=== PATIENT | female | born 1945 | race Caucasian/White ===

== ENCOUNTER 2020-08-28 22:49 | Inpatient (IN) | payer MEDICARE, OTHER, SELFPAY ==
--- NOTE | ~2020-08-28 | XR_ITS ---
EXAMINATION: XR BILATERAL HIPS WITH AP PELVIS CLINICAL INFORMATION: Include pelvis COMPARISON: CT left hip 11/26/2019, left hip and pelvis 11/26/2019 and pelvic radiographs 06/26/2015 TECHNIQUE: AP view of the pelvis and 2 additional views of each hip were obtained. FINDINGS: No pelvic fracture is seen. On the left, A left hip prosthesis is present. Since the prior study, metallic cerclage type wires have been placed around the prosthesis and there is a fracture involving the femur as well as the greater and lesser trochanter. On the right, degenerative changes are present in the hip joint with some narrowing more medially than superiorly with some sclerosis and osteophyte formation. No right hip fracture is seen. XR/XR hips JADE min 3V IMPRESSION: Since 11/26/2019, the patient has undergone revision of the left hip prosthesis with associated left sided femoral fractures as described above. Degenerative changes present in the right hip without fracture.
--- NOTE | ~2020-08-28 | CT_ITS ---
EXAMINATION: CT HIP WITHOUT CONTRAST, LEFT CLINICAL INFORMATION: Fall with left hip pain. COMPARISON: Radiograph from today. CT 11/26/2019. TECHNIQUE: Multidetector volumetric imaging of the left hip is performed without IV contrast. Coronal and sagittal reformatted images are obtained and reviewed. This CT examination was performed using dose optimization techniques as appropriate, variously including the following: *Automated exposure control *Adjustment of mA and/or kV according to patient size (this includes techniques or standardized protocols for targeted exams where dose is matched to indication/reason for exam; i.e. extremities or head) *Use of iterative reconstruction technique DLP: 182 mGy-cm FINDINGS: There is a left hip bipolar hemiarthroplasty. The femoral head there is cerclage wires present transfixing the previous periprosthetic fracture. The hardware appears intact. Lucent appearance along the medial aspect of the hardware suggest incomplete union of this previous periprosthetic fracture. Much of this bone is corticated, suggesting that this is a chronic finding rather than an acute injury. No definite joint effusion at the hip. The remaining pelvic structures appear grossly intact. CT/CT hip LT wo con IMPRESSION: Total left hip arthroplasty without evidence of failure. Intact cerclage wires transfixing the previous periprosthetic fracture with no definite acute fractures seen.
--- NOTE | ~2020-08-28 | CT_ITS ---
EXAMINATION: CT HEAD WITHOUT CONTRAST CLINICAL INFORMATION: Fall. Head injury. COMPARISON: 11/26/2019 TECHNIQUE: Contiguous axial imaging was performed from the skull base to vertex without intravenous contrast. This CT examination was performed using dose optimization techniques as appropriate, variously including the following: * Automated exposure control * Adjustment of mA and/or kV according to patient size (this includes techniques or standardized protocols for targeted exams where dose is matched to indication/reason for exam; i.e. extremities or head) Use of iterative reconstruction technique DLP: 538 mGy-cm. FINDINGS: There is no evidence of acute intracranial hemorrhage or territorial infarction. No abnormal mass effect or midline shift is seen. Barber to white matter differentiation is well preserved. No extra-axial fluid collections are identified. No hydrocephalus. Proportional prominence of the ventricles and sulcal spaces is consistent with mild volume loss. Patchy periventricular and deep white matter hypoattenuation is consistent with mild small vessel ischemic changes. The osseous structures and soft tissues are normal. The mastoid air cells and visualized portions of the paranasal sinuses are well aerated. CT/CT head/brain wo con IMPRESSION: No acute intracranial pathology.
--- NOTE | ~2020-08-28 | XR_ITS ---
EXAMINATION: XR RIBS, BILATERAL CLINICAL INFORMATION: Pain. Fall. COMPARISON: 04/04/2015 TECHNIQUE: 3 views of the bilateral ribs were obtained. FINDINGS: Lungs are clear. No consolidation, pneumothorax, or pleural effusion. The cardiomediastinal silhouette and pulmonary vasculature are normal. Aortic calcifications. Osseous structures are unremarkable. Ribs are intact. No fractures are identified. XR/XR ribs BI 3V IMPRESSION: No acute pulmonary finding. No focal rib abnormality identified.
[2020-08-28 23:00] VITALS: BP 175/60; PULSE 80; RESP 18; TEMP 36.8; O2SAT 89
[2020-08-28 23:12] VITALS: BP 155/68; BP 175/60; PULSE 78; PULSE 88; RESP 15; TEMP 37; O2SAT 91; O2SAT 97; BMI 20.1
[2020-08-29] VITALS: BP 175/60; PULSE 78; RESP 15; O2SAT 97
--- NOTE | 2020-08-29 00:18 | ED_ITS ---
HPI - Fall General Chief Complaint: Fall Stated Complaint: FALL BACK PAIN Time Seen by Provider: 08/28/20 23:59 Source: patient and EMS Mode of arrival: EMS Limitations: no limitations History of Present Illness HPI Narrative: 75-year-old female brought in by ambulance after sustained a mechanical fall at home 3 hours ago, patient states that she was walking tripped on carpet edge and fell backward hit her head, landed on her buttock area and bounced her head on the ground, no LOC, patient stated she tripped about 3 hours ago, complaining of a dull aching pain in the pelvis area describe it as 10/10, no radiation, movement make it worse, nothing relieves the pain, no other associated symptoms. Related Data Home Medications Medication Instructions Recorded Confirmed No Known Home Meds 08/28/20 08/28/20 Allergies Allergy/AdvReac Type Severity Reaction Status Date / Time scallops AdvReac Unknown NAUSEA & Verified 08/28/20 23:22 VOMITING Review of Systems Review of Systems: All other systems are reviewed and are negative Constitutional: Reports as per HPI and Reports no additional constitutional complaints Eyes: Reports as per HPI and Reports no additional eye complaints Reports system reviewed and no additional complaints, except as documented Cardiovascular: Reports as per HPI and Reports no additional cardiovascular complaints Respiratory: Reports as per HPI and Reports no additional respiratory complaints Gastrointestinal: Reports as per HPI and Reports no additional gastrointestinal complaints Genitourinary: Reports no additional female genitourinary complaints Musculoskeletal: Reports no additional musculoskeletal complaints Skin/Breast: Reports system reviewed and no additional complaints, except as docu Psychiatric: Reports no additional psychiatric complaints Endocrine: Reports no additional endocrine complaints Hematologic/Lymphatic: Reports no additional hematologic/lymphatic complaints Allergic/Immunologic: Reports no additional allergic/immunologic complaints Reports system reviewed and no additional complaints, except as documented and Reports Abnormal speech present [facility] Past Medical History Surgical History History of hip replacement Social History Social History Smoking Status: Current every day smoker Use of substances other than those prescribed or required for medical reasons: No Advance Directives: No Advance Directives Information Provided: No Physical Exam Vital Signs: Vital Signs: Last Vital Signs Temp 98.6 F 08/28/20 23:12 Pulse 78 08/29/20 00:00 Resp 15 08/29/20 00:00 BP 175/60 H 08/29/20 00:00 Pulse Ox 97 08/29/20 00:00 Body Mass Index 20.1 Vital signs have been reviewed as appeared to be correct. Blood pressure in the high range. Heart rate normal. Respiration rate normal. Temperature normal. Oxygen saturation normal. Appearance: Alert. Oriented X3. No acute distress. Head: Normal external exam. Normocephalic. Atraumatic. No Parikh signs noted. No raccoon eyes noted Eyes: PERRLA. EOMI. Conjunctiva and sclera normal. Eyelids normal. ENT: TM's Normal. Pharynx normal. Uvula midline. Moist mucous membranes. No trismus noted. No drooling noted. No muffled voice noted. Neck: Normal inspection. Neck supple. FROM. No adenopathy. Thyroid Normal. No meningeal signs. No neck mass noted. CVS: Normal heart rate and rhythm. Heart sound normal. No murmurs noted. Pulses normal throughout. Respiratory: No respiratory distress. Painless inspiration. Breath sounds normal. No wheezes/rales/rhonchi noted. Chest nontender. No accessory muscle usage noted or decreased air movement noted. Abdomen: Soft and nontender. Bowel sounds normal in all 4 quadrants. No distention noted. No organomegaly noted. No visible injury noted. Back: No CVA tenderness. Full range of motion noted. Skin: Skin warm and dry. Normal skin color. Normal skin turgor. No rashes/lesions/lacerations noted. Extremities: Normal alignment of both lower extremities is no rotation or shortening, no hip tenderness. Patient is unable to bear weight on her left hip. Neuro: Oriented X 3. No motor deficit. No sensory deficit. Reflexes normal. Course Course Course Narrative: Assessment and plan. 75-year-old sustained a mechanical fall, negative CT head and C-spine, negative pelvis/hips x-ray for fracture. Patient is not able to ambulate in the emergency department. The case discussed with Dr. Nair from orthopedic recommended to keep the patient overnight for further orthopedic evaluation. Discharge Plan Discharge Clinical Impression: Fall, Contusion of lower back and pelvis, initial encounter Patient Disposition: Admitted As Inpatient Prescriptions: No Action No Known Home Meds RF: 0 Referrals: Physician,Unknown [Primary Care Provider] - 2 days
--- NOTE | 2020-08-29 02:05 | ECG_ITS ---
Test Reason : FALL Blood Pressure : / mmHG Vent. Rate : 081 BPM Atrial Rate : 081 BPM P-R Int : 110 ms QRS Dur : 066 ms QT Int : 380 ms P-R-T Axes : 094 054 088 degrees QTc Int : 441 ms Poor data quality Sinus rhythm with short WV with Premature supraventricular complexes Otherwise normal ECG When compared with ECG of 04-APR-2015 15:37, PAC present Referred By: Jos Angelo Electronically Signed By:Vicente Castle
--- NOTE | 2020-08-29 02:11 | P.HPHOSP_ITS ---
History of Present Illness Date of Service: 08/29/20 Chief Complaint: Left hip pain 75-year-old female with a past medical history of osteoarthritis, history of left hip replacement, subsequent revision; presented to the hospital today with a chief complaint of fall. Patient complains of falling onto her back, landed on the buttocks and hitting her head. Denies any headaches or blurry vision. Denies any focal weakness. Denies any loss of consciousness. Denies any back pain. Denies any numbness tingling. Complains of pain in her left hip and unable to walk. Patient denies any fever chills cough. Denies any chest pain palpitations. Denies any GI or symptoms. Review of all other systems is negative except mentioned above ER course: Per ER team patient exam was nonfocal but noted to have pain on the left hip examination. X-ray showed question fracture around the prosthesis. Discussed with Dr. burr from Orthopedics; wound showed no acute intervention overnight, admitted to Medicine Service and will be re-evaluated in the morning. [facility] Surgical History History of hip replacement Social History Smoking Status: Current every day smoker Use of substances other than those prescribed or required for medical reasons: No Advance Directives: No Advance Directives Information Provided: No Meds Allergies Allergy/AdvReac Type Severity Reaction Status Date / Time scallops AdvReac Unknown NAUSEA & Verified 08/28/20 23:22 VOMITING Active Medications: Current Medications Generic Name Dose Route Start Last Admin Trade Name Freq PRN Reason Stop Dose Admin Acetaminophen 650 mg 08/29/20 02:04 Acetaminophen Supp 650 Mg Supp.Rect KS Q6H PRN Pain, Mild (Pain Scale 1-3) Docusate Sodium 100 mg 08/29/20 02:04 Docusate Sodium 100 Mg Capsule PO DAILY PRN Constipation Enoxaparin Sodium 40 mg 08/29/20 02:15 Enoxaparin Sodium 40 Mg/0.4 Ml Syringe SUBCUT Q24H YARELI Magnesium Hydroxide 30 ml 08/29/20 02:04 Milk Of Magnesia 30 Ml Oral.Susp PO DAILY PRN Constipation Oxycodone HCl 5 mg 08/30/20 02:04 Oxycodone Hcl Immed Release 5 Mg Tablet PO Q6H PRN Pain, Severe (Pain Scale 7-10) Sodium Chloride 3 ml 08/29/20 08:00 0.9 % Sodium Chloride Flush 3 Ml Syringe [facility] Zolpid[place] Tartrate 5 mg 08/29/20 02:04 Zolpidem Tartrate 5 Mg Tablet PO BEDTIME PRN Insomnia Home Medications Medication Instructions Recorded Confirmed Last Taken Type No Known Home Meds 08/28/20 08/28/20 Unknown History Physical Exam Vital Signs and Narrative: Vital Signs: Last Vital Signs Temp 98.6 F 08/28/20 23:12 Pulse 78 08/29/20 00:00 Resp 15 08/29/20 00:00 BP 175/60 H 08/29/20 00:00 Pulse Ox 97 08/29/20 00:00 Body Mass Index 20.1 Gen: Appears be in no acute distress HEENT: NCAT, Moist mucosa. Pulmonary: Vesicular breath sounds, fair air entry CVS: Normal S1-S2 Abdomen: BS+, Soft, Nontender Extremities: Warm well perfused; left hip exam limited secondary to pain. Abhijit rovascularly intact Neuro: Alert and awake. Results Labs CBC and Chem 7: 08/29/20 02:28 08/29/20 02:28 Imaging Radiologist's Impressions: Impressions Head CT 08/29/20 00:00 IMPRESSION: No acute intracranial pathology. Hip X-Ray 08/29/20 00:00 IMPRESSION: Since 11/26/2019, the patient has undergone revision of the left hip prosthesis with associated left sided femoral fractures as described above. Degenerative changes present in the right hip without fracture. Assessment and Plan (1) Hip pain: Status: Acute 75-year-old female with past medical history of hypertension, osteoarthritis, history of left hip replacement, subsequent revision presented to the hospital today with a chief complaint of fall. Complains of left hip pain; noted left hip fracture. Fall: Mechanical in nature. Patient had head strike. Exam nonfocal. CT head showed no acute findings. Fall precautions. PT/OT. No Spinal tenderness noticed; Rt lateral rib pain elicited-> Rib x rays pending Left hip pain: Patient has prior history of left hip replacement and has prosthesis. Current hip x-rays showed left-sided femur fracture and lesser and greater trochanter fracture. CT of the hip- no acute fracture Orthopedics was notified, mentioned no acute intervention tonight and patient will be evaluated the patient in the morning. Fall precautions Pain control Hypertension: Monitor vitals. pt not on meds at home; DVT prophylaxis: Lovenox Code status: Full code
[2020-08-29 02:37] LABS: MANUAL DIFF FLAG NO
[2020-08-29 02:43] LABS: Basophils Percent Auto 0.2 % (0-2); Eosinophils Percent Auto 0.2 % (0-4); Hematocrit 41.2 % (37-47); Hemoglobin 13.2 g/dl (12.0-16.0); Imm Gran Abs Auto 0.09 X10*3/uL (0.00-0.03); Imm Gran Pct Auto 0.7 % (0.0-0.4); Lymphocytes Absolute Auto 1.3 X10*3/uL (1.2-4.9); Lymphocytes Percent Auto 10.6 % (20-40); Mean Corpuscular Hemoglobin 27.6 pg (27.0-33.0); Mean Platelet Volume 9.5 fL (9.4-12.3); Monocytes Absolute Auto 0.9 X10*3/uL (0.1-1.2); Monocytes Percent Auto 7.4 % (2-11); Neutrophils Absolute Auto 9.7 X10*3/uL (2.0-8.3); Neutrophils Percent Auto 80.9 % (45-73); Platelet Count 393 X10*3/uL (160-400); Red Blood Count 4.79 X10*6/uL (4.20-5.50)
[2020-08-29 03:00] LABS: COVID-19 Test Negative (Negative); IDNOW Serial# 9DD0AD1C
[2020-08-29 03:03] LABS: Anion Gap 13 (12-20); Blood Urea Nitrogen 18 mg/dL (9-16); Calcium 8.5 mg/dL (8.4-10.2); Carbon Dioxide 31 mmol/L (22-29); Chloride 102 mmol/L (96-108); Creatinine Clr Calc Pharmacy 52.2; Estimated Glomerular Filt Rate > 60; Glucose Random 114 mg/dL (60-115); Potassium 4.6 mmol/L (3.3-5.1); Sodium 141 mmol/L (135-145)
[2020-08-29 03:11] LABS: Troponin-I High Sensitivity < 3.5 ng/L (<3.5-17.0)
[2020-08-29] MEDS: oxyCODONE HCl Immed Release 5 MG TABLET PO ×2 (07:15→14:33)
[2020-08-29] MEDS: 0.9 % Sodium Chloride Flush 3 ML SYRINGE IVFLUSH ×2 (07:31→15:59)
[2020-08-29 08:07] LABS: MANUAL DIFF FLAG NO
[2020-08-29 08:11] LABS: Basophils Percent Auto 0.3 % (0-2); Eosinophils Absolute Auto 0.1 X10*3/uL (0.0-0.4); Eosinophils Percent Auto 0.5 % (0-4); Hematocrit 41.2 % (37-47); Imm Gran Abs Auto 0.05 X10*3/uL (0.00-0.03); Imm Gran Pct Auto 0.5 % (0.0-0.4); Lymphocytes Absolute Auto 1.1 X10*3/uL (1.2-4.9); Lymphocytes Percent Auto 11.5 % (20-40); Mean Corpuscular HGB Conc 31.6 g/dl (31.0-35.0); Mean Corpuscular Hemoglobin 26.6 pg (27.0-33.0); Mean Corpuscular Volume 84.4 fL (80-98); Mean Platelet Volume 9.7 fL (9.4-12.3); Monocytes Absolute Auto 0.7 X10*3/uL (0.1-1.2); Monocytes Percent Auto 7.3 % (2-11); Neutrophils Absolute Auto 7.4 X10*3/uL (2.0-8.3); Neutrophils Percent Auto 79.9 % (45-73); Platelet Count 377 X10*3/uL (160-400); Red Blood Count 4.88 X10*6/uL (4.20-5.50); Red Cell Distribution Width 13.7 % (11.0-16.0); White Blood Count 9.2 X10*3/uL (4.8-10.8)
[2020-08-29 08:36] LABS: Anion Gap 10 (12-20); Blood Urea Nitrogen 17 mg/dL (9-16); Calcium 8.5 mg/dL (8.4-10.2); Carbon Dioxide 32 mmol/L (22-29); Chloride 101 mmol/L (96-108); Creatinine Clr Calc Pharmacy 56.2; Estimated Glomerular Filt Rate > 60; Glucose Random 115 mg/dL (60-115); Potassium 4.6 mmol/L (3.3-5.1); Sodium 138 mmol/L (135-145)
--- NOTE | 2020-08-29 08:53 | P.CONOP_ITS ---
History of Present Illness HPI Consult date: 08/29/20 Consult reason: joint pain Chief complaint: LEFT HIP PAIN Narrative: Ms. Hameed is a 75 yo female who sustained a mechanical fall after tripping on her rug last evening. She is s/p left hip hemiarthroplasty with Dr. Resendez on 04/04/2015 and a revision with cerclage wires after sustaining a periprosthetic fracture sometime late last year at [facility]. She is unable to remember when exactly. She states that during the fall she hit her head and immediately felt left hip pain. She states that she was unable to ambulate after the fall and presented to the ER shortly after and orthopedics was consulted. She lives with her daughter and uses a walker at baseline to ambulate. Review of Systems Review of Systems: Yes all other systems are reviewed and are negative [facility] Surgical History Surgical History History of hip replacement Social History Social History Smoking Status: Current every day smoker Use of substances other than those prescribed or required for medical reasons: No Advance Directives: No Advance Directives Information Provided: No Meds Allergies Allergy/AdvReac Type Severity Reaction Status Date / Time scallops AdvReac Unknown NAUSEA & Verified 08/28/20 23:22 VOMITING Active Medications: Current Medications Generic Name Dose Route Start Last Admin Trade Name Freq PRN Reason Stop Dose Admin Acetaminophen 650 mg 08/29/20 02:04 Acetaminophen Supp 650 Mg Supp.Rect GA Q6H PRN Pain, Mild (Pain Scale 1-3) Docusate Sodium 100 mg 08/29/20 02:04 Docusate Sodium 100 Mg Capsule PO DAILY PRN Constipation Enoxaparin Sodium 40 mg 08/29/20 08:00 Enoxaparin Sodium 40 Mg/0.4 Ml Syringe SUBCUT Q24H YARELI Magnesium Hydroxide 30 ml 08/29/20 02:04 Milk Of Magnesia 30 Ml Oral.Susp PO DAILY PRN Constipation Oxycodone HCl 5 mg 08/29/20 03:40 08/29/20 07:15 Oxycodone Hcl Immed Release 5 Mg Tablet PO 5 mg Q6H PRN Administration Breakthrough Pain Sodium Chloride 3 ml 08/29/20 08:00 08/29/20 07:31 0.9 % Sodium Chloride Flush 3 Ml Syringe IVFLUSH 3 ml QSHIFT YARELI Administration Zolpidem Tartrate 5 mg 08/29/20 02:04 Zolpidem Tartrate 5 Mg Tablet PO BEDTIME PRN Insomnia Home Medications Medication Instructions Recorded Confirmed Last Taken Type No Known Home Meds 08/28/20 08/28/20 Unknown History Physical Exam Vital Signs: Vital Signs: Last Vital Signs Temp 98.6 F 08/28/20 23:12 Pulse 78 08/29/20 00:00 Resp 15 08/29/20 00:00 BP 175/60 H 08/29/20 00:00 Pulse Ox 97 08/29/20 00:00 Body Mass Index 20.1 Const: General: cooperative and no acute distress Orientat ion/consciousness: patient oriented x3 Resp: Effort & Inspection: normal respiratory effort and able to speak in complete sentences Cardio: Peripheral pulses: Peripheral pulses 2+ throughout Skin: General skin exam: no rashes or lesions noted Neuro: General: patient oriented x3 Extrem: Other: left hip no ecchymosis, redness, or lesions. No tenderness to palpation of the left hip. Patient is able to perform a straight leg raise, hip abduction, hip adduction and tolerate log roll with no pain. Pedal pulse intact. Results Labs Result Diagrams: 08/29/20 08:03 08/29/20 08:03 Labs: Abnormal lab results 08/29/20 08/29/20 08/29/20 Range/Units 02:28 02:28 08:03 WBC 12.0 H (4.8-10.8) X10*3/uL MCH 26.6 L (27.0-33.0) pg Immature Gran % (Auto) 0.7 H 0.5 H (0.0-0.4) % Neut % (Auto) 80.9 H 79.9 H (45-73) % Lymph % (Auto) 10.6 L 11.5 L (20-40) % Lymph # (Auto) 1.1 L (1.2-4.9) X10*3/uL Abs Immat Gran (auto) 0.09 H 0.05 H (0.00-0.03) X10*3/uL Absolute Neuts (auto) 9.7 H (2.0-8.3) X10*3/uL Carbon Dioxide 31 H (22-29) mmol/L Anion Gap (12-20) BUN 18 H (9-16) mg/dL 08/29/20 Range/Units 08:03 WBC (4.8-10.8) X10*3/uL MCH (27.0-33.0) pg Immature Gran % (Auto) (0.0-0.4) % Neut % (Auto) (45-73) % Lymph % (Auto) (20-40) % Lymph # (Auto) (1.2-4.9) X10*3/uL Abs Immat Gran (auto) (0.00-0.03) X10*3/uL Absolute Neuts (auto) (2.0-8.3) X10*3/uL Carbon Dioxide 32 H (22-29) mmol/L Anion Gap 10 L (12-20) BUN 17 H (9-16) mg/dL H & H 08/29/20 08/29/20 Range/Units 02:28 08:03 Hgb 13.2 13.0 (12.0-16.0) g/dl Hct 41.2 41.2 (37-47) % All other labs normal. Assessment and Plan (1) Hip pain: Status: Acute Ms. Tovar is a 75 yo female who presents to the ED after sustaining a mechanical fall last evening. She is s/p left hip hemiarthroplast on 04/04/[address] Resendez and then underwent a revision sometime late last year at [facility]. X-rays and CT of the hip were obtained and reveal intact hardware with no acute fracture or effusion. She may WBAT and work with P.T. Followup outpatient as needed.
[2020-08-29 09:34] LABS: Estimated Average Glucose 103 mg/dL; Hemoglobin A1c % 5.2 %
[2020-08-29 09:45] VITALS: BP 175/60; PULSE 78; O2SAT 97
[2020-08-29] MEDS: Enoxaparin Sodium 40 MG/0.4 ML SYRINGE SUBCUT (09:53)
[2020-08-29] MEDS: Morphine Sulfate 2 MG/ML CARTRIDGE IVPUSH ×2 (11:12→17:23)
[2020-08-29 14:49] VITALS: BP 193/70
[2020-08-29] MEDS: amLODIPine Besylate 5 MG TABLET PO (14:49)
--- NOTE | 2020-08-29 14:59 | PM.EVENT ---
Event Note Date of Service: 08/29/20 Event Note: 75-year-old female presented with fall and hip pain patient was also reporting pain on right lateral chest patient seen and examined at bedside on exam alert abdomen soft CVS rate and rhythm regular mild tender on right lateral chest, lungs clear admitted for status post fall hip pain CT hip shows no acute fracture seen by Orthopedic recommended pain management and physical therapy, continue pain management, evaluated by PT recommended short-term rehab, possible discharge to rehab tomorrow if pain is controlled, x-ray rib shows no acute fracture
[2020-08-29 17:59] VITALS: BP 163/61; PULSE 91; RESP 24; TEMP 37.2; O2SAT 97
[2020-08-29 20:00] VITALS: BP 135/68; PULSE 89; RESP 20; TEMP 37.2; O2SAT 93
[2020-08-29 23:57] VITALS: BP 148/70; PULSE 98; RESP 19; TEMP 37.2; O2SAT 91
[2020-08-30] MEDS: Morphine Sulfate 2 MG/ML CARTRIDGE IVPUSH (00:03)
[2020-08-30 03:16] VITALS: BP 149/61; PULSE 100; RESP 19; TEMP 37.1; O2SAT 91
[2020-08-30 05:44] LABS: Magnesium 1.9 mg/dL (1.6-2.6)
[2020-08-30] MEDS: oxyCODONE HCl Immed Release 5 MG TABLET PO (06:09)
[2020-08-30] MEDS: Enoxaparin Sodium 40 MG/0.4 ML SYRINGE SUBCUT (07:52)
[2020-08-30] MEDS: 0.9 % Sodium Chloride Flush 3 ML SYRINGE IVFLUSH ×2 (07:57)
[2020-08-30 07:59] VITALS: BP 141/67; PULSE 103
[2020-08-30] MEDS: amLODIPine Besylate 5 MG TABLET PO (07:59)
[2020-08-30 08:00] VITALS: BP 141/67; PULSE 103; RESP 20; TEMP 37.2; O2SAT 90
--- NOTE | 2020-08-30 09:03 | MHC.CM.PN ---
CM met with Patient at bedside and addressed IMM, providing Patient with the original and a copy has been placed on the chart. Patient was living with her Daughter until recently (she did not care for her Daughter's Boyfriend nor her Grandchildren's behavior); Patient now lives alone in a house and uses a walker to assist with mobility. PT is recommending STR and Patient's first choice is [facility] (referral made). Patient has not seen a Doctor for over 7 years, since her passed. Patient does not use O2 at home. Patient's Daughter/Terra is Patient's HCP.
--- NOTE | 2020-08-30 10:30 | MHC.CM.PN ---
Patient has been medically cleared for dc to [facility] today. Patient has been accepted at her first choice SNF- [facility] and she will dc there today at 1 PM, via [facility]. IMM addressed with Patient this morning.
--- NOTE | 2020-08-30 10:30 | MHC.INPTTRAN ---
alert, vague and confused at times. Is WBAT, 2 assist to get OOB. weak, C/o pain left rib area. Wearing 02 at 3l via N/C. has congested cough. Incen spir encouraged. Huy diet. voiding. thanks.
--- NOTE | 2020-08-30 10:31 | P.DS_ITS ---
DS: Providers Provider Date of Service: 08/30/20 Date of admission: 08/29/20 02:04 Primary care physician: Unknown Physician Consults: 08/29/20 08:38 Consult to Orthopedics Routine Consulting Provider: [facility] Reason for consultation: hip pain previous prosthesis DS: Diagnosis Discharge Diagnosis (1) Hip pain: Status: Acute (2) Fall: Status: Acute DS: Medications Discharge Medications Home Medications: Previous Rx's Medication Instructions Recorded albuterol sulfate 1 inh INHALATION QID PRN #6.7 g 08/30/20 amlodipine 5 mg PO DAILY #30 tab 08/30/20 docusate sodium 100 mg PO DAILY PRN #20 cap 08/30/20 magnesium hydroxide [Milk of 30 ml PO DAILY PRN #200 ml 08/30/20 Magnesia] oxycodone 5 mg PO Q6H PRN #20 tab 08/30/20 DS: Summary Hospital Course Hospital Course: Hand P 75-year-old female with a past medical history of osteoarthritis, history of left hip replacement, subsequent revision; presented to the hospital today with a chief complaint of fall. Patient complains of falling onto her back, landed on the buttocks and hitting her head. Denies any headaches or blurry vision. Denies any focal weakness. Denies any loss of consciousness. Denies any back pain. Denies any numbness tingling. Complains of pain in her left hip and unable to walk. Patient denies any fever chills cough. Denies any chest pain palpitations. Denies any GI or symptoms. Review of all other systems is negative except mentioned above ER course: Per ER team patient exam was nonfocal but noted to have pain on the left hip examination. X-ray showed question fracture around the prosthesis. Discussed with Dr. burr from Orthopedics; wound showed no acute intervention overnight, admitted to Medicine Service and will be re-evaluated in the morning. Hospital Course 75-year-old female presented with fall and hip pain, per CT head on admission shows no acute fracture, patient was seen by Orthopedic recommended pain management and physical therapy given no fracture, patient was started on pain medication, pain was controlled, patient was evaluated by Physical therapy recommended short-term rehab, patient's oxygen was borderline patient was placed on oxygen likely secondary to COPD from chronic smoking, patient was also started on albuterol inhaler, patient was stable discharged to short-term rehab Time Spent with Patient Time attestation: Total time spent providing and/or coordinating discharge services: Discharge coordination time: Greater than 30 minutes Physical Exam Vital Signs: Vital Signs: Last Vital Signs Temp 98.9 F 08/30/20 08:00 Pulse 103 H 08/30/20 08:00 Resp 20 08/30/20 08:00 BP 141/67 H 08/30/20 08:00 Pulse Ox 90 L 08/30/20 08:00 Body Mass Index 20.1 DS: Data Data Completed and Pending Labs on day of discharge: Laboratory Results - last 24 hr 08/30/20 04:41 Magnesium 1.9 Discharge Plan Discharge Anticipated Discharge Date/Time: 08/30/20 10:21 Patient Disposition: Xfer [facility]Outside] Physician,Unknown [Primary Care Provider] - 2 days Discharge Medications: New amlodipine 5 mg Tablet 5 mg PO DAILY Qty: 30 RF: 0 magnesium hydroxide [Milk of Magnesia] 400 mg/5 mL Suspension 30 ml PO DAILY PRN (Reason: Constipation) Qty: 200 RF: 0 docusate sodium 100 mg Capsule 100 mg PO DAILY PRN (Reason: Constipation) Qty: 20 RF: 0 oxycodone 5 mg Tablet 5 mg PO Q6H PRN (Reason: Breakthrough Pain) Qty: 20 RF: 0 albuterol sulfate 90 mcg/actuation HFA aerosol inhaler 1 inh inhalation QID PRN (Reason: shortness of breath or wheezing) Qty: 6.7 RF: 0 Discharge Orders: Discharge Order (Routine); Ordered 08/30/20 Ordered By: David Calhoun Activity on Discharge: As tolerated Stand Alone Forms: Patient Portal Discharge page Care Plan Goals: treat pain Health Concerns: fall hip pain Plan of Treatment: pain medication STR Discharge Date/Time: 08/30/20 13:47
[2020-08-30 11:45] LABS: Anion Gap 13 (12-20); Blood Urea Nitrogen 16 mg/dL (9-16); Calcium 8.5 mg/dL (8.4-10.2); Carbon Dioxide 30 mmol/L (22-29); Chloride 99 mmol/L (96-108); Creatinine Clr Calc Pharmacy 56.2; Estimated Glomerular Filt Rate > 60; Glucose Random 122 mg/dL (60-115); Potassium 4.1 mmol/L (3.3-5.1); Sodium 138 mmol/L (135-145)
[2020-08-30 12:00] VITALS: BP 123/53; PULSE 94; RESP 94; TEMP 36.8; O2SAT 2
[2020-08-30 12:39] VITALS: RESP 20; TEMP 36.9; O2SAT 93
== END 2020-08-30 13:47 | disposition skilled nursing facility (03) | DRG 561 ==
LOC: HO.ED 08-29 02:08 → HO.EDOVER 08-29 02:20 → HO.IMC 08-29 16:40
PROVIDERS: Admitting Provider Hospitalist; Emergency Provider Emergency Medicine; Visit Provider Internal Medicine
DX: M97.02XA Periprosthetic fracture around internal prosthetic left hip joint, initial encounter (principal); F17.210 Nicotine dependence, cigarettes, uncomplicated; I10 Essential (primary) hypertension; J44.9 Chronic obstructive pulmonary disease, unspecified; Z71.6 Tobacco abuse counseling; Z20.822 Contact with and (suspected) exposure to COVID-19; Z79.891 Long term (current) use of opiate analgesic; Z79.899 Other long term (current) drug therapy
CPT/HCPCS: 36415; 70450; 71110; 73522; 73700; 80048; 83036; 83735; 84484; 85025; 87635; 93005; 97162; 97166; 99285; J1650; J2270

== ENCOUNTER 2021-10-20 20:40 | Inpatient (IN) | payer MEDICARE, OTHER, SELFPAY ==
--- NOTE | ~2021-10-20 | XR_ITS ---
EXAMINATION: XR CHEST CLINICAL INFORMATION: Cough and fever COMPARISON: 08/29/2020 TECHNIQUE: Frontal view of the chest was obtained. FINDINGS: Emphysema. Chronic lung markings. Streaky opacities at the left greater than right lung bases. No large pleural effusion. No pneumothorax. Normal heart size. Aorta is tortuous and atherosclerotic. XR/XR chest 1V IMPRESSION: Bibasilar streaky opacities potentially subsegmental atelectasis, however infiltrate is not excluded, particularly at the left lung base. Chronic lung markings and likely emphysema redemonstrated.
[2021-10-20 22:23] VITALS: BP 150/60; PULSE 115; RESP 25; TEMP 37.6; O2SAT 85; BMI 17.6
[2021-10-20 22:53] VITALS: BP 138/60; PULSE 102; RESP 15; TEMP 38.2; O2SAT 95
[2021-10-20 23:10] VITALS: BP 146/61; PULSE 94; O2SAT 100
--- NOTE | 2021-10-20 23:46 | ED_ITS ---
HPI - Altered Mental Status General Chief Complaint: Altered Mental Status Stated Complaint: fatigue, sniffles, off , dehydrated Time Seen by Provider: 10/20/21 23:46 Source: patient and family Mode of arrival: ambulatory Limitations: no limitations History of Present Illness HPI narrative: Patient is 76 years old chronic smoker with COPD been feeling weak and confused for last 3- 4 days with low-grade fever . Patient has not received the COVID vaccine, on arrival patient was saturating 85% at room air a temperature of 100.7 degrees on arrival denies any urinary symptoms no chest pain or palpitation no abdominal pain no nausea or vomiting Related Data Previous Rx's Medication Instructions Recorded albuterol sulfate 90 mcg/actuation 1 inh INHALATION QID PRN #6.7 g 08/30/20 aerosol inhaler amlodipine 5 mg tablet 5 mg PO DAILY #30 tab 08/30/20 docusate sodium 100 mg capsule 100 mg PO DAILY PRN #20 cap 08/30/20 magnesium hydroxide 400 mg/5 mL 30 ml PO DAILY PRN #200 ml 08/30/20 oral suspension (Milk of Magnesia) oxycodone 5 mg tablet 5 mg PO Q6H PRN #20 tab 08/30/20 Allergies Allergy/AdvReac Type Severity Reaction Status Date / Time scallops AdvReac Unknown NAUSEA & Verified 10/20/21 22:29 VOMITING Review of Systems Review of Systems: Yes all other systems are reviewed and are negative [facility] Past Medical History Surgical History History of hip replacement Social History Social History Household Members: Family Housing: House Do you presently have visiting nurse or other home services: No Patient Tobacco Use Status: Current everyday Tobacco user Cigarettes Per Day: 9 Smoked in Last 30 Days: Yes Second Hand Smoke Exposure: No Advance Directives: No Advance Directives Information Provided: No service: No Current occupational status: retired Physical Exam ED Vital Signs: Vital Signs - 24 hr 10/20/21 22:23 10/20/21 22:53 10/20/21 23:10 Temperature 99.6 F 100.7 F H Pulse Rate 115 H 102 H 94 Respiratory Rate 25 H 15 Blood Pressure 150/60 H 138/60 146/61 H Pulse Oximetry 85 L 95 100 10/20/21 23:49 10/21/21 00:08 Temperature Pulse Rate 93 91 Respiratory Rate 14 18 Blood Pressure 165/67 H Pulse Oximetry 100 BMI result Body Mass Index 17.6 Appearance: Alert. Oriented X3. Thin cachectic patient Eyes: No pallor or icterus ENT: Pharynx normal. Oral Mucosa moist Neck: Normal inspection. Neck supple. CVS: Normal heart rate and rhythm. Pulses normal. Respiratory: No respiratory distress. Equal air entry bilateral, decreased air entry bilateral few crackles at the bases Abdomen: Soft and nontender. Bowel sounds are present, no mass palpable, no CVA tenderness Skin: Skin warm and dry. Normal skin color. Normal skin turgor. Extremities: No lower extremity edema. No calf tenderness Neuro: Oriented X 3. No motor deficit. No sensory deficit.No cerebellar signs , cranial nerves II-XII intact MDM - Altered Mental Status MDM Narrative Medical decision making narrative: Patient with acute respiratory failure secondary to COVID-19 infection along with COPD saturating 85% at room air improved to 98% on 2 L of oxygen nasal cannula will admit patient for acute hypoxemia 2ndry to COVID-19 started and steroids plan to place her on remdesivir after ID consultation patient chest x- ray is negative for any acute. Lab Data Attestation: I reviewed the patient's lab results. Result diagrams: 10/20/21 23:48 10/20/21 23:47 Labs: Lab Results 10/20/21 10/20/21 10/20/21 Range/Units 23:47 23:48 23:48 WBC 7.0 (4.8-10.8) X10*3/uL RBC 4.58 (4.20-5.50) X10*6/uL Hgb 13.0 (12.0-16.0) g/dl Hct 41.5 (37.0-47.0) % MCV 90.6 (80.0-98.0) fL MCH 28.4 (27.0-33.0) pg MCHC 31.3 (31.0-35.0) g/dl RDW 15.4 (11.0-16.0) % Plt Count 314 (160-400) X10*3/uL MPV 10.2 (9.4-12.3) fL Absolute Nucleated RBC 0.000 (0.0-0.012) X10*3/uL Nucleated RBC % (auto) 0.0 (0.0-0.2) /100WBC PT (9.9-13.0) SEC INR (0.9-1.1) APTT (24.1-38.0) SEC D-Dimer High Sensitivty NG/ML Sodium 145 (135-145) mmol/L Potassium 3.7 (3.3-5.1) mmol/L Chloride 108 (96-108) mmol/L Carbon Dioxide 26 (22-29) mmol/L Anion Gap 15 (12-20) BUN 14 (9-16) mg/dL Creatinine 0.60 (0.5-1.4) mg/dL Estim Creat Clear Calc 49.7 Estimated GFR > 60 Random Glucose 82 (60-115) mg/dL Lactic Acid (0.5-2.0) mmol/L Calcium 8.2 L (8.4-10.2) mg/dL Total Bilirubin 0.4 (0.0-1.0) mg/dL AST 36 H (5-31) U/L ALT 15 (0-31) U/L Alkaline Phosphatase 101 (39-117) U/L Total Protein 6.2 L (6.5-8.0) g/dL Albumin 3.1 L (3.5-5.0) g/dL COVID-19 (ZAHRAA) Positive A (Negative) COVID-19 Clin Com See Note 10/21/21 10/21/21 Range/Units 00:49 00:49 WBC (4.8-10.8) X10*3/uL RBC (4.20-5.50) X10*6/uL Hgb (12.0-16.0) g/dl Hct (37.0-47.0) % MCV (80.0-98.0) fL MCH (27.0-33.0) pg MCHC (31.0-35.0) g/dl RDW (11.0-16.0) % Plt Count (160-400) X10*3/uL MPV (9.4-12.3) fL Absolute Nucleated RBC (0.0-0.012) X10*3/uL Nucleated RBC % (auto) (0.0-0.2) /100WBC PT 12.2 (9.9-13.0) SEC INR 1.1 (0.9-1.1) APTT 35.4 (24.1-38.0) SEC D-Dimer High Sensitivty 206 NG/ML Sodium (135-145) mmol/L Potassium (3.3-5.1) mmol/L Chloride (96-108) mmol/L Carbon Dioxide (22-29) mmol/L Anion Gap (12-20) BUN (9-16) mg/dL Creatinine (0.5-1.4) mg/dL Estim Creat Clear Calc Estimated GFR Random Glucose (60-115) mg/dL Lactic Acid 0.8 (0.5-2.0) mmol/L Calcium (8.4-10.2) mg/dL Total Bilirubin (0.0-1.0) mg/dL AST (5-31) U/L ALT (0-31) U/L Alkaline Phosphatase (39-117) U/L Total Protein (6.5-8.0) g/dL Albumin (3.5-5.0) g/dL COVID-19 (ZAHRAA) (Negative) COVID-19 Clin Com ECG Data ECG #1: Attestation: I personally reviewed and interpreted this ECG as follows: Interpretation: Normal sinus rhythm heart rate 89 beats per minute normal intervals normal axis no acute STT wave changes no acute ischemia Discharge Plan Discharge Clinical Impression: Acute hypoxemic respiratory failure due to COVID-19, Acute exacerbation of chronic obstructive pulmonary disease (COPD) Patient Disposition: Admitted As Inpatient
[2021-10-20 23:49] VITALS: BP 165/67; PULSE 93; RESP 14; O2SAT 100
[2021-10-20 23:54] LABS: Hematocrit 41.5 % (37.0-47.0); Mean Corpuscular HGB Conc 31.3 g/dl (31.0-35.0); Mean Corpuscular Hemoglobin 28.4 pg (27.0-33.0); Mean Corpuscular Volume 90.6 fL (80.0-98.0); Mean Platelet Volume 10.2 fL (9.4-12.3); Platelet Count 314 X10*3/uL (160-400); Red Blood Count 4.58 X10*6/uL (4.20-5.50); Red Cell Distribution Width 15.4 % (11.0-16.0)
[2021-10-21] LABS: COVID-19 Test Positive (Negative)
[2021-10-21] MEDS: Albuterol/Iprat 2.5/0.5MG 3 ML AMPUL.NEB INHALE (00:04)
[2021-10-21 00:08] VITALS: PULSE 91; RESP 18; O2SAT 99
[2021-10-21] MEDS: cefTRIAXone sodium 1 GM in 0.9 % Sodium Chloride 50 ML IV (00:11)
[2021-10-21] MEDS: 0.9 % Sodium Chloride 1,000 ML 999 ML IV (00:12)
[2021-10-21] MEDS: Acetaminophen 325 MG TABLET 650 MG PO (00:14)
[2021-10-21 00:18] LABS: Alanine Aminotransferase 15 U/L (0-31); Albumin Level 3.1 g/dL (3.5-5.0); Alkaline Phosphatase 101 U/L (39-117); Anion Gap 15 (12-20); Aspartate Amino Transferase 36 U/L (5-31); Bilirubin Total 0.4 mg/dL (0.0-1.0); Blood Urea Nitrogen 14 mg/dL (9-16); Calcium 8.2 mg/dL (8.4-10.2); Carbon Dioxide 26 mmol/L (22-29); Chloride 108 mmol/L (96-108); Creatinine Clr Calc Pharmacy 49.7; Estimated Glomerular Filt Rate > 60; Glucose Random 82 mg/dL (60-115); Potassium 3.7 mmol/L (3.3-5.1); Sodium 145 mmol/L (135-145); Total Protein 6.2 g/dL (6.5-8.0)
[2021-10-21] MEDS: dexAMETHasone sod phosphate 4 MG/ML VIAL 6 MG IVPUSH ×2 (00:56→08:24)
[2021-10-21 01:08] LABS: Lactic Acid 0.8 mmol/L (0.5-2.0)
[2021-10-21 01:09] LABS: INTERNATIONAL NORM RATIO 1.1 (0.9-1.1); Prothrombin Time 12.2 SEC (9.9-13.0)
[2021-10-21 01:11] LABS: D Dimer High Sensitivity 206 NG/ML
[2021-10-21 01:12] LABS: Partial Thromboplastin Time 35.4 SEC (24.1-38.0)
--- NOTE | 2021-10-21 01:28 | ECG_ITS ---
Test Reason : SOB Blood Pressure : / mmHG Vent. Rate : 089 BPM Atrial Rate : 089 BPM P-R Int : 108 ms QRS Dur : 070 ms QT Int : 362 ms P-R-T Axes : 084 004 032 degrees QTc Int : 440 ms Sinus rhythm with short VT Otherwise normal ECG When compared with ECG of 29-AUG-2020 03:21, Premature supraventricular complexes are no longer Present Nonspecific T wave abnormality now evident in Inferior leads Referred By: Bj White Electronically Signed By:Vicente Castle
[2021-10-21 03:43] VITALS: BP 132/57; PULSE 82; RESP 22; O2SAT 99
[2021-10-21 04:00] VITALS: BP 126/54; PULSE 75; RESP 16; TEMP 36.9; O2SAT 100
--- NOTE | 2021-10-21 05:21 | PC.NURSE ---
Pt a&o x 4 resting comfortably, interventions for breathing have worked well and pt is able to rest. Will continue to monitor.
--- NOTE | 2021-10-21 06:33 | P.HPHOSP_ITS ---
History of Present Illness Date of Service: 10/21/21 Chief Complaint: Not feeling well 75-year-old female with a past medical history of osteoarthritis, history of hip replacement, heavy smoker presented to the hospital today with a chief complaint of not feeling well. Most of the history obtained from the patient and patient's family at bedside. Reportedly patient has been not feeling well for the past couple days. Family mentioned that patient was not COVID-19 vaccinated. Patient denies any cough or sputum production. Denies any chest pain or palpitations. Denies any GI symptoms. Denies any recent travel or sick contacts. Review of all other systems is negative except mentioned above ER course: Per ER team patient on presentation noted to be saturating 85% on room air; chest x-ray showed opacities; D-dimer age adjusted was negative; lung exam noted to have diminished breath sounds; patient was given Decadron; patient also had a fever of 100.8 F; COVID-19 positive. Admitted to the hospital [facility] Medical History (Updated 11/06/21 @ 00:03 by Danika Baker) COPD (chronic obstructive pulmonary disease) Pertinent family history: Patient unable to recall family history. Surgical History History of hip replacement Social History Household Members: Family Household Members Other:: daughter Housing: House Do you presently have visiting nurse or other home services: No Patient Tobacco Use Status: Current everyday Tobacco user Tobacco use type: Cigarette Cigarettes Per Day: 4 Second Hand Smoke Exposure: No service: No Current occupational status: retired [employer] Allergies Allergy/AdvReac Type Severity Reaction Status Date / Time scallops AdvReac Unknown NAUSEA & Verified 10/20/21 22:29 VOMITING Active Medications: Current Medications Acetaminophen (Acetaminophen 325 Mg Tablet) 650 mg PO Q6H PRN PRN Reason: Pain, Mild (Pain Scale 1-3) Albuterol Sulfate (Albuterol Sulfate 90 Mcg 8 Gm Inhaler) 4 puff INHALE Q2H PRN PRN Reason: sob Dexamethasone Sodium Phosphate (Dexamethasone Sod Phosphate 4 Mg/Ml Vial) 6 mg IVPUSH DAILY [facility] Enoxaparin Sodium (Enoxaparin Sodium 40 Mg/0.4 Ml Syringe) 40 mg SUBCUT Q24H Y[facility]ELI Azithromycin 500 mg/ Sodium (Chloride) 250 mls @ 125 mls/hr IV Q24H [facility] Ceftriaxone Sodium 1 gm/ (Sodium Chloride) 50 mls @ 100 mls/hr IV Q24H [facility] Melatonin (Melatonin 3 Mg Tablet) 6 mg PO BEDTIME PRN PRN Reason: Insomnia Morphine Sulfate (Morphine Sulfate 2 Mg/Ml Cartridge) 1 mg IVPUSH Q4H PRN; Protocol PRN Reason: pain/sob Senna (Sennosides 8.6 Mg Tablet) 17.2 mg PO BEDTIME PRN PRN Reason: Constipation Sodium Chloride (0.9 % Sodium Chloride Flush 3 Ml Syringe) 3 ml IVFLUSH QSHIFT [facility] Home Medications Medication Instructions Recorded Confirmed Last Taken Type multivitamin 1 tab PO DAILY 10/21/21 10/21/21 Unknown History Physical Exam Vital Signs and Narrative: Vital Signs: Last Vital Signs Temp 98.5 F 10/21/21 04:00 Pulse 75 10/21/21 04:00 Resp 16 10/21/21 04:00 BP 126/54 L 10/21/21 04:00 Pulse Ox 100 10/21/21 04:00 BMI result Body Mass Index 17.6 Gen: Appears be in no acute distress; thin built. On supplemental oxygen. Able to finish full sentences. Does not appear to be in respiratory distress. HEENT: NCAT, Moist mucosa. Pulmonary: Diminished lung sounds. CVS: Normal S1-S2 Abdomen: BS+, Soft, Nontender Extremities: Warm well perfused Neuro: Alert and awake. Results Labs CBC and Chem 7: 10/29/21 06:32 10/29/21 06:32 Labs: Laboratory Results - last 24 hr 10/20/21 10/20/21 10/20/21 23:47 23:48 23:48 MCV 90.6 MCH 28.4 MCHC 31.3 RDW 15.4 Plt Count 314 MPV 10.2 Absolute Nucleated RBC 0.000 Nucleated RBC % (auto) 0.0 PT INR APTT D-Dimer High Sensitivty Anion Gap 15 Estim Creat Clear Calc 49.7 Estimated GFR > 60 Random Glucose 82 Lactic Acid Calcium 8.2 L Total Bilirubin 0.4 AST 36 H ALT 15 Alkaline Phosphatase 101 Total Protein 6.2 L Albumin 3.1 L COVID-19 (ZAHRAA) Positive A COVID-19 Clin Com See Note 10/21/21 10/21/21 00:49 00:49 MCV MCH MCHC RDW Plt Count MPV Absolute Nucleated RBC Nucleated RBC % (auto) PT 12.2 INR 1.1 APTT 35.4 D-Dimer High Sensitivty 206 Anion Gap Estim Creat Clear Calc Estimated GFR Random Glucose Lactic Acid 0.8 Calcium Total Bilirubin AST ALT Alkaline Phosphatase Total Protein Albumin COVID-19 (ZAHRAA) COVID-19 Clin Com Imaging Radiologist's Impressions: Impressions Chest X-Ray 10/21/21 01:55 IMPRESSION: Bibasilar streaky opacities potentially subsegmental atelectasis, however infiltrate is not excluded, particularly at the left lung base. Chronic lung markings and likely emphysema redemonstrated. Assessment and Plan (1) Acute exacerbation of chronic obstructive pulmonary disease (COPD): Status: Acute (2) COVID-19: Status: Acute Plan 75-year-old female with a past medical history of osteoarthritis, history of hip replacement, heavy smoker presented to the hospital today with a chief complaint of not feeling well. Noted to be hyper hypoxic to 85% on room air, chest x-ray concerning for pneumonia, COVID-19 positive. Admitted for further management. Acute hypoxic respiratory failure: In the setting of COVID-19 pneumonia. Continue supplemental oxygen. Albuterol inhalers p.r.n.. D-dimer age adjusted negative. EKG nonischemic. Cycle cardiac enzymes. COVID-19 pneumonia: Continue ceftriaxone and azithromycin. Decadron 6 mg daily. Id consult for further recommendations. ? COPD: Patient has longstanding history of tobacco dependence. Reportedly no prior diagnosis of COPD. Albuterol inhaler p.r.n. Pulmonology follow-up. Tobacco dependence: Offer nicotine patch DVT prophylaxis: Lovenox Code status: Full code Quality Stroke Does the patient have a stroke diagnosis?: No VTE Prior VTE?: No VTE Risk Level:: Medical - moderate - high VTE Device Contraindication: Treatment Not Indicated VTE Drug Contraindication: N/A - Med Ordered
--- NOTE | 2021-10-21 07:06 | PC.NURSE ---
Report given to David COLUD
[2021-10-21 07:19] LABS: Troponin-I High Sensitivity 14.4 ng/L (<3.5-17.0)
[2021-10-21] MEDS: Azithromycin 500 MG in 0.9 % Sodium Chloride 250 ML 125 MG IV (07:21)
[2021-10-21] MEDS: Enoxaparin Sodium 40 MG/0.4 ML SYRINGE SUBCUT (07:59)
[2021-10-21 08:04] VITALS: BP 128/55; PULSE 70; RESP 19; O2SAT 100
[2021-10-21] MEDS: 0.9 % Sodium Chloride Flush 3 ML SYRINGE IVFLUSH ×2 (08:27→17:49)
--- NOTE | 2021-10-21 09:38 | PHA.MEDREC ---
Pharmacy Consult ? Medication Reconciliation Pharmacy has completed the medication reconciliation. Spoke to pts daughter
[2021-10-21 11:45] VITALS: BP 143/55; PULSE 71; RESP 16; TEMP 36.8; O2SAT 97
--- NOTE | 2021-10-21 12:21 | MHC.CM.PN ---
Met with pt to discuss d/c planning: pt resides with daughter Terra who is also her HCP (copy in chart) Pt states she is independent with all care needs and does not have services or use adaptive equipment. Pt does not have a physician and when asked if she required assistance obtaining one, she stated, No, I don't need one right now Call placed to dtr to inquire - mailbox full: could not leave a message. Pt states she will call her dtr for transportation to home. IMM/ IMM given to pt. Not COVID vaccinated and presently COVID +
--- NOTE | 2021-10-21 13:15 | P.CONPL_ITS ---
History of Present Illness History of Present Illness Consult date: 10/21/21 Requesting physician: Shukri Ortega Chief complaint: Covid positive/COPD Narrative: 76-year-old lady, active 30+ pack-year smoker, with underlying history of COPD admitted 10/21/2021 with 4 day history of weakness, dyspnea, and malaise. On ER evaluation patient was noted to be hypoxemic requiring 2 L continuous flow to maintain normal oximetry. Her COVID-19 test was positive. She was started on dexamethasone admitted to general medical steiner. On my examination patient maintains O2 saturation of 99-100% on her supplemental oxygen at 2 L continuous flow. Review of Systems Constitutional: Constitutional: Denies daytime sleepiness, Denies excessive sweating, Reports fatigue, Reports fever(s), Denies lethargy, Reports malaise, Denies night sweats, Denies snoring and Denies weight loss Eyes: Eyes: Denies blurry vision and Denies itchy eyes ENT: Denies nasal congestion, Denies post nasal drip, Denies sinus pain, Denies sinus pressure and Denies other ( Thrush) Cardiovascular: Cardiovascular: Denies chest pain, Denies pedal edema, Reports dyspnea, Denies orthopnea and Denies paroxysmal nocturnal dyspnea Respiratory: Respiratory: Denies cough, Denies hemoptysis, Denies excessive phlegm production, Reports dyspnea, Denies snoring and Denies wheezing Gastrointestinal: Gastrointestinal: Denies abdominal pain and Denies heartburn Musculoskeletal: Musculoskeletal: Denies myalgias, Denies arthralgias and Denies joint swelling Integumentary/Breasts: Skin/Breast: Denies rash Neurologic: Denies memory loss and Denies seizure-like activity Psychiatric: Psychiatric: Denies abnormal sleep pattern, Denies anxiety and Denies memory loss Endocrine: Endocrine: Denies excessive sweating, Reports fatigue and Denies heat intolerance Hematologic/Lymphatic: Hematologic/Lymphatic: Denies easy bruising Allergic/Immunologic: Allergic/Immunologic: Denies itchy eyes, Denies seasonal rhinorrhea and Denies wheezing PMFSH Surgical History Surgical History History of hip replacement Social History Social History Household Members: Family Housing: House Do you presently have visiting nurse or other home services: No Patient Tobacco Use Status: Current everyday Tobacco user Cigarettes Per Day: 9 Smoked in Last 30 Days: Yes Second Hand Smoke Exposure: No Advance Directives: No Advance Directives Information Provided: No service: No Current occupational status: retired Meds Allergies Allergy/AdvReac Type Severity Reaction Status Date / Time scallops AdvReac Unknown NAUSEA & Verified 10/20/21 22:29 VOMITING Active Medications: Current Medications Acetaminophen (Acetaminophen 325 Mg Tablet) 650 mg PO Q6H PRN PRN Reason: Pain, Mild (Pain Scale 1-3) Albuterol Sulfate (Albuterol Sulfate 90 Mcg 8 Gm Inhaler) 4 puff INHALE Q2H PRN PRN Reason: sob Dexamethasone Sodium Phosphate (Dexamethasone Sod Phosphate 4 Mg/Ml Vial) 6 mg IVPUSH DAILY [facility] Last Admin: 10/21/21 08:24 Dose: 6 mg Documented by: Enoxaparin Sodium (Enoxaparin Sodium 40 Mg/0.4 Ml Syringe) 40 mg SUBCUT Q24H [facility] Last Admin: 10/21/21 07:59 Dose: 40 mg Documented by: Azithromycin 500 mg/ Sodium (Chloride) 250 mls @ 125 mls/hr IV Q24H [facility] Last Admin: 10/21/21 07:21 Dose: 125 mls/hr Documented by: Ceftriaxone Sodium 1 gm/ (Sodium Chloride) 50 mls @ 100 mls/hr IV Q24H [facility] Melatonin (Melatonin 3 Mg Tablet) 6 mg PO BEDTIME PRN PRN Reason: Insomnia Morphine Sulfate (Morphine Sulfate 2 Mg/Ml Cartridge) 1 mg IVPUSH Q4H PRN; Protocol PRN Reason: pain/sob Senna (Sennosides 8.6 Mg Tablet) 17.2 mg PO BEDTIME PRN PRN Reason: Constipation Sodium Chloride (0.9 % Sodium Chloride Flush 3 Ml Syringe) 3 ml IVFLUSH QSHIFT [facility] Last Admin: 10/21/21 08:27 Dose: 3 ml Documented by: Home Medications Medication Instructions Recorded Confirmed Last Taken Type multivitamin 1 tab PO DAILY 10/21/21 10/21/21 Unknown History Physical Exam Vital Signs: Vital Signs: Last Vital Signs Temp 98.3 F 10/21/21 11:45 Pulse 71 10/21/21 11:45 Resp 16 10/21/21 11:45 BP 143/55 H 10/21/21 11:45 Pulse Ox 97 10/21/21 11:45 BMI result Body Mass Index 17.6 Const: General: no acute distress and alert Nutritional Appearance: not obese Orientation/consciousness: Other orientation findings ( oriented) HEENT: Head: Yes atraumatic Mouth: no other ( thrush) Throat: No postnasal drainage Eyes: General: appearance normal, both eyes and all related structures Sclerae: sclerae normal EOM: EOMs intact bilaterally Neck: Neck: Yes supple Lymphatic: no lymphadenopathy noted Resp: Effort & Inspection: normal respiratory effort and no use of accessory muscles Auscultation: clear to auscultation bilaterally Cardio: Rate: regular rate Rhythm: regular rhythm Heart sounds: no gallops, no murmurs and no rubs GI: Palpation (GI): Soft to palpation and Other GI palpation findings present ( nontender) Skin: General skin exam: other ( warm) Rashes: no rashes Extrem: General: No clubbing, No cyanosis and No edema Results Laboratory Findings CBC and BMP: 10/20/21 23:48 10/20/21 23:47 ABG, PT/INR, D-dimer: PT/INR, D-dimer PT 12.2 SEC (9.9-13.0) 10/21/21 00:49 INR 1.1 (0.9-1.1) 10/21/21 00:49 Abnormal lab findings: Abnormal Labs 10/20/21 10/20/21 23:47 23:48 Calcium 8.2 L AST 36 H Total Protein 6.2 L Albumin 3.1 L COVID-19 (ZAHRAA) Positive A Assessment and Plan (1) COPD (chronic obstructive pulmonary disease): Status: Acute (2) COVID-19: Status: Acute Plan Impression: 76-year-old lady with underlying COPD, now with COVID-19, unclear a have she truly requires supplemental oxygen at this time. Recommendations: If patient truly has hypoxemia requiring supplemental oxygen, then she would be a candidate for dexamethasone treatment for her COVID infection. Agree with nebulized bronchodilators. Procedures Date of Service Date of Service: 10/21/21
--- NOTE | 2021-10-21 14:29 | W.PM.IDCN ---
History of Present Illness Data of Consult Service Date: 10/21/21 Requesting physician: Howard Scott Primary Care Provider: None Physician HPI Reason for consult: COVID She has been sick for two days with cough and shortness of breath. She has fever and chills. Review of Systems Review of Systems: Yes all other systems are reviewed and are negative PMF Family History Family history: reviewed and not pertinent Surgical History Surgical History History of hip replacement Social History Social History Household Members: Family Housing: House Do you presently have visiting nurse or other home services: No Patient Tobacco Use Status: Current everyday Tobacco user Cigarettes Per Day: 9 Smoked in Last 30 Days: Yes Second Hand Smoke Exposure: No Advance Directives: No Advance Directives Information Provided: No service: No Current occupational status: retired Meds Allergies Allergy/AdvReac Type Severity Reaction Status Date / Time scallops AdvReac Unknown NAUSEA & Verified 10/20/21 22:29 VOMITING Active Medications: Current Medications Acetaminophen (Acetaminophen 325 Mg Tablet) 650 mg PO Q6H PRN PRN Reason: Pain, Mild (Pain Scale 1-3) Albuterol Sulfate (Albuterol Sulfate 90 Mcg 8 Gm Inhaler) 4 puff INHALE Q2H PRN PRN Reason: sob Dexamethasone Sodium Phosphate (Dexamethasone Sod Phosphate 4 Mg/Ml Vial) 6 mg IVPUSH DAILY [facility] Last Admin: 10/21/21 08:24 Dose: 6 mg Documented by: Enoxaparin Sodium (Enoxaparin Sodium 40 Mg/0.4 Ml Syringe) 40 mg SUBCUT Q24H [facility] Last Admin: 10/21/21 07:59 Dose: 40 mg Documented by: Azithromycin 500 mg/ Sodium (Chloride) 250 mls @ 125 mls/hr IV Q24H [facility] Last Admin: 10/21/21 07:21 Dose: 125 mls/hr Documented by: Ceftriaxone Sodium 1 gm/ (Sodium Chloride) 50 mls @ 100 mls/hr IV Q24H [facility] Melatonin (Melatonin 3 Mg Tablet) 6 mg PO BEDTIME PRN PRN Reason: Insomnia Morphine Sulfate (Morphine Sulfate 2 Mg/Ml Cartridge) 1 mg IVPUSH Q4H PRN; Protocol PRN Reason: pain/sob Senna (Sennosides 8.6 Mg Tablet) 17.2 mg PO BEDTIME PRN PRN Reason: Constipation Sodium Chloride (0.9 % Sodium Chloride Flush 3 Ml Syringe) 3 ml IVFLUSH QSHIFT [facility] Last Admin: 10/21/21 08:27 Dose: 3 ml Documented by: Home Medications Medication Instructions Recorded Confirmed Last Taken Type multivitamin 1 tab PO DAILY 10/21/21 10/21/21 Unknown History Physical Exam Vital Signs: Vital Signs: Last Vital Signs Temp 98.3 F 10/21/21 11:45 Pulse 71 10/21/21 11:45 Resp 16 10/21/21 11:45 BP 143/55 H 10/21/21 11:45 Pulse Ox 97 10/21/21 11:45 BMI result Body Mass Index 17.6 Const: General: cooperative Eyes: General: appearance normal, both eyes and all related structures Resp: Effort & Inspection: decreased respiratory effort Cardio: Rate: regular rate Rhythm: regular rhythm GI: Palpation (GI): Soft to palpation and nontender Extrem: General: Yes normal to inspection Results Labs CBC & Chem 7: 10/20/21 23:48 10/20/21 23:47 Labs: Short CBC 10/20/21 Range/Units 23:48 WBC 7.0 (4.8-10.8) X10*3/uL Hgb 13.0 (12.0-16.0) g/dl Hct 41.5 (37.0-47.0) % Plt Count 314 (160-400) X10*3/uL BMP 10/20/21 23:47 Sodium 145 Potassium 3.7 Chloride 108 Carbon Dioxide 26 BUN 14 Creatinine 0.60 Calcium 8.2 L Liver Function 10/20/21 Range/Units 23:47 Total Bilirubin 0.4 (0.0-1.0) mg/dL AST 36 H (5-31) U/L ALT 15 (0-31) U/L Alkaline Phosphatase 101 (39-117) U/L Albumin 3.1 L (3.5-5.0) g/dL Assessment and Plan (1) COVID-19: Status: Acute she has covid not bacterial pneumonia likely Plan STop Ceftriaxone and Zmax Oxygen Remdesivir Dexamethasone
--- NOTE | 2021-10-21 17:26 | P.EN_ITS ---
Event Note Date of Service: 10/22/21 Event Note: Pt seen, labs, med reviewed. Covid with mild hypoxia, discussed with spanish moss picker. A/P per H and P from this morning.
--- NOTE | 2021-10-21 17:26 | PM.EVENT ---
Event Note Date of Service: 10/22/21 Event Note: Pt seen, labs, med reviewed. Covid with mild hypoxia, discussed with director of security. A/P per H and P from this morning.
[2021-10-21] MEDS: Remdesivir 200 MG in 0.9 % Sodium Chloride 210 ML 105 MG IV (17:49)
--- NOTE | 2021-10-21 20:24 | PC.NURSE ---
vancomycin was infused prior to this RN shift
--- NOTE | 2021-10-21 20:25 | PC.NURSE ---
report given to 4th floor
[2021-10-21 22:03] VITALS: BMI 18.1
[2021-10-21 23:49] VITALS: BP 144/65; PULSE 70; RESP 16; TEMP 36.5; O2SAT 94
[2021-10-22] MEDS: 0.9 % Sodium Chloride Flush 3 ML SYRINGE IVFLUSH ×3 (01:03→18:10)
[2021-10-22] MEDS: cefTRIAXone sodium 1 GM in 0.9 % Sodium Chloride 50 ML IV (01:03)
[2021-10-22 05:15] VITALS: BP 138/64; PULSE 76; RESP 20; TEMP 36.4; O2SAT 97
[2021-10-22] MEDS: Enoxaparin Sodium 40 MG/0.4 ML SYRINGE SUBCUT (06:39)
[2021-10-22] MEDS: Azithromycin 500 MG in 0.9 % Sodium Chloride 250 ML 125 MG IV (06:40)
[2021-10-22 06:47] LABS: MANUAL DIFF FLAG NO
[2021-10-22 06:55] LABS: Hematocrit 39.9 % (37.0-47.0); Hemoglobin 12.7 g/dl (12.0-16.0); Imm Gran Abs Auto 0.07 X10*3/uL (0.00-0.03); Imm Gran Pct Auto 1.6 % (0.0-0.4); Lymphocytes Absolute Auto 0.9 X10*3/uL (1.2-4.9); Lymphocytes Percent Auto 21.3 % (20-40); Mean Corpuscular HGB Conc 31.8 g/dl (31.0-35.0); Mean Corpuscular Hemoglobin 28.6 pg (27.0-33.0); Mean Corpuscular Volume 89.9 fL (80.0-98.0); Mean Platelet Volume 9.9 fL (9.4-12.3); Monocytes Absolute Auto 0.4 X10*3/uL (0.1-1.2); Neutrophils Absolute Auto 2.9 x10*3/uL (2.0-8.3); Neutrophils Percent Auto 68.1 % (45-73); Platelet Count 352 X10*3/uL (160-400); Red Blood Count 4.44 X10*6/uL (4.20-5.50); Red Cell Distribution Width 15.2 % (11.0-16.0); White Blood Count 4.3 X10*3/uL (4.8-10.8)
[2021-10-22 07:08] LABS: Anion Gap 16 (12-20); Blood Urea Nitrogen 9 mg/dL (9-16); Calcium 8.3 mg/dL (8.4-10.2); Carbon Dioxide 28 mmol/L (22-29); Chloride 104 mmol/L (96-108); Creatinine Clr Calc Pharmacy 55.1; Estimated Glomerular Filt Rate > 60; Glucose Random 128 mg/dL (60-115); Potassium 4.3 mmol/L (3.3-5.1); Sodium 144 mmol/L (135-145)
[2021-10-22 08:00] VITALS: BP 149/69; PULSE 71; RESP 18; TEMP 36; O2SAT 92
--- NOTE | 2021-10-22 08:08 | HO.PM.IMPN ---
Subjective Subjective Date of Service: 10/22/21 Interval History: f/u on covid pneumonia interval history: hypoxia resolved on remdesevir and dexamethasone, feels fine Review of Systems no sob no fever Physical Exam Vital Signs: Vital Signs: Last Vital Signs Temp 97.6 F 10/22/21 05:15 Pulse 76 10/22/21 05:15 Resp 20 10/22/21 05:15 BP 138/64 10/22/21 05:15 Pulse Ox 97 10/22/21 05:15 BMI result Body Mass Index 18.1 Const: Other: General: AO X 3, no acute distress Resp: CTA bilateral CVS: S1,S2,RRR GI: +BS, NT, no distention Skin: No rash Neuro: motor grossly intact Psych: appropriate affect Objective Data Active Medications Acetaminophen (Acetaminophen 325 Mg Tablet) 650 mg PO Q6H PRN PRN Reason: Pain, Mild (Pain Scale 1-3) Albuterol Sulfate (Albuterol Sulfate 90 Mcg 8 Gm Inhaler) 4 puff INHALE Q2H PRN PRN Reason: sob Dexamethasone Sodium Phosphate (Dexamethasone Sod Phosphate 4 Mg/Ml Vial) 6 mg IVPUSH DAILY [facility] Last Admin: 10/21/21 08:24 Dose: 6 mg Documented by: TIM Enoxaparin Sodium (Enoxaparin Sodium 40 Mg/0.4 Ml Syringe) 40 mg SUBCUT Q24H [facility] Last Admin: 10/22/21 06:39 Dose: 40 mg Documented by: AMBERLY Azithromycin 500 mg/ Sodium (Chloride) 250 mls @ 125 mls/hr IV Q24H [facility] Last Admin: 10/22/21 06:40 Dose: 125 mls/hr Documented by: AMBERLY Ceftriaxone Sodium 1 gm/ (Sodium Chloride) 50 mls @ 100 mls/hr IV Q24H [facility] Last Infusion: 10/22/21 01:54 Dose: 0 mls/hr Documented by: AMBERLY Remdesivir 100 mg/ Sodium (Chloride) 230 mls @ 115 mls/hr IV Q24H [facility] Stop: 10/25/21 17:59 Melatonin (Melatonin 3 Mg Tablet) 6 mg PO BEDTIME PRN PRN Reason: Insomnia Morphine Sulfate (Morphine Sulfate 2 Mg/Ml Cartridge) 1 mg IVPUSH Q4H PRN; Protocol PRN Reason: pain/sob Multivitamins/Vitamin C (Multivitamin Tablet) 1 tab PO DAILY [facility] Senna (Sennosides 8.6 Mg Tablet) 17.2 mg PO BEDTIME PRN PRN Reason: Constipation Sodium Chloride (0.9 % Sodium Chloride Flush 3 Ml Syringe) 3 ml IVFLUSH QSHIFT [facility] Last Admin: 10/22/21 01:03 Dose: 3 ml Documented by: AMBERLY Labs CBC & Chem 7: 10/22/21 06:30 10/22/21 06:30 Labs: Laboratory Results - last 24 hr 10/22/21 10/22/21 06:30 06:30 MCV 89.9 MCH 28.6 MCHC 31.8 RDW 15.2 Plt Count 352 MPV 9.9 Immature Gran % (Auto) 1.6 H Neut % (Auto) 68.1 Lymph % (Auto) 21.3 [place] % (Auto) 9.0 Eos % (Auto) 0.0 Baso % (Auto) 0.0 Lymph # (Auto) 0.9 L [place] # (Auto) 0.4 Eos # (Auto) 0.0 Baso # (Auto) 0.0 Abs Immat Gran (auto) 0.07 H Absolute Neuts (auto) 2.9 Absolute Nucleated RBC 0.000 Nucleated RBC % (auto) 0.0 Anion Gap 16 Estim Creat Clear Calc 55.1 Estimated GFR > 60 Random Glucose 128 H Calcium 8.3 L Microbiology Microbiology Results: Microbiology 10/21/21 00:49 Blood Culture - Preliminary Blood - Venous No growth after 24 hours. 10/21/21 00:49 Blood Culture - Preliminary Blood - Venous No growth after 24 hours. Assessment and Plan (1) COVID-19: Status: Acute (2) COPD (chronic obstructive pulmonary disease): Status: Acute (3) Acute hypoxemic respiratory failure due to COVID-19: Status: Acute Plan 75-year-old female with a past medical history of osteoarthritis, history of hip replacement, heavy smoker presented to the hospital today with a chief complaint of not feeling well.? Noted to be hyper hypoxic to 85% on room air, chest x-ray concerning for pneumonia, COVID-19 positive.? Admitted for further management.? Acute hypoxic respiratory failure: In the setting of COVID-19 pneumonia.? Hypoxia resolved -wean of O2 goal of O2 > 90 COVID-19 pneumonia: Abx stopped as no evidence of bacterial pneumonia -continue Remdesevir per guideline -continue Dexamethasone for 7 to 10 days ??COPD:? Patient has longstanding history of tobacco dependence.? Reportedly no prior diagnosis of COPD.? Albuterol inhaler p.r.n.? Pulmonology follow-up. Tobacco dependence:? Offer nicotine patch Lovenox for DVT prophylaxis Inpatient need: Covid related respiratory failure with Hypoxia requiring intravenous Remdesevir and titration of oxygen Quality Stroke Does the patient have a stroke diagnosis?: No VTE Prior VTE?: No VTE Risk Level:: Medical - moderate - high VTE Device Contraindication: Treatment Not Indicated VTE Drug Contraindication: N/A - Med Ordered
[2021-10-22] MEDS: dexAMETHasone sod phosphate 4 MG/ML VIAL 6 MG IVPUSH (09:37)
[2021-10-22] MEDS: Multivitamin TABLET 1 TAB PO (09:37)
[2021-10-22 09:52] VITALS: BMI 18.1
[2021-10-22 12:00] VITALS: BP 142/82; PULSE 73; RESP 20; TEMP 36.2; O2SAT 90
[2021-10-22 16:00] VITALS: BP 155/81; PULSE 71; RESP 16; TEMP 36.8; O2SAT 90
[2021-10-22] MEDS: Remdesivir 100 MG in 0.9 % Sodium Chloride 230 ML 115 MG IV (18:10)
[2021-10-22 19:36] VITALS: BP 168/87; PULSE 73; RESP 17; TEMP 36.6; O2SAT 92
[2021-10-22 23:45] VITALS: BP 156/68; PULSE 66; RESP 20; TEMP 36.8; O2SAT 90
[2021-10-23] MEDS: cefTRIAXone sodium 1 GM in 0.9 % Sodium Chloride 50 ML IV (00:56)
[2021-10-23] MEDS: 0.9 % Sodium Chloride Flush 3 ML SYRINGE IVFLUSH ×3 (00:56→16:45)
[2021-10-23 03:48] VITALS: BP 153/67; PULSE 66; RESP 16; TEMP 36.6; O2SAT 92
[2021-10-23 07:44] VITALS: BP 138/60; PULSE 65; RESP 18; TEMP 36.5; O2SAT 94
[2021-10-23] MEDS: Enoxaparin Sodium 40 MG/0.4 ML SYRINGE SUBCUT (07:45)
[2021-10-23] MEDS: dexAMETHasone sod phosphate 4 MG/ML VIAL 6 MG IVPUSH (09:16)
[2021-10-23] MEDS: Multivitamin TABLET 1 TAB PO (09:16)
--- NOTE | 2021-10-23 10:28 | MHC.CLN ---
F/U PT IS UNDER WT FOR HT. BMI 18.1. PT IS 93% IBW INDICATES ADEQUATE WT FOR HT. PT REPORTS SHE HAS ALWAYS BEEN THIN AND DOES NOT REPORT WT LOSS. APPETITE GOOD UNTIL A FEW DAYS AGO. PREVIOUS WT HX 49.8KG (08/28/20) 15% NON-SIGNIFICANT WT LOSS X 1 YEAR DIET RX: REGULAR-APPROPRIATE PT RECEIVING ENSURE BID TO INCREASE KCALS PROVIDES 700KCALS, 40G PROTEIN MONITOR PO INTAKE CLOSELY
[2021-10-23 11:54] VITALS: BP 137/62; PULSE 67; RESP 20; TEMP 36.8; O2SAT 92
--- NOTE | 2021-10-23 13:45 | HO.PM.IMPN ---
Subjective Subjective Date of Service: 10/24/21 Interval History: f/u on covid pneumonia interval history: hypoxia resolved on remdesevir and dexamethasone, feels fine Physical Exam Vital Signs: Vital Signs: Last Vital Signs Temp 98.2 F 10/23/21 11:54 Pulse 67 10/23/21 11:54 Resp 20 10/23/21 11:54 BP 137/62 10/23/21 11:54 Pulse Ox 92 10/23/21 11:54 BMI result Body Mass Index 18.1 Const: Other: General: AO X 3, no acute distress Resp: CTA bilateral CVS: S1,S2,RRR GI: +BS, NT, no distention Skin: No rash Neuro: motor grossly intact Psych: appropriate affect Objective Data Active Medications Acetaminophen (Acetaminophen 325 Mg Tablet) 650 mg PO Q6H PRN PRN Reason: Pain, Mild (Pain Scale 1-3) Albuterol Sulfate (Albuterol Sulfate 90 Mcg 8 Gm Inhaler) 4 puff INHALE Q2H PRN PRN Reason: sob Dexamethasone Sodium Phosphate (Dexamethasone Sod Phosphate 4 Mg/Ml Vial) 6 mg IVPUSH DAILY [facility] Last Admin: 10/23/21 09:16 Dose: 6 mg Documented by: KANG Enoxaparin Sodium (Enoxaparin Sodium 40 Mg/0.4 Ml Syringe) 40 mg SUBCUT Q24H [facility] Last Admin: 10/23/21 07:45 Dose: 40 mg Documented by: KANG Remdesivir 100 mg/ Sodium (Chloride) 230 mls @ 115 mls/hr IV Q24H [facility] Stop: 10/25/21 17:59 Last Infusion: 10/23/21 03:52 Dose: 115 mls/hr Documented by: ERIKA Melatonin (Melatonin 3 Mg Tablet) 6 mg PO BEDTIME PRN PRN Reason: Insomnia Morphine Sulfate (Morphine Sulfate 2 Mg/Ml Cartridge) 1 mg IVPUSH Q4H PRN; Protocol PRN Reason: pain/sob Multivitamins/Vitamin C (Multivitamin Tablet) 1 tab PO DAILY [facility] Last Admin: 10/23/21 09:16 Dose: 1 tab Documented by: KANG Senna (Sennosides 8.6 Mg Tablet) 17.2 mg PO BEDTIME PRN PRN Reason: Constipation Sodium Chloride (0.9 % Sodium Chloride Flush 3 Ml Syringe) 3 ml IVFLUSH QSHIFT [facility] Last Admin: 10/23/21 09:16 Dose: 3 ml Documented by: KANG Labs CBC & Chem 7: 10/22/21 06:30 10/22/21 06:30 Microbiology Microbiology Results: Microbiology 10/21/21 00:49 Blood Culture - Preliminary Blood - Venous No growth after 48 hours. 10/21/21 00:49 Blood Culture - Preliminary Blood - Venous No growth after 48 hours. Assessment and Plan (1) COVID-19: Status: Acute (2) COPD (chronic obstructive pulmonary disease): Status: Acute (3) Acute hypoxemic respiratory failure due to COVID-19: Status: Acute Plan 75-year-old female with a past medical history of osteoarthritis, history of hip replacement, heavy smoker presented to the hospital today with a chief complaint of not feeling well.? Noted to be hyper hypoxic to 85% on room air, chest x-ray concerning for pneumonia, COVID-19 positive.? Admitted for further management.? covid 19, no hypoxia at this time. Not on oxygen COVID-19 pneumonia: Abx stopped as no evidence of bacterial pneumonia -continue Remdesevir per guideline--day 3, pt not interested in staying for 2 additional days -continue Dexamethasone for 7 to 10 days ??COPD:? Patient has longstanding history of tobacco dependence.? Reportedly no prior diagnosis of COPD.? Albuterol inhaler p.r.n.? Pulmonology follow-up. Tobacco dependence:? Offer nicotine patch Lovenox for DVT prophylaxis Inpatient need: Covid related respiratory failure with Hypoxia requiring intravenous Remdesevir and titration of oxygen Quality Stroke Does the patient have a stroke diagnosis?: No VTE Prior VTE?: No VTE Risk Level:: Medical - moderate - high VTE Device Contraindication: Treatment Not Indicated VTE Drug Contraindication: N/A - Med Ordered
--- NOTE | 2021-10-23 14:29 | MHC.CM.PN ---
Addendum entered by Gladys Jesus RN 10/23/21 14:51: HOSPITALIST MET W/PT AND SHE IS AGREEABLE TO STAY UNTIL SHE FINISHES HER REMDESIVIR, ANTIC D/C ON Tuesday10/25/21. Original Note: EMR REVIEWED, PER MULTIDICIPLINARY ROUNDS PT DOES NOT WANT TO STAY AND MAY BE ABLE TO D/C W/2 MORE DAYS OF REMDESIVIR AND 7-10 DAYS OF DEXAMETHASONE. D/C PLAN: POSSIBLE D/C TODAY HOME NO SERVICES W/DTR FOR TRANSPORT.
[2021-10-23 16:00] VITALS: BP 140/67; PULSE 71; RESP 19; TEMP 36.1; O2SAT 90
[2021-10-23] MEDS: Remdesivir 100 MG in 0.9 % Sodium Chloride 230 ML 115 MG IV (16:45)
[2021-10-23 19:52] VITALS: BP 135/58; PULSE 65; RESP 18; TEMP 36.3; O2SAT 93
[2021-10-23 23:33] VITALS: BP 135/67; PULSE 65; RESP 20; TEMP 36.7; O2SAT 98
[2021-10-24] VITALS (10 sets, daily range): BP systolic 132–156; BP diastolic 61–77; PULSE 68–80; RESP 17–19; TEMP 36.2–37.2; O2SAT 89–97
[2021-10-24] MEDS: Enoxaparin Sodium 40 MG/0.4 ML SYRINGE SUBCUT (06:15)
[2021-10-24] MEDS: dexAMETHasone sod phosphate 4 MG/ML VIAL 6 MG IVPUSH (09:19)
[2021-10-24] MEDS: 0.9 % Sodium Chloride Flush 3 ML SYRINGE IVFLUSH ×3 (09:19→15:53)
[2021-10-24] MEDS: Multivitamin TABLET 1 TAB PO (09:19)
--- NOTE | 2021-10-24 09:51 | P.PNIM_ITS ---
Subjective Subjective Date of Service: 10/24/21 Interval History: f/u on covid pneumonia interval history: O2 sat dropped while sleeping so was put back on O2 overnight, now sating 94 on 2 liters, no distress Review of Systems no sob no fever Physical Exam Vital Signs: Vital Signs: Last Vital Signs Temp 97.2 F 10/24/21 07:53 Pulse 70 10/24/21 07:53 Resp 17 10/24/21 07:53 BP 149/63 H 10/24/21 07:53 Pulse Ox 94 10/24/21 07:53 BMI result Body Mass Index 18.1 Const: Other: General: AO X 2, no acute distress Resp: CTA bilateral CVS: S1,S2,RRR GI: +BS, NT, no distention Skin: No rash Neuro: motor grossly intact Psych: appropriate affect Objective Data Active Medications Acetaminophen (Acetaminophen 325 Mg Tablet) 650 mg PO Q6H PRN PRN Reason: Pain, Mild (Pain Scale 1-3) Albuterol Sulfate (Albuterol Sulfate 90 Mcg 8 Gm Inhaler) 4 puff INHALE Q2H PRN PRN Reason: sob Dexamethasone Sodium Phosphate (Dexamethasone Sod Phosphate 4 Mg/Ml Vial) 6 mg IVPUSH DAILY [facility] Last Admin: 10/24/21 09:19 Dose: 6 mg Documented by: JAG Enoxaparin Sodium (Enoxaparin Sodium 40 Mg/0.4 Ml Syringe) 40 mg SUBCUT Q24H [facility] Last Admin: 10/24/21 06:15 Dose: 40 mg Documented by: ELYSE Remdesivir 100 mg/ Sodium (Chloride) 230 mls @ 115 mls/hr IV Q24H [facility] Stop: 10/25/21 17:59 Last Infusion: 10/23/21 19:00 Dose: 0 mls/hr Documented by: ELYSE Melatonin (Melatonin 3 Mg Tablet) 6 mg PO BEDTIME PRN PRN Reason: Insomnia Morphine Sulfate (Morphine Sulfate 2 Mg/Ml Cartridge) 1 mg IVPUSH Q4H PRN; Protocol PRN Reason: pain/sob Multivitamins/Vitamin C (Multivitamin Tablet) 1 tab PO DAILY [facility] Last Admin: 10/24/21 09:19 Dose: 1 tab Documented by: JAG Senna (Sennosides 8.6 Mg Tablet) 17.2 mg PO BEDTIME PRN PRN Reason: Constipation Sodium Chloride (0.9 % Sodium Chloride Flush 3 Ml Syringe) 3 ml IVFLUSH QSHIFT [facility] Last Admin: 10/24/21 09:19 Dose: 3 ml Documented by: DOBROB Labs CBC & Chem 7: 10/22/21 06:30 10/22/21 06:30 Assessment and Plan (1) COVID-19: Status: Acute (2) COPD (chronic obstructive pulmonary disease): Status: Acute (3) Acute hypoxemic respiratory failure due to COVID-19: Status: Acute Plan 75-year-old female with a past medical history of osteoarthritis, history of hip replacement, heavy smoker presented to the hospital today with a chief complaint of not feeling well.? Noted to be hyper hypoxic to 85% on room air, chest x-ray concerning for pneumonia, COVID-19 positive.? Admitted for further management.? covid 19, no hypoxia at this time. Not on oxygen COVID-19 pneumonia: Abx stopped as no evidence of bacterial pneumonia -continue Remdesevir per guideline--day 4, now willing to stay and complete course of Remdesevir -continue Dexamethasone for 7 to 10 days -wean off O2 ??COPD:? Patient has longstanding history of tobacco dependence.? Reportedly no prior diagnosis of COPD.? Albuterol inhaler p.r.n.? Pulmonology follow-up. Tobacco dependence:? Offer nicotine patch Lovenox for DVT prophylaxis Inpatient need: Covid related respiratory failure with Hypoxia requiring intravenous Remdesevir and titration of oxygen Quality Stroke Does the patient have a stroke diagnosis?: No VTE Prior VTE?: No VTE Risk Level:: Medical - moderate - high VTE Device Contraindication: Treatment Not Indicated VTE Drug Contraindication: N/A - Med Ordered
[2021-10-24] MEDS: Remdesivir 100 MG in 0.9 % Sodium Chloride 230 ML 115 MG IV (15:53)
[2021-10-25 03:52] VITALS: BP 140/56; PULSE 65; RESP 20; TEMP 36.7; O2SAT 98
[2021-10-25] MEDS: Enoxaparin Sodium 40 MG/0.4 ML SYRINGE SUBCUT (06:35)
[2021-10-25 08:00] VITALS: BP 161/68; PULSE 79; RESP 17; TEMP 37; O2SAT 91
[2021-10-25] MEDS: dexAMETHasone sod phosphate 4 MG/ML VIAL 6 MG IVPUSH (09:51)
[2021-10-25] MEDS: 0.9 % Sodium Chloride Flush 3 ML SYRINGE IVFLUSH ×3 (09:52→15:11)
[2021-10-25] MEDS: Multivitamin TABLET 1 TAB PO (09:52)
--- NOTE | 2021-10-25 09:56 | P.PNIM_ITS ---
Subjective Subjective Date of Service: 10/25/21 Interval History: f/u on covid pneumonia interval history: O2 sat has dropped and back on Oxygen Review of Systems no sob no fever Physical Exam Vital Signs: Vital Signs: Last Vital Signs Temp 98.6 F 10/25/21 08:00 Pulse 79 10/25/21 08:00 Resp 17 10/25/21 08:00 BP 161/68 H 10/25/21 08:00 Pulse Ox 91 L 10/25/21 08:00 BMI result Body Mass Index 18.1 Const: Other: General: AO X 2, no acute distress Resp: CTA bilateral CVS: S1,S2,RRR GI: +BS, NT, no distention Skin: No rash Neuro: motor grossly intact Psych: appropriate affect Objective Data Active Medications Acetaminophen (Acetaminophen 325 Mg Tablet) 650 mg PO Q6H PRN PRN Reason: Pain, Mild (Pain Scale 1-3) Albuterol Sulfate (Albuterol Sulfate 90 Mcg 8 Gm Inhaler) 4 puff INHALE Q2H PRN PRN Reason: sob Dexamethasone Sodium Phosphate (Dexamethasone Sod Phosphate 4 Mg/Ml Vial) 6 mg IVPUSH DAILY [facility] Last Admin: 10/24/21 09:19 Dose: 6 mg Documented by: JAG Enoxaparin Sodium (Enoxaparin Sodium 40 Mg/0.4 Ml Syringe) 40 mg SUBCUT Q24H [facility] Last Admin: 10/25/21 06:35 Dose: 40 mg Documented by: ELYSE Remdesivir 100 mg/ Sodium (Chloride) 230 mls @ 115 mls/hr IV Q24H [facility] Stop: 10/25/21 17:59 Last Infusion: 10/24/21 20:00 Dose: 0 mls/hr Documented by: ELYSE Melatonin (Melatonin 3 Mg Tablet) 6 mg PO BEDTIME PRN PRN Reason: Insomnia Morphine Sulfate (Morphine Sulfate 2 Mg/Ml Cartridge) 1 mg IVPUSH Q4H PRN; Protocol PRN Reason: pain/sob Multivitamins/Vitamin C (Multivitamin Tablet) 1 tab PO DAILY [facility] Last Admin: 10/24/21 09:19 Dose: 1 tab Documented by: JAG Senna (Sennosides 8.6 Mg Tablet) 17.2 mg PO BEDTIME PRN PRN Reason: Constipation Sodium Chloride (0.9 % Sodium Chloride Flush 3 Ml Syringe) 3 ml IVFLUSH QSHIFT [facility] Last Admin: 10/25/21 00:00 Dose: 3 ml Documented by: ELYSE Labs CBC & Chem 7: 10/22/21 06:30 10/22/21 06:30 Assessment and Plan (1) COVID-19: Status: Acute (2) COPD (chronic obstructive pulmonary disease): Status: Acute (3) Acute hypoxemic respiratory failure due to COVID-19: Status: Acute Plan 75-year-old female with a past medical history of osteoarthritis, history of hip replacement, heavy smoker presented to the hospital today with a chief complaint of not feeling well.? Noted to be hyper hypoxic to 85% on room air, chest x-ray concerning for pneumonia, COVID-19 positive.? Admitted for further management.? covid 19, no hypoxia at this time. Not on oxygen COVID-19 pneumonia: Abx stopped as no evidence of bacterial pneumonia -continue Remdesevir per guideline--day 5/5 -continue Dexamethasone for 7 to 10 days -wean off O2, she might need home O2 ??COPD:? Patient has longstanding history of tobacco dependence.? Reportedly no prior diagnosis of COPD.? Albuterol inhaler p.r.n.? Pulmonology follow-up. Tobacco dependence:? Offer nicotine patch Lovenox for DVT prophylaxis Inpatient need: Covid related respiratory failure with Hypoxia requiring intravenous Remdesevir and titration of oxygen Quality Stroke Does the patient have a stroke diagnosis?: No VTE Prior VTE?: No VTE Risk Level:: Medical - moderate - high VTE Device Contraindication: Treatment Not Indicated VTE Drug Contraindication: N/A - Med Ordered
[2021-10-25 12:00] VITALS: BP 153/69; PULSE 85; RESP 19; TEMP 36.3; O2SAT 92
[2021-10-25] MEDS: Remdesivir 100 MG in 0.9 % Sodium Chloride 230 ML 115 MG IV (15:10)
[2021-10-25 16:00] VITALS: BP 138/74; PULSE 80; RESP 16; TEMP 36.6; O2SAT 94
[2021-10-25 19:16] VITALS: BP 135/59; PULSE 82; RESP 18; TEMP 37; O2SAT 97
[2021-10-25 23:52] VITALS: BP 132/63; PULSE 74; RESP 18; TEMP 36.2; O2SAT 97
[2021-10-26 03:46] VITALS: BP 145/73; PULSE 94; RESP 18; TEMP 36.8; O2SAT 90
[2021-10-26] MEDS: Enoxaparin Sodium 40 MG/0.4 ML SYRINGE SUBCUT (06:43)
[2021-10-26 08:04] VITALS: BP 150/68; PULSE 85; RESP 20; TEMP 36.2; O2SAT 96
[2021-10-26] MEDS: Multivitamin TABLET 1 TAB PO (10:32)
[2021-10-26] MEDS: 0.9 % Sodium Chloride Flush 3 ML SYRINGE IVFLUSH ×4 (10:32→19:58)
[2021-10-26] MEDS: dexAMETHasone sod phosphate 4 MG/ML VIAL 6 MG IVPUSH (10:32)
--- NOTE | 2021-10-26 10:35 | P.PNIM_ITS ---
Subjective Subjective Date of Service: 10/26/21 Interval History: f/u on covid pneumonia interval history:No difficulty breathig, O2 drops on room air Review of Systems no sob no fever Physical Exam Vital Signs: Vital Signs: Last Vital Signs Temp 97.1 F 10/26/21 08:04 Pulse 85 10/26/21 08:04 Resp 20 10/26/21 08:04 BP 150/68 H 10/26/21 08:04 Pulse Ox 96 10/26/21 08:04 BMI result Body Mass Index 18.1 Const: Other: General: AO X 2, no acute distress Resp: CTA bilateral CVS: S1,S2,RRR GI: +BS, NT, no distention Skin: No rash Neuro: motor grossly intact Psych: appropriate affect Objective Data Active Medications Acetaminophen (Acetaminophen 325 Mg Tablet) 650 mg PO Q6H PRN PRN Reason: Pain, Mild (Pain Scale 1-3) Albuterol Sulfate (Albuterol Sulfate 90 Mcg 8 Gm Inhaler) 4 puff INHALE Q2H PRN PRN Reason: sob Dexamethasone Sodium Phosphate (Dexamethasone Sod Phosphate 4 Mg/Ml Vial) 6 mg IVPUSH DAILY [facility] Last Admin: 10/26/21 10:32 Dose: 6 mg Documented by: KANG Enoxaparin Sodium (Enoxaparin Sodium 40 Mg/0.4 Ml Syringe) 40 mg SUBCUT Q24H [facility] Last Admin: 10/26/21 06:43 Dose: 40 mg Documented by: ELYSE Melatonin (Melatonin 3 Mg Tablet) 6 mg PO BEDTIME PRN PRN Reason: Insomnia Multivitamins/Vitamin C (Multivitamin Tablet) 1 tab PO DAILY [facility] Last Admin: 10/26/21 10:32 Dose: 1 tab Documented by: KANG Senna (Sennosides 8.6 Mg Tablet) 17.2 mg PO BEDTIME PRN PRN Reason: Constipation Sodium Chloride (0.9 % Sodium Chloride Flush 3 Ml Syringe) 3 ml IVFLUSH QSHIFT [facility] Last Admin: 10/26/21 10:32 Dose: 3 ml Documented by: KANG Labs CBC & Chem 7: 10/22/21 06:30 10/22/21 06:30 Microbiology Microbiology Results: Microbiology 10/21/21 00:49 Blood Culture - Final Blood - Venous No growth after 5 days. 10/21/21 00:49 Blood Culture - Final Blood - Venous No growth after 5 days. Assessment and Plan (1) COVID-19: Status: Acute (2) COPD (chronic obstructive pulmonary disease): Status: Acute (3) Acute hypoxemic respiratory failure due to COVID-19: Status: Acute Plan 75-year-old female with a past medical history of osteoarthritis, history of hip replacement, heavy smoker presented to the hospital today with a chief complaint of not feeling well.? Noted to be hyper hypoxic to 85% on room air, chest x-ray concerning for pneumonia, COVID-19 positive.? Admitted for further management.? COVID-19 pneumonia: Abx stopped as no evidence of bacterial pneumonia -continue Dexamethasone for 7 to 10 days -wean off O2, qualifies for home O2 ?COPD:? Patient has longstanding history of tobacco dependence.? Reportedly no prior diagnosis of COPD.? Albuterol inhaler p.r.n. Now is diagnosed to have COPD --use inhalers Tobacco dependence:? Offer nicotine patch Lovenox for DVT prophylaxis Inpatient need: Covid related respiratory failure with Hypoxia requiring intravenous Remdesevir and titration of oxygen Quality Stroke Does the patient have a stroke diagnosis?: No VTE Prior VTE?: No VTE Risk Level:: Medical - moderate - high VTE Device Contraindication: Treatment Not Indicated VTE Drug Contraindication: N/A - Med Ordered
--- NOTE | 2021-10-26 10:47 | PM.DS ---
DS: Providers Provider Date of Service: 10/29/21 Date of admission: 10/21/21 06:28 Primary care physician: None Physician Consults: 10/21/21 06:31 Consult to Infectious Diseases Routine Consulting Provider: Cherelle Obando Reason for consultation: COVID positive Consult to Pulmonology Routine Consulting Provider: Berkley Simeon Reason for consultation: COVID pneumonia/question COPD, heavy smoker DS: Diagnosis Discharge Diagnosis (1) COVID-19: Status: Acute (2) COPD (chronic obstructive pulmonary disease): (3) Acute hypoxemic respiratory failure due to COVID-19: Status: Resolved DS: Summary Hospital Course Hospital Course: Chief Complaint: Not feeling well 75-year-old female with a past medical history of osteoarthritis, history of hip replacement, heavy smoker presented to the hospital today with a chief complaint of not feeling well.? Most of the history obtained from the patient and patient's family at bedside.? Reportedly patient has been not feeling well for the past couple days.? Family mentioned that patient was not COVID-19 vaccinated.? Patient denies any cough or sputum production.? Denies any chest pain or palpitations.? Denies any GI symptoms.? Denies any recent travel or sick contacts.? Review of all other systems is negative except mentioned above ER course: Per ER team patient on presentation noted to be saturating 85% on room air; chest x-ray showed opacities; D-dimer age adjusted was negative; lung exam noted to have diminished breath sounds; patient was given Decadron; patient also had a fever of 100.8 F; COVID-19 positive.? Hospial course: 1/covid 19 with acute hypoxic respiratory faiure--Treated wth remdesevir for 5 days, Dexamethasone fo toal of 10 days. Hypoxia is much better 2/COPD with exacerbation due to covid--treated with bronchodilators and Dexamethasone, qualifies for home O2. Will discharge with Dexamethasone and bronchodilators, advised to stop smoking Time Spent with Patient Time attestation: Total time spent providing and/or coordinating discharge services: Discharge coordination time: Greater than 30 minutes Quality: Safe Use of Opioids Does Pt have an Active Cancer Diagnosis on the Problem List?: No Quality: Stroke Does the patient have a stroke diagnosis?: No Physical Exam Vital Signs: Vital Signs: Last Vital Signs Temp 97.1 F 10/26/21 08:04 Pulse 85 10/26/21 08:04 Resp 20 10/26/21 08:04 BP 150/68 H 10/26/21 08:04 Pulse Ox 96 10/26/21 08:04 BMI result Body Mass Index 18.1 Const: Other: See prognress note Discharge Plan Discharge Patient Disposition: Xfer Inpatient Rehab Fac Discharge Diagnosis: COPD exacerbation and Covid 19 Referrals: Physician,None [Primary Care Provider] - 1 Week Discharge Medications: Continued multivitamin Tablet 1 tab PO DAILY 0RF Discharge Orders: Discharge Order (Routine); Ordered 10/29/21 Ordered By: Kimani Christensen Diet: advance to usual diet Activity on Discharge: As tolerated Stand Alone Forms: Patient Portal Discharge page Care Plan Goals: Full recocvery from covid and COPD exacerbation Health Concerns: COPD, covid Plan of Treatment: Use inhaers and Steroid as directed and follow up with yor Doctor in a week, quit smoke and use oxgyen as directed Assessment: as above Discharge Date/Time: 10/29/21 14:36
[2021-10-26 12:00] VITALS: BP 153/61; PULSE 94; RESP 16; TEMP 36.7; O2SAT 96
--- NOTE | 2021-10-26 13:54 | MHC.CLN ---
F/U DIET RX: REGULAR-APPROPRIATE RECEIVING ENSURE BID TO INCREASE KCALS. PROVIDES 700KCALS, 40G PROTEIN. INTAKE VARIABLE, 25-100%, WITH AVERAGE ABOUT 75%. REDNESS TO LOWER BACK/BUTTOCKS NOTE. CONTINUE CURRENT DIET AND SUPPLEMENT.
[2021-10-26 16:00] VITALS: BP 126/63; PULSE 86; RESP 19; TEMP 36.3; O2SAT 91
[2021-10-26 19:22] VITALS: BP 150/70; PULSE 80; RESP 18; TEMP 36.1; O2SAT 96
[2021-10-26 23:49] VITALS: BP 139/64; PULSE 81; RESP 18; TEMP 36.2; O2SAT 94
[2021-10-27] VITALS (7 sets, daily range): BP systolic 134–160; BP diastolic 58–73; PULSE 80–95; RESP 18–19; TEMP 36.1–36.9; O2SAT 85–97
[2021-10-27] MEDS: Enoxaparin Sodium 40 MG/0.4 ML SYRINGE SUBCUT (06:14)
--- NOTE | 2021-10-27 09:02 | P.PNIM_ITS ---
Subjective Subjective Date of Service: 10/27/21 Interval History: f/u on covid, hypoxia interval history: Doing well on 2 L per of oxygen via nasal cannula. Review of Systems No shortness of breath no fever Physical Exam Vital Signs: Vital Signs: Last Vital Signs Temp 98.5 F 10/27/21 08:00 Pulse 85 10/27/21 08:00 Resp 18 10/27/21 08:00 BP 138/58 L 10/27/21 08:00 Pulse Ox 94 10/27/21 08:00 BMI result Body Mass Index 18.1 Const: Other: General: AO X 2, no acute distress Resp: CTA bilateral CVS: S1,S2,RRR GI: +BS, NT, no distention Skin: No rash Neuro: motor grossly intact Psych: appropriate affect Objective Data Active Medications Acetaminophen (Acetaminophen 325 Mg Tablet) 650 mg PO Q6H PRN PRN Reason: Pain, Mild (Pain Scale 1-3) Albuterol Sulfate (Albuterol Sulfate 90 Mcg 8 Gm Inhaler) 4 puff INHALE Q2H PRN PRN Reason: sob Dexamethasone Sodium Phosphate (Dexamethasone Sod Phosphate 4 Mg/Ml Vial) 6 mg IVPUSH DAILY COUNTS INCLUDE 234 BEDS AT THE [facility] Last Admin: 10/26/21 10:32 Dose: 6 mg Documented by: KANG Enoxaparin Sodium (Enoxaparin Sodium 40 Mg/0.4 Ml Syringe) 40 mg SUBCUT Q24H COUNTS INCLUDE 234 BEDS AT THE [facility] Last Admin: 10/27/21 06:14 Dose: 40 mg Documented by: AMBERLY Melatonin (Melatonin 3 Mg Tablet) 6 mg PO BEDTIME PRN PRN Reason: Insomnia Multivitamins/Vitamin C (Multivitamin Tablet) 1 tab PO DAILY COUNTS INCLUDE 234 BEDS AT THE [facility] Last Admin: 10/26/21 10:32 Dose: 1 tab Documented by: KANG Senna (Sennosides 8.6 Mg Tablet) 17.2 mg PO BEDTIME PRN PRN Reason: Constipation Sodium Chloride (0.9 % Sodium Chloride Flush 3 Ml Syringe) 3 ml IVFLUSH QSHIFT COUNTS INCLUDE 234 BEDS AT THE [facility] Last Admin: 10/26/21 19:58 Dose: 3 ml Documented by: AMBERLY Labs CBC & Chem 7: 10/22/21 06:30 10/22/21 06:30 Assessment and Plan (1) COVID-19: Status: Acute (2) COPD (chronic obstructive pulmonary disease): Status: Acute (3) Acute hypoxemic respiratory failure due to COVID-19: Status: Acute Plan 75-year-old female with a past medical history of osteoarthritis, history of hip replacement, heavy smoker presented to the hospital today with a chief complaint of not feeling well.? Noted to be hyper hypoxic to 85% on room air, chest x-ray concerning for pneumonia, COVID-19 positive.? Admitted for further management.? COVID-19 pneumonia: Abx stopped as no evidence of bacterial pneumonia -continue Dexamethasone for 7 to 10 days -wean off O2, qualifies for home O2 ?COPD:? Patient has longstanding history of tobacco dependence.? Reportedly no prior diagnosis of COPD.? Albuterol inhaler p.r.n. Now is diagnosed to have COPD --use inhalers Tobacco dependence:? Offer nicotine patch Lovenox for DVT prophylaxis PT eval for possible rehab Inpatient need: Covid related respiratory failure with Hypoxia requiring intravenous Remdesevir and titration of oxygen Quality Stroke Does the patient have a stroke diagnosis?: No VTE Prior VTE?: No VTE Risk Level:: Medical - moderate - high VTE Device Contraindication: Treatment Not Indicated VTE Drug Contraindication: N/A - Med Ordered
[2021-10-27] MEDS: 0.9 % Sodium Chloride Flush 3 ML SYRINGE IVFLUSH ×2 (10:17→17:07)
[2021-10-27] MEDS: Multivitamin TABLET 1 TAB PO (10:17)
[2021-10-27] MEDS: dexAMETHasone sod phosphate 4 MG/ML VIAL 6 MG IVPUSH (10:17)
--- NOTE | 2021-10-27 11:56 | MHC.CM.PN ---
Addendum entered by Gladys Jesus RN 10/27/21 13:26: CM RECEIVED CALL BACK FROM ZORAIDA WHO REPORTS SHE IS HAVING ISSUES W/VOICEMAIL AND WILL CALL BACK IF SHE RE[place] [facility] [place] REPORTS SHE DOES WANT PT TO RETURN HOME BUT ALSO FEELS SHE NEEDS STR SHE IS IN [place]AKENED STATE, ZORAIDA REPORTS PT HAD A GOOD EXPERIENCE AT [facility] AND THAT WOULD BE PREFERRED SNF, CM DID DISCUSS BARRIER OF BEING COVID POSITIVE AND AWARE SHE MAY NOT GET PREFERRED SNF AND IS AGREEABLE TO ALL LOCAL SNF'S THAT TAKE COVID + PTS, REFERRALS PLACED AND NO FEMALE COVID BEDS AT THIS TIME, CM WILL CONT TO FOLLOW, [facility] WOULD BE ABLE TO ACCEPT PT 11 DAYS AFTER PT TESTED POSITIVE AND SIXTEEN ACRES 10 DAYS AFTER, CM WILL CONT TO FOLLOW REFERRALS. Original Note: CM ATTEMPTED TO CONTACT PT'S DTR ZORAIDA AT 11:53AM [phone] TO DISCUSS DCP PT IS RECOMMENDING STR AND PT WILL NEED NEW HOME O2 2L NC AT REST AND 3L NC W/EXERTION, PT REPORTING SHE WANTS TO RETURN HOME AND NOT GO TO STR, CM WILL NEED TO VERIFY W/DTR SHE IS OKAY TO BE WITH PT SHE IS VERY UNSTEADY ON HER FEET, NO ANSWER AND NO ABILITY TO LEAVE MESSAGE HER MAILBOX IS FULL, CM WILL REATTEMPT SHORTLY.
--- NOTE | 2021-10-27 13:53 | MHC.CLN ---
NUTRITION CONSULT FOR SKIN. STAGE I TO LOWER BACK. DIET= REGULAR. RECEIVING ENSURE BID TO INCREASE KCALS. PROVIDES 700KCALS, 40G PROTEIN. INTAKE VARIABLE. CONTINUE CURRENT DIET AND SUPPLEMENT.
[2021-10-28] VITALS (7 sets, daily range): BP systolic 131–148; BP diastolic 56–70; PULSE 76–88; RESP 16–24; TEMP 36.2–36.6; O2SAT 92–100
[2021-10-28] MEDS: Enoxaparin Sodium 40 MG/0.4 ML SYRINGE SUBCUT (08:24)
[2021-10-28] MEDS: dexAMETHasone sod phosphate 4 MG/ML VIAL 6 MG IVPUSH (08:25)
[2021-10-28] MEDS: 0.9 % Sodium Chloride Flush 3 ML SYRINGE IVFLUSH ×2 (08:28→15:53)
[2021-10-28] MEDS: Multivitamin TABLET 1 TAB PO (08:28)
--- NOTE | 2021-10-28 09:37 | MHC.CM.PN ---
EMR REVIEWED, [facility] CAN OFFER PT A PRIVATE ROOM TOMORROW 10/29, [facility] IS CHECKING ON BED AVAILABILITY FOR TODAY, CM WILL MEET W/PT AND CONTACT PT'S DTR ONCE [facility] GETS BACK TO .
--- NOTE | 2021-10-28 10:54 | MHC.CLN ---
F/U STAGE I TO LOWER BACK. DIET= REGULAR. RECEIVING ENSURE BID TO INCREASE KCALS. PROVIDES 700KCALS, 40G PROTEIN. INTAKE VARIABLE, USUALLY 50-100%. CONTINUE CURRENT DIET AND SUPPLEMENT.
--- NOTE | 2021-10-28 14:51 | MHC.CM.PN ---
Addendum entered by Gladys Jesus, RN 10/28/21 15:10: CM ATTEMPTED TYO CONTACT PT'S DTR/HCP ZORAIDA AT 3:08PM AT NUMBER ON FILE TO UPDATE HER ON PLAN HOWEVER WAS UNABLE TO LEAVE MESSAGE D/T VOICEMAIL THAT DOES NOT WORK, PER PREVIOUS CONVERSATION W/ZORAIDA SHE WILL CALL BACK WHEN SHE SEE'S MISSED CALL. Original Note: CM MET W/PT TO DISCUSS DCP AND BED OFFER FROM [facility], PT INITIALLY STATING REPETITIVELY SHE WANTS TO GO HOME HOWEVER AT END OF CONVERSATION PT NODDED WHEN I TOLD HER I WOULD TELL MM SHE WOULD ACCEPT BED OFFER. CM WILL FOLLOW UP W/PT IN AM AND W/DTR/HCP ZORAIDA. ANTIC D/C TOMORROW TO [facility] FOR STR.
--- NOTE | 2021-10-28 16:25 | HO.PM.IMPN ---
Subjective Subjective Date of Service: 10/28/21 Interval History: No acute issues overnight. States breathing is back to normal Review of Systems Denies chest pain Denies shortness of breath Denies nausea vomiting diarrhea Denies fever chills Physical Exam Vital Signs: Vital Signs: Last Vital Signs Temp 97.2 F 10/28/21 15:28 Pulse 88 10/28/21 15:28 Resp 17 10/28/21 15:28 BP 147/69 H 10/28/21 15:28 Pulse Ox 95 10/28/21 15:28 BMI result Body Mass Index 18.1 Const: Other: No acute distress Resp: Other: Diminished throughout with scant expiratory wheezes. Coarse rhonchi that clear with cough Cardio: Other: No S4; positive S1-S2; no S3 murmurs rubs or gallops GI: Other: Soft nontender nondistended with normoactive bowel sounds Extrem: Other: No edema bilaterally Objective Data Active Medications Acetaminophen (Acetaminophen 325 Mg Tablet) 650 mg PO Q6H PRN PRN Reason: Pain, Mild (Pain Scale 1-3) Albuterol Sulfate (Albuterol Sulfate 90 Mcg 8 Gm Inhaler) 4 puff INHALE Q2H PRN PRN Reason: sob Dexamethasone Sodium Phosphate (Dexamethasone Sod Phosphate 4 Mg/Ml Vial) 6 mg IVPUSH DAILY [facility] [place] Last Admin: 10/28/21 08:25 Dose: 6 mg Documented by: OCTAVIO Enoxaparin Sodium (Enoxaparin Sodium 40 Mg/0.4 Ml Syringe) 40 mg SUBCUT Q24H [facility] Last Admin: 10/28/21 08:24 Dose: 40 mg Documented by: OCTAVIO Melatonin (Melatonin 3 Mg Tablet) 6 mg PO BEDTIME PRN PRN Reason: Insomnia Multivitamins/Vitamin C (Multivitamin Tablet) 1 tab PO DAILY [facility] Last Admin: 10/28/21 08:28 Dose: 1 tab Documented by: OCTAVIO Senna (Sennosides 8.6 Mg Tablet) 17.2 mg PO BEDTIME PRN PRN Reason: Constipation Sodium Chloride (0.9 % Sodium Chloride Flush 3 Ml Syringe) 3 ml IVFLUSH QSHIFT [facility] Last Admin: 10/28/21 15:53 Dose: 3 ml Documented by: LAURA Labs CBC & Chem 7: 10/22/21 06:30 10/22/21 06:30 Assessment and Plan (1) COVID-19: Status: Acute (2) Acute exacerbation of chronic obstructive pulmonary disease (COPD): Status: Acute Plan 75-year-old female with a past medical history of osteoarthritis, history of hip replacement, heavy smoker presented to the hospital today with a chief complaint of not feeling well.? Noted to be hyper hypoxic to 85% on room air, chest x-ray concerning for pneumonia, COVID-19 positive.?Seen by PT who recommends STR 1.COVID-19 pneumonia -continue Dexamethasone(02/17) -wean off O2, qualifies for home O2 2.?COPD exacerbation -titrate O2 -nebs/steroids Lovenox for DVT prophylaxis Requires ongoing hospitalization to monitor oxygen saturation and treatment of COPD exacerbation PT...STR Quality Stroke Does the patient have a stroke diagnosis?: No VTE Prior VTE?: No VTE Risk Level:: Medical - moderate - high VTE Device Contraindication: Treatment Not Indicated VTE Drug Contraindication: N/A - Med Ordered
--- NOTE | 2021-10-28 17:34 | PC.NURSE ---
Patient's daughter Terra Hudosn can be reach tomorrow October at the work phone number [phone]
[2021-10-29] MEDS: 0.9 % Sodium Chloride Flush 3 ML SYRINGE IVFLUSH ×2 (00:11→07:30)
[2021-10-29 03:29] VITALS: BP 140/61; PULSE 75; RESP 18; TEMP 36.6; O2SAT 97
[2021-10-29 06:38] LABS: MANUAL DIFF FLAG NO
[2021-10-29 06:48] LABS: Basophils Percent Auto 0.1 % (0-2); Eosinophils Percent Auto 0.2 % (0-4); Hematocrit 40.7 % (37.0-47.0); Hemoglobin 12.8 g/dl (12.0-16.0); Imm Gran Abs Auto 0.04 X10*3/uL (0.00-0.03); Imm Gran Pct Auto 0.4 % (0.0-0.4); Lymphocytes Absolute Auto 1.2 X10*3/uL (1.2-4.9); Lymphocytes Percent Auto 13.2 % (20-40); Mean Corpuscular HGB Conc 31.4 g/dl (31.0-35.0); Mean Corpuscular Hemoglobin 28.7 pg (27.0-33.0); Mean Corpuscular Volume 91.3 fL (80.0-98.0); Mean Platelet Volume 10.5 fL (9.4-12.3); Monocytes Absolute Auto 0.9 X10*3/uL (0.1-1.2); Monocytes Percent Auto 9.5 % (2-11); Neutrophils Percent Auto 76.6 % (45-73); Platelet Count 329 X10*3/uL (160-400); Red Blood Count 4.46 X10*6/uL (4.20-5.50); Red Cell Distribution Width 15.3 % (11.0-16.0); White Blood Count 9.1 X10*3/uL (4.8-10.8)
[2021-10-29] MEDS: Enoxaparin Sodium 40 MG/0.4 ML SYRINGE SUBCUT (07:29)
[2021-10-29] MEDS: Multivitamin TABLET 1 TAB PO (07:30)
[2021-10-29] MEDS: dexAMETHasone sod phosphate 4 MG/ML VIAL 6 MG IVPUSH (07:30)
[2021-10-29 07:33] LABS: Alanine Aminotransferase 34 U/L (0-31); Albumin Level 2.7 g/dL (3.5-5.0); Alkaline Phosphatase 71 U/L (39-117); Anion Gap 12 (12-20); Aspartate Amino Transferase 27 U/L (5-31); Bilirubin Total 0.2 mg/dL (0.0-1.0); Blood Urea Nitrogen 15 mg/dL (9-16); Calcium 8.2 mg/dL (8.4-10.2); Carbon Dioxide 35 mmol/L (22-29); Chloride 98 mmol/L (96-108); Creatinine Clr Calc Pharmacy 54.1; Estimated Glomerular Filt Rate > 60; Glucose Fasting 77 mg/dL (60-99); Potassium 4.4 mmol/L (3.3-5.1); Sodium 141 mmol/L (135-145); Total Protein 5.3 g/dL (6.5-8.0)
[2021-10-29 07:59] VITALS: BP 149/68; PULSE 72; RESP 20; TEMP 36.6; O2SAT 97
--- NOTE | 2021-10-29 09:23 | MHC.CM.PN ---
Addendum entered by Gladys Jesus RN 10/29/21 09:24: CM ATTEMPTED TO CANTACT PT'S DTR ZORAIDA AT 8:35 ADN Original Note: CM ATTEMPTED TO CANTACT PT'S DTR ZORAIDA AT 8:35 ADN
--- NOTE | 2021-10-29 09:28 | MHC.CM.PN ---
CM ATTEMPTED TO CONTATC PT'S DTR/HCP ZORAIDA AT 8:35AM AND 9:28AM AT [phone] TO LET HER KNOW WHAT DCP IS, NO ANSWER AND VOICEMAIN NOT WORKING, CM WILL GO AHEAD W/PLAN FOR STR AT [facility] HCP HAS NOT BEEN INVOKED AND PT WAS AGREEABLE YESTERDAY 10/28/21. CM AWAITING TO RECEIVE TIME FORM [facility], TRANSPORTATION REFERRAL PLACED.
[2021-10-29 11:37] VITALS: BP 139/63; PULSE 72; RESP 20; TEMP 36.8; O2SAT 99
--- NOTE | 2021-10-29 12:54 | MHC.INPTTRAN ---
alert, still very weak. OOB with assist. Huy diet, appetite fair. Buttocks red, blanchable. Needs encouragement to repos freq. ON 2L via N/C Denies pain. Incont urine
--- NOTE | 2021-10-29 13:13 | PM.DS ---
DS: Providers Provider Date of Service: 10/29/21 Date of admission: 10/21/21 06:28 Date of discharge: 10/29/21 Primary care physician: Love Physician Consults: 10/21/21 06:31 Consult to Infectious Diseases Routine Consulting Provider: Cherelle Obando Reason for consultation: COVID positive Consult to Pulmonology Routine Consulting Provider: Berkley Simeon Reason for consultation: COVID pneumonia/question COPD, heavy smoker DS: Diagnosis Discharge Diagnosis (1) COVID-19: Status: Acute (2) Acute exacerbation of chronic obstructive pulmonary disease (COPD): Status: Acute DS: Summary Hospital Course Hospital Course: Chief Complaint: Not feeling well 75-year-old female with a past medical history of osteoarthritis, history of hip replacement, heavy smoker presented to the hospital today with a chief complaint of not feeling well.? Most of the history obtained from the patient and patient's family at bedside.? Reportedly patient has been not feeling well for the past couple days.? Family mentioned that patient was not COVID-19 vaccinated.? Patient denies any cough or sputum production.? Denies any chest pain or palpitations.? Denies any GI symptoms.? Denies any recent travel or sick contacts.? Review of all other systems is negative except mentioned above ER course: Per ER team patient on presentation noted to be saturating 85% on room air; chest x-ray showed opacities; D-dimer age adjusted was negative; lung exam noted to have diminished breath sounds; patient was given Decadron; patient also had a fever of 100.8 F; COVID-19 positive.? Hospial course: 1/covid 19 with acute hypoxic respiratory faiure--Treated wth remdesevir for 5 days, Dexamethasone fo toal of 10 days. Hypoxia is much better 2/COPD with exacerbation due to covid--treated with bronchodilators and Dexamethasone, qualifies for home O2. Will discharge with Dexamethasone and bronchodilators, advised to stop smoking Time Spent with Patient Time attestation: Total time spent providing and/or coordinating discharge services: Discharge coordination time: Greater than 30 minutes Quality: Safe Use of Opioids Does Pt have an Active Cancer Diagnosis on the Problem List?: No Quality: Stroke Does the patient have a stroke diagnosis?: No Physical Exam Vital Signs: Vital Signs: Last Vital Signs Temp 98.2 F 10/29/21 11:37 Pulse 72 10/29/21 11:37 Resp 20 10/29/21 11:37 BP 139/63 10/29/21 11:37 Pulse Ox 99 10/29/21 11:37 BMI result Body Mass Index 18.1 Const: Other: No acute distress Resp: Other: Diminished throughout with scant expiratory wheezes. Coarse rhonchi that clear with cough Cardio: Other: No S4; positive S1-S2; no S3 murmurs rubs or gallops GI: Other: Soft nontender nondistended with normoactive bowel sounds Extrem: Other: No edema bilaterally DS: Data Data Completed and Pending Labs on day of discharge: Laboratory Results - last 24 hr 10/29/21 10/29/21 06:32 06:32 WBC 9.1 RBC 4.46 Hgb 12.8 Hct 40.7 MCV 91.3 MCH 28.7 MCHC 31.4 RDW 15.3 Plt Count 329 MPV 10.5 Immature Gran % (Auto) 0.4 Neut % (Auto) 76.6 H Lymph % (Auto) 13.2 L [place] % (Auto) 9.5 Eos % (Auto) 0.2 Baso % (Auto) 0.1 Lymph # (Auto) 1.2 [place] # (Auto) 0.9 Eos # (Auto) 0.0 Baso # (Auto) 0.0 Abs Immat Gran (auto) 0.04 H Absolute Neuts (auto) 7.0 Absolute Nucleated RBC 0.000 Nucleated RBC % (auto) 0.0 Sodium 141 Potassium 4.4 Chloride 98 Carbon Dioxide 35 H Anion Gap 12 BUN 15 D Creatinine 0.57 Estim Creat Clear Calc 54.1 Estimated GFR > 60 Fasting Glucose 77 Calcium 8.2 L Total Bilirubin 0.2 AST 27 ALT 34 H Alkaline Phosphatase 71 D Total Protein 5.3 L Albumin 2.7 L Discharge Plan Discharge Patient Disposition: Xfer Inpatient Rehab Fac Discharge Diagnosis: COPD exacerbation and Covid 19 Referrals: Physician,None [Primary Care Provider] - 1 Week Discharge Medications: Continued multivitamin Tablet 1 tab PO DAILY 0RF Discharge Orders: Discharge Order (Routine); Ordered 10/29/21 Ordered By: Kimani Christensen Diet: advance to usual diet Activity on Discharge: As tolerated Stand Alone Forms: Patient Portal Discharge page Care Plan Goals: Full recocvery from covid and COPD exacerbation Health Concerns: COPD, covid Plan of Treatment: Use inhaers and Steroid as directed and follow up with yor Doctor in a week, quit smoke and use oxgyen as directed Assessment: as above
== END 2021-10-29 14:36 | DRG 177 ==
LOC: HO.ED 10-21 01:29 → HO.EDOVER 10-21 06:33 → HO.IMC 10-21 19:34
PROVIDERS: Admitting Provider Hospitalist; Emergency Provider Internal Medicine; Visit Provider Hospitalist
DX: U07.1 COVID-19 (principal); J12.82 Pneumonia due to coronavirus disease 2019; J96.01 Acute respiratory failure with hypoxia; J44.1 Chronic obstructive pulmonary disease with (acute) exacerbation; J44.0 Chronic obstructive pulmonary disease with (acute) lower respiratory infection; F17.210 Nicotine dependence, cigarettes, uncomplicated; Z71.6 Tobacco abuse counseling; Z28.310 Unvaccinated for COVID-19; Z91.013 Allergy to seafood; Z79.899 Other long term (current) drug therapy
CPT/HCPCS: 36415; 71045; 80048; 80053; 83605; 84484; 85025; 85027; 85379; 85610; 85730; 87040; 87635; 93005; 94640; 96365; 96375; 97163; 97530; 99285; J0248; J0456; J0696; J1100; J1650

== ENCOUNTER 2021-11-23 | Outpatient (REF) | payer MEDICARE, SELFPAY ==
[2021-11-23 07:02] LABS: MANUAL DIFF FLAG NO
[2021-11-23 07:35] LABS: Basophils Percent Auto 0.4 % (0-2); Eosinophils Absolute Auto 0.2 X10*3/uL (0.0-0.4); Eosinophils Percent Auto 3.5 % (0-4); Hematocrit 40.1 % (37.0-47.0); Hemoglobin 12.5 g/dl (12.0-16.0); Imm Gran Abs Auto 0.03 X10*3/uL (0.00-0.03); Imm Gran Pct Auto 0.4 % (0.0-0.4); Lymphocytes Absolute Auto 1.6 X10*3/uL (1.2-4.9); Lymphocytes Percent Auto 23.7 % (20-40); Mean Corpuscular HGB Conc 31.2 g/dl (31.0-35.0); Mean Corpuscular Hemoglobin 28.2 pg (27.0-33.0); Mean Corpuscular Volume 90.5 fL (80.0-98.0); Mean Platelet Volume 10.7 fL (9.4-12.3); Monocytes Absolute Auto 0.8 X10*3/uL (0.1-1.2); Monocytes Percent Auto 11.5 % (2-11); Neutrophils Absolute Auto 4.2 x10*3/uL (2.0-8.3); Neutrophils Percent Auto 60.5 % (45-73); Platelet Count 436 X10*3/uL (160-400); Red Blood Count 4.43 X10*6/uL (4.20-5.50); Red Cell Distribution Width 14.4 % (11.0-16.0); White Blood Count 6.9 X10*3/uL (4.8-10.8)
[2021-11-23 07:48] LABS: Anion Gap 12 (12-20); Blood Urea Nitrogen 16 mg/dL (9-16); Calcium 8.7 mg/dL (8.4-10.2); Carbon Dioxide 31 mmol/L (22-29); Chloride 101 mmol/L (96-108); Estimated Glomerular Filt Rate > 60; Glucose Random 68 mg/dL (60-115); Potassium 4.8 mmol/L (3.3-5.1); Sodium 139 mmol/L (135-145)
== END 2021-11-23 00:01 | disposition home or self-care (01) ==
LOC: HO.MMNH1L
PROVIDERS: Visit Provider Family Medicine
DX: R27.8 Other lack of coordination (principal)
CPT/HCPCS: 36415; 80048; 85025

== ENCOUNTER 2022-06-13 16:13 | Inpatient (IN) | payer MEDICARE, OTHER, SELFPAY ==
[2022-06-13] VITALS (10 sets, daily range): BP systolic 107–148; BP diastolic 56–78; PULSE 105–119; RESP 17–33; TEMP 36.3–37.1; O2SAT 78–95; BMI 17.4
--- NOTE | ~2022-06-13 | XR_ITS ---
EXAMINATION: XR CHEST CLINICAL INFORMATION: Shortness of breath COMPARISON: 10/21/2021 TECHNIQUE: Frontal view of the chest was obtained. FINDINGS: Chronic interstitial lung disease which is more prominent suggesting superimposed interstitial edema or atypical viral pneumonia. Probable small right pleural effusion. No focal consolidation. Stable cardiomediastinal silhouette. XR/XR chest 1V IMPRESSION: Chronic interstitial lung disease which is more prominent suggesting superimposed interstitial edema or atypical pneumonia.
--- NOTE | ~2022-06-13 | XR_ITS ---
EXAMINATION: XR HIP, LEFT CLINICAL INFORMATION: Pain. Fall. COMPARISON: Previous x-ray and CT of the left hip August 2020 TECHNIQUE: Two views of the left hip. FINDINGS: There is a left hip replacement. There are cerclage wires seen in the proximal femoral shaft. There may be an ununited greater tuberosity large fracture fragment. This appears unchanged from August 2020 exams. There is a lucency in the medial intertrochanteric region and proximal medial femoral shaft. This is similar to August 2020 exams. No definite acute fracture. No dislocation. Orthopedic hardware is intact without evidence of loosening. There is mild arthritis at the right hip joint. Bones of the pelvis are not well visualized due to overlying bowel gas. No pelvic fracture. Atherosclerotic disease. XR/XR hip LT w PEL1V IMPRESSION: Stable appearance of left hip replacement. No definite acute fracture or dislocation seen. If there is strong clinical suspicion of fracture, CT should be considered.
--- NOTE | ~2022-06-13 | CT_ITS ---
EXAMINATION: CT HEAD WITHOUT CONTRAST CLINICAL INFORMATION: Question encephalopathy. COMPARISON: Head CT 08/29/2020. TECHNIQUE: Contiguous axial imaging was performed from the skull base to vertex without intravenous administration of contrast. This CT examination was performed using dose optimization techniques as appropriate, variously including the following: *Automated exposure control *Adjustment of mA and/or kV according to patient size (this includes techniques or standardized protocols for targeted exams where dose is matched to indication/reason for exam; i.e. extremities or head) *Use of iterative reconstruction technique DLP: 538 mGy-cm. FINDINGS: There is no intracranial hemorrhage, large infarction, or mass lesion. There is no extra-axial collection. There is diffuse brain parenchymal volume loss with prominence of the ventricles and sulci. There is subjective impression of mildly disproportionate temporal lobe volume loss bilaterally. Hypoattenuation is seen within the cerebral white matter, typical of chronic microangiopathy. The visualized paranasal sinuses and mastoid air cells are clear. CT/CT head/brain wo IV con IMPRESSION: Within the limits of motion artifact, no acute intracranial abnormality Background changes of chronic microangiopathy. Mild degree of disproportionate volume loss with probable disproportionate volume loss involving the bilateral temporal lobes which could be correlated for Alzheimer type pathology.
--- NOTE | ~2022-06-13 | CT_ITS ---
EXAMINATION: CT CHEST WITHOUT CONTRAST CLINICAL INFORMATION: Respiratory failure. Abnormal chest x-ray. COMPARISON: Previous chest x-ray most recent from yesterday TECHNIQUE: Multidetector volumetric CT imaging of the chest was done. Axial MIP volume rendering provided. Sagittal and coronal reformatted images were obtained. This CT examination was performed using dose optimization techniques as appropriate, variously including the following: *Automated exposure control *Adjustment of mA and/or kV according to patient size (this includes techniques or standardized protocols for targeted exams where dose is matched to indication/reason for exam; i.e. extremities or head) *Use of iterative reconstruction technique DLP: 131 mGy-cm FINDINGS: LUNGS: There is evidence of diffuse airways disease with areas of bronchial wall thickening and peribronchial nodules. There is denser atelectasis or consolidation seen in the anterior segment of the right upper lobe and bilateral lower lobes. No endobronchial or endotracheal lesion. Increase secretions in the distal trachea and bilateral proximal mainstem bronchi. Mild emphysematous changes. MEDIASTINUM: Upper normal-size heart. No pericardial effusion. Severe aortic calcification and tortuosity. Coronary artery and aortic valve calcification. Small mediastinal lymph nodes. Evaluation for hilar adenopathy is limited without contrast. Upper normal-sized pulmonary arteries, main pulmonary artery measuring 3 cm. CORONARY ARTERY CALCIFICATION: Moderate PLEURA: There is no pleural effusion. No pleural mass or thickening. AXILLA: No lymphadenopathy. UPPER ABDOMEN: Severe atherosclerotic disease. OSSEOUS STRUCTURES: Increased thoracic kyphosis and multiple lower thoracic and upper lumbar vertebral body compression fractures. CT/CT chest wo IV con IMPRESSION: Diffuse airways disease and areas of bronchopneumonia in the right upper and bilateral lower lobes. Mild emphysema. Increased thoracic kyphosis and multiple lower thoracic and upper lumbar vertebral body compression fractures. Severe atherosclerotic disease with aortic valve and coronary artery calcification. Fleischner guidelines were followed.
--- NOTE | 2022-06-13 16:30 | ED_ITS ---
HPI - Altered Mental Status General Chief Complaint: Altered Mental Status Stated Complaint: sob, incoherent Time Seen by Provider: 06/13/22 16:27 Source: family History of Present Illness HPI narrative: Patient brought by her daughter for increased confusion and weakness for last 2 days. Patient is a chronic smoker with COPD has not seen any PCP in last 5-6 ye ars recently moved in with her daughter who notices that for last 2 days patient is more confused and short of breath on arrival in the ER patient was gasping for the air saturating 78 % at room air patient denies any chest pain to the family no fever has occasional cough also noticed patient been having leg edema for last few days no high fever patient grand kids also sick with cold symptoms for last few days patient is not vaccinated against COVID or flu Related Data Allergies Allergy/AdvReac Type Severity Reaction Status Date / Time scallops AdvReac Unknown NAUSEA & Verified 10/20/21 22:29 VOMITING Review of Systems Review of Systems: Yes Unobtainable due to mental condition PMFSH Past Medical History Medical History COPD (chronic obstructive pulmonary disease) Surgical History History of hip replacement Social History Social History Household Members: Family Household Members Other:: daughter Housing: House Do you presently have visiting nurse or other home services: No Alcohol intake: current Alcohol intake frequency: holidays/special occasions only Patient Tobacco Use Status: Current everyday Tobacco user Tobacco use type: Cigarette Cigarettes Per Day: 4 Smoked in Last 30 Days: Yes Second Hand Smoke Exposure: No Use of substances other than those prescribed or required for medical reasons: No Advance Directives: No Advance Directives Information Provided: Yes service: No Current occupational status: retired Physical Exam ED Vital Signs: Vital Signs - 24 hr 06/13/22 16:14 06/13/22 17:04 06/13/22 17:42 Temperature Pulse Rate 119 H 111 H Respiratory Rate 18 33 H 28 H Blood Pressure 142/69 H Pulse Oximetry Oxygen Delivery Method Oxygen Flow Rate 06/13/22 17:51 06/13/22 18:40 06/13/22 20:00 Temperature 98.6 F 98.7 F 97.3 F Pulse Rate 114 H 105 H 107 H Respiratory Rate 26 H 27 H 19 Blood Pressure 148/78 H 132/58 L 146/68 H Pulse Oximetry 78 L 95 92 Oxygen Delivery Method BiPAP BiPAP BiPAP Oxygen Flow Rate 06/13/22 20:40 06/13/22 22:40 06/13/22 22:50 Temperature 98.7 F Pulse Rate 108 H 109 H Respiratory Rate 24 H 17 26 H Blood Pressure 132/64 Pulse Oximetry 94 90 L Oxygen Delivery Method BiPAP Nasal Cannula Oxygen Flow Rate 30 2 06/13/22 23:55 Temperature 98.8 F Pulse Rate 107 H Respiratory Rate 22 H Blood Pressure 107/56 L Pulse Oximetry 90 L Oxygen Delivery Method Nasal Cannula Oxygen Flow Rate 2 BMI result Body Mass Index 17.4 Appearance: Lethargic gasping for air pale looking Eyes: Pallor+ ENT: Pharynx normal. Oral Mucosa moist Neck: Normal inspection. Neck supple. CVS: Sinus tachycardia no murmur or of. Pulses normal. Respiratory: Moderate respiratory distress. Equal air entry bilateral, bilateral crackles at the bases left more than the right prolonged expiration Abdomen: Soft and nontender. Bowel sounds are present, no mass palpable, no CVA tenderness Skin: Skin warm and dry. Normal skin color. Normal skin turgor. Extremities: 3+ lower extremity edema. No calf tenderness Neuro: Lethargic moving all 4 extremities Medications Administered Discontinued Medications Generic Name Dose Route Start Last Admin Trade Name Freq PRN Reason Stop Dose Admin Albuterol Sulfate 2.5 mg/ 0 mg 06/13/22 17:32 06/13/22 17:42 Albuterol/Ipratropium 3 ml INHALE 06/13/22 17:33 5 each ONCE ONE Administration Furosemide 20 mg 06/13/22 19:10 06/13/22 19:56 Furosemide 20 Mg/2 Ml Vial IVPUSH 06/13/22 19:11 20 mg ONCE ONE Administration Protocol Sodium Chloride 1,000 mls @ 999 mls/hr 06/13/22 16:48 06/13/22 18:39 Ns IV 06/13/22 17:48 Infused .Q1H1M ONE Infusion Ceftriaxone Sodium 1 gm/ 50 mls @ 100 mls/hr 06/13/22 17:31 06/13/22 18:19 Sodium Chloride IV 06/13/22 18:00 Infused ONCE ONE Infusion Piperacillin Sod/Tazobactam 50 mls @ 100 mls/hr 06/13/22 17:42 06/13/22 18:55 Sod 2.25 gm/ Sodium Chloride IV 06/13/22 18:11 Infused ONCE ONE Infusion Methylprednisolone Sodium Succinate 125 mg 06/13/22 17:32 06/13/22 17:48 Methylprednisolone Sod Succ 125 Mg/2 Ml Vial IVPUSH 06/13/22 17:33 125 mg ONCE ONE Administration MDM - Altered Mental Status MDM Narrative Medical decision making narrative: Patient 77 years old with history of COPD, chronic smoker comes here for increased shortness of breath and confusion for last 2- 3 days workup showed patient is severely hypoxic with mild CO2 retention chest x-ray showed interstitial edema versus atypical pneumonia. Patient WBC count was 12.1 with 59% bandemia also patient had lactic acidosis 6.6 likely both type a and type B from pneumonia and hypoxic injury. Patient received IV fluids nebulizing treatment IV antibiotics and placed on BiPAP on arrival fluid was limited as patient has CHF with elevated BNP and troponin patient denies any chest pain elevated troponin likely from demand ischemia. After 5 hours of BiPAP treatment patient is looking much better now saturating 91% on 4 L nasal cannula will admit patient to medical floor. patient is full code patient's repeat troponin did not show delta change. Focused exam for sepsis was done at 2330 Differential Diagnosis Differential diagnosis: Likely altered mental status, hyponatremia, renal failure and sepsis Lab Data Attestation: I reviewed the patient's lab results. Result diagrams: 06/13/22 16:56 06/13/22 16:56 Labs: Lab Results 06/13/22 06/13/22 06/13/22 Range/Units 16:56 16:56 16:56 WBC 12.1 H (4.8-10.8) X10*3/uL RBC 5.10 (4.20-5.50) X10*6/uL Hgb 13.4 (12.0-16.0) g/dl Hct 43.2 (37.0-47.0) % MCV 84.7 (80.0-98.0) fL MCH 26.3 L (27.0-33.0) pg MCHC 31.0 (31.0-35.0) g/dl RDW 15.3 (11.0-16.0) % Plt Count 656 H D (160-400) X10*3/uL MPV 10.1 (9.4-12.3) fL Immature Gran % (Auto) Cancelled Neut % (Auto) Cancelled Lymph % (Auto) Cancelled Hardy % (Auto) Cancelled Eos % (Auto) Cancelled Baso % (Auto) Cancelled Lymph # (Auto) Cancelled Hardy # (Auto) Cancelled Eos # (Auto) Cancelled Baso # (Auto) Cancelled Abs Immat Gran (auto) Cancelled Absolute Neuts (auto) Cancelled Absolute Nucleated RBC 0.000 (0.0-0.012) X10*3/uL Nucleated RBC % (auto) 0.0 (0.0-0.2) /100WBC Neutrophils % (Manual) 24 L (45-73) % Band Neutrophils % 59 H (3-5) % Lymphocytes % (Manual) 11 L (20-40) % Monocytes % (Manual) 5 (2-11) % Metamyelocytes % 1 % Abs Neuts (Manual) 10.0 H (2.0-8.3) X10*3/uL Lymphocytes # (Manual) 1.3 (1.2-4.9) X10*3/uL Monocytes # (Manual) 0.6 (0.1-1.2) X10*3/uL Metamyelocytes # 0.1 X10*3/uL Toxic Vacuolation PRESENT Platelet Estimate INCREASED (NORMAL) Large Platelets PRESENT Giant Platelets PRESENT Plt Morphology Comment NOTED RBC Morphology NORMAL PT 13.5 H (10.0-13.1) SEC INR 1.2 H (0.9-1.1) APTT 27.8 (26.0-36.4) SEC VBG pH (7.32-7.43) VBG pCO2 mmHg VBG pO2 mmHg VBG HCO3 (22-26) mmol/L VBG O2 Saturation % VBG Base Excess mmol/L Sodium 137 (135-145) mmol/L Potassium 4.6 (3.3-5.1) mmol/L Chloride 99 (96-108) mmol/L Carbon Dioxide 26 (22-29) mmol/L Anion Gap 17 (12-20) BUN 55 H (9-16) mg/dL Creatinine 0.94 (0.5-1.4) mg/dL Estim Creat Clear Calc 30.9 Estimated GFR 57 Random Glucose 188 H (60-115) mg/dL Lactic Acid (0.5-2.0) mmol/L Lactic Acid F/U @ 2Hr (0.5-2.0) mmol/L Calcium 9.8 D (8.4-10.2) mg/dL Total Bilirubin 0.5 (0.0-1.0) mg/dL AST 55 H (5-31) U/L ALT 23 (0-31) U/L Alkaline Phosphatase 190 H (39-117) U/L Troponin I High Sens (<3.5-17.0) ng/L B-Natriuretic Peptide (<100) pg/mL Total Protein 7.8 (6.5-8.0) g/dL Albumin 3.7 (3.5-5.0) g/dL Urine Color Urine Appearance Urine pH (5.0-9.0) Ur Specific [place] (1.005-1.025) Urine Protein (Neg-Trace) mg/dL Urine Glucose (UA) (Negative) mg/dL Urine Ketones (Negative) mg/dL Urine Blood (Negative) Urine Nitrite (Negative) Ur Leukocyte Esterase (Negative) Urine RBC (0-2) /HPF Urine WBC (0-5) /HPF Ur Squamous Epith Cells (0-2) /HPF Urine Bacteria (None Seen) Hyaline Casts (0-2) /LPF Influenza Type A (PCR) (Negative) Influenza Type B (PCR) (Negative) RSV RNA Qual (PCR) (Negative) SARS-CoV-2 RNA (RT-PCR) (Negative) 06/13/22 06/13/22 06/13/22 Range/Units 16:56 16:56 16:56 WBC (4.8-10.8) X10*3/uL RBC (4.20-5.50) X10*6/uL Hgb (12.0-16.0) g/dl Hct (37.0-47.0) % MCV (80.0-98.0) fL MCH (27.0-33.0) pg MCHC (31.0-35.0) g/dl RDW (11.0-16.0) % Plt Count (160-400) X10*3/uL MPV (9.4-12.3) fL Immature Gran % (Auto) Neut % (Auto) Lymph % (Auto) Hardy % (Auto) Eos % (Auto) Baso % (Auto) Lymph # (Auto) Hardy # (Auto) Eos # (Auto) Baso # (Auto) Abs Immat Gran (auto) Absolute Neuts (auto) Absolute Nucleated RBC (0.0-0.012) X10*3/uL Nucleated RBC % (auto) (0.0-0.2) /100WBC Neutrophils % (Manual) (45-73) % Band Neutrophils % (3-5) % Lymphocytes % (Manual) (20-40) % Monocytes % (Manual) (2-11) % Metamyelocytes % % Abs Neuts (Manual) (2.0-8.3) X10*3/uL Lymphocytes # (Manual) (1.2-4.9) X10*3/uL Monocytes # (Manual) (0.1-1.2) X10*3/uL Metamyelocytes # X10*3/uL Toxic Vacuolation Platelet Estimate (NORMAL) Large Platelets Giant Platelets Plt Morphology Comment RBC Morphology PT (10.0-13.1) SEC INR (0.9-1.1) APTT (26.0-36.4) SEC VBG pH (7.32-7.43) VBG pCO2 mmHg VBG pO2 mmHg VBG HCO3 (22-26) mmol/L VBG O2 Saturation % VBG Base Excess mmol/L Sodium (135-145) mmol/L Potassium (3.3-5.1) mmol/L Chloride (96-108) mmol/L Carbon Dioxide (22-29) mmol/L Anion Gap (12-20) BUN (9-16) mg/dL Creatinine (0.5-1.4) mg/dL Estim Creat Clear Calc Estimated GFR Random Glucose (60-115) mg/dL Lactic Acid 6.6 H* (0.5-2.0) mmol/L Lactic Acid F/U @ 2Hr (0.5-2.0) mmol/L Calcium (8.4-10.2) mg/dL Total Bilirubin (0.0-1.0) mg/dL AST (5-31) U/L ALT (0-31) U/L Alkaline Phosphatase (39-117) U/L Troponin I High Sens 143.8 H* (<3.5-17.0) ng/L B-Natriuretic Peptide 2785 H (<100) pg/mL Total Protein (6.5-8.0) g/dL Albumin (3.5-5.0) g/dL Urine Color Urine Appearance Urine pH (5.0-9.0) Ur Specific [place] (1.005-1.025) Urine Protein (Neg-Trace) mg/dL Urine Glucose (UA) (Negative) mg/dL Urine Ketones (Negative) mg/dL Urine Blood (Negative) Urine Nitrite (Negative) Ur Leukocyte Esterase (Negative) Urine RBC (0-2) /HPF Urine WBC (0-5) /HPF Ur Squamous Epith Cells (0-2) /HPF Urine Bacteria (None Seen) Hyaline Casts (0-2) /LPF Influenza Type A (PCR) (Negative) Influenza Type B (PCR) (Negative) RSV RNA Qual (PCR) (Negative) SARS-CoV-2 RNA (RT-PCR) (Negative) 06/13/22 06/13/22 06/13/22 Range/Units 16:59 16:59 20:01 WBC (4.8-10.8) X10*3/uL RBC (4.20-5.50) X10*6/uL Hgb (12.0-16.0) g/dl Hct (37.0-47.0) % MCV (80.0-98.0) fL MCH (27.0-33.0) pg MCHC (31.0-35.0) g/dl RDW (11.0-16.0) % Plt Count (160-400) X10*3/uL MPV (9.4-12.3) fL Immature Gran % (Auto) Neut % (Auto) Lymph % (Auto) Hardy % (Auto) Eos % (Auto) Baso % (Auto) Lymph # (Auto) Hardy # (Auto) Eos # (Auto) Baso # (Auto) Abs Immat Gran (auto) Absolute Neuts (auto) Absolute Nucleated RBC (0.0-0.012) X10*3/uL Nucleated RBC % (auto) (0.0-0.2) /100WBC Neutrophils % (Manual) (45-73) % Band Neutrophils % (3-5) % Lymphocytes % (Manual) (20-40) % Monocytes % (Manual) (2-11) % Metamyelocytes % % Abs Neuts (Manual) (2.0-8.3) X10*3/uL Lymphocytes # (Manual) (1.2-4.9) X10*3/uL Monocytes # (Manual) (0.1-1.2) X10*3/uL Metamyelocytes # X10*3/uL Toxic Vacuolation Platelet Estimate (NORMAL) Large Platelets Giant Platelets Plt Morphology Comment RBC Morphology PT (10.0-13.1) SEC INR (0.9-1.1) APTT (26.0-36.4) SEC VBG pH 7.29 L (7.32-7.43) VBG pCO2 50 mmHg VBG pO2 42 mmHg VBG HCO3 24 (22-26) mmol/L VBG O2 Saturation 56.0 % VBG Base Excess -2.4 mmol/L Sodium (135-145) mmol/L Potassium (3.3-5.1) mmol/L Chloride (96-108) mmol/L Carbon Dioxide (22-29) mmol/L Anion Gap (12-20) BUN (9-16) mg/dL Creatinine (0.5-1.4) mg/dL Estim Creat Clear Calc Estimated GFR Random Glucose (60-115) mg/dL Lactic Acid (0.5-2.0) mmol/L Lactic Acid F/U @ 2Hr 4.2 H* (0.5-2.0) mmol/L Calcium (8.4-10.2) mg/dL Total Bilirubin (0.0-1.0) mg/dL AST (5-31) U/L ALT (0-31) U/L Alkaline Phosphatase (39-117) U/L Troponin I High Sens (<3.5-17.0) ng/L B-Natriuretic Peptide (<100) pg/mL Total Protein (6.5-8.0) g/dL Albumin (3.5-5.0) g/dL Urine Color Urine Appearance Urine pH (5.0-9.0) Ur Specific [place] (1.005-1.025) Urine Protein (Neg-Trace) mg/dL Urine Glucose (UA) (Negative) mg/dL Urine Ketones (Negative) mg/dL Urine Blood (Negative) Urine Nitrite (Negative) Ur Leukocyte Esterase (Negative) Urine RBC (0-2) /HPF Urine WBC (0-5) /HPF Ur Squamous Epith Cells (0-2) /HPF Urine Bacteria (None Seen) Hyaline Casts (0-2) /LPF Influenza Type A (PCR) NEGATIVE (Negative) Influenza Type B (PCR) NEGATIVE (Negative) RSV RNA Qual (PCR) NEGATIVE (Negative) SARS-CoV-2 RNA (RT-PCR) NEGATIVE (Negative) 06/13/22 06/13/22 06/14/22 Range/Units 20:01 20:01 00:34 WBC (4.8-10.8) X10*3/uL RBC (4.20-5.50) X10*6/uL Hgb (12.0-16.0) g/dl Hct (37.0-47.0) % MCV (80.0-98.0) fL MCH (27.0-33.0) pg MCHC (31.0-35.0) g/dl RDW (11.0-16.0) % Plt Count (160-400) X10*3/uL MPV (9.4-12.3) fL Immature Gran % (Auto) Neut % (Auto) Lymph % (Auto) Hardy % (Auto) Eos % (Auto) Baso % (Auto) Lymph # (Auto) Hardy # (Auto) Eos # (Auto) Baso # (Auto) Abs Immat Gran (auto) Absolute Neuts (auto) Absolute Nucleated RBC (0.0-0.012) X10*3/uL Nucleated RBC % (auto) (0.0-0.2) /100WBC Neutrophils % (Manual) (45-73) % Band Neutrophils % (3-5) % Lymphocytes % (Manual) (20-40) % Monocytes % (Manual) (2-11) % Metamyelocytes % % Abs Neuts (Manual) (2.0-8.3) X10*3/uL Lymphocytes # (Manual) (1.2-4.9) X10*3/uL Monocytes # (Manual) (0.1-1.2) X10*3/uL Metamyelocytes # X10*3/uL Toxic Vacuolation Platelet Estimate (NORMAL) Large Platelets Giant Platelets Plt Morphology Comment RBC Morphology PT (10.0-13.1) SEC INR (0.9-1.1) APTT (26.0-36.4) SEC VBG pH 7.36 (7.32-7.43) VBG pCO2 66 mmHg VBG pO2 54 mmHg VBG HCO3 37 H (22-26) mmol/L VBG O2 Saturation 79.0 % VBG Base Excess 9.6 mmol/L Sodium (135-145) mmol/L Potassium (3.3-5.1) mmol/L Chloride (96-108) mmol/L Carbon Dioxide (22-29) mmol/L Anion Gap (12-20) BUN (9-16) mg/dL Creatinine (0.5-1.4) mg/dL Estim Creat Clear Calc Estimated GFR Random Glucose (60-115) mg/dL Lactic Acid (0.5-2.0) mmol/L Lactic Acid F/U @ 2Hr (0.5-2.0) mmol/L Calcium (8.4-10.2) mg/dL Total Bilirubin (0.0-1.0) mg/dL AST (5-31) U/L ALT (0-31) U/L Alkaline Phosphatase (39-117) U/L Troponin I High Sens 108.6 H* (<3.5-17.0) ng/L B-Natriuretic Peptide (<100) pg/mL Total Protein (6.5-8.0) g/dL Albumin (3.5-5.0) g/dL Urine Color Yellow Urine Appearance Clear Urine pH 5.5 (5.0-9.0) Ur Specific [place] 1.025 (1.005-1.025) Urine Protein 300 (3+) H (Neg-Trace) mg/dL Urine Glucose (UA) Negative (Negative) mg/dL Urine Ketones Negative (Negative) mg/dL Urine Blood Small (1+) H (Negative) Urine Nitrite Negative (Negative) Ur Leukocyte Esterase Negative (Negative) Urine RBC 6-10 H (0-2) /HPF Urine WBC 0-5 (0-5) /HPF Ur Squamous Epith Cells 3-5 (0-2) /HPF Urine Bacteria None Seen (None Seen) Hyaline Casts 3-5 (0-2) /LPF Influenza Type A (PCR) (Negative) Influenza Type B (PCR) (Negative) RSV RNA Qual (PCR) (Negative) SARS-CoV-2 RNA (RT-PCR) (Negative) ECG Data ECG #1: Prior ECG tracings: available for review Interpretation: Sinus tachycardia with heart rate in 116 beats per minute for progression of R- wave with deep T in lead 2 lead 3 AVF V3 V4 possible inferior wall ischemia Critical Care Time Critical Care Time Critical Care Time: Yes Total Critical Care Time: 60 Attestation: The patient was critically ill with a high probability of imminent or life threatening deterioration. I spent greater than 65 minutes of discontinuous time evaluating the patient,delivering critical care at the bedside, discussing and evaluating pertinent data with consultants. Critical care time does not include time spent performing separately billable procedures or teaching. Total time spent performing critical care was 60 minutes. Discharge Plan Discharge Clinical Impression: Acute exacerbation of chronic obstructive pulmonary disease (COPD), Altered mental status, Sepsis, Congestive heart failure Patient Disposition: Admitted As Inpatient
--- NOTE | 2022-06-13 16:46 | ECG_ITS ---
Test Reason : SOB Blood Pressure : / mmHG Vent. Rate : 116 BPM Atrial Rate : 116 BPM P-R Int : 098 ms QRS Dur : 074 ms QT Int : 360 ms P-R-T Axes : 080 078 -61 degrees QTc Int : 500 ms Sinus tachycardia with short OK with occasional Premature ventricular complexes Anterior infarct , age undetermined ST & T wave abnormality, consider inferior ischemia and anterior ischemia Abnormal ECG When compared with ECG of 21-OCT-2021 01:42, Premature ventricular complexes are now Present Questionable change in QRS axis T wave inversion now evident in Inferior leads T wave inversion now evident in Anterior leads Referred By: Bj White Electronically Signed By:NANCY KOO MD
--- NOTE | 2022-06-13 16:56 | PC.NURSE ---
Pt covered in feces. This RN, Tremaine Sheets and TREMAINE Overton cleaned pt and changed linens.
[2022-06-13 17:05] LABS: VBG Base Excess -2.4 mmol/L; VBG HCO3 24 mmol/L (22-26); VBG pCO2 50 mmHg; VBG pH 7.29 (7.32-7.43); VBG pO2 42 mmHg
[2022-06-13] MEDS: 0.9 % Sodium Chloride 1,000 ML 999 ML IV (17:08)
[2022-06-13 17:09] LABS: INTERNATIONAL NORM RATIO 1.2 (0.9-1.1); Prothrombin Time 13.5 SEC (10.0-13.1)
[2022-06-13 17:12] LABS: Partial Thromboplastin Time 27.8 SEC (26.0-36.4)
[2022-06-13 17:18] LABS: Hematocrit 43.2 % (37.0-47.0); Hemoglobin 13.4 g/dl (12.0-16.0); Mean Corpuscular Hemoglobin 26.3 pg (27.0-33.0); Mean Corpuscular Volume 84.7 fL (80.0-98.0); Mean Platelet Volume 10.1 fL (9.4-12.3); Red Cell Distribution Width 15.3 % (11.0-16.0); WBC ABN SCTR FOR CBC 1
[2022-06-13 17:20] LABS: White Blood Count 12.1 X10*3/uL (4.8-10.8)
[2022-06-13 17:23] LABS: Alanine Aminotransferase 23 U/L (0-31); Albumin Level 3.7 g/dL (3.5-5.0); Alkaline Phosphatase 190 U/L (39-117); Anion Gap 17 (12-20); Aspartate Amino Transferase 55 U/L (5-31); Bilirubin Total 0.5 mg/dL (0.0-1.0); Blood Urea Nitrogen 55 mg/dL (9-16); Calcium 9.8 mg/dL (8.4-10.2); Carbon Dioxide 26 mmol/L (22-29); Chloride 99 mmol/L (96-108); Creatinine Clr Calc Pharmacy 30.9; Estimated Glomerular Filt Rate 57; Glucose Random 188 mg/dL (60-115); Potassium 4.6 mmol/L (3.3-5.1); Sodium 137 mmol/L (135-145); Total Protein 7.8 g/dL (6.5-8.0)
[2022-06-13 17:25] LABS: Lactic Acid 6.6 mmol/L (0.5-2.0)
[2022-06-13 17:29] LABS: B Type Natriuretic Peptide 2785 pg/mL (<100)
[2022-06-13 17:30] LABS: Venous Blood Gas Refer to POC result
[2022-06-13 17:31] LABS: Troponin-I High Sensitivity 143.8 ng/L (<3.5-17.0)
[2022-06-13 17:40] LABS: Lymphocytes Absolute Manual 1.3 X10*3/uL (1.2-4.9); Lymphocytes Percent Manual 11 % (20-40); Metamyelocytes Absolute 0.1 X10*3/uL; Metamyelocytes Percent 1 %; Monocytes Absolute Manual 0.6 X10*3/uL (0.1-1.2); Monocytes Percent Manual 5 % (2-11); Neutrophils Percent Manual 24 % (45-73)
[2022-06-13] MEDS: Albuterol Sulfate 2.5 MG, Albuterol/Iprat 2.5/0.5MG 3 ML 3 ML INHALE (17:42)
[2022-06-13 17:43] LABS: Band Neutrophils Percent 59 % (3-5)
[2022-06-13 17:43] LABS: Influenza A PCR NEGATIVE (Negative); Influenza B PCR NEGATIVE (Negative); Resp Syncy Virus RNA Qual PCR NEGATIVE (Negative); SARS COV2 PCR INHOUSE NEGATIVE (Negative)
[2022-06-13 17:44] LABS: Giant Platelet PRESENT; Large Platelet PRESENT; Platelet Estimate INCREASED (NORMAL); Platelet Morphology Comment NOTED; RBC Morphology NORMAL; Toxic Vacuolation PRESENT
[2022-06-13 17:48] LABS: Platelet Count 656 X10*3/uL (160-400)
[2022-06-13] MEDS: methylPREDNISolone Sod Succ 125 MG/2 ML VIAL IVPUSH (17:48)
[2022-06-13] MEDS: cefTRIAXone sodium 1 GM in 0.9 % Sodium Chloride 50 ML IV (17:49)
[2022-06-13] MEDS: Piperacillin Sodium/Tazobactam 2.25 GM in 0.9 % Sodium Chloride 50 ML IV (18:22)
[2022-06-13 19:00] LABS: Reflex Lactate? Lactic Acid Added
--- NOTE | 2022-06-13 19:11 | PC.NURSE ---
Pt continues to rest on stretcher at this time. Satting between 88 and 90 on Bipap at 30% oxygen. Daughter is at bedside.
[2022-06-13] MEDS: Furosemide 20 MG/2 ML VIAL IVPUSH (19:56)
[2022-06-13 20:10] LABS: Appearance Urine Clear; Color Urine Yellow; Glucose Urine UA Negative (Negative); Leukocyte Esterase Urine Negative (Negative); Nitrite Urine Negative (Negative); PH 5.5 (5.0-9.0); Specific Gravity - Urine 1.025 (1.005-1.025); UMIC TRIGGER UACC YES; Urine Blood Small (1+) (Negative); Urine Ketones Negative (Negative); Urine Protein 300 (3+) mg/dL (Neg-Trace)
[2022-06-13 20:25] LABS: Bacteria Urine None Seen (None Seen); WBC Urine 0-5 /HPF (0-5)
[2022-06-13 20:44] LABS: ~Lactic Acid-LAB USE ONLY 4.2 mmol/L (0.5-2.0)
[2022-06-13 20:45] LABS: Troponin-I High Sensitivity 108.6 ng/L (<3.5-17.0)
[2022-06-13 22:07] LABS: Reflex Lactate? 2 Y
--- NOTE | 2022-06-13 22:42 | PC.NURSE ---
Pt remains on bipap at this time on 30% O2. Pt is reporting no pain, no other complaints. Pt has catheter and is clean and dry
--- NOTE | 2022-06-13 22:49 | PC.NURSE ---
This RN and respriatory trialed pt off bipap, pt now on 2L nasal canula satting at 90%.
[2022-06-14] VITALS (15 sets, daily range): BP systolic 107–158; BP diastolic 55–77; PULSE 101–117; RESP 18–29; TEMP 36.7–37.1; O2SAT 87–96
--- NOTE | 2022-06-14 | ECG_ITS ---
Test Reason : DYSPENIA Blood Pressure : / mmHG Vent. Rate : 116 BPM Atrial Rate : 116 BPM P-R Int : 122 ms QRS Dur : 066 ms QT Int : 306 ms P-R-T Axes : 073 058 -52 degrees QTc Int : 425 ms Sinus tachycardia Anterior infarct (cited on or before 13-JUN-2022) Abnormal ECG When compared with ECG of 13-JUN-2022 17:08, Premature ventricular complexes are no longer Present Referred By: Sg Jean Electronically Signed By:NANCY KOO MD
[2022-06-14 00:40] LABS: VBG Base Excess 9.6 mmol/L; VBG HCO3 37 mmol/L (22-26); VBG pCO2 66 mmHg; VBG pH 7.36 (7.32-7.43); VBG pO2 54 mmHg
[2022-06-14 00:45] LABS: Venous Blood Gas Refer to POC result
[2022-06-14] MEDS: 0.9 % Sodium Chloride 1,000 ML 999 ML IV (00:48)
[2022-06-14 01:04] LABS: Troponin-I High Sensitivity 123.4 ng/L (<3.5-17.0); ~Lactic Acid-LAB USE ONLY 2.2 mmol/L (0.5-2.0)
--- NOTE | 2022-06-14 01:04 | PC.NURSE ---
CRITICAL LAB RESULTS GIVEN TO MD CRUZ
[2022-06-14 01:37] LABS: Venous Blood Gas Refer to POC result
[2022-06-14] MEDS: Azithromycin 500 MG in 0.9 % Sodium Chloride 250 ML 125 MG IV (02:30)
[2022-06-14 02:31] LABS: ABG Base Excess 4.2 mmol/L; ABG HCO3 30 mmol/L (22-26); ABG pCO2 54 mmHg (32-45); ABG pH 7.35 (7.35-7.45); ABG pO2 117 mmHg (83-108)
[2022-06-14] MEDS: Nicotine 14 MG PATCH.TD24 TRANSDERMA ×2 (02:31→16:26)
[2022-06-14] MEDS: Enoxaparin Sodium 40 MG/0.4 ML SYRINGE SUBCUT ×2 (02:31→14:58)
[2022-06-14 02:36] LABS: ABG Refer to POC result
[2022-06-14 05:31] LABS: ABG Base Excess 4.1 mmol/L; ABG HCO3 31 mmol/L (22-26); ABG pCO2 60 mmHg (32-45); ABG pH 7.32 (7.35-7.45); ABG pO2 70 mmHg (83-108)
[2022-06-14 05:31] LABS: ABG Refer to POC result
--- NOTE | 2022-06-14 05:44 | PC.NURSE ---
Patient boosted and repositioned with pillows. Open abrasion to coccyx noted in ED with areas of blanchable redness. Repeat ABG results reviewed with ED MD and MD Bill- team would like patient back on BIPAP and to pursue ?ICU bed. Patient remains ill-appearing, lethargic, but able to state her name, birthday, and hospital. +frequent wet cough noted. O2 saturations appropriately 88-92% on NC but will be placing patient back on BIPAP per MD request.
[2022-06-14 05:49] LABS: Hematocrit 39.7 % (37.0-47.0); Hemoglobin 12.5 g/dl (12.0-16.0); Mean Corpuscular HGB Conc 31.5 g/dl (31.0-35.0); Mean Corpuscular Hemoglobin 26.7 pg (27.0-33.0); Mean Corpuscular Volume 84.6 fL (80.0-98.0); Mean Platelet Volume 9.7 fL (9.4-12.3); Platelet Count 479 X10*3/uL (160-400); Red Blood Count 4.69 X10*6/uL (4.20-5.50); Red Cell Distribution Width 15.3 % (11.0-16.0); White Blood Count 9.9 X10*3/uL (4.8-10.8)
[2022-06-14] MEDS: Albuterol/Iprat 2.5/0.5MG 3 ML AMPUL.NEB INHALE ×4 (06:05→19:11)
[2022-06-14 06:07] LABS: Band Neutrophils Percent 9 % (3-5); Lymphocytes Absolute Manual 0.7 X10*3/uL (1.2-4.9); Lymphocytes Percent Manual 7 % (20-40); Metamyelocytes Absolute 0.1 X10*3/uL; Metamyelocytes Percent 1 %; Monocytes Absolute Manual 0.3 X10*3/uL (0.1-1.2); Monocytes Percent Manual 3 % (2-11); Neutrophils Absolute Manual 8.8 X10*3/uL (2.0-8.3); Neutrophils Percent Manual 80 % (45-73)
[2022-06-14 06:08] LABS: Anion Gap 18 (12-20); Blood Urea Nitrogen 38 mg/dL (9-16); Carbon Dioxide 29 mmol/L (22-29); Chloride 108 mmol/L (96-108); Creatinine Clr Calc Pharmacy 41.5; Dohle Bodies PRESENT; Estimated Glomerular Filt Rate > 60; Glucose Random 125 mg/dL (60-115); Platelet Estimate NORMAL (NORMAL); Platelet Morphology Comment NORMAL; Potassium 4.6 mmol/L (3.3-5.1); RBC Morphology NORMAL; Sodium 150 mmol/L (135-145); Toxic Granulation PRESENT
--- NOTE | 2022-06-14 06:45 | PC.NURSE ---
280cc yellow urine emptied from [place] at this time.
--- NOTE | 2022-06-14 07:21 | PC.NURSE ---
report taken from allison posada pt here for failure to thrive, found to have resp issues/ bl leg edema on arrival. on first contact, pt on bipap, awakening to voice, a and o x 3. bl iv patent. pt asking if she may take mask off after assisting with reposition. placed on nasal cannula on 2l/min, spo2 steady 89%, pt in no resp distress, resting comfortably. lung sounds dim throughout. pt appears to be sinus tach on monitor [address]. [address] catheter in place, draining clear yellow urine. plan for inpt admission to icu, awaiting bed assignment. pt agreeable to care plan at this time. vss. 138/60, 116bpm, 26rr, 89% on 2lnc, 98.5.
--- NOTE | 2022-06-14 10:04 | PHA.MEDREC ---
Pharmacy Consult ? Medication Reconciliation Pharmacy has reviewed the medication reconciliation completed by [facility] confirmed patient has had no medications since 2019 and [facility] had no profile for the patient. Beatrice Barbour, PharmD
--- NOTE | 2022-06-14 10:26 | PC.NURSE ---
requesting being repositioned to r side, which pt favors. educated about need for adequate turning to both sides to reduce risk to skin and for pna risk, pt still favoring lying on r side. maintaining spo2 >91% on 2l nc, has rhoncorous cough. no apparent distress. requesting both food and liquid. tolerating sips of ice water without issue.
--- NOTE | 2022-06-14 10:36 | PC.NURSE ---
Addendum entered by Baltazar Terry 06/14/22 10:37: vs unable to be charted in worklist for this pt. vs @ 1038 hr 113, bp 127/55, 92% on 2lnc, 98.3 oral temp, rr 24 Original Note: tolerating slow sips of ice water. pt sts i think i choked on water at home and that why im like this .
--- NOTE | 2022-06-14 11:22 | PC.NURSE ---
no orders at this time for inpt admission, per previous shift nurse, plan was for pt to be transferred to icu r/t blood gases. call to icu to see if near [employer] lecturer aware of pt case. awaiting call back.
[2022-06-14 11:49] LABS: Venous Blood Gas Refer to POC result
[2022-06-14 11:49] LABS: VBG Base Excess 4.4 mmol/L; VBG HCO3 27 mmol/L (22-26); VBG pCO2 37 mmHg; VBG pH 7.48 (7.32-7.43); VBG pO2 88 mmHg
[2022-06-14 12:57] LABS: Procalcitonin 1.56 ng/mL
--- NOTE | 2022-06-14 13:52 | PM.EVENT ---
Event Note Date of Service: 06/14/22 Event Note: Attending Attestation: I have personally seen and examined the patient independently (on the date of service as documented by LUIS), reviewed the LUIS history, exam and?MDM and agree with the assessment and plan as?written with the following additions and/or changes. 77 yo F presents with increased confusion and shortness of breath. History limited due to patients mental status. Work up in the ED reveals atypical pneumonia vs interstitial edema. Clininically looks dry despite CXR reading + BNP elevation. Required extended period of bipap while in the ED; now tolerating NC. Will admit for severe sepsis due to pneumonia. Check CT chest. Repeat BMP + trop + EKG. Place on telemetry. Remainder per H&P
--- NOTE | 2022-06-14 14:29 | PC.NURSE ---
vital signs: 98.3 temp, 93% 2lnc, 108 bpm hr, 132/80 bp.
--- NOTE | 2022-06-14 14:34 | P.HPHOSP_ITS ---
History of Present Illness Date of Service: 06/14/22 Attending physician on admission: Sg Jean Chief Complaint: SOB Pt is a 77-year-old female with a PMH significant for COPD, osteoarthritis, history of hip replacement, and smoking who is brought to the ED by her daughter for SOB and confusion for the past two days. Pt is currently oriented to person only, so history was obtained from her daughter. Daughter states that she and her son were sick with a head cold last week, which was likely transmitted to her mother. Two days ago the daughter noted her mother having a productive cough, difficulty breathing, and confusion. Her mother does not have dementia and is normally oriented x3 at baseline; however, two days ago she started being unable to perform her normal activities, such as reading her calendar or going outside for a cigarette. Pt is a current 1/2 pack smoker, and daughter notes that her mother had a similar COPD exacerbation with AMS secondary to pneumonia last year. Daughter denies any other complaints. No chest pain or pressure, no palpitations. No abdominal pain. No change is bowel or bladder function. In the ED pt the patient was worked up for pneumonia versus CHF. Patient was afebrile but tachypneic and tachycardic. Labs were significant for an elevated WBC, a ABG of pH of 7.32 and pO2 of 60, sodium of 150, lactic acid of 6.6, troponin of 143 and BNP of 2,785. She was negative for influenza, RSV, COVID. Chest x-ray showed chronic interstitial lung disease suggestive of interstitial edema or atypical pneumonia. EKG was significant for sinus tachycardia, T-wave inversions in the inferior and anterior leads. Patient was treated with Lasix, S kevin-Medrol, Zosyn, ceftriaxone, and nebulizers. She is also placed on BiPAP for approximately 5 hours and improved but her blood gas revealed elevated acidosis and pCO2 of 54. The patient was unable to go to the ICU due to no bed being available, so she was placed back on BiPAP twice more until she was able to be weaned from the BiPAP and in meet criteria for admittance to the hospital. Patient will be admitted to telemetry for COPD exacerbation and further workup. Review of Systems Review of Systems: Pt is oriented to person only, so HPI difficult to obtain and comes mainly from her daughter. SOB Productive cough Weakness Denies chest pain/pressure PMFSH Medical History COPD (chronic obstructive pulmonary disease) Surgical History History of hip replacement Social History Household Members: Unknown / Unable to assess Household Members Other:: daughter Housing: Unknown / Unable to assess Do you presently have visiting nurse or other home services: No Unable to assess alcohol history related to: Unknown Alcohol intake: current Alcohol intake frequency: holidays/special occasions only Patient Tobacco Use Status: Current everyday Tobacco user Tobacco use type: Cigarette Cigarettes Per Day: 4 Second Hand Smoke Exposure: No service: No Current occupational status: retired Meds Allergies Allergy/AdvReac Type Severity Reaction Status Date / Time scallops AdvReac Unknown NAUSEA & Verified 10/20/21 22:29 VOMITING Active Medications: Current Medications Sodium Chloride (0.9 % Sodium Chloride Flush 3 Ml Syringe) [facility] Vital Signs and Narrative: Vital Signs: Last Vital Signs Temp 98.6 F 06/14/22 05:44 Pulse 114 H 06/14/22 08:25 Resp 24 H 06/14/22 08:25 BP 131/55 L 06/14/22 05:44 Pulse Ox 92 06/14/22 05:44 O2 Del Method 06/14/22 05:44 O2 Flow Rate 3 06/14/22 05:44 FiO2 28 06/14/22 03:24 BMI result Body Mass Index 17.4 Constitutional: Alert to person only, in no acute distress. Mental Status: Oriented to person only. Eyes: Pupils are equal, round, and reactive to light. Ear, Nose, and Throat: Oropharynx clear, mucous membranes dry. Ears and nose without deformities. Trachea midline. Respiratory: Wet cough. Clear to auscultation bilaterally. No wheezing, rales, or rhonchi. Cardiovascular: S1, S2 regular. No murmurs, rubs, or gallops. Gastrointestinal: Abdomen soft, non-tender, non-distended. Normal bowel sounds. Neurologic: Cranial nerves II-XI are grossly intact. No focal neurological deficits. Moves all extremities spontaneously. Skin: No rashes of lesions. Musculoskeletal: No cyanosis or clubbing. Extremities: No edema. Psychiatric: Confused. Results Labs CBC and Chem 7: 06/19/22 06:19 06/20/22 13:45 Labs: Laboratory Results - last 24 hr 06/13/22 06/13/22 06/13/22 16:56 16:56 16:56 MCV 84.7 MCH 26.3 L MCHC 31.0 RDW 15.3 Plt Count 656 H D MPV 10.1 Immature Gran % (Auto) Cancelled Neut % (Auto) Cancelled Lymph % (Auto) Cancelled [place] % (Auto) Cancelled Eos % (Auto) Cancelled Baso % (Auto) Cancelled Lymph # (Auto) Cancelled [place] # (Auto) Cancelled Eos # (Auto) Cancelled Baso # (Auto) Cancelled Abs Immat Gran (auto) Cancelled Absolute Neuts (auto) Cancelled Absolute Nucleated RBC 0.000 Nucleated RBC % (auto) 0.0 Neutrophils % (Manual) 24 L Band Neutrophils % 59 H Lymphocytes % (Manual) 11 L Monocytes % (Manual) 5 Metamyelocytes % 1 Abs Neuts (Manual) 10.0 H Lymphocytes # (Manual) 1.3 Monocytes # (Manual) 0.6 Metamyelocytes # 0.1 Toxic Granulation Toxic Vacuolation PRESENT Dohle Bodies Platelet Estimate INCREASED Large Platelets PRESENT Giant Platelets PRESENT Plt Morphology Comment NOTED RBC Morphology NORMAL PT 13.5 H INR 1.2 H APTT 27.8 O2 Saturation ABG pH at Pt Temp ABG pCO2 at Pt Temp ABG pO2 at Pt Temp ABG HCO3 ABG Base Excess (Actual) VBG pH VBG pCO2 VBG pO2 VBG HCO3 VBG O2 Saturation VBG Base Excess Anion Gap 17 Estim Creat Clear Calc 30.9 Estimated GFR 57 Random Glucose 188 H Lactic Acid Lactic Acid F/U @ 2Hr Lactic Acid F/U @ 4Hr Calcium 9.8 D Total Bilirubin 0.5 AST 55 H ALT 23 Alkaline Phosphatase 190 H Troponin I High Sens B-Natriuretic Peptide Total Protein 7.8 Albumin 3.7 Procalcitonin Urine Color Urine Appearance Urine pH Ur Specific [place] Urine Protein Urine Glucose (UA) Urine Ketones Urine Blood Urine Nitrite Ur Leukocyte Esterase Urine RBC Urine WBC Ur Squamous Epith Cells Urine Bacteria Hyaline Casts Influenza Type A (PCR) Influenza Type B (PCR) RSV RNA Qual (PCR) SARS-CoV-2 RNA (RT-PCR) 06/13/22 06/13/22 06/13/22 16:56 16:56 16:56 MCV MCH MCHC RDW Plt Count MPV Immature Gran % (Auto) Neut % (Auto) Lymph % (Auto) [place] % (Auto) Eos % (Auto) Baso % (Auto) Lymph # (Auto) [place] # (Auto) Eos # (Auto) Baso # (Auto) Abs Immat Gran (auto) Absolute Neuts (auto) Absolute Nucleated RBC Nucleated RBC % (auto) Neutrophils % (Manual) Band Neutrophils % Lymphocytes % (Manual) Monocytes % (Manual) Metamyelocytes % Abs Neuts (Manual) Lymphocytes # (Manual) Monocytes # (Manual) Metamyelocytes # Toxic Granulation Toxic Vacuolation Dohle Bodies Platelet Estimate Large Platelets Giant Platelets Plt Morphology Comment RBC Morphology PT INR APTT O2 Saturation ABG pH at Pt Temp ABG pCO2 at Pt Temp ABG pO2 at Pt Temp ABG HCO3 ABG Base Excess (Actual) VBG pH VBG pCO2 VBG pO2 VBG HCO3 VBG O2 Saturation VBG Base Excess Anion Gap Estim Creat Clear Calc Estimated GFR Random Glucose Lactic Acid 6.6 H* Lactic Acid F/U @ 2Hr Lactic Acid F/U @ 4Hr Calcium Total Bilirubin AST ALT Alkaline Phosphatase Troponin I High Sens 143.8 H* B-Natriuretic Peptide 2785 H Total Protein Albumin Procalcitonin Urine Color Urine Appearance Urine pH Ur Specific [place] Urine Protein Urine Glucose (UA) Urine Ketones Urine Blood Urine Nitrite Ur Leukocyte Esterase Urine RBC Urine WBC Ur Squamous Epith Cells Urine Bacteria Hyaline Casts Influenza Type A (PCR) Influenza Type B (PCR) RSV RNA Qual (PCR) SARS-CoV-2 RNA (RT-PCR) 06/13/22 06/13/22 06/13/22 16:59 16:59 20:01 MCV MCH MCHC RDW Plt Count MPV Immature Gran % (Auto) Neut % (Auto) Lymph % (Auto) [place] % (Auto) Eos % (Auto) Baso % (Auto) Lymph # (Auto) [place] # (Auto) Eos # (Auto) Baso # (Auto) Abs Immat Gran (auto) Absolute Neuts (auto) Absolute Nucleated RBC Nucleated RBC % (auto) Neutrophils % (Manual) Band Neutrophils % Lymphocytes % (Manual) Monocytes % (Manual) Metamyelocytes % Abs Neuts (Manual) Lymphocytes # (Manual) Monocytes # (Manual) Metamyelocytes # Toxic Granulation Toxic Vacuolation Dohle Bodies Platelet Estimate Large Platelets Giant Platelets Plt Morphology Comment RBC Morphology PT INR APTT O2 Saturation ABG pH at Pt Temp ABG pCO2 at Pt Temp ABG pO2 at Pt Temp ABG HCO3 ABG Base Excess (Actual) VBG pH 7.29 L VBG pCO2 50 VBG pO2 42 VBG HCO3 24 VBG O2 Saturation 56.0 VBG Base Excess -2.4 Anion Gap Estim Creat Clear Calc Estimated GFR Random Glucose Lactic Acid Lactic Acid F/U @ 2Hr 4.2 H* Lactic Acid F/U @ 4Hr Calcium Total Bilirubin AST ALT Alkaline Phosphatase Troponin I High Sens B-Natriuretic Peptide Total Protein Albumin Procalcitonin Urine Color Urine Appearance Urine pH Ur Specific [place] Urine Protein Urine Glucose (UA) Urine Ketones Urine Blood Urine Nitrite Ur Leukocyte Esterase Urine RBC Urine WBC Ur Squamous Epith Cells Urine Bacteria Hyaline Casts Influenza Type A (PCR) NEGATIVE Influenza Type B (PCR) NEGATIVE RSV RNA Qual (PCR) NEGATIVE SARS-CoV-2 RNA (RT-PCR) NEGATIVE 06/13/22 06/13/22 06/14/22 20:01 20:01 00:29 MCV MCH MCHC RDW Plt Count MPV Immature Gran % (Auto) Neut % (Auto) Lymph % (Auto) [place] % (Auto) Eos % (Auto) Baso % (Auto) Lymph # (Auto) [place] # (Auto) Eos # (Auto) Baso # (Auto) Abs Immat Gran (auto) Absolute Neuts (auto) Absolute Nucleated RBC Nucleated RBC % (auto) Neutrophils % (Manual) Band Neutrophils % Lymphocytes % (Manual) Monocytes % (Manual) Metamyelocytes % Abs Neuts (Manual) Lymphocytes # (Manual) Monocytes # (Manual) Metamyelocytes # Toxic Granulation Toxic Vacuolation Dohle Bodies Platelet Estimate Large Platelets Giant Platelets Plt Morphology Comment RBC Morphology PT INR APTT O2 Saturation ABG pH at Pt Temp ABG pCO2 at Pt Temp ABG pO2 at Pt Temp ABG HCO3 ABG Base Excess (Actual) VBG pH VBG pCO2 VBG pO2 VBG HCO3 VBG O2 Saturation VBG Base Excess Anion Gap Estim Creat Clear Calc Estimated GFR Random Glucose Lactic Acid Lactic Acid F/U @ 2Hr Lactic Acid F/U @ 4Hr 2.2 H* Calcium Total Bilirubin AST ALT Alkaline Phosphatase Troponin I High Sens 108.6 H* B-Natriuretic Peptide Total Protein Albumin Procalcitonin Urine Color Yellow Urine Appearance Clear Urine pH 5.5 Ur Specific [place] 1.025 Urine Protein 300 (3+) H Urine Glucose (UA) Negative Urine Ketones Negative Urine Blood Small (1+) H Urine Nitrite Negative Ur Leukocyte Esterase Negative Urine RBC 6-10 H Urine WBC 0-5 Ur Squamous Epith Cells 3-5 Urine Bacteria None Seen Hyaline Casts 3-5 Influenza Type A (PCR) Influenza Type B (PCR) RSV RNA Qual (PCR) SARS-CoV-2 RNA (RT-PCR) 06/14/22 06/14/22 06/14/22 00:29 00:34 02:25 MCV MCH MCHC RDW Plt Count MPV Immature Gran % (Auto) Neut % (Auto) Lymph % (Auto) [place] % (Auto) Eos % (Auto) Baso % (Auto) Lymph # (Auto) [place] # (Auto) Eos # (Auto) Baso # (Auto) Abs Immat Gran (auto) Absolute Neuts (auto) Absolute Nucleated RBC Nucleated RBC % (auto) Neutrophils % (Manual) Band Neutrophils % Lymphocytes % (Manual) Monocytes % (Manual) Metamyelocytes % Abs Neuts (Manual) Lymphocytes # (Manual) Monocytes # (Manual) Metamyelocytes # Toxic Granulation Toxic Vacuolation Dohle Bodies Platelet Estimate Large Platelets Giant Platelets Plt Morphology Comment RBC Morphology PT INR APTT O2 Saturation 99.0 ABG pH at Pt Temp 7.35 ABG pCO2 at Pt Temp 54 H ABG pO2 at Pt Temp 117 H ABG HCO3 30 H ABG Base Excess (Actual) 4.2 VBG pH 7.36 VBG pCO2 66 VBG pO2 54 VBG HCO3 37 H VBG O2 Saturation 79.0 VBG Base Excess 9.6 Anion Gap Estim Creat Clear Calc Estimated GFR Random Glucose Lactic Acid Lactic Acid F/U @ 2Hr Lactic Acid F/U @ 4Hr Calcium Total Bilirubin AST ALT Alkaline Phosphatase Troponin I High Sens 123.4 H* D B-Natriuretic Peptide Total Protein Albumin Procalcitonin Urine Color Urine Appearance Urine pH Ur Specific [place] Urine Protein Urine Glucose (UA) Urine Ketones Urine Blood Urine Nitrite Ur Leukocyte Esterase Urine RBC Urine WBC Ur Squamous Epith Cells Urine Bacteria Hyaline Casts Influenza Type A (PCR) Influenza Type B (PCR) RSV RNA Qual (PCR) SARS-CoV-2 RNA (RT-PCR) 06/14/22 06/14/22 06/14/22 05:23 05:41 05:41 MCV 84.6 MCH 26.7 L MCHC 31.5 RDW 15.3 Plt Count 479 H D MPV 9.7 Immature Gran % (Auto) Cancelled Neut % (Auto) Cancelled Lymph % (Auto) Cancelled [place] % (Auto) Cancelled Eos % (Auto) Cancelled Baso % (Auto) Cancelled Lymph # (Auto) Cancelled [place] # (Auto) Cancelled Eos # (Auto) Cancelled Baso # (Auto) Cancelled Abs Immat Gran (auto) Cancelled Absolute Neuts (auto) Cancelled Absolute Nucleated RBC 0.000 Nucleated RBC % (auto) 0.0 Neutrophils % (Manual) 80 H Band Neutrophils % 9 H Lymphocytes % (Manual) 7 L Monocytes % (Manual) 3 Metamyelocytes % 1 Abs Neuts (Manual) 8.8 H Lymphocytes # (Manual) 0.7 L Monocytes # (Manual) 0.3 Metamyelocytes # 0.1 Toxic Granulation PRESENT Toxic Vacuolation Dohle Bodies PRESENT Platelet Estimate NORMAL Large Platelets Giant Platelets Plt Morphology Comment NORMAL RBC Morphology NORMAL PT INR APTT O2 Saturation 91.0 ABG pH at Pt Temp 7.32 L ABG pCO2 at Pt Temp 60 H* ABG pO2 at Pt Temp 70 L ABG HCO3 31 H ABG Base Excess (Actual) 4.1 VBG pH VBG pCO2 VBG pO2 VBG HCO3 VBG O2 Saturation VBG Base Excess Anion Gap 18 Estim Creat Clear Calc 41.5 Estimated GFR > 60 Random Glucose 125 H Lactic Acid Lactic Acid F/U @ 2Hr Lactic Acid F/U @ 4Hr Calcium 8.0 L D Total Bilirubin AST ALT Alkaline Phosphatase Troponin I High Sens B-Natriuretic Peptide Total Protein Albumin Procalcitonin Urine Color Urine Appearance Urine pH Ur Specific [place] Urine Protein Urine Glucose (UA) Urine Ketones Urine Blood Urine Nitrite Ur Leukocyte Esterase Urine RBC Urine WBC Ur Squamous Epith Cells Urine Bacteria Hyaline Casts Influenza Type A (PCR) Influenza Type B (PCR) RSV RNA Qual (PCR) SARS-CoV-2 RNA (RT-PCR) 06/14/22 06/14/22 05:41 11:44 MCV MCH MCHC RDW Plt Count MPV Immature Gran % (Auto) Neut % (Auto) Lymph % (Auto) [place] % (Auto) Eos % (Auto) Baso % (Auto) Lymph # (Auto) [place] # (Auto) Eos # (Auto) Baso # (Auto) Abs Immat Gran (auto) Absolute Neuts (auto) Absolute Nucleated RBC Nucleated RBC % (auto) Neutrophils % (Manual) Band Neutrophils % Lymphocytes % (Manual) Monocytes % (Manual) Metamyelocytes % Abs Neuts (Manual) Lymphocytes # (Manual) Monocytes # (Manual) Metamyelocytes # Toxic Granulation Toxic Vacuolation Dohle Bodies Platelet Estimate Large Platelets Giant Platelets Plt Morphology Comment RBC Morphology PT INR APTT O2 Saturation ABG pH at Pt Temp ABG pCO2 at Pt Temp ABG pO2 at Pt Temp ABG HCO3 ABG Base Excess (Actual) VBG pH 7.48 H VBG pCO2 37 VBG pO2 88 VBG HCO3 27 H VBG O2 Saturation 98.0 VBG Base Excess 4.4 Anion Gap Estim Creat Clear Calc Estimated GFR Random Glucose Lactic Acid Lactic Acid F/U @ 2Hr Lactic Acid F/U @ 4Hr Calcium Total Bilirubin AST ALT Alkaline Phosphatase Troponin I High Sens B-Natriuretic Peptide Total Protein Albumin Procalcitonin 1.56 Urine Color Urine Appearance Urine pH Ur Specific [place] Urine Protein Urine Glucose (UA) Urine Ketones Urine Blood Urine Nitrite Ur Leukocyte Esterase Urine RBC Urine WBC Ur Squamous Epith Cells Urine Bacteria Hyaline Casts Influenza Type A (PCR) Influenza Type B (PCR) RSV RNA Qual (PCR) SARS-CoV-2 RNA (RT-PCR) Imaging Radiologist's Impressions: Impressions Chest X-Ray 06/13/22 17:43 IMPRESSION: Chronic interstitial lung disease which is more prominent suggesting superimposed interstitial edema or atypical pneumonia. Assessment and Plan (1) Altered mental status: Status: Acute (2) Sepsis: Status: Acute (3) Acute exacerbation of chronic obstructive pulmonary disease (COPD): Status: Acute (4) Hip pain: Status: Acute Plan Pt is a 77-year-old female with a PMH significant for COPD, osteoarthritis, history of hip replacement, and smoking who is brought to the ED by her daughter for SOB and confusion for the past two days. Pt is currently oriented to person only, so history was obtained from her daughter. Pt will be admitted to telemetry for COPD exacerbation treatment and further workup. # acute respiratory failure requiring BiPap -- pt arrived with O2 sat 78% -- required 3 round of BiPAP -- now on -- titrate supplemental O2 for sat >92 # COPD -- unclear etiology, pneumonia vs CHF -- initially elevated WBC 12.1, now 9.9 -- procalcitonin 1.56 -- elevated BNP -- ceftriaxone 1g IV daily -- doxy 100 mg IV bid -- Solu-Medrol IV 60mg q8h -- DuoNeb q4h while awake -- negative for influenza A & B, RSV, COVID -- chest CT -- resp pathology panel -- continue supplemental O2 as above # elevated troponins, abnormal EKG -- EKG shows T-wave inversions in inferior and anterior leads -- 3 consecutive elevated troponins: 143.8, 108.6, 123.4 -- trend fourth troponin -- repeat EKG -- findings likely from demand ischemia -- monitor # sepsis, severe -- pt with a suspected infetion and WBC 12.1, tachypnic and tachycardic -- lactic acid trending down, 6.6-->4.2-->2.2 -- pt no longer requiring BiPAP -- being treated with broad-spectrum abx -- monitor BP # altered mental status -- pt normally oriented x3 -- likely secondary to infectious process -- daughter states she had a similar episode last year when she had pneumonia -- mechanical diet -- monitor Full code Attending: Dr. Jean DVT prophylaxis: [employer] Stroke Does the patient have a stroke diagnosis?: No VTE Prior VTE?: No VTE Risk Level:: Medical - moderate - high VTE Device Contraindication: Treatment Not Indicated VTE Drug Contraindication: N/A - Med Ordered
[2022-06-14] MEDS: Doxycycline Hyclate 100 MG in 0.9 % Sodium Chloride 250 ML 166.67 MG IV (14:57)
[2022-06-14] MEDS: cefTRIAXone sodium 1 GM in 0.9 % Sodium Chloride 50 ML IV (14:58)
[2022-06-14] MEDS: methylPREDNISolone Sod Succ 40 MG/ML VIAL IVPUSH (14:58)
--- NOTE | 2022-06-14 16:03 | PC.NURSE ---
THIS PCT ASSUMED CARE OF PT AT 1500 ,BED BATH GIVEN ,LINEN CHANGE ,CALL ALLAN WITHIN REACH .
[2022-06-14 17:00] LABS: Anion Gap 18 (12-20); Blood Urea Nitrogen 32 mg/dL (9-16); Calcium 8.6 mg/dL (8.4-10.2); Carbon Dioxide 27 mmol/L (22-29); Chloride 109 mmol/L (96-108); Creatinine Clr Calc Pharmacy 49.2; Estimated Glomerular Filt Rate > 60; Glucose Random 98 mg/dL (60-115); Potassium 4.4 mmol/L (3.3-5.1); Sodium 150 mmol/L (135-145)
[2022-06-14 17:10] LABS: Troponin-I High Sensitivity 90.2 ng/L (<3.5-17.0)
--- NOTE | 2022-06-14 18:53 | PC.NURSE ---
Addendum entered by Kirti García RN 06/14/22 22:20: report given to PEDRO LUIS Toribio Original Note: report received from PEDRO LUIS Ledesma
--- NOTE | 2022-06-14 20:01 | PC.NURSE ---
PT REFUSED DINNER ,BUT WAS FED CHOCOLATE PUDDING AND AN APPLE JUICE .
--- OUTSIDE RECORDS SUMMARY | 2022-06-14 23:36 | XMS_ITS | Continuity of Care Document ---
:1945 Author Organization [facility] Address [address] [place] [id number]- Care Team Providers Name Role Phone Not on Staff, PCP Primary Care Physician Unavailable Encounter [facility] Date(s): 12/11/19 - 12/16/[address] [address]- [facility] Encounter Diagnosis Periprosthetic hip fracture (Final) - 12/11/19 Periprosthetic hip fracture (Final) - 12/13/19 Discharge Disposition: A-Transfer SNF Attending Physician: Bob Simental MD Admitting Physician: Case Beltran MD Referring Physician: Not on Staff, Referring MD Allergies, Adverse Reactions, Alerts No Known Medication Allergies Medications acetaminophen 325 mg oral tablet 650 mg, 2, tablet, By Mouth, Daily, PRN, Maintenance, as needed for pain, 12/12/19 21:14:00 EDT Start Date: 12/12/19 Status: Orderedacetaminophen 500 mg oral tablet 2 tablet = 1,000 mg, By Mouth, 2 times a day, Maintenance, 12/12/19 21:13:00 EDT, Tablet Start Date: 12/12/19 Status: Orderedaspirin 162.5 mg oral capsule, extended release = 325 mg, By Mouth, 2 times a day, 0 Refills, Maintenance, 12/16/19 7:35:00 EDT, ER Capsule Start Date: 12/16/19 Status: Orderedbisacodyl 10 mg rectal suppository 1 supp = 10 mg, Rectally, Daily, PRN for constipation, Maintenance, 12/12/19 21:06:00 EDT, Suppository Start Date: 12/12/19 Status: OrderedDulcolax Stool Softener 100 mg oral capsule 1 capsule = 100 mg, By Mouth, 2 times a day, 0 Refills, Maintenance, 12/11/19 23:42:00 EDT, Capsule Start Date: 12/11/19 Status: Orderedergocalciferol 21442 iu oral capsule 50,000 International_Units, 1, capsule, By Mouth, Every Tuesday, Maintenance, 12/12/19 21:14:00 EDT Start Date: 12/12/19 Status: Orderederythromycin 0.5% ophthalmic ointment 0.5 inches, Eye, Right, 2 times a day, PRN as needed, Maintenance, 12/12/19 21:06:00 EDT, Ophth Ointment Start Date: 12/12/19 Status: OrderedGeri-Lanta oral suspension 30 mL, By Mouth, Every 4 hours, PRN as needed for indigestion, Maintenance, 12/12/19 21:09:00 EDT Start Date: 12/12/19 Status: Orderedlidocaine 4% topical film 1 patch, Topically, Daily, to left hip, Maintenance, 12/12/19 21:09:00 EDT, Film Start Date: 12/12/19 Status: OrderedMilk of Magnesia 8% oral suspension 30 mL = 2.4 Gm, By Mouth, Daily at bedtime, PRN for constipation, # 300 mL, 0 Refills, Maintenance, 12/11/19 23:42:00 EDT, Suspension Start Date: 12/11/19 Status: OrderedoxyCODONE 5 mg oral tablet 5 mg, 1, tablet, By Mouth, Every 4 hours, PRN, for 7 days, 1-2 po q 4 hours prn pain, # 42 tablet, Refills 0, Tot. Refills 0, Acute 12/23/19 8:03:00 EDT, as needed for pain, 12/16/19 8:03:00 EDT, PrintRequisition, Partial fill upon patient request Start Date: 12/16/19 Stop Date: 12/23/19 Status: Orderedpolyethylene glycol 3350 oral powder for reconstitution = 17 Gm, By Mouth, Daily, dissolve in water before taking, Maintenance, 12/12/19 21:12:00 EDT, REC Powder Start Date: 12/12/19 Status: Orderedsenna 187 mg oral tablet 1 tablet = 8.6 mg, By Mouth, Daily at bedtime, 0 Refills, Maintenance, 12/16/19 7:35:00 EDT, Tablet Start Date: 12/16/19 Status: OrderedSymbicort 80mcg/4.5mcg Inhaler 2, puffs, Inhalation, 2 times a day, Maintenance, 12/12/19 21:13:00 EDT, Aerosol Start Date: 12/12/19 Status: OrderedVentolin 90 mcg Inhaler 2, puffs, Inhalation, Every 4 hours, PRN, Refills 0, Maintenance, 12/11/19 23:43:00 EDT, Inhaler Start Date: 12/11/19 Status: OrderedVitamin B-12 1000 mcg/mL injectable solution 1 mL = 1,000 mcg, Intramuscular, Every 30 days, on the , Maintenance, 12/12/19 21:06:00 EDT, Solution Start Date: 12/12/19 Status: Ordered Problem List Condition Effective Dates Status Health Status Informant COPD without exacerbation(Confirmed) Active Essential hypertension(Confirmed) Active Hyperlipidemia(Confirmed) Active Osteoporosis(Confirmed) Active Results Radiology Reports Exam Date Time Procedure Performing Provider Status 12/14/19 11:15 PM Pelvis 1 or 2 Views Jessica Mondragon; Cuca (Verif ied) Notes:(Pelvis 1 or 2 Views) Reason For Exam: Postop ProsthesisRESULT: Pelvis 1 or 2 Views Pelvis 1 or 2 Views Reason: Postop Prosthesis; Clinical Question(s): Status of Hip Prosthesis; Special Instructions: LEFT Hip - COMPARISON: None. FINDINGS: Reidentified left bipolar hip prosthesis. Intact hardware and normal alignment. Unremarkable right hip. IMPRESSION: No apparent complication. WSN: [id number] Ordering Physician: Brock Avila Dictated By: Anand Laird MD Dictated Date/Time: 12/14/19 11:22 p Reviewed By: Anand Laird MD Signed By: Anand Laird MD Signed Date/Time: 12/14/19 11:22 pm Transcribed By: NUHA Transcribed Date/Time: 12/14/19 11:21 pm Exam Date Time Procedure Performing Provider Status 12/14/19 3:34 PM Pelvis 1 or 2 Views Adry Corrigan; Cuca (Li ified) Notes:(Pelvis 1 or 2 Views) Reason For Exam: post opRESULT: Pelvis 1 or 2 Views Pelvis 1 Views Reason: post op; Hx of Present Illness: Pt trx from [facility]. was seen at [facility] about a week ago, diagnosed with fracture. sent [facility]. worsening pain today. [facility] fracturefound to be worsening. Tx here for surgery COMPARISON: December 10. FINDINGS: There is a new femoral component to the patient's left bipolar hip prosthesis December 10 study. There are now 3 metallic wires around the proximal left femur, securing the bones both above and below the fracture site support of the metallic internal medullary ludmila. IMPRESSION: Unremarkable postop study. WSN: [id number] Ordering Physician: Case Beltran MD Dictated By: Dileep Bermeo MD Dictated Date/Time: 12/14/19 3:38 pm Reviewed By: Dileep Bermeo MD Signed By: Dileep Bermeo MD Signed Date/Time: 12/14/19 3:38 pm Transcribed By: NUHA Transcribed Date/Time: 12/14/19 3:36 pm Exam Date Time Procedure Performing Provider Status 12/11/19 8:03 PM XR Femur 2 Views Left Carla Schuster (Veri fizac) Notes:(XR Femur 2 Views Left) Reason For Exam: with Pain;TraumaRESULT: Femur 2 Views Left Pelvis 1 or 2 Views, Femur 2 Views Left INDICATION/CLINICAL QUESTION: Left-sided pain. The patient reportedly has been recently diagnosed with left femoral fracture. This was at other hospital. The patient has history of left hip replacement in the distant past . COMPARISON: None.. TECHNIQUE: AP pelvis. AP and crosstable lateral views of the left femur. FINDINGS: There is no fracture or focal lesion of the bony pelvis. The sacroiliac joints show no gross abnormality. The right hip joint is normal and the visualized part of the right proximal femur is normal.. On the left femur, there is a minimally displaced nonangulated periprosthetic fracture with fractureplane involving the cortex medially a short distance inferior to the lesser trochanter. There is satisfactory positioning of the prosthesis itself. There is no fracture of the mid and distal thirds of the femur. . No concerning soft tissue abnormality. IMPRESSION: 1. No fracture bony pelvis or right hip.. 2. Minimally displaced nonangulated periprosthetic fracture left proximal femur. WSN: [id number] Ordering Physician: Ara Longoria Dictated By: Angelito Flores MD Dictated Date/Time: 12/11/19 8:16 pm Reviewed By: Angelito Flores MD Signed By: Angelito Flores MD Signed Date/Time: 12/11/19 8:16 pm Transcribed By: NUHA Transcribed Date/Time: 12/11/19 8:12 pm Exam Date Time Procedure Performing Provider Status 12/11/19 8:03 PM Pelvis 1 or 2 Views Carla Schuster (Verifi ed) Notes:(Pelvis 1 or 2 Views) Reason For Exam: With Pain;TraumaRESULT: Pelvis 1 or 2 Views Pelvis 1 or 2 Views, Femur 2 Views Left INDICATION/CLINICAL QUESTION: Left-sided pain. The patient reportedly has been recently diagnosed with left femoral fracture. This was at other hospital. The patient has history of left hip replacement in the distant past . COMPARISON: None.. TECHNIQUE: AP pelvis. AP and crosstable lateral views of the left femur. FINDINGS: There is no fracture or focal lesion of the bony pelvis. The sacroiliac joints show no gross abnormality. The right hip joint is normal and the visualized part of the right proximal femur is normal.. On the left femur, there is a minimally displaced nonangulated periprosthetic fracture with fractureplane involving the cortex medially a short distance inferior to the lesser trochanter. There is satisfactory positioning of the prosthesis itself. There is no fracture of the mid and distal thirds of the femur. . No concerning soft tissue abnormality. IMPRESSION: 1. No fracture bony pelvis or right hip.. 2. Minimally displaced nonangulated periprosthetic fracture left proximal femur. WSN: [id number] Ordering Physician: Ara Longoria Dictated By: Angelito Flores MD Dictated Date/Time: 12/11/19 8:16 pm Reviewed By: Angelito Flores MD Signed By: Angelito Flores MD Signed Date/Time: 12/11/19 8:16 pm Transcribed By: NUHA Transcribed Date/Time: 12/11/19 8:12 pm Exam Date Time Procedure Performing Provider Status 12/11/19 8:03 PM Chest Single Frontal View Carla Schuster ( Verified) Notes:(Chest Single Frontal View) Reason For Exam: PreopRESULT: Chest Single Frontal View Chest Single Frontal View Reason: Preop; Clinical Question(s): Other:; Hx of Present Illness: Pt transferred from [facility]. Was seen at [facility] about a week ago, diagnosed with fracture. COMPARISON: None. FINDINGS: LINES AND TUBES: None. LUNGS AND PLEURA: Hyperinflated lungs. No definite consolidation. No pleural effusion. No pneumothorax. HEART, MEDIASTINUM AND GABRIELA: Atherosclerosis of the thoracic aorta. BONES AND SOFT TISSUES: No acute abnormality. IMPRESSION: No acute abnormality. WSN: [id number] Ordering Physician: Ara Longoria Dictated By: Anand Laird MD Dictated Date/Time: 12/11/19 8:10 pm Reviewed By: Anand Laird MD Signed By: Anand Laird MD Signed Date/Time: 12/11/19 8:10 pm Transcribed By: NUHA Transcribed Date/Time: 12/11/19 8:09 pm Vital Signs Most recent to oldest [Reference 1 2 3 Range]: Height 158 cm 158 cm 158 cm (12/16/19 6:54 AM) (12/16/19 4:30 AM) (12/16/19 12:18 AM) Weight 51 kg 51 kg (12/14/19 11:48 AM) (12/12/19 5:27 PM) Oxygen Saturation [94-100 %] 98 % 95 % 97 % (12/16/19 6:54 AM) (12/16/19 4:30 AM) (12/16/19 12:18 AM) Pulse Rate [55-90 bpm] 65 bpm 71 bpm 74 bpm (12/16/19 6:54 AM) (12/16/19 4:30 AM) (12/16/19 12:18 AM) Body Mass Index [18.5-24.99] 20.43 20.43 (12/14/19 11:48 AM) (12/12/19 5:27 PM) Blood Pressure [90-138/55-84 mm 114/50 mm Hg 132/48 mm Hg 128/57 mm Hg Hg] (12/16/19 6:54 AM) (12/16/19 4:30 AM) (12/16/19 12:18 AM) Respiratory Rate [16-30 br/min] 18 br/min 18 br/min 18 br/min (12/16/19 10:15 AM) (12/16/19 9:15 AM) (12/16/19 8:31 AM) Temperature [96.8-100.4 DegF] 97.9 DegF 99.2 DegF 98 .0 DegF (12/16/19 6:54 AM) (12/16/19 4:30 AM) (12/16/19 12:18 AM) Liters per Minute 2 L/min 4 L/min 4 L/min (12/14/19 4:30 PM) (12/14/19 4:15 PM) (12/14/19 4:00 P M) Mode of Delivery (Oxygen) Room air Room air Room a ir (12/16/19 6:54 AM) (12/16/19 4:30 AM) (12/16/19 12:18 AM) Blood pressure sites Arm, right Arm, right Arm, left (12/16/19 6:54 AM) (12/15/19 8:12 PM) (12/15/19 3:43 P M) Temperature Route Oral Oral Oral (12/16/19 6:54 AM) (12/16/19 4:30 AM) (12/16/19 12:18 AM) Dry Weight 51 kg (12/12/19 5:27 PM) Weight Obtained Via Bed scale (12/12/19 5:27 PM)
[2022-06-14] MEDS: 0.9 % Sodium Chloride Flush 3 ML SYRINGE IVFLUSH (23:47)
[2022-06-15] VITALS (10 sets, daily range): BP systolic 127–156; BP diastolic 57–68; PULSE 96–105; RESP 16–22; TEMP 36.2–37; O2SAT 92–100
[2022-06-15] MEDS: methylPREDNISolone Sod Succ 40 MG/ML VIAL IVPUSH ×2 (01:40→13:58)
[2022-06-15] MEDS: Doxycycline Hyclate 100 MG in 0.9 % Sodium Chloride 250 ML 166.67 MG IV ×2 (01:41→15:27)
[2022-06-15 04:54] LABS: Hematocrit 39.2 % (37.0-47.0); Hemoglobin 12.1 g/dl (12.0-16.0); Mean Corpuscular HGB Conc 30.9 g/dl (31.0-35.0); Mean Corpuscular Hemoglobin 26.7 pg (27.0-33.0); Mean Corpuscular Volume 86.3 fL (80.0-98.0); Mean Platelet Volume 9.5 fL (9.4-12.3); NRBC Pct Auto 0.3 /100WBC (0.0-0.2); Platelet Count 512 X10*3/uL (160-400); Red Blood Count 4.54 X10*6/uL (4.20-5.50); Red Cell Distribution Width 15.5 % (11.0-16.0); White Blood Count 8.6 X10*3/uL (4.8-10.8)
[2022-06-15 05:10] LABS: Anion Gap 14 (12-20); Blood Urea Nitrogen 30 mg/dL (9-16); Calcium 8.5 mg/dL (8.4-10.2); Carbon Dioxide 35 mmol/L (22-29); Chloride 111 mmol/L (96-108); Creatinine Clr Calc Pharmacy 45.4; Estimated Glomerular Filt Rate > 60; Glucose Random 107 mg/dL (60-115); Potassium 4.5 mmol/L (3.3-5.1); Sodium 155 mmol/L (135-145)
--- NOTE | 2022-06-15 08:55 | P.PNIM_ITS ---
Subjective Subjective Date of Service: 06/15/22 Interval History: Pt seen for f/u for acute respiratory failure with hypoxia due to COPD exacerbation likely secondary to pneumonia. Interval history: Pt seen resting comfortably in bed. Pt appears less confused than yesterday. She is now oriented to person and time, but not to place. Continues to be slighted confused and it is unclear if she is back to baseline. Continues to complain that her feet, legs, and hands are not in the right place and switched around, which her daughter states is normal for her. Pt has no other complaints but HPI difficult to obtain due to pt's confusion. CT from yesterday showed diffuse airways disease and areas of bronchopneumonia in the right upper and bilateral lower lobes. Pt's sodium increased to 155 from 150. Review of Systems Unable to obtain due to pt's continued confusion. Physical Exam 2 Vital Signs: Vital Signs: Last Vital Signs Temp 98.2 F 06/15/22 07:29 Pulse 103 H 06/15/22 07:29 Resp 18 06/15/22 07:29 BP 155/68 H 06/15/22 07:29 Pulse Ox 100 06/15/22 07:29 O2 Del Method 06/15/22 07:29 O2 Flow Rate 2 06/15/22 07:29 FiO2 28 06/14/22 03:24 BMI result Body Mass Index 17.4 General: AOx3, no acute distress Resp: Diffuse expiratory rhonchi CVS: S1, S2, RRR GI: +BS, NT, no distention Skin: No rash Neuro: Motor grossly intact Extremities: No edema Psych: Appropriate affect Objective Data Active Medications Acetaminophen (Acetaminophen 325 Mg Tablet) 650 mg PO Q6H PRN PRN Reason: Pain, Mild (Pain Scale 1-3) Albuterol/Ipratropium (Albuterol/Iprat 2.5/0.5mg 3 Ml Ampul.Neb) 3 ml INHALE RQ4H WHILE AWAKE [facility] Last Admin: 06/14/22 19:11 Dose: 3 ml Documented By: DALE Docusate Sodium (Docusate Sodium 100 Mg Capsule) 100 mg PO DAILY PRN PRN Reason: Constipation Enoxaparin Sodium (Enoxaparin Sodium 40 Mg/0.4 Ml Syringe) 40 mg SUBCUT Q24H [facility] Last Admin: 06/14/22 14:58 Dose: 40 mg Documented By: DARLIN Ceftriaxone Sodium 1 gm/ (Sodium Chloride) 50 mls @ 100 mls/hr IV Q24H [facility] Last Infusion: 06/14/22 15:35 Dose: 0 mls/hr Documented By: DARLIN Doxycycline Hyclate 100 mg/ (Sodium Chloride) 250 mls @ 166.67 mls/hr IV Q12H [facility] Last Infusion: 06/15/22 03:20 Dose: 0 mls/hr Documented By: KEN Methylprednisolone Sodium Succinate (Methylprednisolone Sod Succ 40 Mg/Ml Vial) 40 mg IVPUSH Q12H [facility] Last Admin: 06/15/22 01:40 Dose: 40 mg Documented By: KEN Nicotine (Nicotine 14 Mg Patch.Td24) 14 mg TRANSDERMA DAILY [facility] Last Admin: 06/14/22 16:26 Dose: 14 mg Documented By: DARLIN Ondansetron HCl (Ondansetron Hcl 4 Mg/2 Ml Vial) 4 mg IVPUSH Q8H PRN PRN Reason: Nausea and Vomiting Sodium Chloride (0.9 % Sodium Chloride Flush 3 Ml Syringe) 3 ml IVFLUSH QSHIFT [facility] Last Admin: 06/14/22 23:47 Dose: 3 ml Documented By: KEN Labs CBC & Chem 7: 06/15/22 04:47 06/15/22 04:47 Labs: Laboratory Results - last 24 hr 06/14/22 06/14/22 06/14/22 05:41 11:44 16:20 MCV MCH MCHC RDW Plt Count MPV Absolute Nucleated RBC Nucleated RBC % (auto) VBG pH 7.48 H VBG pCO2 37 VBG pO2 88 VBG HCO3 27 H VBG O2 Saturation 98.0 VBG Base Excess 4.4 Anion Gap Estim Creat Clear Calc Estimated GFR Random Glucose Calcium Troponin I High Sens 90.2 H* Procalcitonin 1.56 06/14/22 06/15/22 06/15/22 16:20 04:47 04:47 MCV 86.3 MCH 26.7 L MCHC 30.9 L RDW 15.5 Plt Count 512 H MPV 9.5 Absolute Nucleated RBC 0.030 H Nucleated RBC % (auto) 0.3 H VBG pH VBG pCO2 VBG pO2 VBG HCO3 VBG O2 Saturation VBG Base Excess Anion Gap 18 14 Estim Creat Clear Calc 49.2 45.4 Estimated GFR > 60 > 60 Random Glucose 98 107 Calcium 8.6 D 8.5 Troponin I High Sens Procalcitonin Microbiology Microbiology Results: Microbiology 06/13/22 16:59 Blood Culture - Preliminary Blood - Venous No growth after 24 hours. 06/13/22 16:57 Blood Culture - Preliminary Blood - Venous No growth after 24 hours. Assessment and Plan (1) Acute exacerbation of chronic obstructive pulmonary disease (COPD): Status: Acute (2) Altered mental status: Status: Acute (3) Sepsis: Status: Acute (4) Pneumonia: Status: Acute Plan Pt is a 77-year-old female with a PMH significant for COPD, osteoarthritis, history of hip replacement, and current smoker who is brought to the ED by her daughter for SOB and confusion for the past two days. Pt was admitted to telemetry for COPD exacerbation treatment and further workup. # acute respiratory failure requiring BiPap -- pt arrived with O2 sat 78% -- required 3 round of BiPAP -- now on 2L with O2 at 100% -- titrate supplemental O2 for sat >92 # acute COPD exacerbation with hypoxia likely d/t pneumonia -- CT showed diffuse airways disease and areas of bronchopneumonia in the right upper and bilateral lower lobes. -- procalcitonin 1.56 -- elevated BNP likely due to demand ischemia over CHF -- ceftriaxone 1g IV daily -- doxy 100 mg IV bid -- Solu-Medrol IV 60mg q8h -- DuoNeb q4h while awake -- negative for influenza A & B, RSV, COVID -- resp pathology panel pending -- continue supplemental O2 as above # elevated troponins, abnormal EKG -- EKG initially showed T-wave inversions in inferior and anterior leads -- 4 consecutive elevated troponins: 143.8, 108.6, 123.4, 90.2 -- repeat EKG no longer showed any T-wave inversions -- findings possibly from demand ischemia -- echocardiogram for suspicion of CHF -- cardiology consult -- monitor # sepsis, severe -- pt at admission with a suspected infection and WBC 12.1, tachypnic and tachycardic -- lactic acid trending down, 6.6-->4.2-->2.2 -- pt no longer requiring BiPAP -- being treated with broad-spectrum abx -- monitor BP # altered mental status -- pt's confusion has improved since yesterday; now oriented to person and time -- pt normally oriented x3 according to daughter -- daughter states at baseline will claim her body parts are not in the right place but denies dementia -- likely secondary to infectious process -- daughter states she had a similar episode last year when she had pneumonia -- mechanical diet -- monitor # hypernatremia -- sodium 150 at admission, currently 155 -- D5w -- nephrology consult -- follow BMP Full code Attending: Dr. Jean DVT prophylaxis: Lovenox Due to pt's continued confusion and need for treatment for COPD exacerbation and pneumonia, pt continues to need hospitalization. Quality Stroke Does the patient have a stroke diagnosis?: No VTE Prior VTE?: No VTE Risk Level:: Medical - moderate - high VTE Device Contraindication: Treatment Not Indicated VTE Drug Contraindication: N/A - Med Ordered
[2022-06-15] MEDS: 0.9 % Sodium Chloride Flush 3 ML SYRINGE IVFLUSH ×2 (09:04→21:00)
[2022-06-15] MEDS: Albuterol/Iprat 2.5/0.5MG 3 ML AMPUL.NEB INHALE ×3 (09:38→19:53)
--- NOTE | 2022-06-15 09:41 | MHC.CM.PN ---
This appeals writer attempted to meet with patient at bedside. She presented slightly confused. Placed call to daughter for CM assessment. Patient lives with daughter in daughter's home. At baseline she is A&O but when sick does present with confusion. Pt ambulates at home with wheeled walker. Pt does currently smoke per daughter. Pt does dress herself @ baseline. No services in the home prior to admission. Not Vax'd. No PCP at this time, in transition between PCP's. HCP verified. D/C plan pending PT eval when medically appropriate. rights reviewed. Pt has been [facility] in the past- daughter open to this facility.
[2022-06-15 09:54] LABS: Adenovirus PCR Not Detected (Not Detect.); Bordetella parapertussis PCR Not Detected (Not Detect.); Bordetella pertussis PCR Not Detected (Not Detect.); Chlamydia pneumoniae PCR Not Detected (Not Detect.); Coronavirus 229E PCR Not Detected (Not Detect.); Coronavirus HKU1 PCR Not Detected (Not Detect.); Coronavirus NL63 PCR Not Detected (Not Detect.); Coronavirus OC43 PCR Not Detected (Not Detect.); Human metapneumovirus PCR Not Detected (Not Detect.); Influenza A PCR Not Detected (Not Detect.); Influenza B PCR Not Detected (Not Detect.); Mycoplasma pneumoniae PCR Not Detected (Not Detect.); Parainfluenza 1 PCR Not Detected (Not Detect.); Parainfluenza 2 PCR Not Detected (Not Detect.); Parainfluenza 3 PCR Not Detected (Not Detect.); Parainfluenza 4 PCR Not Detected (Not Detect.); RSV PCR Not Detected (Not Detect.); Rhino/Enterovirus PCR Not Detected (Not Detect.); SARS-CoV-2 PCR Not Detected (Not Detect.)
[2022-06-15] MEDS: Dextrose 5 % 1,000 ML 50 ML IVCONT (10:20)
--- NOTE | 2022-06-15 10:30 | PC.NURSE ---
Addendum entered by Senthil Amaya 06/15/22 11:17: Dr. Hyman notified of o2 and HR. Respiratory at bedside. Patient on oxymask Addendum entered by Senthil Amaya 06/15/22 11:03: Respiratory made aware Original Note: Patient titrated off O2 by respiratory. Shortly after patient desatted into low 80s. Patient placed back on O2
[2022-06-15 10:31] LABS: Anion Gap 12 (12-20); Blood Urea Nitrogen 32 mg/dL (9-16); Calcium 9.3 mg/dL (8.4-10.2); Carbon Dioxide 37 mmol/L (22-29); Chloride 108 mmol/L (96-108); Creatinine Clr Calc Pharmacy 46.1; Estimated Glomerular Filt Rate > 60; Glucose Random 120 mg/dL (60-115); Potassium 5.2 mmol/L (3.3-5.1); Sodium 152 mmol/L (135-145)
--- NOTE | 2022-06-15 10:46 | PHA.MEDREC ---
Pharmacy Consult ? Medication Reconciliation Pharmacy has completed the medication reconciliation. Patient is confused but directed me to her daughter Terra. Terra states her mother is on no medications regularly at home.
--- NOTE | 2022-06-15 11:10 | PC.NURSE ---
IV line not working. This RN attempted to start an IV but patient is a difficult IV start. truck driver notified.
--- NOTE | 2022-06-15 13:00 | CA_ITS ---
Transthoracic Echocardiogram Patient (Last, First, Middle): Kat Tovar, Gender: Female Date of : 1945 Age: 77 Procedure Date: 06/15/2022 Procedure Type: Transthoracic Echocardiogram Location: ER Height: 152.4 cm Weight: 40.37 kg BSA: 1.32 m2 Heart Rate: 109 bpm BP: 156 / 61 mmHg Rig Operator: GAL Referring MD: Brandi Hyman MD Symptoms: elevated trop/abnormal ekg Study Quality: Fair ECG Rhythm: Tachycardia Conclusions: - Normal left ventricular cavity size. There is normal left ventricular wall thickness. The left ventricular systolic function is hyperdynamic. The visually estimated ejection fraction is >70%. - Moderately increased right ventricular cavity size. There is normal right ventricular systolic function. - Significantly elevated right atrial pressure. Mild pulmonary hypertension is present. Findings Left Ventricle Normal left ventricular cavity size. There is normal left ventricular wall thickness. The left ventricular systolic function is hyperdynamic. The visually estimated ejection fraction is >70%. There is no evidence of regional wall motion abnormalities. Diastolic function is normal for age. Right Ventricle Moderately increased right ventricular cavity size. There is normal right ventricular systolic function. Atria The left atrium is normal in size. RA is dilated. Aortic Valve Normal aortic valve structure and function. There is mild calcification of the aortic valve. There is no aortic valve stenosis. There is mild aortic valve regurgitation. Mitral Valve There is no mitral valve regurgitation. There is no mitral valve stenosis. Mild calcification of the anterior mitral valve leaflet. Pulmonic Valve The pulmonic valve is likely normal. Tricuspid Valve Normal tricuspid valve structure. There is trace tricuspid valve regurgitation. Significantly elevated right atrial pressure. Mild pulmonary hypertension is present. Great Vessels All visible segments of the aorta are normal in size. Venous The inferior vena cava is dilated and does not collapse with inspiration. Pericardium/Pleural There is no evidence of pericardial effusion. Prior Study Comparison No prior study available for comparison. Measurements 2D Linear Measurements IVSd: 0.61 0.6-0.9/0.6-1.0 cm LVIDd: 3.77 3.9-5.3/4.2-5.9 cm LVIDd Index: 2.86 2.4-3.2/2.2-3.1 cm/m2 LVIDs: 2.04 2.0-3.6 cm LVPWd: 0.73 0.7-1.1 cm LA Diam: 2.50 2.7-3.8/3.0-4.0 cm LAIDs Index: 1.89 1.5-2.3 cm/m2 LV Mass: 83.29 67-162/88-224 g LV Mass Index: 63.10 43-95/49-115 g/m2 LVOT Diam: 1.70 3.0+(-)1.3 cm 2D Systolic Function EF 4C: 71.90 >55% EF 2C: 76.00 >55% EF BiP: 74.00 >55% Mitral Valve MV Pk E: 0.80 MV PK A: 0.98 MV Decel Time: 164.00 E/A: 0.80 E'Lateral: 8.05 E'Medial: 7.18 E/E' Med: 11.20 E/E' Lat: 10.00 PHT: 48.00 MVA PHT: 4.58 Decel Harding: 4.90 Aortic Valve AoV Pk Peter: 1.72 AoV Mn Peter: 1.03 AoV VTI: 0.29 AoV Pk Grad: 12.00 Aov Mn Grad: 5.00 JAZMINE Cont.VTI: 1.87 AI Pk Peter: 3.94 AI Harding: 3.33 LVOT LVOT Pk Peter: 1.49 LVOT Mn Peter: 0.84 LVOT VTI: 0.24 LVOT Pk Grad: 9.00 LVOT Mn Grad: 3.00 LVOT Diam: 1.70 LVOT Area: 2.27 Diastolic Function MV Pk E: 0.80 MV Pk A: 0.98 E/A: 0.80 E'Medial: 7.18 E/E' Med: 11.20 E' Laterial: 8.05 E/E' Lat: 10.00 Right Ventricle TAPSE (mm): 19.00 TVS' Peter: 11.30 Tricuspid Valve TR Pk Peter: 2.46 TR Pk Grad: 24.00 RA Press: 15.00 RVSP: 39.00 Great Vessels Aorta Sinus of Valsalva: 2.90 2.0-3.5 cm Ao Asc: 3.00 2.1-3.4 cm Pulmonary Valve PV Pk Peter: 0.86 Peak PV Grad: 3.00 Updated in Other Vendor System with Status of Final Vicente Castle MD electronically signed on 06/17/2022 9:10:37 AM with status of Final
[2022-06-15] MEDS: cefTRIAXone sodium 1 GM in 0.9 % Sodium Chloride 50 ML IV (13:58)
[2022-06-15] MEDS: Enoxaparin Sodium 40 MG/0.4 ML SYRINGE SUBCUT (13:58)
--- NOTE | 2022-06-15 16:03 | PM.EVENT ---
Event Note Date of Service: 06/15/22 Event Note: Patient seen and examined earlier and also this afternoon Patient mental status is somewhat improving but still encephalopathic. physical exam: No facial droop, follows simple commands ,motor grossly fine sensation-fine as per patient could not do finger to nose well -seems weak plan: Encephalopathy most likely toxic metabolic Will add CT head, aspirin and lipid panel Neuro checks, Neurology evaluation. d/w team to follow up above ,family notified.
--- NOTE | 2022-06-15 16:21 | PC.NURSE ---
Dr. Hyman informed this RN that patient can go to CT scan without being on a compliance monitor
[2022-06-15 17:12] LABS: Thyroid Stimulating Hormone 0.14 uIU/mL (0.32-4.0)
[2022-06-15 17:16] LABS: Vitamin B12 532 pg/mL (200-900)
[2022-06-15 17:26] LABS: Anion Gap 13 (12-20); Blood Urea Nitrogen 30 mg/dL (9-16); Calcium 8.7 mg/dL (8.4-10.2); Carbon Dioxide 35 mmol/L (22-29); Chloride 111 mmol/L (96-108); Creatinine Clr Calc Pharmacy 51.9; Estimated Glomerular Filt Rate > 60; Glucose Random 113 mg/dL (60-115); Potassium 4.2 mmol/L (3.3-5.1); Sodium 155 mmol/L (135-145)
--- NOTE | 2022-06-15 17:59 | PC.NURSE ---
pt was incontinent of small amount of stool ,care given ,bed pad change ,pt laying on the lift side ,warm blanket given ,call matthews within reach .
[2022-06-16] VITALS (12 sets, daily range): BP systolic 148–171; BP diastolic 63–79; PULSE 81–103; RESP 14–20; TEMP 36.2–36.9; O2SAT 90–96; BMI 17.4
[2022-06-16] MEDS: methylPREDNISolone Sod Succ 40 MG/ML VIAL IVPUSH ×2 (03:24→14:50)
[2022-06-16] MEDS: Doxycycline Hyclate 100 MG in 0.9 % Sodium Chloride 250 ML 166.67 MG IV ×2 (03:25→14:50)
[2022-06-16 06:15] LABS: Cholesterol 131 mg/dL; HDL Cholesterol 20 mg/dL; LDL Cholesterol Calculated 71 mg/dl; Triglycerides 204 mg/dL
[2022-06-16] MEDS: Albuterol/Iprat 2.5/0.5MG 3 ML AMPUL.NEB INHALE ×4 (08:24→19:33)
[2022-06-16] MEDS: Aspirin Enteric Coated 81 MG TABLET.DR PO (08:46)
[2022-06-16] MEDS: Dextrose 5 % 1,000 ML 80 ML IVCONT ×2 (08:46→22:12)
[2022-06-16 09:20] LABS: Basophils Absolute Auto 0.1 X10*3/uL (0.0-0.2); Basophils Percent Auto 0.5 % (0-2); Hematocrit 39.9 % (37.0-47.0); Hemoglobin 12.2 g/dl (12.0-16.0); Imm Gran Abs Auto 0.41 X10*3/uL (0.00-0.03); Lymphocytes Absolute Auto 0.9 X10*3/uL (1.2-4.9); Lymphocytes Percent Auto 9.3 % (20-40); MANUAL DIFF FLAG SCAN; Mean Corpuscular HGB Conc 30.6 g/dl (31.0-35.0); Mean Corpuscular Hemoglobin 26.8 pg (27.0-33.0); Mean Corpuscular Volume 87.7 fL (80.0-98.0); Mean Platelet Volume 9.3 fL (9.4-12.3); Monocytes Absolute Auto 0.3 X10*3/uL (0.1-1.2); Monocytes Percent Auto 3.1 % (2-11); NRBC Pct Auto 0.5 /100WBC (0.0-0.2); Neutrophils Absolute Auto 8.5 x10*3/uL (2.0-8.3); Neutrophils Percent Auto 83.1 % (45-73); Platelet Count 552 X10*3/uL (160-400); Red Blood Count 4.55 X10*6/uL (4.20-5.50); Red Cell Distribution Width 15.5 % (11.0-16.0); SCAN SMEAR FLAG 1; White Blood Count 10.2 X10*3/uL (4.8-10.8)
[2022-06-16 09:35] LABS: Anion Gap 12 (12-20); Blood Urea Nitrogen 28 mg/dL (9-16); Calcium 8.8 mg/dL (8.4-10.2); Carbon Dioxide 35 mmol/L (22-29); Chloride 106 mmol/L (96-108); Creatinine Clr Calc Pharmacy 50.1; Estimated Glomerular Filt Rate > 60; Glucose Random 129 mg/dL (60-115); Potassium 4.4 mmol/L (3.3-5.1); Sodium 149 mmol/L (135-145)
[2022-06-16 09:36] LABS: Anion Gap 13 (12-20); Blood Urea Nitrogen 28 mg/dL (9-16); Calcium 8.8 mg/dL (8.4-10.2); Carbon Dioxide 35 mmol/L (22-29); Chloride 106 mmol/L (96-108); Creatinine Clr Calc Pharmacy 49.2; Estimated Glomerular Filt Rate > 60; Glucose Random 127 mg/dL (60-115); Potassium 4.4 mmol/L (3.3-5.1); Sodium 150 mmol/L (135-145)
[2022-06-16 09:40] LABS: SLIDE REVIEW VERIFIED
--- NOTE | 2022-06-16 09:50 | P.CNNE_ITS ---
History of Present Illness Data of Consult Service Date: 06/16/22 Primary Care Provider: None Physician HPI Reason for consult: Encephalopathy 77 years old woman I was asked to see for change in mental status. She said that she fell at home and that is why she was in hospital. She could not tell me why she fell but said that she did not pass out and she was just crawling after falling. There was no history of seizure disorder. Review of Systems Review of Systems: No significant pain at this time [facility] Past Medical History Medical History COPD (chronic obstructive pulmonary disease) Surgical History Surgical History History of hip replacement Social History Social History Household Members: Unknown / Unable to assess Household Members Other:: daughter Housing: Unknown / Unable to assess Do you presently have visiting nurse or other home services: No Unable to assess alcohol history related to: Unknown Alcohol intake: current Alcohol intake frequency: holidays/special occasions only Patient Tobacco Use Status: Current everyday Tobacco user Tobacco use type: Cigarette Cigarettes Per Day: 4 Second Hand Smoke Exposure: No service: No Current occupational status: retired Meds Allergies Allergy/AdvReac Type Severity Reaction Status Date / Time scallops AdvReac Unknown NAUSEA & Verified 10/20/21 22:29 VOMITING Active Medications: Current Medications Acetaminophen (Acetaminophen 325 Mg Tablet) 650 mg PO Q6H PRN PRN Reason: Pain, Mild (Pain Scale 1-3) Albuterol/Ipratropium (Albuterol/Iprat 2.5/0.5mg 3 Ml Ampul.Neb) 3 ml INHALE RQ4H WHILE AWAKE [facility] Last Admin: 06/16/22 08:24 Dose: 3 ml Aspirin (Aspirin Enteric Coated 81 Mg Tablet.Dr) 81 mg PO DAILY [facility] Last Admin: 06/16/22 08:46 Dose: 81 mg Docusate Sodium (Docusate Sodium 100 Mg Capsule) 100 mg PO DAILY PRN PRN Reason: Constipation Enoxaparin Sodium (Enoxaparin Sodium 40 Mg/0.4 Ml Syringe) 40 mg SUBCUT Q24H [facility] Last Admin: 06/15/22 13:58 Dose: 40 mg Ceftriaxone Sodium 1 gm/ (Sodium Chloride) 50 mls @ 100 mls/hr IV Q24H [facility] Last Infusion: 06/15/22 15:31 Dose: Infused Doxycycline Hyclate 100 mg/ (Sodium Chloride) 250 mls @ 166.67 mls/hr IV Q12H [facility] Last Infusion: 06/16/22 05:24 Dose: Infused Dextrose (D5w) 1,000 mls @ 80 mls/hr IVCONT .[id number] [facility] Last Admin: 06/16/22 08:46 Dose: 80 mls/hr Methylprednisolone Sodium Succinate (Methylprednisolone Sod Succ 40 Mg/Ml Vial) 40 mg IVPUSH Q12H [facility] Last Admin: 06/16/22 03:24 Dose: 40 mg Nicotine (Nicotine 14 Mg Patch.Td24) 14 mg TRANSDERMA DAILY [facility] Last Admin: 06/16/22 08:46 Dose: Not Given Ondansetron HCl (Ondansetron Hcl 4 Mg/2 Ml Vial) 4 mg IVPUSH Q8H PRN PRN Reason: Nausea and Vomiting Sodium Chloride (0.9 % Sodium Chloride Flush 3 Ml Syringe) 3 ml IVFLUSH QSHIFT [facility] Last Admin: 06/16/22 08:23 Dose: Not Given Home Medications Medication Instructions Recorded Confirmed Last Taken Type No Known Home Meds 06/14/22 06/14/22 Unknown History Physical Exam Vital Signs: Vital Signs: Last Vital Signs Temp 97.3 F 06/16/22 07:26 Pulse 101 H 06/16/22 08:27 Resp 18 06/16/22 08:27 BP 155/76 H 06/16/22 08:52 Pulse Ox 90 L 06/16/22 07:26 O2 Del Method 06/16/22 07:26 O2 Flow Rate 2 06/16/22 07:26 FiO2 28 06/14/22 03:24 BMI result Body Mass Index 17.4 Neuro: Other: alert and awake with normal spontaneity of speech fluency comprehension and slightly anxious affect. She was following commands. She knew where she was and what year this was. Face was symmetrical. Visual cesar are full. There was no pronator drift. Moderate diffuse muscle atrophy was noted in hands arms legs and feet. Feet were sensitive to touch. Read deep tendon reflexes were absent with flexor plantars. [id number] testing revealed mild ataxia. Results Labs CBC & Chem 7: 06/16/22 09:07 06/16/22 09:07 Labs: Short CBC 06/16/22 Range/Units 09:07 WBC 10.2 (4.8-10.8) X10*3/uL Hgb 12.2 (12.0-16.0) g/dl Hct 39.9 (37.0-47.0) % Plt Count 552 H (160-400) X10*3/uL BMP 06/15/22 06/15/22 06/16/22 10:01 16:32 09:07 Sodium 152 H 155 H 149 H Potassium 5.2 H 4.2 4.4 Chloride 108 111 H 106 Carbon Dioxide 37 H 35 H 35 H BUN 32 H 30 H 28 H Creatinine 0.63 0.56 0.58 Calcium 9.3 D 8.7 D 8.8 06/16/22 09:07 Sodium 150 H Potassium 4.4 Chloride 106 Carbon Dioxide 35 H BUN 28 H Creatinine 0.59 Calcium 8[address] revealed moderately severe diffuse cerebral atrophy suggestive of at Alzheimer. Microbiology Microbiology Results: Microbiology 06/13/22 16:59 Blood - Venous Blood Culture - Preliminary No growth after 48 hours. 06/13/22 16:57 Blood - Venous Blood Culture - Preliminary No growth after 48 hours. Assessment and Plan (1) Toxic metabolic encephalopathy: Status: Acute 77 years old woman with underlying at Alzheimer dementia and metabolic toxic encephalopathy mostly from hypernatremia probably due to dehydration. Mainstay of management is hydration and avoidance of medicines that could disrupt her sleep and mood further. Usually patients do not do well in hospital setting and seemed to do better and they are familiar household setting. For this reason, hospitalization should be minimized. (2) Alzheimer's dementia with behavioral disturbance: Status: Acute Procedures Date of Service Date of Service: 06/16/22
[2022-06-16 09:58] LABS: TSH reflex Free T4 0.24 uIU/mL (0.32-4.0)
[2022-06-16 10:53] LABS: Free T4 (Free Thyroxine) 0.96 ng/dL (0.71-1.85)
--- NOTE | 2022-06-16 10:53 | PM.PNNEP ---
Subjective Subjective Date of Service: 06/17/22 Interval history: Events noted Still confused Comfortable Not in distress Na at 155 NOn oliguric Physical Exam Vital Signs: Vital Signs: Last Vital Signs Temp 97.3 F 06/16/22 07:26 Pulse 101 H 06/16/22 08:27 Resp 18 06/16/22 08:27 BP 155/76 H 06/16/22 08:52 Pulse Ox 90 L 06/16/22 07:26 O2 Del Method 06/16/22 07:26 O2 Flow Rate 2 06/16/22 07:26 FiO2 28 06/14/22 03:24 BMI result Body Mass Index 17.4 Neuro: Other: alert and awake with normal spontaneity of speech fluency comprehension and slightly anxious affect. She was following commands. She knew where she was and what year this was. Face was symmetrical. Visual cesar are full. There was no pronator drift. Moderate diffuse muscle atrophy was noted in hands arms legs and feet. Feet were sensitive to touch. Read deep tendon reflexes were absent with flexor plantars. [id number] testing revealed mild ataxia. Objective Data Labs CBC & Chem 7: 06/17/22 05:50 06/17/22 08:00 Labs: Laboratory Results - last 24 hr 06/15/22 06/15/22 06/15/22 10:01 10:01 16:32 WBC RBC Hgb Hct MCV MCH MCHC RDW Plt Count MPV Immature Gran % (Auto) Neut % (Auto) Lymph % (Auto) [place] % (Auto) Eos % (Auto) Baso % (Auto) Lymph # (Auto) [place] # (Auto) Eos # (Auto) Baso # (Auto) Abs Immat Gran (auto) Absolute Neuts (auto) Absolute Nucleated RBC Nucleated RBC % (auto) Smear Tech's Comments Sodium 155 H Potassium 4.2 Chloride 111 H Carbon Dioxide 35 H Anion Gap 13 BUN 30 H Creatinine 0.56 Estim Creat Clear Calc 51.9 Estimated GFR > 60 Random Glucose 113 Calcium 8.7 D Triglycerides Cholesterol LDL Cholesterol, Calc HDL Cholesterol Vitamin B12 532 TSH 0.14 L 06/16/22 06/16/22 06/16/22 05:24 09:07 09:07 WBC RBC Hgb Hct MCV MCH MCHC RDW Plt Count MPV Immature Gran % (Auto) Neut % (Auto) Lymph % (Auto) [place] % (Auto) Eos % (Auto) Baso % (Auto) Lymph # (Auto) [place] # (Auto) Eos # (Auto) Baso # (Auto) Abs Immat Gran (auto) Absolute Neuts (auto) Absolute Nucleated RBC Nucleated RBC % (auto) Smear Tech's Comments Sodium 149 H 150 H Potassium 4.4 4.4 Chloride 106 106 Carbon Dioxide 35 H 35 H Anion Gap 12 13 BUN 28 H 28 H Creatinine 0.58 0.59 Estim Creat Clear Calc 50.1 49.2 Estimated GFR > 60 > 60 Random Glucose 129 H 127 H Calcium 8.8 8.8 Triglycerides 204 Cholesterol 131 LDL Cholesterol, Calc 71 HDL Cholesterol 20 Vitamin B12 TSH 0.24 L 06/16/22 09:07 WBC 10.2 RBC 4.55 Hgb 12.2 Hct 39.9 MCV 87.7 MCH 26.8 L MCHC 30.6 L RDW 15.5 Plt Count 552 H MPV 9.3 L Immature Gran % (Auto) 4.0 H Neut % (Auto) 83.1 H Lymph % (Auto) 9.3 L [place] % (Auto) 3.1 Eos % (Auto) 0.0 Baso % (Auto) 0.5 Lymph # (Auto) 0.9 L [place] # (Auto) 0.3 Eos # (Auto) 0.0 Baso # (Auto) 0.1 Abs Immat Gran (auto) 0.41 H Absolute Neuts (auto) 8.5 H Absolute Nucleated RBC 0.050 H Nucleated RBC % (auto) 0.5 H Smear Tech's Comments VERIFIED Sodium Potassium Chloride Carbon Dioxide Anion Gap BUN Creatinine Estim Creat Clear Calc Estimated GFR Random Glucose Calcium Triglycerides Cholesterol LDL Cholesterol, Calc HDL Cholesterol Vitamin B12 TSH Microbiology Microbiology Results: Microbiology 06/13/22 16:59 Blood - Venous Blood Culture - Preliminary No growth after 48 hours. 06/13/22 16:57 Blood - Venous Blood Culture - Preliminary No growth after 48 hours. Procedures Date of Service Date of Service: 06/16/22 Assessment & Plan Assessment and plan (1) Toxic metabolic encephalopathy: Status: Acute Assessment and Plan: 77 years old woman with underlying at Alzheimer dementia and metabolic toxic encephalopathy mostly from hypernatremia probably due to dehydration. Hypernatremia due to free water deficit (2) Alzheimer's dementia with behavioral disturbance: Status: Acute Plan Keep I > O with hypotonic fluids Keep on D5W today Encourage PO water intake Check Na Q 12 hrlys Avoid LOOP diuretics Time Spent With Patient Time: Total time spent is greater than 50% in coordination of care (as documented) at patient's floor/unit and/or counseling patient: Progress Note: Quality Stroke Does the patient have a stroke diagnosis?: No
--- NOTE | 2022-06-16 11:03 | PM.IMHP ---
[facility] Medical History COPD (chronic obstructive pulmonary disease) Surgical History History of hip replacement Social History Household Members: Unknown / Unable to assess Household Members Other:: daughter Housing: Unknown / Unable to assess Do you presently have visiting nurse or other home services: No Unable to assess alcohol history related to: Unknown Alcohol intake: current Alcohol intake frequency: holidays/special occasions only Patient Tobacco Use Status: Current everyday Tobacco user Tobacco use type: Cigarette Cigarettes Per Day: 4 Second Hand Smoke Exposure: No service: No Current occupational status: retired Meds Allergies Allergy/AdvReac Type Severity Reaction Status Date / Time scallops AdvReac Unknown NAUSEA & Verified 10/20/21 22:29 VOMITING Active Medications: Current Medications Acetaminophen (Acetaminophen 325 Mg Tablet) 650 mg PO Q6H PRN PRN Reason: Pain, Mild (Pain Scale 1-3) Albuterol/Ipratropium (Albuterol/Iprat 2.5/0.5mg 3 Ml Ampul.Neb) 3 ml INHALE RQ4H WHILE AWAKE [facility] Last Admin: 06/16/22 08:24 Dose: 3 ml Aspirin (Aspirin Enteric Coated 81 Mg Tablet.Dr) 81 mg PO DAILY [facility] Last Admin: 06/16/22 08:46 Dose: 81 mg Docusate Sodium (Docusate Sodium 100 Mg Capsule) 100 mg PO DAILY PRN PRN Reason: Constipation Enoxaparin Sodium (Enoxaparin Sodium 40 Mg/0.4 Ml Syringe) 40 mg SUBCUT Q24H [facility] Last Admin: 06/15/22 13:58 Dose: 40 mg Ceftriaxone Sodium 1 gm/ (Sodium Chloride) 50 mls @ 100 mls/hr IV Q24H [facility] Last Infusion: 06/15/22 15:31 Dose: Infused Doxycycline Hyclate 100 mg/ (Sodium Chloride) 250 mls @ 166.67 mls/hr IV Q12H [facility] Last Infusion: 06/16/22 05:24 Dose: Infused Dextrose (D5w) 1,000 mls @ 80 mls/hr IVCONT .[id number] [facility] Last Admin: 06/16/22 08:46 Dose: 80 mls/hr Methylprednisolone Sodium Succinate (Methylprednisolone Sod Succ 40 Mg/Ml Vial) 40 mg IVPUSH Q12H [facility] Last Admin: 06/16/22 03:24 Dose: 40 mg Nicotine (Nicotine 14 Mg Patch.Td24) 14 mg TRANSDERMA DAILY [facility] Last Admin: 06/16/22 08:46 Dose: Not Given Ondansetron HCl (Ondansetron Hcl 4 Mg/2 Ml Vial) 4 mg IVPUSH Q8H PRN PRN Reason: Nausea and Vomiting Sodium Chloride (0.9 % Sodium Chloride Flush 3 Ml Syringe) 3 ml IVFLUSH QSHIFT [facility] Last Admin: 06/16/22 08:23 Dose: Not Given Home Medications Medication Instructions Recorded Confirmed Last Taken Type No Known Home Meds 06/14/22 06/14/22 Unknown History Physical Exam Vital Signs and Narrative: Vital Signs: Last Vital Signs Temp 98.4 F 06/16/22 10:52 Pulse 101 H 06/16/22 10:52 Resp 18 06/16/22 10:52 BP 148/70 H 06/16/22 10:52 Pulse Ox 90 L 06/16/22 10:52 O2 Del Method 06/16/22 10:52 O2 Flow Rate 2.5 06/16/22 10:52 FiO2 28 06/14/22 03:24 BMI result Body Mass Index 17.4 Results Labs CBC and Chem 7: 06/16/22 09:07 06/16/22 09:07 Labs: Laboratory Results - last 24 hr 06/15/22 06/15/22 06/15/22 10:01 10:01 16:32 MCV MCH MCHC RDW Plt Count MPV Immature Gran % (Auto) Neut % (Auto) Lymph % (Auto) [place] % (Auto) Eos % (Auto) Baso % (Auto) Lymph # (Auto) [place] # (Auto) Eos # (Auto) Baso # (Auto) Abs Immat Gran (auto) Absolute Neuts (auto) Absolute Nucleated RBC Nucleated RBC % (auto) Smear Tech's Comments Anion Gap 13 Estim Creat Clear Calc 51.9 Estimated GFR > 60 Random Glucose 113 Calcium 8.7 D Triglycerides Cholesterol LDL Cholesterol, Calc HDL Cholesterol Vitamin B12 532 TSH 0.14 L Free T4 06/16/22 06/16/22 06/16/22 05:24 09:07 09:07 MCV MCH MCHC RDW Plt Count MPV Immature Gran % (Auto) Neut % (Auto) Lymph % (Auto) [place] % (Auto) Eos % (Auto) Baso % (Auto) Lymph # (Auto) [place] # (Auto) Eos # (Auto) Baso # (Auto) Abs Immat Gran (auto) Absolute Neuts (auto) Absolute Nucleated RBC Nucleated RBC % (auto) Smear Tech's Comments Anion Gap 12 13 Estim Creat Clear Calc 50.1 49.2 Estimated GFR > 60 > 60 Random Glucose 129 H 127 H Calcium 8.8 8.8 Triglycerides 204 Cholesterol 131 LDL Cholesterol, Calc 71 HDL Cholesterol 20 Vitamin B12 TSH 0.24 L Free T4 0.96 06/16/22 09:07 MCV 87.7 MCH 26.8 L MCHC 30.6 L RDW 15.5 Plt Count 552 H MPV 9.3 L Immature Gran % (Auto) 4.0 H Neut % (Auto) 83.1 H Lymph % (Auto) 9.3 L [place] % (Auto) 3.1 Eos % (Auto) 0.0 Baso % (Auto) 0.5 Lymph # (Auto) 0.9 L [place] # (Auto) 0.3 Eos # (Auto) 0.0 Baso # (Auto) 0.1 Abs Immat Gran (auto) 0.41 H Absolute Neuts (auto) 8.5 H Absolute Nucleated RBC 0.050 H Nucleated RBC % (auto) 0.5 H Smear Tech's Comments VERIFIED Anion Gap Estim Creat Clear Calc Estimated GFR Random Glucose Calcium Triglycerides Cholesterol LDL Cholesterol, Calc HDL Cholesterol Vitamin B12 TSH Free T4 Imaging Radiologist's Impressions: Impressions Head CT 06/15/22 17:36 IMPRESSION: Within the limits of motion artifact, no acute intracranial abnormality Background changes of chronic microangiopathy. Mild degree of disproportionate volume loss with probable disproportionate volume loss involving the bilateral temporal lobes which could be correlated for Alzheimer type pathology. Assessment and Plan (1) Altered mental status: Status: Acute (2) Sepsis: Status: Acute (3) Acute exacerbation of chronic obstructive pulmonary disease (COPD): Status: Acute (4) Hip pain: Status: Acute Plan Pt is a 77-year-old female with a PMH significant for COPD, osteoarthritis, history of hip replacement, and smoking who is brought to the ED by her daughter for SOB and confusion for the past two days. Pt is currently oriented to person only, so history was obtained from her daughter. Pt will be admitted to telemetry for COPD exacerbation treatment and further workup. # acute respiratory failure with hypoxia requiring BiPap- likely secondary to COPD exacerbation -- pt arrived with O2 sat 78%. Improved to 90% requiring 2.5L supplemental O2. Non-oxygen dependent at home -- required 3 round of BiPAP -- titrate supplemental O2 for sat >92 # Acute COPD exacerbation -- initially elevated WBC 12.1, now 9.9 -- procalcitonin 1.56 -- elevated BNP -- ceftriaxone 1g IV daily (D4), doxy 100 mg IV bid (D3) to treat pneumonia as below -- Solu-Medrol IV 60mg q12h -- DuoNeb q4h while awake -- negative for influenza A & B, RSV, COVID, and other viral respiratory pathogens -- continue supplemental O2 as above #Right upper and bilaterall LL bronchopneumonia --Continue IV ceftriaxone and doxycycline -- Supplemental O2 as above # elevated troponins, abnormal EKG -- EKG shows T-wave inversions in inferior and anterior leads -- Troponins peaked @123, feel to 90.2 -- Chest CT shows severe atherosclerosis and CAD -- repeat EKG NSR, rate 116, t wave inversions V3-4, no XIMENA or depression suggestive of ACS -- findings likely from demand ischemia -- monitor on telemetry # sepsis, severe -- pt with a suspected infetion and WBC 12.1, tachypnic and tachycardic -- lactic acid trending down, 6.6-->4.2-->2.2 -- pt no longer requiring BiPAP -- being treated with broad-spectrum abx -- monitor BP # altered mental status with underlying Alzheimer's dementia -- pt normally oriented x3 --Head CT negative for acute intracranial abnormality, but does show diffuse volume loss consistent with Alzheimer's disease -- Seen by neuro who feels this is likely secondary to unfamiliar setting is -- daughter states she had a similar episode last year when she had pneumonia -- mechanical diet -- monitor #Hypernatremia- likely secondary to free water deficit (patient only drinks coffee) -Nephrology input appreciated -D5W, check lytes q12h per nephro -Encourage PO water intake -Avoid LOOP diuretics per nephrology Full code Attending: Dr. Jean DVT prophylaxis: Lovenox Quality Stroke Does the patient have a stroke diagnosis?: No VTE Prior VTE?: No VTE Risk Level:: Medical - moderate - high VTE Device Contraindication: Treatment Not Indicated VTE Drug Contraindication: N/A - Med Ordered
--- NOTE | 2022-06-16 11:22 | P.PNIM_ITS ---
Subjective Subjective Date of Service: 06/16/22 Interval History: Pt seen for f/u for acute respiratory failure with hypoxia due to COPD exacerbation likely secondary to pneumonia. Interval history: Pt seen resting comfortably in bed. Pt appears less confused than yesterday. She is now oriented to person, but not to place or time. Appears to have Alzheimers at baseline. Baseline a&ox3, very active. Seen with Dr. tanner whom and she tells him she came to the hosptital because she fell and cough not get up. Continues to complain that her feet, legs, and hands are not in the right pl massimo and switched around, which her daughter states is normal for her. Pt has no other complaints but HPI difficult to obtain due to pt's confusion. Review of Systems Unable to obtain due to pt's continued confusion. Physical Exam Vital Signs: Vital Signs: Last Vital Signs Temp 98.4 F 06/16/22 10:52 Pulse 101 H 06/16/22 10:52 Resp 18 06/16/22 10:52 BP 148/70 H 06/16/22 10:52 Pulse Ox 90 L 06/16/22 10:52 O2 Del Method 06/16/22 10:52 O2 Flow Rate 2.5 06/16/22 10:52 FiO2 28 06/14/22 03:24 BMI result Body Mass Index 17.4 Constitutional - Awake and Alert, No apparent distress Eyes - PERRLA, EOMI Cardiovascular - S1S2, RRR, No edema Respiratory - Normal lung expansion, Normal respiratory effort, No respiratory distress, scattered wheezes bilaterally with faint rhonchi bilaterally, greatest in lower lobes Gastrointestinal - NT / ND; +BS; No rebound or guarding Extremities - no calf tenderness bilaterally, no swelling Skin - Warm/Dry Neurological - Alert & oriented to self, confused to place, time, situation Psychological - Appropriate affect Objective Data Active Medications Acetaminophen (Acetaminophen 325 Mg Tablet) 650 mg PO Q6H PRN PRN Reason: Pain, Mild (Pain Scale 1-3) Albuterol/Ipratropium (Albuterol/Iprat 2.5/0.5mg 3 Ml Ampul.Neb) 3 ml INHALE RQ4H WHILE AWAKE [facility] Last Admin: 06/16/22 08:24 Dose: 3 ml Documented By: FERCHO Aspirin (Aspirin Enteric Coated 81 Mg Tablet.) 81 mg PO DAILY [facility] Last Admin: 06/16/22 08:46 Dose: 81 mg Documented By: JANEL Docusate Sodium (Docusate Sodium 100 Mg Capsule) 100 mg PO DAILY PRN PRN Reason: Constipation Enoxaparin Sodium (Enoxaparin Sodium 40 Mg/0.4 Ml Syringe) 40 mg SUBCUT Q24H [facility] Last Admin: 06/15/22 13:58 Dose: 40 mg Documented By: PURNIMA Ceftriaxone Sodium 1 gm/ (Sodium Chloride) 50 mls @ 100 mls/hr IV Q24H [facility] Last Infusion: 06/15/22 15:31 Dose: 0 mls/hr Documented By: PURNIMA Doxycycline Hyclate 100 mg/ (Sodium Chloride) 250 mls @ 166.67 mls/hr IV Q12H [facility] Last Infusion: 06/16/22 05:24 Dose: 0 mls/hr Documented By: AMBERLY Dextrose (D5w) 1,000 mls @ 80 mls/hr IVCONT .[id number] [facility] Last Admin: 06/16/22 08:46 Dose: 80 mls/hr Documented By: JANEL Methylprednisolone Sodium Succinate (Methylprednisolone Sod Succ 40 Mg/Ml Vial) 40 mg IVPUSH Q12H [facility] Last Admin: 06/16/22 03:24 Dose: 40 mg Documented By: AMBERLY Nicotine (Nicotine 14 Mg Patch.Td24) 14 mg TRANSDERMA DAILY [facility] Last Admin: 06/16/22 08:46 Dose: Not Given Documented By: JANEL Non-Admin Reason: Patient Refused Ondansetron HCl (Ondansetron Hcl 4 Mg/2 Ml Vial) 4 mg IVPUSH Q8H PRN PRN Reason: Nausea and Vomiting Sodium Chloride (0.9 % Sodium Chloride Flush 3 Ml Syringe) 3 ml IVFLUSH QSHIFT [facility] Last Admin: 06/16/22 08:23 Dose: Not Given Documented By: JANEL Non-Admin Reason: See Note Labs CBC & Chem 7: 06/16/22 09:07 06/16/22 09:07 Labs: Laboratory Results - last 24 hr 06/15/22 06/15/22 06/15/22 10:01 10:01 16:32 MCV MCH MCHC RDW Plt Count MPV Immature Gran % (Auto) Neut % (Auto) Lymph % (Auto) [place] % (Auto) Eos % (Auto) Baso % (Auto) Lymph # (Auto) [place] # (Auto) Eos # (Auto) Baso # (Auto) Abs Immat Gran (auto) Absolute Neuts (auto) Absolute Nucleated RBC Nucleated RBC % (auto) Smear Tech's Comments Anion Gap 13 Estim Creat Clear Calc 51.9 Estimated GFR > 60 Random Glucose 113 Calcium 8.7 D Triglycerides Cholesterol LDL Cholesterol, Calc HDL Cholesterol Vitamin B12 532 TSH 0.14 L Free T4 06/16/22 06/16/22 06/16/22 05:24 09:07 09:07 MCV MCH MCHC RDW Plt Count MPV Immature Gran % (Auto) Neut % (Auto) Lymph % (Auto) [place] % (Auto) Eos % (Auto) Baso % (Auto) Lymph # (Auto) [place] # (Auto) Eos # (Auto) Baso # (Auto) Abs Immat Gran (auto) Absolute Neuts (auto) Absolute Nucleated RBC Nucleated RBC % (auto) Smear Tech's Comments Anion Gap 12 13 Estim Creat Clear Calc 50.1 49.2 Estimated GFR > 60 > 60 Random Glucose 129 H 127 H Calcium 8.8 8.8 Triglycerides 204 Cholesterol 131 LDL Cholesterol, Calc 71 HDL Cholesterol 20 Vitamin B12 TSH 0.24 L Free T4 0.96 06/16/22 09:07 MCV 87.7 MCH 26.8 L MCHC 30.6 L RDW 15.5 Plt Count 552 H MPV 9.3 L Immature Gran % (Auto) 4.0 H Neut % (Auto) 83.1 H Lymph % (Auto) 9.3 L [place] % (Auto) 3.1 Eos % (Auto) 0.0 Baso % (Auto) 0.5 Lymph # (Auto) 0.9 L [place] # (Auto) 0.3 Eos # (Auto) 0.0 Baso # (Auto) 0.1 Abs Immat Gran (auto) 0.41 H Absolute Neuts (auto) 8.5 H Absolute Nucleated RBC 0.050 H Nucleated RBC % (auto) 0.5 H Smear Tech's Comments VERIFIED Anion Gap Estim Creat Clear Calc Estimated GFR Random Glucose Calcium Triglycerides Cholesterol LDL Cholesterol, Calc HDL Cholesterol Vitamin B12 TSH Free T4 Microbiology Microbiology Results: Microbiology 06/13/22 16:59 Blood Culture - Preliminary Blood - Venous No growth after 48 hours. 06/13/22 16:57 Blood Culture - Preliminary Blood - Venous No growth after 48 hours. Assessment and Plan (1) Alzheimer's dementia with behavioral disturbance: Status: Acute (2) Toxic metabolic encephalopathy: Status: Acute (3) Troponin level elevated: Status: Acute (4) Pneumonia: Status: Acute Plan Pt is a 77-year-old female with a PMH significant for COPD, osteoarthritis, history of hip replacement, and smoking who is brought to the ED by her daughter for SOB and confusion. She was found to be in acute respiraotry failure int ED with significant acidosis requiring 3 rounds bipap in ED before admission. She is admitted for COPD exacerbation with bronchopneumonia and acute hypoxemic respiratory failure with metabolic encephalopathy. # acute respiratory failure with hypoxia requiring BiPap- likely secondary to COPD exacerbation/pneumonia -- pt arrived with O2 sat 78%. Improved to 90% requiring 2.5L supplemental O2. Non-oxygen dependent at home -- required 3 round of BiPAP -- titrate supplemental O2 for sat >92 # Acute COPD exacerbation -- procalcitonin 1.56 -- ceftriaxone 1g IV daily (D4), doxy 100 mg IV bid (D3) to treat pneumonia as below -- Solu-Medrol IV 60mg q12h -- DuoNeb q4h while awake -- negative for influenza A & B, RSV, COVID, and other viral respiratory pathogens -- continue supplemental O2 as above #Right upper and bilaterall LL bronchopneumonia --Continue IV ceftriaxone (D4) and doxycycline (D3) -- Supplemental O2 as above # elevated troponins, abnormal EKG -- EKG shows T-wave inversions in inferior and anterior leads -- Troponins peaked @123, fell to 90.2 -- Chest CT shows severe atherosclerosis and CAD- outpt workup per cards -- repeat EKG: NSR, rate 116, t wave inversions V3-4, no XIMENA or depression suggestive of ACS -- findings likely from demand ischemia/myocardial necrosis due to acidosis and hypoxemia with COPD exacerbation. -- monitor on telemetry ---Appreciate cardiology input. Continue asa and add statin with oupt stress test in 2-4 weeks #elevated BNP 2200 --clinically euvolemic. No effusions/pulmonary edema on imaging --echocardiogram results pending --Cardiology input appreciated --BNP trending down # sepsis, severe secondary to pneumonia- resolved -- WBC trending down -- lactic acid trending down, 6.6-->4.2-->2.2 -- pt no longer requiring BiPAP -- being treated with broad-spectrum abx -- monitor BP # Metabolic encephalopathy secondary to infection with underlying Alzheimer's dementia -- Baseline unclear -- Head CT negative for acute intracranial abnormality, but does show diffuse volume loss consistent with Alzheimer's disease -- Seen by neuro who feels this is likely secondary to unfamiliar setting is -- daughter states she had a similar episode last year when she had pneumonia -- mechanical diet -- monitor #Hypernatremia- likely secondary to free water deficit (patient only drinks coffee) -Nephrology input appreciated -D5W, check lytes q12h per nephro -Encourage PO water intake -Avoid LOOP diuretics per nephrology PT consult pending for generalized weakness Full code DVT prophylaxis: Lovenox Pt requires ongoing inpt stay For management of acute COPD exacerbation with acute hypoxic respiratory failure requiring supplemental O2, IV steroids as well as treatment with IV antibiotics for pneumonia with sepsis. Quality Stroke Does the patient have a stroke diagnosis?: No VTE Prior VTE?: No VTE Risk Level:: Medical - moderate - high VTE Device Contraindication: Treatment Not Indicated VTE Drug Contraindication: N/A - Med Ordered
--- NOTE | 2022-06-16 11:28 | P.CONCA_ITS ---
History of Present Illness History of Present Illness Date of Service: 06/16/22 Requesting physician: Brandi Hyman Consult reason: troponin elevation Chief complaint: SOB Narrative: I was consulted to see Kat in cardiology consultation today for elevated troponins as well as abnormal EKG and elevated BNP. Patient was admitted to the hospital on 06/13/2022 with altered mental status and acute respiratory failure along with significant acidosis. Patient has prior history of COPD and continues to smoke also has possibly underlying interstitial lung disease as per the prior chest x-rays, usually in functional status home. She tells me that she works at [employer] in the [employer]. She is functional at home without using oxygen and takes care of her own care without issues. She does get exertional shortness of breath. She has never had any prior cardiac issues. She came to the hospital with altered mental status called in by her daughter after she noticed the patient was confused and not able to take her vision was in re spiratory distress. Patient had exposure to some cold symptoms with her daughter. She subsequently got worse. She is coughing and says the cough is lot more productive. She denies any palpitations or chest pain current therapy admission she had initial troponins which were mildly elevated and then they milena and then fell consistent with myocardial necrosis infarction pattern. Her lactic acid on admission was in the 6 range. BNP was and 2700 range. She has received treatment from pulmonary perspective. Her mental status is improved. Oxygenation is improved. Her EKG showed deep T-wave inversion anterior leads on presentation which are still present on subsequent EKGs. Cardiology consult was sought for these findings. Echocardiogram has been performed but cannot be read due to technical issues with reading system Review of Systems Constitutional: Constitutional: Reports no additional constitutional complaints Cardiovascular: Cardiovascular: Denies chest pain, Denies rapid heart rate, Denies leg edema, Denies lightheadedness, Denies Loss of Consciousness, Denies palpitations and Reports dyspnea on exertion Respiratory: Respiratory: Reports cough, Reports excessive phlegm production and Reports dyspnea on exertion Gastrointestinal: Gastrointestinal: Reports no additional gastrointestinal complaints Genitourinary: Genitourinary: Reports no additional female genitourinary complaints Musculoskeletal: Musculoskeletal: Reports no additional musculoskeletal complaints Integumentary/Breasts: Skin/Breast: Reports system reviewed and no additional complaints, except as docu Neurologic: Reports system reviewed and no additional complaints, except as documented Psychiatric: Psychiatric: Reports no additional psychiatric complaints Endocrine: Endocrine: Denies palpitations Allergic/Immunologic: Allergic/Immunologic: Reports no additional allergic/immunologic complaints [facility] Past Medical History Medical History COPD (chronic obstructive pulmonary disease) Surgical History Surgical History History of hip replacement Social History Social History Household Members: Unknown / Unable to assess Household Members Other:: daughter Housing: Unknown / Unable to assess Do you presently have visiting nurse or other home services: No Unable to assess alcohol history related to: Unknown Alcohol intake: current Alcohol intake frequency: holidays/special occasions only Patient Tobacco Use Status: Current everyday Tobacco user Tobacco use type: Cigarette Cigarettes Per Day: 4 Second Hand Smoke Exposure: No service: No Current occupational status: retired Meds Allergies Allergy/AdvReac Type Severity Reaction Status Date / Time scallops AdvReac Unknown NAUSEA & Verified 10/20/21 22:29 VOMITING Active Medications: Current Medications Acetaminophen (Acetaminophen 325 Mg Tablet) 650 mg PO Q6H PRN PRN Reason: Pain, Mild (Pain Scale 1-3) Albuterol/Ipratropium (Albuterol/Iprat 2.5/0.5mg 3 Ml Ampul.Neb) 3 ml INHALE RQ4H WHILE AWAKE [facility] Last Admin: 06/16/22 08:24 Dose: 3 ml Aspirin (Aspirin Enteric Coated 81 Mg Tablet.Dr) 81 mg PO DAILY [facility] Last Admin: 06/16/22 08:46 Dose: 81 mg Docusate Sodium (Docusate Sodium 100 Mg Capsule) 100 mg PO DAILY PRN PRN Reason: Constipation Enoxaparin Sodium (Enoxaparin Sodium 40 Mg/0.4 Ml Syringe) 40 mg SUBCUT Q24H [facility] Last Admin: 06/15/22 13:58 Dose: 40 mg Ceftriaxone Sodium 1 gm/ (Sodium Chloride) 50 mls @ 100 mls/hr IV Q24H [facility] Last Infusion: 06/15/22 15:31 Dose: Infused Doxycycline Hyclate 100 mg/ (Sodium Chloride) 250 mls @ 166.67 mls/hr IV Q12H [facility] Last Infusion: 06/16/22 05:24 Dose: Infused Dextrose (D5w) 1,000 mls @ 80 mls/hr IVCONT .[id number] [facility] Last Admin: 06/16/22 08:46 Dose: 80 mls/hr Methylprednisolone Sodium Succinate (Methylprednisolone Sod Succ 40 Mg/Ml Vial) 40 mg IVPUSH Q12H [facility] Last Admin: 06/16/22 03:24 Dose: 40 mg Nicotine (Nicotine 14 Mg Patch.Td24) 14 mg TRANSDERMA DAILY [facility] Last Admin: 06/16/22 08:46 Dose: Not Given Ondansetron HCl (Ondansetron Hcl 4 Mg/2 Ml Vial) 4 mg IVPUSH Q8H PRN PRN Reason: Nausea and Vomiting Sodium Chloride (0.9 % Sodium Chloride Flush 3 Ml Syringe) 3 ml IVFLUSH QSHIFT [facility] Last Admin: 06/16/22 08:23 Dose: Not Given Home Medications Medication Instructions Recorded Confirmed Last Taken Type No Known Home Meds 06/14/22 06/14/22 Unknown History Physical Exam Vital Signs: Vital Signs: Last Vital Signs Temp 98.4 F 06/16/22 10:52 Pulse 101 H 06/16/22 10:52 Resp 18 06/16/22 10:52 BP 148/70 H 06/16/22 10:52 Pulse Ox 90 L 06/16/22 10:52 O2 Del Method 06/16/22 10:52 O2 Flow Rate 2.5 06/16/22 10:52 FiO2 28 06/14/22 03:24 BMI result Body Mass Index 17.4 Const: General: cooperative, alert, awake and in distress mild and respiratory Orientation/consciousness: patient oriented x3 HEENT: Head: Yes normocephalic and Yes atraumatic Neck: Neck: Yes trachea midline, Yes supple and Yes no JVD Resp: Effort & Inspection: normal respiratory effort Auscultation: crackles (Coarse bilaterally), no wheezes and diminished lung sounds Cardio: Jugular venous distension: no JVD Rate: regular rate Rhythm: regular rhythm Heart sounds: S1 normal heart sound present, S2 normal heart sound present, no click, no gallops and Murmur heart sound present systolic GI: Auscultation: normal bowel sounds Skin: General skin exam: no rashes or lesions noted and ecchymosis Neuro: General: patient oriented x3 and no focal motor deficits Extrem: General: Yes no clubbing, cyanosis or edema Objective Labs and Meds Result diagrams: 06/16/22 09:07 06/16/22 09:07 Lab results: Laboratory Results - last 24 hr 06/15/22 06/15/22 06/15/22 10:01 10:01 16:32 WBC RBC Hgb Hct MCV MCH MCHC RDW Plt Count MPV Immature Gran % (Auto) Neut % (Auto) Lymph % (Auto) [place] % (Auto) Eos % (Auto) Baso % (Auto) Lymph # (Auto) [place] # (Auto) Eos # (Auto) Baso # (Auto) Abs Immat Gran (auto) Absolute Neuts (auto) Absolute Nucleated RBC Nucleated RBC % (auto) Smear Tech's Comments Sodium 155 H Potassium 4.2 Chloride 111 H Carbon Dioxide 35 H Anion Gap 13 BUN 30 H Creatinine 0.56 Estim Creat Clear Calc 51.9 Estimated GFR > 60 Random Glucose 113 Calcium 8.7 D Triglycerides Cholesterol LDL Cholesterol, Calc HDL Cholesterol Vitamin B12 532 TSH 0.14 L Free T4 06/16/22 06/16/22 06/16/22 05:24 09:07 09:07 WBC RBC Hgb Hct MCV MCH MCHC RDW Plt Count MPV Immature Gran % (Auto) Neut % (Auto) Lymph % (Auto) [place] % (Auto) Eos % (Auto) Baso % (Auto) Lymph # (Auto) [place] # (Auto) Eos # (Auto) Baso # (Auto) Abs Immat Gran (auto) Absolute Neuts (auto) Absolute Nucleated RBC Nucleated RBC % (auto) Smear Tech's Comments Sodium 149 H 150 H Potassium 4.4 4.4 Chloride 106 106 Carbon Dioxide 35 H 35 H Anion Gap 12 13 BUN 28 H 28 H Creatinine 0.58 0.59 Estim Creat Clear Calc 50.1 49.2 Estimated GFR > 60 > 60 Random Glucose 129 H 127 H Calcium 8.8 8.8 Triglycerides 204 Cholesterol 131 LDL Cholesterol, Calc 71 HDL Cholesterol 20 Vitamin B12 TSH 0.24 L Free T4 0.96 06/16/22 09:07 WBC 10.2 RBC 4.55 Hgb 12.2 Hct 39.9 MCV 87.7 MCH 26.8 L MCHC 30.6 L RDW 15.5 Plt Count 552 H MPV 9.3 L Immature Gran % (Auto) 4.0 H Neut % (Auto) 83.1 H Lymph % (Auto) 9.3 L [place] % (Auto) 3.1 Eos % (Auto) 0.0 Baso % (Auto) 0.5 Lymph # (Auto) 0.9 L [place] # (Auto) 0.3 Eos # (Auto) 0.0 Baso # (Auto) 0.1 Abs Immat Gran (auto) 0.41 H Absolute Neuts (auto) 8.5 H Absolute Nucleated RBC 0.050 H Nucleated RBC % (auto) 0.5 H Smear Tech's Comments VERIFIED Sodium Potassium Chloride Carbon Dioxide Anion Gap BUN Creatinine Estim Creat Clear Calc Estimated GFR Random Glucose Calcium Triglycerides Cholesterol LDL Cholesterol, Calc HDL Cholesterol Vitamin B12 TSH Free T4 Imaging Radiologist's impression: Impressions Head CT 06/15/22 17:36 IMPRESSION: Within the limits of motion artifact, no acute intracranial abnormality Background changes of chronic microangiopathy. Mild degree of disproportionate volume loss with probable disproportionate volume loss involving the bilateral temporal lobes which could be correlated for Alzheimer type pathology. Assessment and Plan (1) Acute exacerbation of chronic obstructive pulmonary disease (COPD): Status: Acute Patient presents with clinically altered mental status most likely due to acute respiratory failure related to COPD exacerbation causing significant acidosis as well as hypoxemia. EKG changes could represent myocardial ischemia in the LAD territory given her significant coronary calcifications at risk for the same but also could represent RV strain related to acute hypoxemic respiratory failure and acute cor pulmonale. Echocardiogram needs to be reviewed. Her BNP elevation is also out of proportion to clinical findings of congestive heart failure. Clinically does not appear to be in congestive heart failure today. Troponin elevation, see below. This point time I would repeat the BNP to see if this has down trended. No need for diuresis. Continue to manage her pulmonary condition aggressively. Discussed with her about smoking cessation, she is not interested. Blood pressure is currently well optimized. Continue supportive ca re. As outpatient she needs pulmonary consultation. (2) Troponin level elevated: Status: Acute Elevated troponin consistent with myocardial necrosis related to acute medical condition both with acidosis and hypoxemia with COPD exacerbation. Unlikely to be primary myocardial infarction. There is high likelihood of underlying iglesia nary artery disease. Agree with low-dose aspirin therapy. Also add statin therapy to her regimen. Avoid beta-blockers given her significant COPD. Can pursue ischemic workup as outpatient once her pulmonary situation has improved. We will set up for follow-up for outpatient stress test in 2-4 weeks time and follow up in the office. Will sign of the case at this point time. Thank you for allowing me to partake in her care Procedures Date of Service Date of Service: 06/16/22
--- NOTE | 2022-06-16 11:31 | MHC.CLN ---
RE: CONSULT PT IS MODERATELY MALNOURISHED PT WITH MILDLY DEPLETED SUBCUTANEOUS FAT AND MUSCLE MASS WITH 19% NONSIGNIFICANT WT LOSS X 1 YEAR DIET RX: 2GM NA M/S GRD-CAN LIBERALIZE IF PO INTAKE POOR TO INCREASE VARIETY RECOMMEND ADDING ENSURE BID TO INCREASE KCALS SUPP TO PROVIDE 700KCALS, 40G PROTEIN MONITOR PO INTAKE CLOSELY SEE ALSO FULL CLINICAL NUTRITION ASSESSMENT
--- NOTE | 2022-06-16 11:55 | CONS_ITS ---
DATE OF SERVICE: 06/15/2022 REASON FOR CONSULTATION: I was called to see this patient to assist in management of hypernatremia. HISTORY OF PRESENT ILLNESS: To summarize, Kat is a 77-year-old woman with history of COPD from smoking, was brought in because of altered mental status. She is currently being treated for pneumonia. At the time of admission, she had significant hypernatremia with a sodium 150. Since admission over the last 24 hours, serum sodium is in fact increased to 155 and as of this morning, sodium was 142 with potassium 5.2. Serum creatinine 0.63. This consultation requested for management of hypernatremia. REVIEW OF SYSTEMS: Not obtainable from the patient. All the information obtained from the chart. Ongoing medical problems include history of COPD. PAST SURGICAL HISTORY: Significant for hip replacement. SOCIAL HISTORY: History of smoking. She also consumes alcohol occasionally. ALLERGIES: NO KNOWN DRUG ALLERGIES HAVE BEEN DOCUMENTED. CURRENT MEDICATIONS: Reviewed. PHYSICAL EXAMINATION: GENERAL: Today, Kat is a 77-year-old woman. She appears cachectic, not in distress. NECK: Supple. No JVD. HEENT: Mucosa is dry. LUNGS: Scattered rhonchi. HEART: S1, S2 heard. No gallop. ABDOMEN: Soft, nontender. EXTREMITIES: No edema. No rash. No clubbing. VITAL SIGNS: Blood pressure was 155/68, pulse of 104, temperature 98.2. LABORATORY DATA: Sodium 152, potassium 5.2, CO2 37, BUN 32, creatinine 0.63. Troponin of 90. Blood gas showed pH of 7.32, pCO2 of 60. Hemoglobin 12.1, platelet count 512. Chest x-ray showed chronic interstitial disease with superimposed atypical pneumonia. CT scan shows diffuse airway disease and areas of bronchopneumonia. PROBLEMS: 1. Severe hypernatremia due to free water deficit. 2. Respiratory acidosis with metabolic compensation. 3. Mild prerenal azotemia due to volume depletion. 4. Pneumonia/chronic obstructive pulmonary disease. RECOMMENDATIONS: Would include IV hydration with hypotonic fluids. I would administer half-normal saline at 100 cc/hour. Check serum sodium every 4 hours to avoid rapid correction. Goal is to start the serum sodium at a rate of 0.5-1 millimole per L per hour and not to exceed more than 8-10 millimoles in 24 hours. Encourage oral free water intake. I agree with other medical management including antibiotics. We will follow her closely along with the team. MD BRIELLE Prado/MODHoracio / [id number] MTDD
--- NOTE | 2022-06-16 14:12 | MHC.CM.PN ---
per rrounds pt not ready for dc physival therapy recommended str pt [facility] dcd
[2022-06-16 14:34] LABS: B Type Natriuretic Peptide 890 pg/mL (<100)
[2022-06-16] MEDS: cefTRIAXone sodium 1 GM in 0.9 % Sodium Chloride 50 ML IV (14:50)
[2022-06-16] MEDS: Enoxaparin Sodium 40 MG/0.4 ML SYRINGE SUBCUT (14:51)
[2022-06-16] MEDS: Atorvastatin Calcium 80 MG TABLET PO (22:15)
[2022-06-17] VITALS (9 sets, daily range): BP systolic 143–169; BP diastolic 70–81; PULSE 81–107; RESP 16–20; TEMP 36.7–37.3; O2SAT 90–96
[2022-06-17] MEDS: Doxycycline Hyclate 100 MG in 0.9 % Sodium Chloride 250 ML 166.67 MG IV ×2 (02:44→16:10)
[2022-06-17] MEDS: methylPREDNISolone Sod Succ 40 MG/ML VIAL IVPUSH (02:44)
[2022-06-17 06:22] LABS: Lymphocytes Absolute Auto 0.8 X10*3/uL (1.2-4.9); NRBC Pct Auto 0.2 /100WBC (0.0-0.2); PLT CLUMP 1; SCAN SMEAR FLAG 1
[2022-06-17 06:24] LABS: Basophils Percent Auto 0.4 % (0-2); Hematocrit 39.6 % (37.0-47.0); Hemoglobin 12.6 g/dl (12.0-16.0); Imm Gran Abs Auto 0.31 X10*3/uL (0.00-0.03); Imm Gran Pct Auto 2.8 % (0.0-0.4); Lymphocytes Percent Auto 6.9 % (20-40); MANUAL DIFF FLAG SCAN; Mean Corpuscular HGB Conc 31.8 g/dl (31.0-35.0); Mean Corpuscular Hemoglobin 26.5 pg (27.0-33.0); Mean Corpuscular Volume 83.4 fL (80.0-98.0); Mean Platelet Volume 10.9 fL (9.4-12.3); Monocytes Absolute Auto 0.2 X10*3/uL (0.1-1.2); Neutrophils Absolute Auto 9.9 x10*3/uL (2.0-8.3); Neutrophils Percent Auto 87.9 % (45-73); Red Blood Count 4.75 X10*6/uL (4.20-5.50)
[2022-06-17 06:47] LABS: SLIDE REVIEW VERIFIED; White Blood Count 11.2 X10*3/uL (4.8-10.8)
[2022-06-17 07:21] LABS: B Type Natriuretic Peptide 471 pg/mL (<100)
[2022-06-17] MEDS: Albuterol/Iprat 2.5/0.5MG 3 ML AMPUL.NEB INHALE ×4 (07:54→19:50)
[2022-06-17 08:14] LABS: VBG Base Excess 11.5 mmol/L; VBG HCO3 36 mmol/L (22-26); VBG pCO2 50 mmHg; VBG pH 7.47 (7.32-7.43); VBG pO2 70 mmHg
[2022-06-17 08:29] LABS: Anion Gap 15 (12-20); Blood Urea Nitrogen 14 mg/dL (9-16); Calcium 8.3 mg/dL (8.4-10.2); Carbon Dioxide 34 mmol/L (22-29); Chloride 99 mmol/L (96-108); Creatinine Clr Calc Pharmacy 51.9; Estimated Glomerular Filt Rate > 60; Glucose Random 113 mg/dL (60-115); Potassium 4.7 mmol/L (3.3-5.1); Sodium 143 mmol/L (135-145)
--- NOTE | 2022-06-17 10:56 | P.PNNP_ITS ---
Subjective Subjective Date of Service: 06/17/22 Interval history: Events noted More awake PO intake improving Physical Exam Vital Signs: Vital Signs: Last Vital Signs Temp 99.1 F 06/17/22 08:00 Pulse 102 H 06/17/22 08:00 Resp 20 06/17/22 08:00 BP 169/77 H 06/17/22 08:00 Pulse Ox 93 06/17/22 08:00 O2 Del Method 06/17/22 08:00 O2 Flow Rate 3 06/17/22 08:00 FiO2 28 06/14/22 03:24 BMI result Body Mass Index 17.4 Neuro: Other: alert and awake with normal spontaneity of speech fluency comprehension and slightly anxious affect. She was following commands. She knew where she was and what year this was. Face was symmetrical. Visual cesar are full. There was no pronator drift. Moderate diffuse muscle atrophy was noted in hands arms legs and feet. Feet were sensitive to touch. Read deep tendon reflexes were absent with flexor plantars. [id number] testing revealed mild ataxia. Objective Data Labs CBC & Chem 7: 06/17/22 05:50 06/17/22 08:00 Labs: Laboratory Results - last 24 hr 06/16/22 06/17/22 06/17/22 13:59 05:50 05:50 WBC 11.2 H RBC 4.75 Hgb 12.6 Hct 39.6 MCV 83.4 MCH 26.5 L MCHC 31.8 RDW 15.0 Plt Count TNP MPV 10.9 Immature Gran % (Auto) 2.8 H Neut % (Auto) 87.9 H Lymph % (Auto) 6.9 L [place] % (Auto) 2.0 Eos % (Auto) 0.0 Baso % (Auto) 0.4 Lymph # (Auto) 0.8 L [place] # (Auto) 0.2 Eos # (Auto) 0.0 Baso # (Auto) 0.0 Abs Immat Gran (auto) 0.31 H Absolute Neuts (auto) 9.9 H Absolute Nucleated RBC 0.020 H Nucleated RBC % (auto) 0.2 Smear Tech's Comments VERIFIED VBG pH VBG pCO2 VBG pO2 VBG HCO3 VBG O2 Saturation VBG Base Excess Sodium Potassium Chloride Carbon Dioxide Anion Gap BUN Creatinine Estim Creat Clear Calc Estimated GFR Random Glucose Calcium B-Natriuretic Peptide 890 H 471 H 06/17/22 06/17/22 08:00 08:08 WBC RBC Hgb Hct MCV MCH MCHC RDW Plt Count MPV Immature Gran % (Auto) Neut % (Auto) Lymph % (Auto) [place] % (Auto) Eos % (Auto) Baso % (Auto) Lymph # (Auto) [place] # (Auto) Eos # (Auto) Baso # (Auto) Abs Immat Gran (auto) Absolute Neuts (auto) Absolute Nucleated RBC Nucleated RBC % (auto) Smear Tech's Comments VBG pH 7.47 H VBG pCO2 50 VBG pO2 70 VBG HCO3 36 H VBG O2 Saturation 95.0 VBG Base Excess 11.5 Sodium 143 Potassium 4.7 Chloride 99 Carbon Dioxide 34 H Anion Gap 15 BUN 14 Creatinine 0.56 Estim Creat Clear Calc 51.9 Estimated GFR > 60 Random Glucose 113 Calcium 8.3 L B-Natriuretic Peptide Microbiology Microbiology Results: Microbiology 06/13/22 16:59 Blood - Venous Blood Culture - Preliminary No growth after 48 hours. 06/13/22 16:57 Blood - Venous Blood Culture - Preliminary No growth after 48 hours. Procedures Date of Service Date of Service: 06/17/22 Assessment & Plan Assessment and plan (1) Toxic metabolic encephalopathy: Status: Acute Assessment and Plan: 77 years old woman with underlying at Alzheimer dementia and metabolic toxic encephalopathy mostly from hypernatremia probably due to dehydration. Hypernatremia due to free water deficit (2) Alzheimer's dementia with behavioral disturbance: Status: Acute Plan Keep I > O with hypotonic fluids Can DC IVF today if PO intake is adequate Encourage PO water intake Check Na daily x 3 Avoid LOOP diuretics Time Spent With Patient Time: Total time spent is greater than 50% in coordination of care (as documented) at patient's floor/unit and/or counseling patient: Progress Note: Quality Stroke Does the patient have a stroke diagnosis?: No
--- NOTE | 2022-06-17 11:10 | HO.PM.IMPN ---
Subjective Subjective Date of Service: 06/17/22 Interval History: Pt seen for f/u for acute respiratory failure with hypoxia due to COPD exacerbation likely secondary to pneumonia. Interval history: Pt seen resting comfortably in bed. Pt appears less confused than yesterday. She is now oriented x3. Appears to have Alzheimers at baseline. Baseline a&ox3, very active per daughter with whom she lives. Reporting chronic right hip pain, tells me she did have an accidental fall 1.5 weeks ago. Ambulating with walker. Review of Systems General: No fevers, malaise, unintentional weight loss Cardiovascular: No chest pain, palpitations, or leg edema Respiratory: No shortness of breath, wheezing, cough GI: No abdominal pain, nausea, vomiting, diarrhea, constipation, melena, hematochezia MSK: No myalgia, back pain. +right hip pain Neuro: No headaches, weakness, paresthesias Skin: No rashes or lesions Physical Exam Vital Signs: Vital Signs: Last Vital Signs Temp 99.1 F 06/17/22 08:00 Pulse 102 H 06/17/22 08:00 Resp 20 06/17/22 08:00 BP 169/77 H 06/17/22 08:00 Pulse Ox 93 06/17/22 08:00 O2 Del Method 06/17/22 08:00 O2 Flow Rate 3 06/17/22 08:00 FiO2 28 06/14/22 03:24 BMI result Body Mass Index 17.4 Constitutional - Awake and Alert, No apparent distress Eyes - PERRLA, EOMI Cardiovascular - S1S2, RRR, No edema Respiratory - Normal lung expansion, Normal respiratory effort, No respiratory distress, Coarse lung sounds b/l wheezing/rhonchi bilaterally Gastrointestinal - NT / ND; +BS; No rebound or guarding Extremities - no calf tenderness bilaterally, no swelling Musculoskeletal - Normal inspection, normal ROM. Hips non tender to palpation, legs lie straight, equal in length with full ROM Skin - Warm/Dry Neurological - Alert & oriented x3, CN II-XII in tact, 5/5 strength BUE and BLE Psychological - Appropriate affect Objective Data Active Medications Acetaminophen (Acetaminophen 325 Mg Tablet) 650 mg PO Q6H PRN PRN Reason: Pain, Mild (Pain Scale 1-3) Albuterol/Ipratropium (Albuterol/Iprat 2.5/0.5mg 3 Ml Ampul.Neb) 3 ml INHALE RQ4H WHILE AWAKE [facility] Last Admin: 06/17/22 07:54 Dose: 3 ml Documented By: CLIVE Aspirin (Aspirin Enteric Coated 81 Mg Tablet.) 81 mg PO DAILY [facility] Last Admin: 06/16/22 08:46 Dose: 81 mg Documented By: JANEL Atorvastatin Calcium (Atorvastatin Calcium 80 Mg Tablet) 80 mg PO BEDTIME [facility] Last Admin: 06/16/22 22:15 Dose: 80 mg Documented By: JOY Docusate Sodium (Docusate Sodium 100 Mg Capsule) 100 mg PO DAILY PRN PRN Reason: Constipation Enoxaparin Sodium (Enoxaparin Sodium 40 Mg/0.4 Ml Syringe) 40 mg SUBCUT Q24H [facility] Last Admin: 06/16/22 14:51 Dose: 40 mg Documented By: JANEL Ceftriaxone Sodium 1 gm/ (Sodium Chloride) 50 mls @ 100 mls/hr IV Q24H [facility] Last Infusion: 06/16/22 16:12 Dose: 0 mls/hr Documented By: JAG Doxycycline Hyclate 100 mg/ (Sodium Chloride) 250 mls @ 166.67 mls/hr IV Q12H [facility] Last Infusion: 06/17/22 04:38 Dose: 0 mls/hr Documented By: JOY Dextrose (D5w) 1,000 mls @ 80 mls/hr IVCONT .[id number] [facility] Last Admin: 06/16/22 22:12 Dose: 80 mls/hr Documented By: JOY Methylprednisolone Sodium Succinate (Methylprednisolone Sod Succ 40 Mg/Ml Vial) 40 mg IVPUSH Q12H [facility] Last Admin: 06/17/22 02:44 Dose: 40 mg Documented By: JOY Nicotine (Nicotine 14 Mg Patch.Td24) 14 mg TRANSDERMA DAILY [facility] Last Admin: 06/16/22 08:46 Dose: Not Given Documented By: JANEL Non-Admin Reason: Patient Refused Ondansetron HCl (Ondansetron Hcl 4 Mg/2 Ml Vial) 4 mg IVPUSH Q8H PRN PRN Reason: Nausea and Vomiting Sodium Chloride (0.9 % Sodium Chloride Flush 3 Ml Syringe) 3 ml IVFLUSH QSHIFT [facility] Last Admin: 06/17/22 02:56 Dose: Not Given Documented By: JOY Non-Admin Reason: IV Running Labs CBC & Chem 7: 06/17/22 05:50 06/17/22 08:00 Labs: Laboratory Results - last 24 hr 06/16/22 06/17/22 06/17/22 13:59 05:50 05:50 MCV 83.4 MCH 26.5 L MCHC 31.8 RDW 15.0 Plt Count TNP MPV 10.9 Immature Gran % (Auto) 2.8 H Neut % (Auto) 87.9 H Lymph % (Auto) 6.9 L [place] % (Auto) 2.0 Eos % (Auto) 0.0 Baso % (Auto) 0.4 Lymph # (Auto) 0.8 L [place] # (Auto) 0.2 Eos # (Auto) 0.0 Baso # (Auto) 0.0 Abs Immat Gran (auto) 0.31 H Absolute Neuts (auto) 9.9 H Absolute Nucleated RBC 0.020 H Nucleated RBC % (auto) 0.2 Smear Tech's Comments VERIFIED VBG pH VBG pCO2 VBG pO2 VBG HCO3 VBG O2 Saturation VBG Base Excess Anion Gap Estim Creat Clear Calc Estimated GFR Random Glucose Calcium B-Natriuretic Peptide 890 H 471 H 06/17/22 06/17/22 08:00 08:08 MCV MCH MCHC RDW Plt Count MPV Immature Gran % (Auto) Neut % (Auto) Lymph % (Auto) [place] % (Auto) Eos % (Auto) Baso % (Auto) Lymph # (Auto) [place] # (Auto) Eos # (Auto) Baso # (Auto) Abs Immat Gran (auto) Absolute Neuts (auto) Absolute Nucleated RBC Nucleated RBC % (auto) Smear Tech's Comments VBG pH 7.47 H VBG pCO2 50 VBG pO2 70 VBG HCO3 36 H VBG O2 Saturation 95.0 VBG Base Excess 11.5 Anion Gap 15 Estim Creat Clear Calc 51.9 Estimated GFR > 60 Random Glucose 113 Calcium 8.3 L B-Natriuretic Peptide Assessment and Plan (1) Alzheimer's dementia with behavioral disturbance: Status: Acute (2) Toxic metabolic encephalopathy: Status: Acute (3) Troponin level elevated: Status: Acute (4) Pneumonia: Status: Acute Plan Pt is a 77-year-old female with a PMH significant for COPD, osteoarthritis, history of hip replacement, and smoking who is brought to the ED by her daughter for SOB and confusion. She was found to be in acute respiraotry failure int ED with significant acidosis requiring 3 rounds bipap in ED before admission. She is admitted for COPD exacerbation with bronchopneumonia and acute hypoxemic respiratory failure with metabolic encephalopathy. # acute respiratory failure with hypoxia requiring BiPap- likely secondary to COPD exacerbation/pneumonia -- pt arrived with O2 sat 78%. Improved to 90% requiring 2.5L supplemental O2. Non-oxygen dependent at home -- required 3 round of BiPAP in ED -- VBG ph 7.48/50/70/36/95%. Retaining CO2. titrate supplemental O2 goal 90-92% # Acute COPD exacerbation - lung sounds still coarse with rhonchi/wheezing -- procalcitonin 1.56 -- ceftriaxone 1g IV daily (D5), doxy 100 mg IV bid (D4) to treat pneumonia as below -- Increase Solu-Medrol IV to 60mg q12h -- DuoNeb q4h while awake -- Add albuterol q2h prn -- negative for influenza A & B, RSV, COVID, and other viral respiratory pathogens -- continue supplemental O2 as above #Right upper and bilaterall LL bronchopneumonia --Continue IV ceftriaxone (D5) and doxycycline (D4) -- Supplemental O2 as above # elevated troponins, abnormal EKG -- EKG shows T-wave inversions in inferior and anterior leads -- Troponins peaked @123, fell to 90.2 -- Chest CT shows severe atherosclerosis and CAD- outpt workup per cards -- repeat EKG: NSR, rate 116, t wave inversions V3-4, no XIMENA or depression suggestive of ACS -- findings likely from demand ischemia/myocardial necrosis due to acidosis and hypoxemia with COPD exacerbation. -- monitor on telemetry ---Appreciate cardiology input. Continue asa and add statin with oupt stress test in 2-4 weeks #elevated BNP 2200 --clinically euvolemic. No effusions/pulmonary edema on imaging --echocardiogram results still pending --Cardiology input appreciated --BNP trending down # sepsis, severe secondary to pneumonia- resolved -- WBC trending down, HD -- lactic acid trending down, 6.6-->4.2-->2.2 -- pt no longer requiring BiPAP -- being treated with broad-spectrum abx # Metabolic encephalopathy- more likely underlying Alzheimer's dementia rather than infection -- Baseline unclear though daughter states A&Ox3. Patient exhibiting cognitive lability since arrival. A&Ox3 this morning. Seen by neuro who feels this is likely secondary to unfamiliar setting is -- Head CT negative for acute intracranial abnormality, but does show diffuse volume loss consistent with Alzheimer's disease -- daughter states she had a similar episode last year when she had pneumonia which is also being treated as above -- mechanical diet -- monitor #Hypernatremia- resolved -Nephrology input appreciated -DC D5 -Encourage PO water intake -Avoid LOOP diuretics per nephrology -Follow BMP #Generalized weakness/hip pain -Hip pain likely chronic r/t arthritis, however given recent fall, check xr -PT following -Recommending STR at discharge Full code DVT prophylaxis: Lovenox Pt requires ongoing inpt stay For management of acute COPD exacerbation with acute hypoxic respiratory failure requiring supplemental O2, IV steroids as well as treatment with IV antibiotics for pneumonia with sepsis. Quality Stroke Does the patient have a stroke diagnosis?: No VTE Prior VTE?: No VTE Risk Level:: Medical - moderate - high VTE Device Contraindication: Treatment Not Indicated VTE Drug Contraindication: N/A - Med Ordered
[2022-06-17] MEDS: Nicotine 14 MG PATCH.TD24 TRANSDERMA (11:12)
[2022-06-17] MEDS: Aspirin Enteric Coated 81 MG TABLET.DR PO (11:12)
[2022-06-17] MEDS: 0.9 % Sodium Chloride Flush 3 ML SYRINGE IVFLUSH ×3 (11:13→23:14)
[2022-06-17] MEDS: Dextrose 5 % 1,000 ML 80 ML IVCONT (11:16)
[2022-06-17] MEDS: methylPREDNISolone Sod Succ 40 MG/ML VIAL 60 MG IVPUSH ×2 (11:34→23:14)
[2022-06-17 13:02] LABS: Venous Blood Gas Refer to POC result
[2022-06-17] MEDS: cefTRIAXone sodium 1 GM in 0.9 % Sodium Chloride 50 ML IV (14:15)
[2022-06-17] MEDS: Enoxaparin Sodium 40 MG/0.4 ML SYRINGE SUBCUT (14:18)
[2022-06-17] MEDS: Atorvastatin Calcium 80 MG TABLET PO (19:47)
[2022-06-18] VITALS (10 sets, daily range): BP systolic 138–154; BP diastolic 65–80; PULSE 97–116; RESP 12–18; TEMP 36.3–37.1; O2SAT 87–93
[2022-06-18] MEDS: Doxycycline Hyclate 100 MG in 0.9 % Sodium Chloride 250 ML 166.67 MG IV (02:13)
[2022-06-18 06:50] LABS: MANUAL DIFF FLAG NO
[2022-06-18 06:52] LABS: Basophils Percent Auto 0.3 % (0-2); Hematocrit 45.6 % (37.0-47.0); Hemoglobin 14.7 g/dl (12.0-16.0); Imm Gran Abs Auto 0.24 X10*3/uL (0.00-0.03); Lymphocytes Absolute Auto 0.9 X10*3/uL (1.2-4.9); Lymphocytes Percent Auto 7.5 % (20-40); Mean Corpuscular HGB Conc 32.2 g/dl (31.0-35.0); Mean Corpuscular Hemoglobin 26.8 pg (27.0-33.0); Mean Corpuscular Volume 83.2 fL (80.0-98.0); Mean Platelet Volume 9.3 fL (9.4-12.3); Monocytes Absolute Auto 0.5 X10*3/uL (0.1-1.2); Monocytes Percent Auto 4.1 % (2-11); NRBC Pct Auto 0.2 /100WBC (0.0-0.2); Neutrophils Absolute Auto 10.2 x10*3/uL (2.0-8.3); Neutrophils Percent Auto 86.1 % (45-73); Platelet Count 508 X10*3/uL (160-400); Red Blood Count 5.48 X10*6/uL (4.20-5.50); Red Cell Distribution Width 15.4 % (11.0-16.0); White Blood Count 11.9 X10*3/uL (4.8-10.8)
[2022-06-18 06:55] LABS: VBG Base Excess 13.6 mmol/L; VBG HCO3 37 mmol/L (22-26); VBG pCO2 41 mmHg; VBG pH 7.56 (7.32-7.43); VBG pO2 40 mmHg
[2022-06-18 06:56] LABS: Venous Blood Gas Refer to POC result
[2022-06-18 07:20] LABS: Anion Gap 17 (12-20); Blood Urea Nitrogen 14 mg/dL (9-16); Calcium 8.3 mg/dL (8.4-10.2); Carbon Dioxide 30 mmol/L (22-29); Chloride 97 mmol/L (96-108); Creatinine Clr Calc Pharmacy 53.8; Estimated Glomerular Filt Rate > 60; Glucose Random 119 mg/dL (60-115); Potassium 4.9 mmol/L (3.3-5.1); Sodium 139 mmol/L (135-145)
[2022-06-18] MEDS: Albuterol/Iprat 2.5/0.5MG 3 ML AMPUL.NEB INHALE ×4 (08:34→19:04)
[2022-06-18] MEDS: Aspirin Enteric Coated 81 MG TABLET.DR PO (10:11)
[2022-06-18] MEDS: Nicotine 14 MG PATCH.TD24 TRANSDERMA (10:12)
[2022-06-18] MEDS: 0.9 % Sodium Chloride Flush 3 ML SYRINGE IVFLUSH ×3 (10:12→21:02)
[2022-06-18] MEDS: methylPREDNISolone Sod Succ 40 MG/ML VIAL 60 MG IVPUSH ×2 (10:13→22:08)
--- NOTE | 2022-06-18 11:38 | MHC.CLN ---
F/U PT IS MODERATELY MALNOURISHED SEE FULL CLINICAL NUTRITION ASSESSMENT DATED 06/16/22 DIET RX: 2GM NA M/S GRD-CAN LIBERALIZE IF PO INTAKE POOR TO INCREASE VARIETY PO INTAKE 75-100% PT RECEIVING ENSURE BID TO INCREASE KCALS PROVIDES 700KCALS, 40G PROTEIN MONITOR PO INTAKE CLOSELY
--- NOTE | 2022-06-18 13:03 | P.PNIM_ITS ---
Subjective Subjective Date of Service: 06/18/22 Interval History: Pt seen for f/u for acute respiratory failure with hypoxia due to COPD exacerbation likely secondary to pneumonia. Interval history: Pt seen resting comfortably in bed. Reports her fingers should not be attached to her hand. Nursing reporting patient having multiple episodes diarrhea. Patient unable to give history Review of Systems Review of Systems: Yes Unobtainable due to mental condition Physical Exam Vital Signs: Vital Signs: Last Vital Signs Temp 98.0 F 06/18/22 12:00 Pulse 100 06/18/22 12:00 Resp 12 06/18/22 12:00 BP 138/79 06/18/22 12:00 Pulse Ox 91 L 06/18/22 04:00 O2 Del Method 06/18/22 12:00 O2 Flow Rate 2 06/18/22 12:00 FiO2 28 06/14/22 03:24 BMI result Body Mass Index 17.4 Constitutional - Awake and Alert, No apparent distress Eyes - PERRLA, EOMI Cardiovascular - S1S2, RRR, No edema Respiratory - Normal lung expansion, Normal respiratory effort, No respiratory distress, Faint scattered expiratory wheezing Gastrointestinal - NT / ND; +BS; No rebound or guarding Extremities - no calf tenderness bilaterally, no swelling Skin - Warm/Dry Neurological - Alert & oriented x3, CN II-XII in tact, 5/5 strength BUE and BLE Psychological - Appropriate affect Objective Data Active Medications Acetaminophen (Acetaminophen 325 Mg Tablet) 650 mg PO Q6H PRN PRN Reason: Pain, Mild (Pain Scale 1-3) Albuterol Sulfate (Albuterol Sulfate (0.083%) 2.5 Mg/3 Ml Vial.Neb) 2.5 mg INHALE Q2H PRN PRN Reason: Shortness of Breath/Wheezing Albuterol/Ipratropium (Albuterol/Iprat 2.5/0.5mg 3 Ml Ampul.Neb) 3 ml INHALE RQ4H WHILE AWAKE [facility] Last Admin: 06/18/22 11:41 Dose: 3 ml Documented By: WIL Aspirin (Aspirin Enteric Coated 81 Mg Tablet.) 81 mg PO DAILY [facility] Last Admin: 06/18/22 10:11 Dose: 81 mg Documented By: ELIZABETH Atorvastatin Calcium (Atorvastatin Calcium 80 Mg Tablet) 80 mg PO BEDTIME [facility] Last Admin: 06/17/22 19:47 Dose: 80 mg Documented By: BRITTNEY Docusate Sodium (Docusate Sodium 100 Mg Capsule) 100 mg PO DAILY PRN PRN Reason: Constipation Enoxaparin Sodium (Enoxaparin Sodium 40 Mg/0.4 Ml Syringe) 40 mg SUBCUT Q24H [facility] Last Admin: 06/17/22 14:18 Dose: 40 mg Documented By: TERA Ceftriaxone Sodium 1 gm/ (Sodium Chloride) 50 mls @ 100 mls/hr IV Q24H [facility] Last Infusion: 06/17/22 16:17 Dose: 0 mls/hr Documented By: TERA Doxycycline Hyclate 100 mg/ (Sodium Chloride) 250 mls @ 166.67 mls/hr IV Q12H [facility] Last Infusion: 06/18/22 04:27 Dose: 0 mls/hr Documented By: BRITTNEY Methylprednisolone Sodium Succinate (Methylprednisolone Sod Succ 40 Mg/Ml Vial) 60 mg IVPUSH Q12H [facility] Last Admin: 06/18/22 10:13 Dose: 60 mg Documented By: ELIZABETH Nicotine (Nicotine 14 Mg Patch.Td24) 14 mg TRANSDERMA DAILY [facility] Last Admin: 06/18/22 10:12 Dose: 14 mg Documented By: ELIZABETH Ondansetron HCl (Ondansetron Hcl 4 Mg/2 Ml Vial) 4 mg IVPUSH Q8H PRN PRN Reason: Nausea and Vomiting Sodium Chloride (0.9 % Sodium Chloride Flush 3 Ml Syringe) 3 ml IVFLUSH QSHIFT [facility] Last Admin: 06/18/22 10:12 Dose: 3 ml Documented By: ELIZABETH Labs CBC & Chem 7: 06/18/22 06:47 06/18/22 06:47 Labs: Laboratory Results - last 24 hr 06/18/22 06/18/22 06/18/22 06:47 06:47 06:50 MCV 83.2 MCH 26.8 L MCHC 32.2 RDW 15.4 Plt Count 508 H MPV 9.3 L Immature Gran % (Auto) 2.0 H Neut % (Auto) 86.1 H Lymph % (Auto) 7.5 L [place] % (Auto) 4.1 Eos % (Auto) 0.0 Baso % (Auto) 0.3 Lymph # (Auto) 0.9 L [place] # (Auto) 0.5 Eos # (Auto) 0.0 Baso # (Auto) 0.0 Abs Immat Gran (auto) 0.24 H Absolute Neuts (auto) 10.2 H Absolute Nucleated RBC 0.020 H Nucleated RBC % (auto) 0.2 VBG pH 7.56 H VBG pCO2 41 VBG pO2 40 VBG HCO3 37 H VBG O2 Saturation 71.0 VBG Base Excess 13.6 Anion Gap 17 Estim Creat Clear Calc 53.8 Estimated GFR > 60 Random Glucose 119 H Calcium 8.3 L Assessment and Plan (1) Alzheimer's dementia with behavioral disturbance: Status: Acute (2) Toxic metabolic encephalopathy: Status: Acute (3) Troponin level elevated: Status: Acute (4) Pneumonia: Status: Acute Plan Pt is a 77-year-old female with a PMH significant for COPD, osteoarthritis, history of hip replacement, and smoking who is brought to the ED by her daughter for SOB and confusion. She was found to be in acute respiraotry failure int ED with significant acidosis requiring 3 rounds bipap in ED before admission. She is admitted for COPD exacerbation with bronchopneumonia and acute hypoxemic respiratory failure with metabolic encephalopathy. # acute respiratory failure with hypoxia requiring BiPap- likely secondary to COPD exacerbation/pneumonia -- pt arrived with O2 sat 78%. Improved to 90% requiring 2.5L supplemental O2. Non-oxygen dependent at home -- required 3 round of BiPAP in ED -- VBG CO2 improved to 41. titrate supplemental O2 goal 90-92% # Acute COPD exacerbation - lung sounds still with faint expiratory wheezing, improved from yesterday -- ceftriaxone 1g IV daily (D6), doxy 100 mg IV bid (D6) to treat pneumonia as below -- Continue Solu-Medrol IV to 60mg q12h -- DuoNeb q4h while awake -- Add albuterol q2h prn -- negative for influenza A & B, RSV, COVID, and other viral respiratory pathogens -- continue supplemental O2 as above #Right upper and bilaterall LL bronchopneumonia --Continue IV ceftriaxone (D6) and doxycycline (D6) -- Supplemental O2 as above #Mixed metabolic alkalosis/respiratory acidosis compensating -2/2 COPD exacerbation and acute diarrhea -See plan above and below #Acute diarrhea -CDiff and GI panel ordered -Hold on anti-diarrheals until confirmed noninfectious # elevated troponins, abnormal EKG -- EKG shows T-wave inversions in inferior and anterior leads -- Troponins peaked @123, fell to 90.2 -- Chest CT shows severe atherosclerosis and CAD- outpt workup per cards -- repeat EKG: NSR, rate 116, t wave inversions V3-4, no XIMENA or depression suggestive of ACS -- findings likely from demand ischemia/myocardial necrosis due to acidosis and hypoxemia with COPD exacerbation. -- monitor on telemetry ---Appreciate cardiology input. Continue asa and add statin with oupt stress test in 2-4 weeks #elevated BNP 2200 --clinically euvolemic. No effusions/pulmonary edema on imaging --echocardiogram results still pending --Cardiology input appreciated --BNP trending down # sepsis, severe secondary to pneumonia- resolved -- WBC trending down, HD -- lactic acid trending down, 6.6-->4.2-->2.2 -- pt no longer requiring BiPAP -- being treated with broad-spectrum abx # Metabolic encephalopathy- more likely underlying Alzheimer's dementia rather than infection -- Baseline unclear though daughter states A&Ox3. Patient exhibiting cognitive lability since arrival. A&Ox3 this morning. Seen by neuro who feels this is likely secondary to unfamiliar setting is -- Head CT negative for acute intracranial abnormality, but does show diffuse volume loss consistent with Alzheimer's disease -- daughter states she had a similar episode last year when she had pneumonia which is also being treated as above -- mechanical diet -- monitor #Hypernatremia- resolved -Nephrology input appreciated -DC D5 -Encourage PO water intake -Avoid LOOP diuretics per nephrology -Follow BMP #Generalized weakness/hip pain -Hip pain likely chronic r/t arthritis, however given recent fall, xray ordered- official read not completed, but on review of films no obvious fracture/discolation. Hip prosthesis in place -PT following -Recommending STR at discharge #Moderate malnutrition with protein deficiency -[facility] diet -Ensure BID Full code DVT prophylaxis: Lovenox Pt requires ongoing inpt stay For management of acute COPD exacerbation with acute hypoxic respiratory failure requiring supplemental O2, IV steroids as well as treatment with IV antibiotics for pneumonia with sepsis. Quality Stroke Does the patient have a stroke diagnosis?: No VTE Prior VTE?: No VTE Risk Level:: Medical - moderate - high VTE Device Contraindication: Treatment Not Indicated VTE Drug Contraindication: N/A - Med Ordered
--- NOTE | 2022-06-18 13:32 | P.CDIC_ITS ---
CDI Concurrent Query Documentation Clarification: PHYSICIAN'S DOCUMENTATION REQUEST Date of Query: 06/18/22 [id number] Patient Name: Kat Tovar Admit Date: 06/14/22 Dear Doctor, A review of the medical record indicates additional documentation may be needed. Please review below and update the documentation accordingly. Clinical Indicators: Is there a diagnosis that correlates with the findings below: Risk Factors/Clinical Indicators/Treatments BMI: 17.4 Height: 5ft Weight: 40.37kg Per bradley linebacker crewmember consult on 06/16/22: PT IS MODERATELY MALNOURISHED PT WITH MILDLY DEPLETED SUBCUTANEOUS FAT AND MUSCLE MASS WITH 19% NONSIGNIFICANT WT LOSS X 1 YEAR If possible, please provide an associated diagnosis related to the abnormal BMI, such as: Malnutrition * Mild * Moderate * Severe For a BMI <= 19: * Underweight * Weight loss * Cachexia * Anorexia * Or: * BMI is not significant * Other (please specify) * Unable to determine Use of terms such as suspected, likely, concern for, or probable (associated with a specific diagnosis that is being evaluated, monitored, or treated as if it exists) are acceptable and can be coded in the inpatient setting, when documented at the time of discharge. Thank you, Jodi Stiles MS, RN, CCRN Extension: [phone] Please use your independent medical judgment in providing your response. THIS QUERY IS PART OF THE PERMANENT MEDICAL RECORD Provider Response: Moderate Protein-Calorie Malnutrition (with BMI <19)
--- NOTE | 2022-06-18 13:50 | MHC.CM.PN ---
Patient is being treated for Bronchopneumonia (IV Ceftriaxone and IV Doxycycline) and receiving IV Solu Medrol. Patient is not yet medically cleared for dc; STR is the recommendation and CM will continue to follow.
[2022-06-18] MEDS: Enoxaparin Sodium 40 MG/0.4 ML SYRINGE SUBCUT (14:29)
[2022-06-18] MEDS: cefTRIAXone sodium 1 GM in 0.9 % Sodium Chloride 50 ML IV (14:30)
[2022-06-18] MEDS: Doxycycline Hyclate 100 MG in 0.9 % Sodium Chloride 250 ML 137.5 MG IV (14:31)
[2022-06-18] MEDS: Atorvastatin Calcium 80 MG TABLET PO (21:02)
[2022-06-19] VITALS (9 sets, daily range): BP systolic 128–156; BP diastolic 52–80; PULSE 78–107; RESP 13–18; TEMP 36.5–37.1; O2SAT 91–97
[2022-06-19] MEDS: Doxycycline Hyclate 100 MG in 0.9 % Sodium Chloride 250 ML 166.67 MG IV ×2 (01:59→15:26)
[2022-06-19 06:31] LABS: MANUAL DIFF FLAG NO
[2022-06-19 06:37] LABS: Basophils Percent Auto 0.4 % (0-2); Eosinophils Absolute Auto 0.1 X10*3/uL (0.0-0.4); Eosinophils Percent Auto 0.5 % (0-4); Hematocrit 43.6 % (37.0-47.0); Imm Gran Abs Auto 0.19 X10*3/uL (0.00-0.03); Imm Gran Pct Auto 1.7 % (0.0-0.4); Lymphocytes Absolute Auto 1.7 X10*3/uL (1.2-4.9); Lymphocytes Percent Auto 15.6 % (20-40); Mean Corpuscular HGB Conc 32.1 g/dl (31.0-35.0); Mean Corpuscular Hemoglobin 26.6 pg (27.0-33.0); Mean Corpuscular Volume 82.9 fL (80.0-98.0); Mean Platelet Volume 9.7 fL (9.4-12.3); Monocytes Absolute Auto 0.8 X10*3/uL (0.1-1.2); Monocytes Percent Auto 7.3 % (2-11); Neutrophils Absolute Auto 8.1 x10*3/uL (2.0-8.3); Neutrophils Percent Auto 74.5 % (45-73); Platelet Count 484 X10*3/uL (160-400); Red Blood Count 5.26 X10*6/uL (4.20-5.50); Red Cell Distribution Width 16.1 % (11.0-16.0); White Blood Count 10.9 X10*3/uL (4.8-10.8)
[2022-06-19 07:19] LABS: Blood Urea Nitrogen 14 mg/dL (9-16); Calcium 8.3 mg/dL (8.4-10.2); Creatinine Clr Calc Pharmacy 59.3; Estimated Glomerular Filt Rate > 60; Glucose Random 80 mg/dL (60-115)
[2022-06-19 07:54] LABS: Anion Gap 14 (12-20); Carbon Dioxide 35 mmol/L (22-29); Chloride 96 mmol/L (96-108); Potassium 4.2 mmol/L (3.3-5.1); Sodium 141 mmol/L (135-145)
[2022-06-19] MEDS: Aspirin Enteric Coated 81 MG TABLET.DR PO (08:07)
[2022-06-19] MEDS: methylPREDNISolone Sod Succ 40 MG/ML VIAL IVPUSH ×2 (08:07→20:34)
[2022-06-19] MEDS: 0.9 % Sodium Chloride Flush 3 ML SYRINGE IVFLUSH ×3 (08:07→20:34)
[2022-06-19] MEDS: Nicotine 14 MG PATCH.TD24 TRANSDERMA (08:07)
[2022-06-19] MEDS: Albuterol/Iprat 2.5/0.5MG 3 ML AMPUL.NEB INHALE ×3 (08:15→20:08)
--- NOTE | 2022-06-19 10:37 | P.PNIM_ITS ---
Subjective Subjective Date of Service: 06/19/22 Interval History: Pt seen for f/u for acute respiratory failure with hypoxia due to COPD exacerbation likely secondary to pneumonia. Interval history: Pt seen resting comfortably in bed. Patient unable to give history, though is a&ox3. No further episodes diarrhea. Still requiring 2L O2 with dry cough Review of Systems Review of Systems: Yes Unobtainable due to mental condition Physical Exam Vital Signs: Vital Signs: Last Vital Signs Temp 98.8 F 06/19/22 07:38 Pulse 105 H 06/19/22 08:18 Resp 18 06/19/22 08:18 BP 149/52 H 06/19/22 07:38 Pulse Ox 95 06/19/22 07:38 O2 Del Method 06/19/22 07:38 O2 Flow Rate 1.5 06/19/22 07:38 FiO2 28 06/14/22 03:24 BMI result Body Mass Index 17.4 Constitutional - Awake and Alert, No apparent distress Eyes - PERRLA, EOMI Cardiovascular - S1S2, RRR, No edema Respiratory - Normal lung expansion, Normal respiratory effort, No respiratory distress, Faint scattered expiratory wheezing/rhonchi lower lobes Gastrointestinal - NT / ND; +BS; No rebound or guarding Extremities - no calf tenderness bilaterally, no swelling Skin - Warm/Dry Neurological - Alert & orientedx3 Psychological - Appropriate affect Objective Data Active Medications Acetaminophen (Acetaminophen 325 Mg Tablet) 650 mg PO Q6H PRN PRN Reason: Pain, Mild (Pain Scale 1-3) Albuterol Sulfate (Albuterol Sulfate (0.083%) 2.5 Mg/3 Ml Vial.Neb) 2.5 mg INHALE Q2H PRN PRN Reason: Shortness of Breath/Wheezing Albuterol/Ipratropium (Albuterol/Iprat 2.5/0.5mg 3 Ml Ampul.Neb) 3 ml INHALE RQ4H WHILE AWAKE [facility] Last Admin: 06/19/22 08:15 Dose: 3 ml Documented By: ELEUTERIO Aspirin (Aspirin Enteric Coated 81 Mg Tablet.) 81 mg PO DAILY [facility] Last Admin: 06/19/22 08:07 Dose: 81 mg Documented By: LYLY Atorvastatin Calcium (Atorvastatin Calcium 80 Mg Tablet) 80 mg PO BEDTIME [facility] Last Admin: 06/18/22 21:02 Dose: 80 mg Documented By: MG Docusate Sodium (Docusate Sodium 100 Mg Capsule) 100 mg PO DAILY PRN PRN Reason: Constipation Enoxaparin Sodium (Enoxaparin Sodium 40 Mg/0.4 Ml Syringe) 40 mg SUBCUT Q24H [facility] Last Admin: 06/18/22 14:29 Dose: 40 mg Documented By: ELIZABETH Ceftriaxone Sodium 1 gm/ (Sodium Chloride) 50 mls @ 100 mls/hr IV Q24H [facility] Last Infusion: 06/18/22 15:33 Dose: 0 mls/hr Documented By: RAJESH Doxycycline Hyclate 100 mg/ (Sodium Chloride) 250 mls @ 166.67 mls/hr IV Q12H [facility] Last Infusion: 06/19/22 04:15 Dose: 0 mls/hr Documented By: MG Methylprednisolone Sodium Succinate (Methylprednisolone Sod Succ 40 Mg/Ml Vial) 40 mg IVPUSH Q12H [facility] Last Admin: 06/19/22 08:07 Dose: 40 mg Documented By: LYLY Nicotine (Nicotine 14 Mg Patch.Td24) 14 mg TRANSDERMA DAILY [facility] Last Admin: 06/19/22 08:07 Dose: 14 mg Documented By: LYLY Ondansetron HCl (Ondansetron Hcl 4 Mg/2 Ml Vial) 4 mg IVPUSH Q8H PRN PRN Reason: Nausea and Vomiting Sodium Chloride (0.9 % Sodium Chloride Flush 3 Ml Syringe) 3 ml IVFLUSH QSHIFT [facility] Last Admin: 06/19/22 08:07 Dose: 3 ml Documented By: LYLY Labs CBC & Chem 7: 06/19/22 06:19 06/19/22 06:19 Labs: Laboratory Results - last 24 hr 06/19/22 06/19/22 06:19 06:19 MCV 82.9 MCH 26.6 L MCHC 32.1 RDW 16.1 H Plt Count 484 H MPV 9.7 Immature Gran % (Auto) 1.7 H Neut % (Auto) 74.5 H Lymph % (Auto) 15.6 L [place] % (Auto) 7.3 Eos % (Auto) 0.5 Baso % (Auto) 0.4 Lymph # (Auto) 1.7 [place] # (Auto) 0.8 Eos # (Auto) 0.1 Baso # (Auto) 0.0 Abs Immat Gran (auto) 0.19 H Absolute Neuts (auto) 8.1 Absolute Nucleated RBC 0.000 Nucleated RBC % (auto) 0.0 Anion Gap 14 Estim Creat Clear Calc 59.3 Estimated GFR > 60 Random Glucose 80 Calcium 8.3 L Microbiology Microbiology Results: Microbiology 06/13/22 16:59 Blood Culture - Final Blood - Venous No growth after 5 days. 06/13/22 16:57 Blood Culture - Final Blood - Venous No growth after 5 days. Assessment and Plan (1) Alzheimer's dementia with behavioral disturbance: Status: Acute (2) Toxic metabolic encephalopathy: Status: Acute (3) Troponin level elevated: Status: Acute (4) Pneumonia: Status: Acute Plan Pt is a 77-year-old female with a PMH significant for COPD, osteoarthritis, history of hip replacement, and smoking who is brought to the ED by her daughter for SOB and confusion. She was found to be in acute respiraotry failure int ED with significant acidosis requiring 3 rounds bipap in ED before admission. She is admitted for COPD exacerbation with bronchopneumonia and acute hypoxemic respiratory failure with metabolic encephalopathy. # acute respiratory failure with hypoxia requiring BiPap- likely secondary to COPD exacerbation/pneumonia -- pt arrived with O2 sat 78%. Continues to require 2L to maintain oximetry 92%. Non-oxygen dependent at home -- required 3 round of BiPAP in ED -- VBG CO2 improved to 41. titrate supplemental O2 goal 90-92% -- Pending home O2 eval # Acute COPD exacerbation - lung sounds still with faint expiratory wheezing, rhonchi lower lobes -- ceftriaxone 1g IV daily (D7), doxy 100 mg IV bid (D7) to treat pneumonia as below -- Titrate Solu-Medrol IV to 40mg q12h -- DuoNeb q4h while awake -- Add albuterol q2h prn -- negative for influenza A & B, RSV, COVID, and other viral respiratory pathogens -- continue supplemental O2 as above #Right upper and bilaterall LL bronchopneumonia --Continue IV ceftriaxone (D7) and doxycycline (D7). Comlete 7 days, then discontinue -- Supplemental O2 as above #Mixed metabolic alkalosis/respiratory acidosis compensating -2/2 COPD exacerbation and acute diarrhea -See plan above and below #Acute diarrhea -CDiff and GI panel ordered- No diarrhea overnight -Hold on anti-diarrheals until confirmed noninfectious # elevated troponins, abnormal EKG -- EKG shows T-wave inversions in inferior and anterior leads -- Troponins peaked @123, fell to 90.2 -- Chest CT shows severe atherosclerosis and CAD- outpt workup per cards -- repeat EKG: NSR, rate 116, t wave inversions V3-4, no XIMENA or depression suggestive of ACS -- findings likely from demand ischemia/myocardial necrosis due to acidosis and hypoxemia with COPD exacerbation. -- monitor on telemetry ---Appreciate cardiology input. Continue asa and add statin with oupt stress test in 2-4 weeks #Elevated BNP 2200 --clinically euvolemic. No effusions/pulmonary edema on imaging --echocardiogram Hyperdynamic systolic function, EF >70%, elevated right atrial pressure, mild pulmonary htn, diastolic fx normal for age --BNP trending down # sepsis, severe secondary to pneumonia- resolved -- WBC trending down, HD -- lactic acid trending down, 6.6-->4.2-->2.2 -- pt no longer requiring BiPAP -- being treated with broad-spectrum abx # Metabolic encephalopathy- more likely underlying Alzheimer's dementia rather than infection- appears baseline -- Baseline unclear though daughter states A&Ox3. Patient exhibiting cognitive lability since arrival. A&Ox3 this morning. Seen by neuro who feels this is likely secondary to unfamiliar setting is -- Head CT negative for acute intracranial abnormality, but does show diffuse volume loss consistent with Alzheimer's disease -- daughter states she had a similar episode last year when she had pneumonia which is also being treated as above -- mechanical diet -- monitor #Hypernatremia- resolved following D5W administration -Nephrology input appreciated -Encourage PO water intake -Avoid LOOP diuretics per nephrology -Follow BMP #Generalized weakness/hip pain -Hip pain likely chronic r/t arthritis. XR negative for fracture/dislocation, stable appearance hip replacement -PT following -Recommending STR at discharge #Moderate malnutrition with protein deficiency -Ground/[facility] diet -Ensure BID #Tobacco dependence -Adamantly opposed to cessation, counseling provided -Continue NRT Full code DVT prophylaxis: Lovenox Pt requires ongoing inpt stay For management of acute COPD exacerbation with acute hypoxic respiratory failure requiring supplemental O2, pending home O2 eval, and placement to STR Time Spent With Patient Time: Total time managing care of this patient today 30 minutes. Quality Stroke Does the patient have a stroke diagnosis?: No VTE Prior VTE?: No VTE Risk Level:: Medical - moderate - high VTE Device Contraindication: Treatment Not Indicated VTE Drug Contraindication: N/A - Med Ordered
[2022-06-19 13:14] LABS: CDiff Gene PCR NEGATIVE (Negative)
[2022-06-19] MEDS: Enoxaparin Sodium 40 MG/0.4 ML SYRINGE SUBCUT (14:37)
[2022-06-19] MEDS: cefTRIAXone sodium 1 GM in 0.9 % Sodium Chloride 50 ML IV (14:42)
[2022-06-19 15:05] LABS: Adenovirus F 40/41 Not Detected (Not Detect.); Astrovirus Not Detected (Not Detect.); Campylobacter Not Detected (Not Detect.); Cryptosporidium Not Detected (Not Detect.); Cyclospora cayetanensis Not Detected (Not Detect.); E. coli EAEC Not Detected (Not Detect.); E. coli EPEC Not Detected (Not Detect.); E. coli ETEC Not Detected (Not Detect.); E. coli STEC Not Detected (Not Detect.); Entamoeba histolytica Not Detected (Not Detect.); Giardia lamblia Not Detected (Not Detect.); Norovirus GI/GII Not Detected (Not Detect.); Plesiomonas shigelloides Not Detected (Not Detect.); Rotavirus A Not Detected (Not Detect.); Salmonella Not Detected (Not Detect.); Sapovirus Not Detected (Not Detect.); Shigella sp./EIEC Not Detected (Not Detect.); Vibrio Not Detected (Not Detect.); Vibrio Cholerae Not Detected (Not Detect.); Yersinia enterocolitica Not Detected (Not Detect.)
[2022-06-19] MEDS: Atorvastatin Calcium 80 MG TABLET PO (20:34)
[2022-06-20] MEDS: Doxycycline Hyclate 100 MG in 0.9 % Sodium Chloride 250 ML 166.67 MG IV (01:51)
[2022-06-20 03:07] VITALS: BP 144/79; PULSE 94; RESP 16; TEMP 36.4; O2SAT 95
[2022-06-20 07:43] LABS: Blood Urea Nitrogen 15 mg/dL (9-16); Calcium 8.3 mg/dL (8.4-10.2); Creatinine Clr Calc Pharmacy 61.8; Estimated Glomerular Filt Rate > 60; Glucose Random 85 mg/dL (60-115)
[2022-06-20 07:53] LABS: Anion Gap 14 (12-20); Carbon Dioxide 35 mmol/L (22-29); Chloride 96 mmol/L (96-108); Potassium 5.3 mmol/L (3.3-5.1); Sodium 140 mmol/L (135-145)
[2022-06-20 07:59] VITALS: BP 161/75; PULSE 95; RESP 16; TEMP 37; O2SAT 95
[2022-06-20] MEDS: Albuterol/Iprat 2.5/0.5MG 3 ML AMPUL.NEB INHALE ×2 (08:08→11:59)
[2022-06-20 08:11] VITALS: PULSE 96; RESP 16; O2SAT 99
[2022-06-20] MEDS: methylPREDNISolone Sod Succ 40 MG/ML VIAL IVPUSH (09:36)
[2022-06-20] MEDS: Nicotine 14 MG PATCH.TD24 TRANSDERMA (09:36)
[2022-06-20] MEDS: 0.9 % Sodium Chloride Flush 3 ML SYRINGE IVFLUSH (09:36)
[2022-06-20] MEDS: Aspirin Enteric Coated 81 MG TABLET.DR PO (09:37)
[2022-06-20 11:27] VITALS: BP 136/63; PULSE 103; RESP 17; TEMP 37.1; O2SAT 95
--- NOTE | 2022-06-20 11:50 | MHC.CM.PN ---
Addendum entered by Dian Martinez 06/20/22 15:27: CM LEFT A VM FOR PTS DAUGHTER, ZORAIDA [phone] INFORMING HER OF PTS DC Addendum entered by Dian Martinez 06/20/22 13:59: NEGATIVE COVID RESULTS SENT TO [facility] Addendum entered by Dian Martinez 06/20/22 12:01: [facility] IS WILLING TO ACCEPT PENDING NEGATIVE COVID RESULTS FROM TODAY TRANSPORT ARRANGED FOR 1500 HOURS [facility]IA [facility] Original Note: CM INFORMED PT READY TO DC TODAY TO STR PER MARIA FERNANDA NOTES, [facility] IS PREFERRED [facility] UPDATES SENT [facility], AWAITING RESPONSE PA WILL ORDER RAPID COVID SWAB IN ANTICIPATION OF DC
[2022-06-20 12:01] VITALS: PULSE 102; RESP 16; O2SAT 96
--- NOTE | 2022-06-20 13:37 | PM.DS ---
DS: Providers Provider Date of Service: 06/20/22 Date of admission: 06/14/22 13:55 Date of discharge: 06/20/22 Primary care physician: None Physician Admitting clinician: Kam Kirkpatrick Attending physician on admission: Sg Jean Consults: 06/15/22 09:35 Consult to Nephrology Routine Consulting Provider: Ziggy Ventura Reason for consultation: hypernatremia Has provider been notified: No 06/15/22 09:40 Consult to Cardiology Routine Consulting Provider: Marin Calhoun Reason for consultation: elevated troponin/ekg Has provider been notified: No 06/15/22 16:02 Consult to Neurology Routine Consulting Provider: [facility] Reason for consultation: encephalopathy -unlcear etiology Has provider been notified: No DS: Diagnosis Discharge Diagnosis (1) Alzheimer's dementia with behavioral disturbance: Status: Acute (2) Toxic metabolic encephalopathy: Status: Acute (3) Troponin level elevated: Status: Acute (4) Pneumonia: Status: Acute DS: Summary Hospital Course Hospital Course: HPI on admission by Carol Kirkpatrick 06/14/22: Pt is a 77-year-old female with a PMH significant for COPD, osteoarthritis, history of hip replacement, and smoking who is brought to the ED by her daughter for SOB and confusion for the past two days. Pt is currently oriented to person only, so history was obtained from her daughter. Daughter states that she and her son were sick with a head cold last week, which was likely transmitted to her mother. Two days ago the daughter noted her mother having a productive cough, difficulty breathing, and confusion. Her mother does not have dementia and is normally oriented x3 at baseline; however, two days ago she started being unable to perform her normal activities, such as reading her calendar or going outside for a cigarette. Pt is a current 1/2 pack smoker, and daughter notes that her mother had a similar COPD exacerbation with AMS secondary to pneumonia last year. Daughter denies any other complaints. No chest pain or pressure, no palpitations. No abdominal pain. No change is bowel or bladder function. In the ED pt the patient was worked up for pneumonia versus CHF.? Patient was afebrile but tachypneic and tachycardic.? Labs were significant for an elevated WBC, a ABG of pH of 7.32 and pO2 of 60, sodium of 150, lactic acid of 6.6, troponin of 143 and BNP of 2,785. She was negative for influenza, RSV, COVID.? Chest x-ray showed chronic interstitial lung disease suggestive of interstitial edema or atypical pneumonia.? EKG was significant for sinus tachycardia, T-wave inversions in the inferior and anterior leads. Patient was treated with Lasix, Solu-Medrol, Zosyn, ceftriaxone, and nebulizers.? She is also placed on BiPAP for approximately 5 hours and improved but her blood gas revealed elevated acidosis and pCO2 of 54.? The patient was unable to go to the ICU due to no bed being available, so she was placed back on BiPAP twice more until she was able to be weaned from the BiPAP and in meet criteria for admittance to the hospital.? Patient will be admitted to telemetry for COPD exacerbation and further workup. Hospital Course: Patient admitted to [facility] for management of acute hypoxemic respiratory failure secondary to COPD exacerbation and community-acquired pneumonia. CT scan of the chest ordered to better evaluate hypoxia showing right upper lobe and bilateral lower lobe bronchopneumonia. There was also severe atherosclerosis, aortic valve calcifications, and coronary artery calcifications. EKG showed T-wave inversions in the inferior and anterior leads. Troponins were elevated but flat. Evaluated by Cardiology who did not feel there is any acute ischemia but does recommend outpatient workup in 2-3 weeks. She was started on atorvastatin 80 mg daily which she should continue on discharge. She is strongly advised to discontinue smoking but she is adamantly opposed. She was given nicotine patches for an NRT and will be discharged on these. COPD exacerbation treated with IV Solu-Medrol and DuoNebs with marked improvement in respiratory function and symptoms. She also completed course of ceftriaxone and doxycycline during admission for treatment of bronchopneumonia. She does not need to continue steroids or antibiotics on discharge. Unfortunately, patient was unable to be weaned from supplemental oxygen and should continue 1-2 L supplemental O2 on discharge and work with PCP to wean if able. Can continue albuterol p.r.n. for shortness of breath and wheezing on discharge. She was noted to retain CO2 on VBG and oximetry should be kept between 90-92%. She was noted to have mild metabolic alkalosis on VBG secondary to acute diarrhea with fecal incontinence. Workup for C diff and other infectious etiology on GI panel was negative. Treated with Imodium p.r.n. which she can continue on discharge. Nephrology was consulted for hypernatremia, which improved with adequate fluids and patient is advised to drink 48-64 ounces water daily. Patient did complain of left hip pain during admission and x-ray was ordered given recent fall 1.5 weeks ago and was negative for fracture showing hip prosthetic with good placement. She was also evaluated by Physical therapy noting gross deconditioning, gait imbalance recommending short-term rehab and patient will be discharged to short-term rehab. She was also noted to be moderately nutrient deficient and should continue with increased protein in diet with Ensure b.i.d.. Patient should follow up with PCP in 1 week and is again advised to quit smoking. Time spent discussing smoking cessation with patient: more than 10 minutes Status at Discharge Functional status at discharge: uses cane/walker Time Spent with Patient Time attestation: Total time managing care of this patient today 40 minutes. Discharge coordination time: Greater than 30 minutes Quality: Safe Use of Opioids Does Pt have an Active Cancer Diagnosis on the Problem List?: No Quality: Stroke Does the patient have a stroke diagnosis?: No Physical Exam Vital Signs: Vital Signs: Last Vital Signs Temp 98.8 F 06/20/22 11:27 Pulse 102 H 06/20/22 12:01 Resp 16 06/20/22 12:01 BP 136/63 06/20/22 11:27 Pulse Ox 95 06/20/22 11:27 O2 Del Method 06/20/22 11:27 O2 Flow Rate 2 06/20/22 11:27 FiO2 28 06/14/22 03:24 BMI result Body Mass Index 17.4 Constitutional - Awake and Alert, No apparent distress Eyes - PERRLA, EOMI Cardiovascular - S1S2, RRR, No edema Respiratory - Normal lung expansion, Normal respiratory effort, No respiratory distress on 2L supplemental O2. Scattered faint expiratory wheezes bilaterally Gastrointestinal - NT / ND; +BS; No rebound or guarding Extremities - no calf tenderness bilaterally, no swelling Skin - Warm/Dry Neurological - Alert & oriented x3, CN II-XII in tact, 11/12 strength BUE and BLE Psychological - Appropriate affect DS: Data Data Completed and Pending Completed studies during hospitalization [Text1]: Procedures Introduction of Remdesivir Anti-infective into Peripheral Vein, Percutaneous Approach, [employer] 5 (10/21/21) Labs on day of discharge: Laboratory Results - last 24 hr 06/19/22 06/20/22 11:45 06:51 Sodium 140 Potassium 5.3 H D Chloride 96 Carbon Dioxide 35 H Anion Gap 14 BUN 15 Creatinine 0.47 L Estim Creat Clear Calc 61.8 Estimated GFR > 60 Random Glucose 85 Calcium 8.3 L Stl C. cayetanensis PCR Not Detected Stool Rotavirus A PCR Not Detected Stl Adenov F 40/41 PCR Not Detected Stool Astrovirus (PCR) Not Detected Stool Campylobacter PCR Not Detected Stool Cryptosporidium PCR Not Detected Stl Sh Tox Pr E STEC PCR Not Detected Stool E coli O157 PCR Not applicable Stl Enterotoxigenic E PCR Not Detected Stool EPEC (PCR) Not Detected Stool EAEC (PCR) Not Detected Stl E. histolytica PCR Not Detected Stool Giardia Lamblia PCR Not Detected Stl P. shigelloides PCR Not Detected Stool Salmonella PCR Not Detected Stool Sapovirus (PCR) Not Detected Stl Shigella/EIEC PCR Not Detected St Y.enterocolitica PCR Not Detected Stool Vibrio (PCR) Not Detected Stl Vibrio cholerae PCR Not Detected Stl Norovirus GI/GII PCR Not Detected Discharge Plan Discharge Anticipated Discharge Date/Time: 06/20/22 13:05 Patient Disposition: er SNF Discharge Diagnosis: COPD exacerbation with acute hypoxic respiratory failure, pneumonia Referrals: Oliver Ricks [Outside] - 1 Week Physician,Love [Primary Care Provider] - 1 Week Marin Calhoun MD [Physician] - 2 Weeks Discharge Medications: New nicotine 14 mg/24 hr Patch 24 Hour 14 mg transdermal DAILY Qty: 30 0RF atorvastatin 80 mg Tablet 80 mg PO BEDTIME Qty: 30 0RF albuterol sulfate 2.5 mg /3 mL (0.083 %) Solution For Nebulization 2.5 mg inhalation Q4H PRN (Reason: Shortness Of Breath/Wheezing) Qty: 160 0RF loperamide 2 mg Capsule 2 mg PO Q4H PRN (Reason: diarrhea) Qty: 30 0RF Discharge Orders: Discharge Order (Routine); Ordered 06/20/22 Ordered By: Stefany Silveira Diet: reg diet mech, ensure BID Activity on Discharge: Use cane or walker Stand Alone Forms: Patient Portal Discharge page Care Plan Goals: Prevent recurrent COPD exacerbation Continue supplemental O2 to maintain oximetry 90-92% Quit smoking Increase water intake Health Concerns: Acute hypoxic respiratory failure secondary to COPD exacerbation and pneumonia Cigarette smoking Diarrhea Alzheimers dementia CAD/atherosclerosis Generalized weakness/deconditioning Plan of Treatment: Transfer to SNF for short term rehab to improve strength, gait/balance/coordination, and improve conditioning. Your COPD exacerbation and pneumonia were treated with IV steroids, nebulizer treatments, and antibiotics. You completed these treatments and do not need to continue on discharge. You can use albuterol if needed for shortness of breath/wheezing. You should quit smoking or this will recur. You will be discharged on supplemental oxygen and should follow up with your pcp soon. You also need to follow up with it applications developer as you were found to have significant coronary artery disease though there was no evidence of any acute ischemia. You should continue taking the atorvastatin you were prescribed in the hospital every day to prevent heart attack and should quit smoking. Drink 64 ounces of water daily. Assessment: As above
[2022-06-20 13:40] LABS: COVID-19 Test Negative (Negative); IDNOW Serial# BCCEAD1C
[2022-06-20 14:09] LABS: Potassium 4.5 mmol/L (3.3-5.1)
[2022-06-20] MEDS: Enoxaparin Sodium 40 MG/0.4 ML SYRINGE SUBCUT (14:40)
== END 2022-06-20 15:22 | disposition skilled nursing facility (03) | DRG 871 ==
LOC: HO.ED 06-14 22:29 → HO.EDOVER 06-14 23:34 → HO.IMC 06-15 17:25
PROVIDERS: Emergency Medicine Emergency Medical Services; Family Medicine; Internal Medicine; Student in an Organized Health Care Education/Training Program; Admitting Provider Student in an Organized Health Care Education/Training Program; Emergency Provider Emergency Medicine; Visit Provider Physician Assistant
DX: A41.9 Sepsis, unspecified organism (principal); G92.8 Other toxic encephalopathy; J96.01 Acute respiratory failure with hypoxia; J18.0 Bronchopneumonia, unspecified organism; J18.9 Pneumonia, unspecified organism; J44.1 Chronic obstructive pulmonary disease with (acute) exacerbation; I24.8 Other forms of acute ischemic heart disease; E87.0 Hyperosmolality and hypernatremia; J44.0 Chronic obstructive pulmonary disease with (acute) lower respiratory infection; E44.0 Moderate protein-calorie malnutrition; Z68.1 Body mass index [BMI] 19.9 or less, adult; G30.9 Alzheimer's disease, unspecified; F02.80 Dementia in other diseases classified elsewhere, unspecified severity, without behavioral disturbance, psychotic disturbance, mood disturbance, and anxiety; I25.10 Atherosclerotic heart disease of native coronary artery without angina pectoris; R65.20 Severe sepsis without septic shock; F17.210 Nicotine dependence, cigarettes, uncomplicated; Z71.6 Tobacco abuse counseling; Z20.822 Contact with and (suspected) exposure to COVID-19; Z79.899 Other long term (current) drug therapy
CPT/HCPCS: 0241U; 36415; 70450; 71045; 71250; 73502; 80048; 80053; 80061; 81001; 82607; 82803; 83605; 83880; 84132; 84145; 84439; 84443; 84484; 85007; 85025; 85027; 85610; 85730; 87040; 87493; 87507; 87633; 87635; 93005; 93306; 94640; 94660; 97162; 99285; C1758; J0456; J0696; J1650; J1940; J2543; J2920; J2930; Q9957

== ENCOUNTER → 2022-07-20 08:53 | Outpatient (REF) | payer MEDICARE, OTHER, SELFPAY ==
--- NOTE | ~2022-07-20 | NM_ITS ---
Lexiscan Myocardial perfusion study Indication: Coronary artery disease, assess for ischemia Technique: The patient was brought in for a Lexiscan perfusion study on 07/20/2022 and was injected 0.4 mg of Lexiscan intravenously. Within a minute of this injection 20 mCi of sestamibi was given intravenously. Images were obtained using the SPECT gamma camera interlaced with the gating device. Images were obtained in supine position. Resting perfusion study was performed on 07/22/2022. Patient was administered 20 mCi of sestamibi intravenously at rest. Images were then obtained in supine position. Images were processed with the software and compared side to side in short axis, horizontal long axis and vertical long axis views. Total DLP 64mGy-cm. Findings: Raw acquisition reviewed. Arms by the patient's side. The stress perfusion study showed no significant perfusion abnormality. Both uncorrected as well as CT attenuation corrected images were reviewed. The gated study shows normal LV systolic function with calculated LVEF of 61%. LV cavity is normal in size. The gated study shows normal wall thickening and contraction of segments. Resting study shows no significant perfusion abnormality. Gating at rest reveals normal wall motion with ejection fraction at 41%. Visually, it appears normal. The findings are consistent with no clear reversible or fixed perfusion defects. NM/NM afsaneh perf SPECT rest & str Impression: 1. Myocardial perfusion imaging study shows likely normal myocardial perfusion. 2. Gated LVEF is 61% during stress. 3. Transient ischemic dilatation not present. EKG component of the test reported separately.
--- NOTE | 2022-07-20 08:57 | CA_ITS ---
Acquisition Time: 2022-07-20 09:18:07 Total Exercise Time: 00:02:00 Test Indications: J44.1 Acute COPD, U07.1 COVID Medications: See H Protocol: LEXISCAN Max HR: 107 BPM 75% of Pred: 141 BPM Max BP: 116/070 mmHG Max Work Load: 1.0 METS Pharmacological stress test with Lexiscan injection, while sitting and kicking her legs, without anginal symptoms, with isolated PACs, with normotensive response to injection, with nondiagnostic EKG for ischemia. In recovery she was treated with Aminophylline 75mg IVP to reverse Lexiscan. Nuclear images pending. Test reviewed with Dr Castle Referred By: Marin Calhoun Overread By: LENO DUFFY
== END ==
LOC: HO.CARD 08:53
PROVIDERS: Visit Provider Internal Medicine Cardiovascular Disease
DX: J44.1 Chronic obstructive pulmonary disease with (acute) exacerbation (principal); R77.8 Other specified abnormalities of plasma proteins; U07.1 COVID-19
CPT/HCPCS: 78452; 93017; A9500; J0280; J2785

== ENCOUNTER → 2022-07-27 14:36 | Outpatient (BNVA) | payer MEDICARE, OTHER, SELFPAY | PROVIDERS: Visit Provider Internal Medicine Cardiovascular Disease | DX: R77.8 Other specified abnormalities of plasma proteins (principal) | CPT/HCPCS: 99212 ==

== ENCOUNTER 2023-07-14 14:40 | Inpatient (IN) | payer MEDICARE, OTHER, SELFPAY ==
[2023-07-14] VITALS (15 sets, daily range): BP systolic 92–163; BP diastolic 46–131; PULSE 86–132; RESP 18–38; TEMP 36.9–38.7; O2SAT 91–100; BMI 15.5
--- NOTE | 2023-07-14 15:07 | ED.GENADULT ---
HPI - General Adult General Chief complaint: Dyspnea Stated complaint: Trouble breathing, flu symptoms Time Seen by Provider: 07/14/23 15:07 Source: patient, family and old records reviewed Mode of arrival: ambulatory Limitations: other (poor historian) History of Present Illness HPI narrative: 78 yo female with PMH of COPD, cognitive impairment, HTN, bronchopneumonia no medications at home per son in law not on home O2 here with c/o worsening trouble breathing, confusion, lower O2 levels at home over past few days after family had URI. The patient and family member at bedside are not good historians. They note she has no inhalers at home. The patient states she does not want CPR or a ventilator. She states she takes no medications at home. She did not want to come to the ED but her family coaxed her here. MD complaint: difficulty breathing Onset (ago): day(s) (3) Location: chest Radiation: non-radiation Severity: moderate Relieving factors: rest Exacerbating factors: movement and other (exertion) Associated symptoms: cough, fever/chills, loss of appetite, malaise, nausea/vomiting and shortness of breath Treatments prior to arrival: none Related Data Home Medications Medication Instructions Recorded Confirmed albuterol sulfate 90 mcg/actuation 2 puff inhalation Q4H PRN Wheezing 07/14/23 07/14/23 aerosol inhaler lisinopril 10 mg tablet 10 mg PO DAILY 07/14/23 07/14/23 Allergies Allergy/AdvReac Type Severity Reaction Status Date / Time scallops AdvReac Unknown NAUSEA & Verified 10/20/21 22:29 VOMITING Review of Systems Review of Systems: Constitutional : No Fever, pos Chills, pos anorexia, pos fatigue ENT/Mouth : No Hoarseness, No sore throat, No Rhinorrhea Eyes: No Redness, No Discharge, No Vision Changes Cardiovascular : No Chest Pain, positive SOB, positive Dyspnea on Exertion, No Edema Respiratory : positive Cough, No Sputum, positive Wheezing, Gastrointestinal : No Nausea, No Vomiting, No Diarrhea, No abdominal Pain Genitourinary : No Dysuria, No Hematuria Musculoskeletal : No joint pain, No Myalgias Skin : No rash Neuro : pos Weakness, No Numbness, No Headache Psych : No anxiety, depression All other systems reviewed and are negative [facility] Past Medical History Attestation statement: The following information was validated with the patient. Source: old records reviewed and obtained from family Onset Date is defined in the Problem List Problems that require an onset date and time if occurred within 24 hrs of arrival to the ED Aortic Dissection and Rupture; Neurologic impairment; Cardiopulmonary Arrest; Endotracheal Intubation; Insertion or Replacement of Mechanical Circulatory Assist Device Medical History COPD (chronic obstructive pulmonary disease) Surgical History History of hip replacement Social History Social History Household Members: Unknown / Unable to assess Household Members Other:: daughter Housing: Unknown / Unable to assess Do you presently have visiting nurse or other home services: No Unable to assess alcohol history related to: Unknown Alcohol intake: current Alcohol intake frequency: holidays/special occasions only Patient Tobacco Use Status: Former Tobacco user Tobacco use type: Cigarette Cigarettes Per Day: 4 Smoked in Last 30 Days: No Second Hand Smoke Exposure: No Use of substances other than those prescribed or required for medical reasons: No Advance Directives: Yes Advance Directives on File: Yes Advance Directives Date on File: 08/29/20 Nutrition Risks: No Nutritional Risk service: No Current occupational status: retired Physical Exam ED Vital Signs: Vital Signs - 24 hr 07/14/23 14:56 07/14/23 15:30 07/14/23 15:34 Temperature 98.4 F 101.7 F H Pulse Rate 129 H 132 H Pulse Rate [Left Radial] Respiratory Rate 38 H 25 H 34 H Blood Pressure 156/87 H 163/87 H 153/131 H Pulse Oximetry 91 L Oxygen Delivery Method Nasal Cannula Oxygen Flow Rate 2 07/14/23 15:43 07/14/23 17:01 07/14/23 17:33 Temperature 98.5 F Pulse Rate 123 H 116 H 107 H Pulse Rate [Left Radial] Respiratory Rate 28 H 20 24 H Blood Pressure 106/53 L 92/55 L Pulse Oximetry 95 96 Oxygen Delivery Method Nasal Cannula Room Air Oxygen Flow Rate 2 07/14/23 17:43 07/14/23 17:44 07/14/23 17:50 Temperature 100.2 F Pulse Rate 109 H 109 H Pulse Rate [Left Radial] 106 H Respiratory Rate 21 H 20 Blood Pressure 104/46 L 101/48 L Pulse Oximetry 95 94 Oxygen Delivery Method Nasal Cannula Nasal Cannula Oxygen Flow Rate 2 2 07/14/23 18:46 07/14/23 19:15 Temperature 98.4 F Pulse Rate 100 98 Pulse Rate [Left Radial] Respiratory Rate 22 H 20 Blood Pressure 99/47 L 110/48 L Pulse Oximetry 96 95 Oxygen Delivery Method Nasal Cannula Nasal Cannula Oxygen Flow Rate 2 2 BMI result Body Mass Index 15.5 Appearance: Alert. Oriented X3. Moderate acute distress. Frail, cachectic Eyes: Pupils equal, round and reactive to light. ENT: Pharynx dry MM Neck: Normal inspection. Neck supple. CVS: tachycardic heart rate and rhythm. Pulses normal. Respiratory: moderate respiratory distress - tachypnea retractions. Breath sounds coarse and diminished with wheezes noted exp Abdomen: Soft and nontender. Skin: Skin warm and dry. pale skin color. poor skin turgor. fingers and toes are dusky Extremities: No lower extremity edema. Neuro: Oriented X 3. No motor deficit. No sensory deficit. Course Course Course Narrative: RME: 78-year-old female history of COPD and CHF brought to the ED for shortness of breath and being pale. Cannot obtain O2 saturation in triage. Respiratory rate 38. Patient brought to bed to immediately labs oxygen placed on patient. Reevaluation(s) Reevaluation #1: she is improving at treatments started on tamiflu Reevaluation #2: focused exam for sepsis performed 1900 trop not over delta Medications Administered Generic Name Dose Route Start Last Admin Trade Name Freq PRN Reason Stop Dose Admin Albuterol/Ipratropium 3 ml 07/14/23 20:00 07/14/23 19:47 Albuterol/Iprat 2.5/0.5mg 3 Ml Ampul.Neb INHALE 3 ml RQ4H WHILE AWAKE YARELI Administration Enoxaparin Sodium 30 mg 07/15/23 07:45 07/15/23 09:27 Enoxaparin Sodium 30 Mg/0.3 Ml Syringe SUBCUT 30 mg Q24H YARELI Administration Methylprednisolone Sodium Succinate 40 mg 07/15/23 07:00 07/15/23 09:26 Methylprednisolone Sod Succ 40 Mg/Ml Vial IVPUSH 40 mg Q12H YARELI Administration Oseltamivir Phosphate 30 mg 07/14/23 21:00 07/14/23 21:07 Oseltamivir Phosphate 30 Mg Capsule PO 07/19/23 09:01 Not Given BID YARELI Sodium Chloride 3 ml 07/15/23 00:00 07/15/23 09:27 0.9 % Sodium Chloride Flush 3 Ml Syringe IVFLUSH 3 ml QSHIFT YARELI Administration Discontinued Medications Generic Name Dose Route Start Last Admin Trade Name Freq PRN Reason Stop Dose Admin Acetaminophen 650 mg 07/14/23 15:23 07/14/23 15:29 Acetaminophen Oral Liquid 650 Mg/20.3 Ml Solution PO 07/14/23 15:24 650 mg ONCE ONE Administration Aspirin 300 mg 07/14/23 19:22 07/14/23 21:06 Aspirin 300 Mg Supp.Rect TX 07/14/23 19:23 300 mg ONCE ONE Administration Albuterol Sulfate 2.5 mg/ 0 mg 07/14/23 15:39 07/14/23 15:41 Albuterol/Ipratropium 3 ml INHALE 07/14/23 15:40 1 dose ONCE ONE Administration Enoxaparin Sodium 40 mg 07/14/23 20:00 07/14/23 21:07 Enoxaparin Sodium 40 Mg/0.4 Ml Syringe SUBCUT 40 mg Q12H YARELI Administration Ceftriaxone Sodium 1 gm/ 50 mls @ 100 mls/hr 07/14/23 15:23 07/14/23 15:46 Sodium Chloride IV 07/14/23 15:52 Infused ONCE ONE Infusion Azithromycin 500 mg/ Sodium 250 mls @ 125 mls/hr 07/14/23 15:23 07/14/23 18:00 Chloride IV 07/14/23 17:22 Infused ONCE ONE Infusion Sodium Chloride 1,156.65 mls @ 1,156.65 mls/hr 07/14/23 15:23 07/14/23 16:35 Ns 30 ml/kg infuse over 1 hr (1156.65 ml) 07/14/23 16:22 Infused IV Infusion .Q1H STA Sodium Chloride 1,000 mls @ 100 mls/hr 07/14/23 18:00 07/14/23 19:56 Ns IVCONT Infused .Q10H YARELI Infusion Methylprednisolone Sodium Succinate 60 mg 07/14/23 15:23 07/14/23 15:29 Methylprednisolone Sod Succ 125 Mg/2 Ml Vial IVPUSH 07/14/23 15:24 60 mg ONCE ONE Administration Oseltamivir Phosphate 75 mg 07/14/23 17:04 07/14/23 17:56 Oseltamivir Phosphate 75 Mg Capsule PO 07/14/23 17:05 75 mg ONCE ONE Administration Medical Decision Making Medical Decision Making MDM Narrative: 78 yo female with PMH of COPD, cognitive impairment, HTN, bronchopneumonia no medications at home per son in law not on home O2 - has not seen a doctor in 3 years (admitted here in 2021 for confusion, hypoxia and NIPPV, bronchopneumonia) here with c/o cough, increased work of breathing in setting of URI in family - she is dusky, confused, in resp distress at this time will need labs, cultures, lactic acid, IV steroids, neb, possible hiflo, IV antibiotics, viral panel and anticipate admission. Patient now states she fell no LOC denies injury - CT head/cspine ordered patient and family state she is DNR/DNI Differential Diagnosis Differential Diagnoses: The differential diagnosis associated with the presentation includes viral syndrome, COPD, pneumonia Admission/Observation Consideration of admission/observation: Escalation of care including admission/observation considered admit for further work up and management of hypoxia, work of breathing, COPD, flu A Consult Healthcare Provider Management of the patient was discussed with: Hospitalist (admit) Lab Data [facility] Lab Attestation statement: I reviewed the patient's lab results. 07/15/23 06:25 07/15/23 06:25 Labs: Lab Results 07/14/23 07/14/23 07/14/23 Range/Units 15:17 15:23 15:52 WBC (4.8-10.8) X10*3/uL RBC (4.20-5.50) X10*6/uL Hgb (12.0-16.0) g/dl Hct (37.0-47.0) % MCV (80.0-98.0) fL MCH (27.0-33.0) pg MCHC (31.0-35.0) g/dl RDW (11.0-16.0) % Plt Count (160-400) X10*3/uL MPV (9.4-12.3) fL Immature Gran % (Auto) (0.0-0.4) % Neut % (Auto) (45-73) % Lymph % (Auto) (20-40) % [place] % (Auto) (2-11) % Eos % (Auto) (0-4) % Baso % (Auto) (0-2) % Lymph # (Auto) (1.2-4.9) X10*3/uL [place] # (Auto) (0.1-1.2) X10*3/uL Eos # (Auto) (0.0-0.4) X10*3/uL Baso # (Auto) (0.0-0.2) X10*3/uL Abs Immat Gran (auto) (0.00-0.03) X10*3/uL Absolute Neuts (auto) (2.0-8.3) x10*3/uL Absolute Nucleated RBC (0.0-0.012) X10*3/uL Nucleated RBC % (auto) (0.0-0.2) /100WBC Smear Tech's Comments PT 13.0 (11.1-13.3) SEC INR 1.1 (0.9-1.1) APTT 28.8 (26.0-36.4) SEC VBG pH (7.32-7.43) VBG pCO2 mmHg VBG pO2 mmHg VBG HCO3 (22-26) mmol/L VBG O2 Saturation % VBG Base Excess mmol/L Sodium 140 (135-145) mmol/L Potassium 4.5 (3.3-5.1) mmol/L Chloride 97 (96-108) mmol/L Carbon Dioxide 26 (22-29) mmol/L Anion Gap 22 H (12-20) BUN 31 H (9-16) mg/dL Creatinine 0.82 (0.5-1.4) mg/dL Estim Creat Clear Calc 33.2 Estimated GFR > 60 Random Glucose 127 H (60-115) mg/dL Lactic Acid 5.3 H* (0.5-2.0) mmol/L Lactic Acid F/U @ 2Hr (0.5-2.0) mmol/L Calcium 9.7 D (8.4-10.2) mg/dL Total Bilirubin 0.4 (0.0-1.0) mg/dL AST 42 H (5-31) U/L ALT 17 (0-31) U/L Alkaline Phosphatase 87 (39-117) U/L Troponin I High Sens 101.8 H* (<3.5-17.0) ng/L B-Natriuretic Peptide 341 H (<100) pg/mL Total Protein 7.9 (6.5-8.0) g/dL Albumin 3.8 (3.5-5.0) g/dL Procalcitonin 0.95 ng/mL Influenza Type A (PCR) POSITIVE A (Negative) Influenza Type B (PCR) NEGATIVE (Negative) RSV RNA Qual (PCR) NEGATIVE (Negative) SARS-CoV-2 RNA (RT-PCR) NEGATIVE (Negative) Blood Type A Positive Antibody Screen NEGATIVE 07/14/23 07/14/23 07/14/23 Range/Units 16:02 17:26 18:15 WBC 11.7 H (4.8-10.8) X10*3/uL RBC 4.47 (4.20-5.50) X10*6/uL Hgb 11.9 L (12.0-16.0) g/dl Hct 36.9 L (37.0-47.0) % MCV 82.6 (80.0-98.0) fL MCH 26.6 L (27.0-33.0) pg MCHC 32.2 (31.0-35.0) g/dl RDW 15.1 (11.0-16.0) % Plt Count 382 (160-400) X10*3/uL MPV 10.1 (9.4-12.3) fL Immature Gran % (Auto) 0.9 H (0.0-0.4) % Neut % (Auto) 90.4 H (45-73) % Lymph % (Auto) 3.0 L (20-40) % [place] % (Auto) 5.4 (2-11) % Eos % (Auto) 0.0 (0-4) % Baso % (Auto) 0.3 (0-2) % Lymph # (Auto) 0.4 L (1.2-4.9) X10*3/uL [place] # (Auto) 0.6 (0.1-1.2) X10*3/uL Eos # (Auto) 0.0 (0.0-0.4) X10*3/uL Baso # (Auto) 0.0 (0.0-0.2) X10*3/uL Abs Immat Gran (auto) 0.11 H (0.00-0.03) X10*3/uL Absolute Neuts (auto) 10.5 H (2.0-8.3) x10*3/uL Absolute Nucleated RBC 0.000 (0.0-0.012) X10*3/uL Nucleated RBC % (auto) 0.0 (0.0-0.2) /100WBC Smear Tech's Comments VERIFIED PT (11.1-13.3) SEC INR (0.9-1.1) APTT (26.0-36.4) SEC VBG pH 7.33 (7.32-7.43) VBG pCO2 56 mmHg VBG pO2 33 mmHg VBG HCO3 30 H (22-26) mmol/L VBG O2 Saturation 44.0 % VBG Base Excess 2.9 mmol/L Sodium (135-145) mmol/L Potassium (3.3-5.1) mmol/L Chloride (96-108) mmol/L Carbon Dioxide (22-29) mmol/L Anion Gap (12-20) BUN (9-16) mg/dL Creatinine (0.5-1.4) mg/dL Estim Creat Clear Calc Estimated GFR Random Glucose (60-115) mg/dL Lactic Acid (0.5-2.0) mmol/L Lactic Acid F/U @ 2Hr 2.0 (0.5-2.0) mmol/L Calcium (8.4-10.2) mg/dL Total Bilirubin (0.0-1.0) mg/dL AST (5-31) U/L ALT (0-31) U/L Alkaline Phosphatase (39-117) U/L Troponin I High Sens 148.3 H* (<3.5-17.0) ng/L B-Natriuretic Peptide (<100) pg/mL Total Protein (6.5-8.0) g/dL Albumin (3.5-5.0) g/dL Procalcitonin ng/mL Influenza Type A (PCR) (Negative) Influenza Type B (PCR) (Negative) RSV RNA Qual (PCR) (Negative) SARS-CoV-2 RNA (RT-PCR) (Negative) Blood Type Antibody Screen Independent Interpretation I performed an independent interpretation of an: EKG, Plain X-Ray and CT Scan Interpretation: Rate: 131 Rhythm: sinus tachcyardia Sibley: normal Normal P waves. Normal SCHUYLER. Normal QRS complex. ST T wave : no XIMENA , has ST slight depressions in I and lateral leads. artifact noted qTC: 389 prior studies: none The study has been interpreted contemporaneously by me. . Radiology Impression Discussion of test interpretation with radiology: I have reviewed the radiologist's reading. Independent Historian Clinical information obtained from an independent historian. History obtained from or confirmed by: Other (family) External Record Review External record reviewed: Inpatient record Critical Care Time Critical Care Time Critical Care Time: Yes Total Critical Care Time: 60 Attestation: repeat assessments, treatments, IV therapies, review of records I attest to this time spent taking care of the patient Discharge Plan Discharge Clinical Impression: Acute exacerbation of chronic obstructive airways disease, Hypoxia, Acidosis, lactic, Influenza A, Elevated troponin Patient Disposition: Admitted As Inpatient
--- NOTE | 2023-07-14 15:31 | PC.NURSE ---
unable to obtain O2 sat at this time
--- NOTE | 2023-07-14 16:11 | PC.NURSE ---
PT reports that she had a @ fall at home yesterday, denies head strike. Dr. Moraes aware. CT ordered.
--- NOTE | 2023-07-14 17:32 | PC.NURSE ---
PT laying in bed, in no apparent distress. Offers no complaints or questions at this time. Awaiting lab results. Call matthews within reach.
--- NOTE | 2023-07-14 17:46 | PC.NURSE ---
Pt has 20g Iv in LAC, resting comfortably on 2L nasal cannula at this time. reports no pain, offers no complaints. Blood pressure starting to become soft, DO aware at this time. Awaiting new orders at this time
--- NOTE | 2023-07-14 19:21 | PM.IMHP ---
History of Present Illness Date of Service: 07/14/23 Chief Complaint: Dyspnea This is a 78-year-old female with pertinent history of COPD not on home oxygen, essential hypertension, Alzheimer's dementia who was brought to the emergency department for evaluation of dyspnea. Patient is a poor historian and does not know why she is in the hospital. She is very lethargic. Unable to obtain history of review of systems. History obtained from ER provider and chart review. Apparently family states that patient is not on any home prescription medications. Patient does endorse dyspnea, on no evaluation. In the emergency department, patient was found to be hypoxemic and placed on supplemental oxygen. She tested positive for influenza A. Review of Systems Review of Systems: Yes Unobtainable due to mental condition and Unobtainable due to mental status PMFSH Medical History COPD (chronic obstructive pulmonary disease) Pertinent family history: Unable to obtain Surgical History History of hip replacement Social History Household Members: Unknown / Unable to assess Household Members Other:: daughter Housing: Unknown / Unable to assess Do you presently have visiting nurse or other home services: No Unable to assess alcohol history related to: Unknown Alcohol intake: current Alcohol intake frequency: holidays/special occasions only Patient Tobacco Use Status: Current everyday Tobacco user Tobacco use type: Cigarette Cigarettes Per Day: 4 Smoked in Last 30 Days: No Second Hand Smoke Exposure: No Use of substances other than those prescribed or required for medical reasons: No Advance Directives: Yes Advance Directives on File: Yes Advance Directives Date on File: 08/29/20 service: No Current occupational status: retired Meds Allergies Allergy/AdvReac Type Severity Reaction Status Date / Time scallops AdvReac Unknown NAUSEA & Verified 10/20/21 22:29 VOMITING Active Medications: Current Medications Sodium Chloride (Ns) 1,000 mls @ 100 mls/hr IVCONT .Q10H YARELI Last Admin: 07/14/23 18:01 Dose: 100 mls/hr Home Medications Medication Instructions Recorded Confirmed Last Taken Type No Known Home Meds 07/27/22 07/27/22 Unknown History Physical Exam Vital Signs and Narrative: Vital Signs: Last Vital Signs Temp 98.4 F 07/14/23 19:15 Pulse 98 07/14/23 19:15 Resp 20 07/14/23 19:15 BP 110/48 L 07/14/23 19:15 Pulse Ox 95 07/14/23 19:15 O2 Del Method Nasal Cannula 07/14/23 19:15 O2 Flow Rate 2 07/14/23 19:15 BMI result Body Mass Index 15.5 Elderly female lying in bed in mild distress on supplemental oxygen Neck supple, no JVD Regular rate and rhythm, S1-S2 heard Regular breath sounds bilaterally, no wheezing or crackles appreciated Abdomen soft nontender, no guarding, no rigidity Patient is lethargic and awakens to verbal stimulus, disoriented to time and place, unable to have a conversation. Psych: Drowsy No pedal edema Results Labs 07/14/23 17:26 07/14/23 15:17 Labs: Laboratory Results - last 24 hr 07/14/23 07/14/23 07/14/23 15:17 15:23 15:52 MCV MCH MCHC RDW Plt Count MPV Immature Gran % (Auto) Neut % (Auto) Lymph % (Auto) [place] % (Auto) Eos % (Auto) Baso % (Auto) Lymph # (Auto) [place] # (Auto) Eos # (Auto) Baso # (Auto) Abs Immat Gran (auto) Absolute Neuts (auto) Absolute Nucleated RBC Nucleated RBC % (auto) Smear Tech's Comments PT 13.0 INR 1.1 APTT 28.8 VBG pH VBG pCO2 VBG pO2 VBG HCO3 VBG O2 Saturation VBG Base Excess Anion Gap 22 H Estim Creat Clear Calc 33.2 Estimated GFR > 60 Random Glucose 127 H Lactic Acid 5.3 H* Lactic Acid F/U @ 2Hr Calcium 9.7 D Total Bilirubin 0.4 AST 42 H ALT 17 Alkaline Phosphatase 87 B-Natriuretic Peptide 341 H Total Protein 7.9 Albumin 3.8 Procalcitonin 0.95 Influenza Type A (PCR) POSITIVE A Influenza Type B (PCR) NEGATIVE RSV RNA Qual (PCR) NEGATIVE SARS-CoV-2 RNA (RT-PCR) NEGATIVE Blood Type A Positive Antibody Screen NEGATIVE 07/14/23 07/14/23 07/14/23 16:02 17:26 18:15 MCV 82.6 MCH 26.6 L MCHC 32.2 RDW 15.1 Plt Count 382 MPV 10.1 Immature Gran % (Auto) 0.9 H Neut % (Auto) 90.4 H Lymph % (Auto) 3.0 L [place] % (Auto) 5.4 Eos % (Auto) 0.0 Baso % (Auto) 0.3 Lymph # (Auto) 0.4 L [place] # (Auto) 0.6 Eos # (Auto) 0.0 Baso # (Auto) 0.0 Abs Immat Gran (auto) 0.11 H Absolute Neuts (auto) 10.5 H Absolute Nucleated RBC 0.000 Nucleated RBC % (auto) 0.0 Smear Tech's Comments VERIFIED PT INR APTT VBG pH 7.33 VBG pCO2 56 VBG pO2 33 VBG HCO3 30 H VBG O2 Saturation 44.0 VBG Base Excess 2.9 Anion Gap Estim Creat Clear Calc Estimated GFR Random Glucose Lactic Acid Lactic Acid F/U @ 2Hr 2.0 Calcium Total Bilirubin AST ALT Alkaline Phosphatase B-Natriuretic Peptide Total Protein Albumin Procalcitonin Influenza Type A (PCR) Influenza Type B (PCR) RSV RNA Qual (PCR) SARS-CoV-2 RNA (RT-PCR) Blood Type Antibody Screen Imaging Radiologist's Impressions: Impressions Chest X-Ray 07/14/23 16:24 IMPRESSION: 1. Persistent borderline cardiomegaly and possible pulmonary venous congestion. 2. Interval development of Horizontal streaky densities in the right lung base, may represent atelectasis versus developing infiltrate. 3. Unchanged Pulmonary hyperinflation consistent with COPD. Cervical Spine CT 07/14/23 16:33 IMPRESSION: - No acute intracranial abnormality. Global cerebral volume loss with a severe temporal lobe predominance that can be correlated for clinical signs of Alzheimer's disease. - Motion degraded CT of the cervical spine with no definite acute fractures. Subtle fractures may not be detected given the degree of motion artifact on this exam. A repeat study could be obtained if there is high clinical suspicion for an acute cervical spine fracture. At C3-C4, a central disc osteophyte protrusion results in suspected severe central canal stenosis and mass effect on the cervical spinal cord that can be correlated clinically for cervical myelopathy. Head CT 07/14/23 16:33 IMPRESSION: - No acute intracranial abnormality. Global cerebral volume loss with a severe temporal lobe predominance that can be correlated for clinical signs of Alzheimer's disease. - Motion degraded CT of the cervical spine with no definite acute fractures. Subtle fractures may not be detected given the degree of motion artifact on this exam. A repeat study could be obtained if there is high clinical suspicion for an acute cervical spine fracture. At C3-C4, a central disc osteophyte protrusion results in suspected severe central canal stenosis and mass effect on the cervical spinal cord that can be correlated clinically for cervical myelopathy. Assessment and Plan (1) Influenza A: Status: Acute (2) Hypoxia: Status: Acute Plan This is a 78-year-old female with pertinent history of COPD not on home oxygen, essential hypertension, Alzheimer's dementia who was brought to the emergency department for evaluation of dyspnea. #. Acute hypoxemic respiratory failure due to COPD exacerbation in the setting of influenza a: Will admit patient with supplemental oxygen. Initiating systemic steroids. Scheduled and p.r.n. DuoNebs. Also initiating Tamiflu. Monitor oxygen saturation and wean as tolerated #. Viral sepsis due to above: Defer antibiotics #. Acute lactic acidosis due to hypoxia and sepsis: Resolved #. Acute metabolic encephalopathy due to above in a patient with Alzheimer's dementia: Monitor mentation. #. Elevated troponin: Unable to obtain history from the patient. Administered aspirin and initiating therapeutic Lovenox. Consulted Cardiology. Echo pending #. Essential hypertension: Unclear if patient is taking home lisinopril. Med rec pending DVT prophylaxis: Lovenox DNR/DNI. Discussed with family. Admit as inpatient and will require two night minimum hospital stay for supplemental oxygen (as above), which is not possible in a lesser acute setting. Quality Stroke Does the patient have a stroke diagnosis?: No VTE Prior VTE?: No VTE Risk Level:: Medical - moderate - high VTE Device Contraindication: Treatment Not Indicated VTE Drug Contraindication: N/A - Med Ordered
--- NOTE | 2023-07-14 19:55 | MHC.EDTECH ---
At 1935 pt was incontinent of stool, pt clean and dry, pure wick applied, warm blanket given. VSS
--- NOTE | 2023-07-14 19:55 | PC.NURSE ---
Per MD tavarez, stop maintence fluids. Report back to him if blood pressure drops below 90 systolic
[2023-07-15] VITALS (9 sets, daily range): BP systolic 113–150; BP diastolic 52–64; PULSE 72–93; RESP 15–18; TEMP 36.3–37; O2SAT 92–98; BMI 17.3
--- NOTE | 2023-07-15 07:39 | PC.NURSE ---
Alert and responsive, denies pain or discomfort, vss.
--- NOTE | 2023-07-15 07:45 | PC.NURSE ---
Daughter Terra updated on current condition
--- NOTE | 2023-07-15 11:11 | HO.PM.IMPN ---
Subjective Subjective Date of Service: 07/15/23 Interval History: no complaints Physical Exam Vital Signs: Vital Signs: Last Vital Signs Temp 98.2 F 07/15/23 03:26 Pulse 76 07/15/23 06:00 Resp 18 07/15/23 06:00 BP 115/54 L 07/15/23 07:39 Pulse Ox 94 07/15/23 06:00 O2 Del Method Nasal Cannula 07/15/23 06:00 O2 Flow Rate 2 07/15/23 06:00 BMI result Body Mass Index 15.5 alert oriented to name and place, poor insight, lungs diminished Objective Data Active Medications Acetaminophen (Acetaminophen 325 Mg Tablet) 650 mg PO Q6H PRN PRN Reason: Pain, Mild (Pain Scale 1-3) Acetaminophen (Acetaminophen Supp 650 Mg Supp.Rect) 650 mg [place] Q6H PRN PRN Reason: Pain, Mild (Pain Scale 1-3) Albuterol/Ipratropium (Albuterol/Iprat 2.5/0.5mg 3 Ml Ampul.Neb) 3 ml INHALE Q4H PRN PRN Reason: Wheezing Albuterol/Ipratropium (Albuterol/Iprat 2.5/0.5mg 3 Ml Ampul.Neb) 3 ml INHALE RQ4H WHILE AWAKE [facility] Last Admin: 07/14/23 19:47 Dose: 3 ml Documented By: ZACHARY Enoxaparin Sodium (Enoxaparin Sodium 40 Mg/0.4 Ml Syringe) 40 mg SUBCUT Q24H [facility] Melatonin (Melatonin 3 Mg Tablet) 6 mg PO BEDTIME PRN PRN Reason: Insomnia Methylprednisolone Sodium Succinate (Methylprednisolone Sod Succ 40 Mg/Ml Vial) 40 mg IVPUSH Q12H [facility] Last Admin: 07/15/23 09:26 Dose: 40 mg Documented By: CHARLA Ondansetron HCl (Ondansetron Hcl 4 Mg/2 Ml Vial) 4 mg IVPUSH Q8H PRN PRN Reason: Nausea and Vomiting Oseltamivir Phosphate (Oseltamivir Phosphate 30 Mg Capsule) 30 mg PO BID [facility] Stop: 07/19/23 09:01 Last Admin: 07/14/23 21:07 Dose: Not Given Documented By: DAVIAN Non-Admin Reason: pt unable to take at this time Sodium Chloride (0.9 % Sodium Chloride Flush 3 Ml Syringe) 3 ml IVFLUSH QSHIFT [facility] Last Admin: 07/15/23 09:27 Dose: 3 ml Documented By: CHARLA Labs 07/15/23 06:25 07/15/23 06:25 Labs: Laboratory Results - last 24 hr 07/14/23 07/14/23 07/14/23 15:17 15:23 15:52 MCV MCH MCHC RDW Plt Count MPV Immature Gran % (Auto) Neut % (Auto) Lymph % (Auto) Lipscomb % (Auto) Eos % (Auto) Baso % (Auto) Lymph # (Auto) Lipscomb # (Auto) Eos # (Auto) Baso # (Auto) Abs Immat Gran (auto) Absolute Neuts (auto) Absolute Nucleated RBC Nucleated RBC % (auto) Smear Tech's Comments PT 13.0 INR 1.1 APTT 28.8 VBG pH VBG pCO2 VBG pO2 VBG HCO3 VBG O2 Saturation VBG Base Excess Anion Gap 22 H Estim Creat Clear Calc 33.2 Estimated GFR > 60 POC Glucose Random Glucose 127 H Lactic Acid 5.3 H* Lactic Acid F/U @ 2Hr Calcium 9.7 D Total Bilirubin 0.4 AST 42 H ALT 17 Alkaline Phosphatase 87 B-Natriuretic Peptide 341 H Total Protein 7.9 Albumin 3.8 Procalcitonin 0.95 Influenza Type A (PCR) POSITIVE A Influenza Type B (PCR) NEGATIVE RSV RNA Qual (PCR) NEGATIVE SARS-CoV-2 RNA (RT-PCR) NEGATIVE Blood Type A Positive Antibody Screen NEGATIVE 07/14/23 07/14/23 07/14/23 16:02 17:26 18:15 MCV 82.6 MCH 26.6 L MCHC 32.2 RDW 15.1 Plt Count 382 MPV 10.1 Immature Gran % (Auto) 0.9 H Neut % (Auto) 90.4 H Lymph % (Auto) 3.0 L Lipscomb % (Auto) 5.4 Eos % (Auto) 0.0 Baso % (Auto) 0.3 Lymph # (Auto) 0.4 L Lipscomb # (Auto) 0.6 Eos # (Auto) 0.0 Baso # (Auto) 0.0 Abs Immat Gran (auto) 0.11 H Absolute Neuts (auto) 10.5 H Absolute Nucleated RBC 0.000 Nucleated RBC % (auto) 0.0 Smear Tech's Comments VERIFIED PT INR APTT VBG pH 7.33 VBG pCO2 56 VBG pO2 33 VBG HCO3 30 H VBG O2 Saturation 44.0 VBG Base Excess 2.9 Anion Gap Estim Creat Clear Calc Estimated GFR POC Glucose Random Glucose Lactic Acid Lactic Acid F/U @ 2Hr 2.0 Calcium Total Bilirubin AST ALT Alkaline Phosphatase B-Natriuretic Peptide Total Protein Albumin Procalcitonin Influenza Type A (PCR) Influenza Type B (PCR) RSV RNA Qual (PCR) SARS-CoV-2 RNA (RT-PCR) Blood Type Antibody Screen 07/14/23 07/14/23 07/15/23 20:28 20:41 06:25 MCV 83.7 MCH 26.1 L MCHC 31.2 RDW 15.4 Plt Count 402 H MPV 10.3 Immature Gran % (Auto) 0.7 H Neut % (Auto) 88.3 H Lymph % (Auto) 6.8 L Lipscomb % (Auto) 3.9 Eos % (Auto) 0.0 Baso % (Auto) 0.3 Lymph # (Auto) 0.9 L Lipscomb # (Auto) 0.5 Eos # (Auto) 0.0 Baso # (Auto) 0.0 Abs Immat Gran (auto) 0.09 H Absolute Neuts (auto) 11.2 H Absolute Nucleated RBC 0.000 Nucleated RBC % (auto) 0.0 Smear Tech's Comments PT INR APTT VBG pH 7.37 VBG pCO2 44 VBG pO2 101 VBG HCO3 26 VBG O2 Saturation 98.0 VBG Base Excess 0.6 Anion Gap 15 Estim Creat Clear Calc 47.9 Estimated GFR > 60 POC Glucose 119 H Random Glucose 94 Lactic Acid Lactic Acid F/U @ 2Hr Calcium 8.6 D Total Bilirubin AST ALT Alkaline Phosphatase B-Natriuretic Peptide Total Protein Albumin Procalcitonin Influenza Type A (PCR) Influenza Type B (PCR) RSV RNA Qual (PCR) SARS-CoV-2 RNA (RT-PCR) Blood Type Antibody Screen Assessment and Plan (1) Influenza A: Status: Acute Plan 78F PMH copd, alzheimers dementia, htn presented with sob Viral sepsis and Acute hypoxic respiratory failure secondary to COPD with acute decompensation due to influenza a IV Solu-Medrol, DuoNebs, Tamiflu, wean O2 as tolerated Acute metabolic encephalopathy in the setting of Alzheimer's dementia Appears back to baseline Elevated troponin Likely due to flu, no evidence of ACS, change back to prophylactic dose Lovenox, follow-up echo Will defer cardio eval for now moderate protein calorie malnutrition encourage po intake Hypertension Holding lisinopril due to low normal blood pressures DVT prophylaxis with Lovenox DNR/DNI reason for continued hospitalization: hypxia Quality Stroke Does the patient have a stroke diagnosis?: No VTE Prior VTE?: No VTE Risk Level:: Medical - moderate - high VTE Device Contraindication: Treatment Not Indicated VTE Drug Contraindication: N/A - Med Ordered
--- NOTE | 2023-07-15 11:15 | PC.NURSE ---
Alert and oriented, denies pain, requesing to eat, provider aware and new order obtained
--- NOTE | 2023-07-15 13:36 | MHC.CM.PN ---
PATIENT STATES THAT SHE LIVES WITH HER DAUGHTER/HCP. HCP ON FILE AND VERIFIED. SHE STATES THAT SHE WAS NOT IN THE , BUT THAT HER LATE SPOUSE WAS MEDICARE AND [id number] FORMS SIGNED. COPIES PLACED IN PATIENT CHART. SHE IS UNABLE TO RECALL IF SHE HAS BEEN TO STR FACILITY AND PREFERS TO GO HOME AT DISCHARGE. SHE IS OPEN TO THE IDEA IF RECOMMENDED DC NEARS. PCP IS ELFEGO MCFARLAND, OF [facility], ASSOCIATED WITH [facility]. SHE USES A WALKER AND HAS NO VNA. DAUGHTER, ZORAIDA, IS AGREEABLE TO A REFERRAL TO [facility], WHERE SHE HAS BEEN IN THE PAST.
--- NOTE | 2023-07-15 14:48 | PC.NURSE ---
Report given to accepting unit
--- NOTE | 2023-07-15 17:32 | PC.NURSE ---
Pt arrived to unit at approximately 1525. At this time pt A&O to self and place. Pt is confused and needs to be redirected frequently. Pt was able to stand pivot to bed from stretcher. Pt 95% on 2L, LS dim in bases wheezes and rhonic noted throughout. Pt is inc of stool and urine. Abrasion to left and right buttock noted see skin care note, bilateral breasts have red yeasty rash skin cleansed with ph balance wipes, triad applied to buttocks. Wound care nurse consulted. All safety measures in place. Vital signs stable.
--- NOTE | 2023-07-15 17:40 | HO.SKINPHOTO ---
Location: left buttock Location: right buttock
[2023-07-16] VITALS (8 sets, daily range): BP systolic 119–142; BP diastolic 57–66; PULSE 68–109; RESP 18–20; TEMP 36.2–36.9; O2SAT 92–96
[2023-07-16 07:29] LABS: Anion Gap 13 (12-20); Blood Urea Nitrogen 22 mg/dL (9-16); Calcium 8.5 mg/dL (8.4-10.2); Carbon Dioxide 31 mmol/L (22-29); Chloride 102 mmol/L (96-108); Creatinine Clr Calc Pharmacy 53.3; Estimated Glomerular Filt Rate > 60; Glucose Fasting 101 mg/dL (60-99); Potassium 4.1 mmol/L (3.3-5.1); Sodium 142 mmol/L (135-145)
--- NOTE | 2023-07-16 10:21 | HO.PM.IMPN ---
Subjective Subjective Date of Service: 07/16/23 Interval History: feels well Physical Exam Vital Signs: Vital Signs: Last Vital Signs Temp 97.2 F 07/16/23 07:48 Pulse 68 07/16/23 09:21 Resp 18 07/16/23 09:21 BP 141/61 H 07/16/23 07:48 Pulse Ox 96 07/16/23 07:48 O2 Del Method Nasal Cannula 07/16/23 07:48 O2 Flow Rate 2 07/16/23 07:48 BMI result Body Mass Index 17.3 alert oriented to name and place, poor insight, lungs diminished Objective Data Active Medications Acetaminophen (Acetaminophen 325 Mg Tablet) 650 mg PO Q6H PRN PRN Reason: Pain, Mild (Pain Scale 1-3) Acetaminophen (Acetaminophen Supp 650 Mg Supp.Rect) 650 mg [place] Q6H PRN PRN Reason: Pain, Mild (Pain Scale 1-3) Albuterol/Ipratropium (Albuterol/Iprat 2.5/0.5mg 3 Ml Ampul.Neb) 3 ml INHALE Q4H PRN PRN Reason: Wheezing Albuterol/Ipratropium (Albuterol/Iprat 2.5/0.5mg 3 Ml Ampul.Neb) 3 ml INHALE RQ4H WHILE AWAKE [facility] Last Admin: 07/16/23 09:21 Dose: 3 ml Documented By: FERCHO Enoxaparin Sodium (Enoxaparin Sodium 40 Mg/0.4 Ml Syringe) 40 mg SUBCUT Q24H [facility] Last Admin: 07/16/23 07:21 Dose: 40 mg Documented By: MARTELL Melatonin (Melatonin 3 Mg Tablet) 6 mg PO BEDTIME PRN PRN Reason: Insomnia Methylprednisolone Sodium Succinate (Methylprednisolone Sod Succ 40 Mg/Ml Vial) 40 mg IVPUSH Q12H [facility] Last Admin: 07/16/23 07:21 Dose: 40 mg Documented By: MARTELL Ondansetron HCl (Ondansetron Hcl 4 Mg/2 Ml Vial) 4 mg IVPUSH Q8H PRN PRN Reason: Nausea and Vomiting Oseltamivir Phosphate (Oseltamivir Phosphate 30 Mg Capsule) 30 mg PO BID [facility] Stop: 07/19/23 09:01 Last Admin: 07/16/23 08:47 Dose: 30 mg Documented By: HO.GRAZIC Sodium Chloride (0.9 % Sodium Chloride Flush 3 Ml Syringe) 3 ml IVFLUSH QSHIFT [facility] Last Admin: 07/16/23 07:21 Dose: 3 ml Documented By: MARTELL Labs 07/16/23 05:51 07/16/23 05:51 Labs: Laboratory Results - last 24 hr 07/16/23 05:51 MCV 82.7 MCH 26.4 L MCHC 31.9 RDW 15.3 Plt Count 424 H MPV 10.0 Absolute Nucleated RBC 0.020 H Nucleated RBC % (auto) 0.2 Anion Gap 13 Estim Creat Clear Calc 53.3 Estimated GFR > 60 Fasting Glucose 101 H Calcium 8.5 Microbiology Microbiology Results: Microbiology 07/14/23 15:52 Blood Culture - Preliminary Blood - Venous No growth after 24 hours. 07/14/23 15:23 Blood Culture - Preliminary Blood - Venous No growth after 24 hours. Assessment and Plan (1) Influenza A: Status: Acute Plan 78F PMH copd, alzheimers dementia, htn presented with sob Viral sepsis and Acute hypoxic respiratory failure secondary to COPD with acute decompensation due to influenza a steroids, DuoNebs, Tamiflu, wean O2 as tolerated Acute metabolic encephalopathy in the setting of Alzheimer's dementia Appears back to baseline Elevated troponin Likely due to flu, no evidence of ACS, echo without WMA, does show severe pulm htn moderate protein calorie malnutrition encourage po intake Hypertension lisinopril debility pt eval DVT prophylaxis with Lovenox DNR/DNI reason for continued hospitalization: hypoxia, awaiting pt Quality Stroke Does the patient have a stroke diagnosis?: No VTE Prior VTE?: No VTE Risk Level:: Medical - moderate - high VTE Device Contraindication: Treatment Not Indicated VTE Drug Contraindication: N/A - Med Ordered
[2023-07-17] VITALS (8 sets, daily range): BP systolic 132–142; BP diastolic 62–65; PULSE 75–98; RESP 18–22; TEMP 36.1–36.6; O2SAT 85–95
--- NOTE | 2023-07-17 09:32 | HO.PM.IMPN ---
Subjective Subjective Date of Service: 07/17/23 Interval History: feeling better Physical Exam Vital Signs: Vital Signs: Last Vital Signs Temp 97.5 F 07/17/23 07:59 Pulse 80 07/17/23 08:22 Resp 18 07/17/23 08:22 BP 142/62 H 07/17/23 07:59 Pulse Ox 92 07/17/23 07:59 O2 Del Method Room Air 07/17/23 07:59 O2 Flow Rate 1 07/17/23 07:59 BMI result Body Mass Index 17.3 alert oriented to name and place, poor insight, lungs diminished Objective Data Active Medications Acetaminophen (Acetaminophen 325 Mg Tablet) 650 mg PO Q6H PRN PRN Reason: Pain, Mild (Pain Scale 1-3) Acetaminophen (Acetaminophen Supp 650 Mg Supp.Rect) 650 mg [place] Q6H PRN PRN Reason: Pain, Mild (Pain Scale 1-3) Albuterol/Ipratropium (Albuterol/Iprat 2.5/0.5mg 3 Ml Ampul.Neb) 3 ml INHALE Q4H PRN PRN Reason: Wheezing Albuterol/Ipratropium (Albuterol/Iprat 2.5/0.5mg 3 Ml Ampul.Neb) 3 ml INHALE RQ4H WHILE AWAKE [facility] Last Admin: 07/17/23 08:21 Dose: 3 ml Documented By: FERCHO Enoxaparin Sodium (Enoxaparin Sodium 40 Mg/0.4 Ml Syringe) 40 mg SUBCUT Q24H [facility] Last Admin: 07/17/23 08:52 Dose: 40 mg Documented By: MARTELL Lisinopril (Lisinopril 10 Mg Tablet) 10 mg PO DAILY [facility]; Protocol Last Admin: 07/17/23 08:52 Dose: 10 mg Documented By: MARTELL Melatonin (Melatonin 3 Mg Tablet) 6 mg PO BEDTIME PRN PRN Reason: Insomnia Methylprednisolone Sodium Succinate (Methylprednisolone Sod Succ 40 Mg/Ml Vial) 40 mg IVPUSH Q12H [facility] Last Admin: 07/17/23 06:22 Dose: 40 mg Documented By: RODNEY Ondansetron HCl (Ondansetron Hcl 4 Mg/2 Ml Vial) 4 mg IVPUSH Q8H PRN PRN Reason: Nausea and Vomiting Oseltamivir Phosphate (Oseltamivir Phosphate 30 Mg Capsule) 30 mg PO BID [facility] Stop: 07/19/23 09:01 Last Admin: 07/17/23 08:52 Dose: 30 mg Documented By: MARTELL Sodium Chloride (0.9 % Sodium Chloride Flush 3 Ml Syringe) 3 ml IVFLUSH QSHIFT [facility] Last Admin: 07/17/23 08:51 Dose: 3 ml Documented By: MARTELL Labs 07/16/23 05:51 07/16/23 05:51 Microbiology Microbiology Results: Microbiology 07/14/23 15:52 Blood Culture - Preliminary Blood - Venous No growth after 48 hours. 07/14/23 15:23 Blood Culture - Preliminary Blood - Venous No growth after 48 hours. Assessment and Plan (1) Influenza A: Status: Acute Plan 78F PMH copd, alzheimers dementia, htn presented with sob Viral sepsis and Acute hypoxic respiratory failure secondary to COPD with acute decompensation due to influenza a continues to improve continue steroids, DuoNebs, Tamiflu, wean O2 as tolerated Acute metabolic encephalopathy in the setting of Alzheimer's dementia Appears back to baseline Elevated troponin Likely due to flu, no evidence of ACS, echo without WMA, does show severe pulm htn moderate protein calorie malnutrition encourage po intake Hypertension lisinopril debility pt eval DVT prophylaxis with Lovenox DNR/DNI reason for continued hospitalization: hypoxia, awaiting pt Quality Stroke Does the patient have a stroke diagnosis?: No VTE Prior VTE?: No VTE Risk Level:: Medical - moderate - high VTE Device Contraindication: Treatment Not Indicated VTE Drug Contraindication: N/A - Med Ordered
[2023-07-18 04:00] VITALS: BP 140/62; PULSE 93; RESP 16; TEMP 36.2; O2SAT 93
[2023-07-18 07:47] VITALS: BP 166/74; PULSE 95; RESP 18; TEMP 36.6; O2SAT 91
[2023-07-18 07:50] VITALS: PULSE 89; RESP 18; O2SAT 91
--- NOTE | 2023-07-18 09:13 | HO.PM.IMPN ---
Subjective Subjective Date of Service: 07/18/23 Interval History: feeling better Physical Exam Vital Signs: Vital Signs: Last Vital Signs Temp 97.8 F 07/18/23 07:47 Pulse 89 07/18/23 07:50 Resp 18 07/18/23 07:50 BP 166/74 H 07/18/23 07:47 Pulse Ox 91 L 07/18/23 07:47 O2 Del Method Nasal Cannula 07/18/23 07:47 O2 Flow Rate 2 07/18/23 07:47 BMI result Body Mass Index 17.3 alert oriented to name and place, poor insight, lungs diminished Objective Data Active Medications Acetaminophen (Acetaminophen 325 Mg Tablet) 650 mg PO Q6H PRN PRN Reason: Pain, Mild (Pain Scale 1-3) Acetaminophen (Acetaminophen Supp 650 Mg Supp.Rect) 650 mg [place] Q6H PRN PRN Reason: Pain, Mild (Pain Scale 1-3) Albuterol/Ipratropium (Albuterol/Iprat 2.5/0.5mg 3 Ml Ampul.Neb) 3 ml INHALE Q4H PRN PRN Reason: Wheezing Albuterol/Ipratropium (Albuterol/Iprat 2.5/0.5mg 3 Ml Ampul.Neb) 3 ml INHALE RQ4H WHILE AWAKE [facility] Last Admin: 07/18/23 07:49 Dose: 3 ml Documented By: CLIVE Enoxaparin Sodium (Enoxaparin Sodium 40 Mg/0.4 Ml Syringe) 40 mg SUBCUT Q24H [facility] Last Admin: 07/18/23 08:54 Dose: 40 mg Documented By: MARISEL Lisinopril (Lisinopril 10 Mg Tablet) 10 mg PO DAILY [facility]; Protocol Last Admin: 07/18/23 08:55 Dose: 10 mg Documented By: MARISEL Melatonin (Melatonin 3 Mg Tablet) 6 mg PO BEDTIME PRN PRN Reason: Insomnia Methylprednisolone Sodium Succinate (Methylprednisolone Sod Succ 40 Mg/Ml Vial) 40 mg IVPUSH Q12H [facility] Last Admin: 07/18/23 06:07 Dose: 40 mg Documented By: RODNEY Ondansetron HCl (Ondansetron Hcl 4 Mg/2 Ml Vial) 4 mg IVPUSH Q8H PRN PRN Reason: Nausea and Vomiting Oseltamivir Phosphate (Oseltamivir Phosphate 30 Mg Capsule) 30 mg PO BID [facility] Stop: 07/19/23 09:01 Last Admin: 07/18/23 08:55 Dose: 30 mg Documented By: MARISEL Sodium Chloride (0.9 % Sodium Chloride Flush 3 Ml Syringe) 3 ml IVFLUSH QSHIFT [facility] Last Admin: 07/18/23 08:54 Dose: 3 ml Documented By: MARISEL Labs 07/16/23 05:51 07/16/23 05:51 Assessment and Plan (1) Influenza A: Status: Acute Plan 78F PMH copd, alzheimers dementia, htn presented with sob Viral sepsis and Acute hypoxic respiratory failure secondary to COPD with acute decompensation due to influenza a continues to improve continue steroids, DuoNebs, Tamiflu, wean O2 as tolerated Acute metabolic encephalopathy in the setting of Alzheimer's dementia Appears back to baseline Elevated troponin Likely due to flu, no evidence of ACS, echo without WMA, does show severe pulm htn moderate protein calorie malnutrition encourage po intake Hypertension lisinopril debility pt eval DVT prophylaxis with Lovenox DNR/DNI reason for continued hospitalization: awaiting pt Quality Stroke Does the patient have a stroke diagnosis?: No VTE Prior VTE?: No VTE Risk Level:: Medical - moderate - high VTE Device Contraindication: Treatment Not Indicated VTE Drug Contraindication: N/A - Med Ordered
[2023-07-18 11:23] VITALS: BMI 17.3
--- NOTE | 2023-07-18 11:35 | MHC.CLN ---
NUTRITION DIET=REGULAR. STATED, I'M NOT A BIG EATER . HAD BITES ONLY OF MONGOLIAN TOAST THIS AM. PATIENT IS UNDERWEIGHT (BMI=17.3) BUT DOES NOT QUALIFY MALNOURISHED. FOLLOW FOR PO INTAKE. CONSIDER NUTRITIONAL SUPPLEMENT IF PO POOR.
[2023-07-18 11:45] VITALS: RESP 18
--- NOTE | 2023-07-18 11:51 | PM.DS ---
DS: Providers Provider Date of Service: 07/18/23 Date of admission: 07/14/23 19:20 Primary care physician: Stiven Galeano MD Consults: 07/15/23 15:31 Consult to Wound Care Routine Reason for consultation: altered skin integrity left and right buttock. Bilateral breast rash DS: Diagnosis Discharge Diagnosis (1) Influenza A: Status: Acute DS: Summary Hospital Course Hospital Course: from initial hpi: 78-year-old female with pertinent history of COPD not on home oxygen, essential hypertension, Alzheimer's dementia who was brought to the emergency department for evaluation of dyspnea. Patient is a poor historian and does not know why she is in the hospital. She is very lethargic. Unable to obtain history of review of systems. History obtained from ER provider and chart review. Apparently family states that patient is not on any home prescription medications. Patient does endorse dyspnea, on no evaluation. In the emergency department, patient was found to be hypoxemic and placed on supplemental oxygen. She tested positive for influenza A. hospital course: Patient was admitted for viral sepsis and acute hypoxic respiratory failure secondary to COPD with acute decompensation due to influenza a. She was treated with steroids, bronchodilators, Tamiflu. Her oxygen was weaned, her symptoms resolved. Was also complicated by acute metabolic encephalopathy in the setting of Alzheimer's dementia, she returned to her baseline. She was initially noted to have elevated troponin, likely due to flu there was no evidence of acute coronary syndrome and echo did not show any wall motion abnormality, she did show severe pulmonary hypertension. Patient does have moderate protein calorie malnutrition and p.o. intake is encouraged. For hypertension she was continued on lisinopril. For debility was seen by physical therapy recommended short-term rehab. Patient [facility] be discharged [facility] and will continue 5 more days of prednisone. Time Attestation Discharge coordination time: Greater than 30 minutes Quality: Safe Use of Opioids Does Pt have an Active Cancer Diagnosis on the Problem List?: No Quality: Stroke Does the patient have a stroke diagnosis?: No Physical Exam Vital Signs: Vital Signs: Last Vital Signs Temp 97.8 F 07/18/23 07:47 Pulse 89 07/18/23 07:50 Resp 18 07/18/23 11:45 BP 166/74 H 07/18/23 07:47 Pulse Ox 91 L 07/18/23 07:47 O2 Del Method Nasal Cannula 07/18/23 07:47 O2 Flow Rate 2 07/18/23 07:47 BMI result Body Mass Index 17.3 alert oriented to name and place, poor insight, lungs diminished DS: Data Data Completed and Pending Completed studies during hospitalization [Text1]: Procedures Assistance with Respiratory Ventilation, Less than 24 Consecutive Hours, Continuous Positive Airway Pressure (06/14/22) Introduction of Remdesivir Anti-infective into Peripheral Vein, Percutaneous Approach, [employer] (10/21/21) Labs on day of discharge: Preliminary micro results at discharge 07/14/23 15:52 Blood Culture - Preliminary Blood - Venous No growth after 48 hours. 07/14/23 15:23 Blood Culture - Preliminary Blood - Venous No growth after 48 hours. Discharge Plan Discharge Anticipated Discharge Date/Time: 07/18/23 11:49 Patient Disposition: Xfer [facility] Discharge Diagnosis: flu Referrals: Stiven Galeano MD [Primary Care Provider] - 1 Week Discharge Medications: New prednisone 20 mg tablet 40 mg PO DAILY Qty: 10 0RF Continued lisinopril 10 mg tablet 10 mg PO DAILY albuterol sulfate 90 mcg/actuation HFA aerosol inhaler 2 puff inhalation Q4H PRN (Reason: Wheezing) Discharge Orders: Discharge Order (Routine); Ordered 07/18/23 Ordered By: Chuy Mcclellan Diet: Advance to usual diet Activity on Discharge: As tolerated Stand Alone Forms: Patient Portal Discharge page Care Plan Goals: recovery Health Concerns: flu Plan of Treatment: prednisone, rehab Assessment: see above
--- NOTE | 2023-07-18 13:18 | MHC.CM.PN ---
Addendum entered by Dian Martinez 07/18/23 14:59: TRANSPORT BOOKED FOR 1500 VIA TL PTS DAUGHTER INFORMED VIA T/C Original Note: PT CLEARED TO DC TO [facility] TODAY [facility] HAS CONFIRMED THEY CAN TAKE HER, HOWEVER SHE WILL HAVE TO USE A COMMODE IN THE ROOM UNTIL TOMORROW WHEN THEY ARE ABLE TO MAKE ROOM CHANGES. CM CALLED PTS DAUGHTER, ZORAIDA [phone] AND INFORMED HER OF THE POTENTIAL DC AND MESSAGE FROM [facility] SHE REPORTS THAT WOULD BE FINE FOR THE EVENING SHE SAYS HER MOTHER WANTED TO DC HOME HOWEVER THAT IS NOT SAFE THE PT IS UNABLE TO WALK ON HER OWN RIGHT NOW ZORAIDA IS AWARE PT WILL DC LATER TODAY, CM WILL CALL HER ONCE A DEFINITE DC TIME IS ESTABLISHED
[2023-07-18 14:36] VITALS: O2SAT 91
== END 2023-07-18 14:57 | disposition skilled nursing facility (03) | DRG 871 ==
LOC: HO.ED 17:06 → HO.EDOVER 19:36 → HO.S3 07-15 14:35
PROVIDERS: Admitting Provider Student in an Organized Health Care Education/Training Program; Emergency Provider Emergency Medicine; PCP Internal Medicine; Visit Provider Internal Medicine
DX: A41.89 Other specified sepsis (principal); G93.41 Metabolic encephalopathy; J96.01 Acute respiratory failure with hypoxia; J44.1 Chronic obstructive pulmonary disease with (acute) exacerbation; E44.0 Moderate protein-calorie malnutrition; Z68.1 Body mass index [BMI] 19.9 or less, adult; E87.21 Acute metabolic acidosis; Z66 Do not resuscitate; R53.81 Other malaise; J10.1 Influenza due to other identified influenza virus with other respiratory manifestations; G30.9 Alzheimer's disease, unspecified; F02.80 Dementia in other diseases classified elsewhere, unspecified severity, without behavioral disturbance, psychotic disturbance, mood disturbance, and anxiety; Z87.891 Personal history of nicotine dependence; Z79.899 Other long term (current) drug therapy
CPT/HCPCS: 0241U; 36415; 70450; 71045; 72125; 80048; 80053; 82803; 82947; 83605; 83880; 84145; 84484; 85025; 85027; 85610; 85730; 86850; 86900; 86901; 87040; 93005; 93306; 94640; 97162; 99285; J0456; J0696; J1650; J2920; J2930; Q9957

== ENCOUNTER → 2023-07-14 15:20 | Outpatient (BNV) | payer MEDICARE, OTHER, SELFPAY | PROVIDERS: Emergency Provider Emergency Medicine; Visit Provider Student in an Organized Health Care Education/Training Program | DX: J10.1 Influenza due to other identified influenza virus with other respiratory manifestations (principal); G93.41 Metabolic encephalopathy; G30.9 Alzheimer's disease, unspecified | CPT/HCPCS: 99223; 99231; 99232 ==

== ENCOUNTER → 2023-07-14 15:28 | Outpatient (BNV) | payer MEDICARE, OTHER, SELFPAY | PROVIDERS: Admitting Provider Student in an Organized Health Care Education/Training Program; Emergency Provider Emergency Medicine; Visit Provider Internal Medicine Cardiovascular Disease | DX: R00.0 Tachycardia, unspecified (principal) | CPT/HCPCS: 93010 ==

== ENCOUNTER 2023-07-14 19:20 | Outpatient (BNV) | payer MEDICARE, OTHER, SELFPAY | END 2023-07-15 07:00 | PROVIDERS: Admitting Provider Student in an Organized Health Care Education/Training Program; Emergency Provider Emergency Medicine; Visit Provider Internal Medicine Cardiovascular Disease | DX: I36.1 Nonrheumatic tricuspid (valve) insufficiency (principal) | CPT/HCPCS: 93306 ==

== ENCOUNTER 2024-08-03 11:23 | Outpatient (REF) | payer MEDICARE, OTHER, SELFPAY ==
--- NOTE | ~2024-08-03 | XR_ITS ---
EXAMINATION: XR KNEE, LEFT CLINICAL INFORMATION: M25.562 - Pain in left knee ; no further information provided. COMPARISON: None available. Correlation with left femur x-rays 11/26/2019. TECHNIQUE: Three views of the left knee. FINDINGS: There is diffuse osteopenia. No fracture, dislocation, or suspicious bone lesion. Mild lateral compartment and mild to moderate medial and patellofemoral compartment joint space narrowing with small marginal osteophytic spurs. Evaluation for effusion is limited due to obliquity on the lateral projection. No gross effusion seen. Soft tissues appear normal aside from vascular calcifications. XR/XR knee LT 4V IMPRESSION: 1. Osteopenia. No acute bony abnormalities. 2. Mild to moderate osteoarthritic changes most significant lateral compartment. 3. Limited evaluation for joint effusion. No gross effusion seen. Electronically signed by: Fortunato Caba MD 08/03/2024 01:19 PM DAVID LYON
--- OUTSIDE RECORDS SUMMARY | 2024-08-03 14:36 | XMS_ITS | Clinical Summary ---
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
--- OUTSIDE RECORDS SUMMARY | 2024-08-03 14:36 | XMS_ITS | Clinical Summary ---
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
== END 2024-08-03 11:24 | disposition home or self-care (01) ==
LOC: HO.HMGCX 11:23
PROVIDERS: PCP Internal Medicine; Visit Provider Physician Assistant
DX: M25.562 Pain in left knee (principal); M85.862 Other specified disorders of bone density and structure, left lower leg; M17.12 Unilateral primary osteoarthritis, left knee
CPT/HCPCS: 73564; 99202

== ENCOUNTER 2024-08-03 11:23 | Outpatient (AMB) | payer MEDICARE, OTHER, SELFPAY ==
--- NOTE | 2024-08-03 12:02 | AM.OFFWIN_ITS ---
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 Patient Tobacco Use Status: Former Tobacco user Allergies scallops Adverse Reaction (Unknown, Verified 10/20/21 22:29) NAUSEA & VOMITING Do you need a note to return to daycare/school/sports/work: No HPI HPI Comments History of Present Illness Details 1240 79 year old female presents w/ left knee pain s/p trip and fall when walking with her walker. Reports she tripped on the rug and she landed on her knees b/l L>R. No headstrike or LOC. Reports pain worse w/ movment better at rest. No other trauma reported. Not on thinners. Only knee pain. Here with daughter. PE slight left knee effusion normal sensation distally b/l. Hx and pe concerning for contusion of left knee vs sprain or strain. Unlikely fx, dislocation, nv compromise or threat to limb. Plan- xray left knee pain PFSH Medical History COPD (chronic obstructive pulmonary disease) Surgical History History of hip replacement Social History Household Members: Children Household Members Other:: daughter son in law Housing: House Do you presently have visiting nurse or other home services: No Unable to assess alcohol history related to: Unknown Alcohol intake: current Alcohol intake frequency: holidays/special occasions only Patient Tobacco Use Status: Former Tobacco user Tobacco use type: Cigarette Cigarettes Per Day: 4 Second Hand Smoke Exposure: No Advance Directives Date on File: 08/29/20 service: No Current occupational status: retired Review of Systems Const All systems reviewed & are unremarkable except as noted in HPI and below Physical Exam Vital Signs: Last Vital Signs BP 104/72 08/03/24 12:07 vss Appearance: Alert.? Oriented X3.? No acute distress.? Head: Normocephalic, atraumatic, no step-offs or deformities Eyes: Pupils equal, round and reactive to light.? Neck: Normal inspection.? Neck supple.? CVS: Normal heart rate and rhythm.? Pulses normal.? Respiratory: No respiratory distress.? Breath sounds normal.? Abdomen: Soft and nontender.? Skin: Skin warm and dry.? Normal skin color.? Normal skin turgor.? Extremities: No lower extremity edema.? No calf ttp. 5/5 strength to bilateral upper and lower extremities 2+ DP,AT,PT, popliteal pulses equal and b/l. TTP over left patella w/ mild effusion. No abrasions, lacs noted. Normal distal sensation. Back: No midline tenderness, no C-spine tenderness, full range of motion, no CVA tenderness bilaterally Neuro: Oriented X 3.? No motor deficit.? No sensory deficit. CN 2-12 intact Assessment & Plan Assessment & Plan (1) Left knee pain: Code(s): M25.562 - Pain in left knee (2) Acute pain of left knee: Code(s): M25.562 - Pain in left knee (3) Effusion, left knee: Code(s): M25.462 - Effusion, left knee Plan Take your medications as prescribed. If you were prescribed antibiotics today, it is important that you take your medication to their entirety, do not skip any doses, do not finish them early. Follow-up with your primary care provider this week. Return to the emergency department with new or worsening symptoms. In case of emergency call 911 Orders: Orders XR knee LT 3V Today M25.562 - Pain in left knee Medications: New meloxicam 7.5 mg PO DAILY 14 tabs 0RF Coding Level of Care Code New Pt Level 3 (63744) Diagnoses Left knee pain M25.562 Acute pain of left knee M25.562 Effusion, left knee M25.462
[2024-08-03 12:07] VITALS: BP 104/72
--- OUTSIDE RECORDS SUMMARY | 2024-08-03 13:31 | XMS_ITS | Clinical Summary ---
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 Name Role Phone Unavailable Primary Care Provider Unavailabl e Social History Tobacco Use Types Packs/Day Years Used Date Smoking Tobacco: Never Assessed Sex and Gender Information Value Date Recorded Sex Assigned at Not on file Gender Identity Not on file Sexual Orientation Not on file Plan of Treatment Health Maintenance Due Date Last Done Comments DTaP,Tdap,and Td Vaccines (1 - Tdap) 1962 Zoster Vaccines (1 of 2) 1993 Pneumococcal Vaccine: 65+ Ye ars (1 of 1 - PCV) 2008 RSV Immunization Patients 60 + Years Old (1 - 1-dose 75+ series) 2018 COVID-19 Vaccine ( - 2023-2 5 season) 2024 Influenza Vaccine (#1) 2024 HIB Vaccines Aged Out No longer eligi ble based on patient's age to complete this topic HPV Vaccines Aged Out No longer eligi ble based on patient's age to complete this topic Hepatitis A Vaccines Aged Out No long er eligible based on patient's age to complete this topic Hepatitis B Vaccines Aged Out No long er eligible based on patient's age to complete this topic IPV Vaccines Aged Out No longer eligi ble based on patient's age to complete this topic MMR Vaccines Aged Out No longer eligi ble based on patient's age to complete this topic Meningococcal ACWY Vaccine Aged Out N o longer eligible based on patient's age to complete this topic RSV Immunization Patients Un hayley 20 months Aged Out No longer eligible b ased on patient's age to complete this topic Varicella Vaccines Aged Out No longer eligible based on patient's age to complete this topic Advance Directives Documents on File Type Date Recorded Patient Health And Safety Technician Expl anation Health Care Decision (hx) 12/12/2019 AD MARKHAM DIRECTIVE
--- OUTSIDE RECORDS SUMMARY | 2024-08-03 13:31 | XMS_ITS | Clinical Summary ---
Author Organization [facility] Facility Address [address] [place] [id number] Care Team Providers Care Skate Hop Name Role Phone Unavailable Primary Care Provider Unavailabl e Social History Tobacco Use Types Packs/Day Years Used Date Smoking Tobacco: Never Assessed Comments Unknown Sex and Gender Information Value Date Recorded Sex Assigned at Not on file Legal Sex Female 8:35 AM EST Gender Identity Not on file Sexual Orientation Not on file Plan of Treatment Health Maintenance Due Date Last Done Comments Pneumococcal Vaccine: 65+ Ye ars (1 of 2 - PCV) 1949 Influenza Vaccine (#1) 2024 Hepatitis B Vaccine Aged Out No longe r eligible based on patient's age to complete this topic Insurance MEDICARE [employer]
== END 2024-08-03 12:44 | disposition home or self-care (01) ==
PROVIDERS: PCP Internal Medicine; Visit Provider Physician Assistant
DX: M25.562 Pain in left knee (principal); M25.462 Effusion, left knee